=== PATIENT | female | born 1940 | race Caucasian/White ===

== ENCOUNTER 2018-07-17 18:09 | Emergency (ER) | payer MEDICARE, BC, SELFPAY ==
[2018-07-17 18:30] VITALS: BP 146/62; PULSE 58; RESP 16; TEMP 36.8; O2SAT 96
--- NOTE | 2018-07-17 19:31 | DI.RAD_ITS ---
SYMPTOM/DIAGNOSIS: FELL ON OUTSTRETCHED HAND, PAIN RIGHT WRIST: An impacted distal radial fracture is demonstrated with apex dorsal angulation. Intra-articular extension is not definitely seen but is likely present at the radial carpal joint. The possibility of a dislocation of the ulna at the distal radial ulnar joint with posterior medial protrusion of the ulna is raised. There is diffuse osteopenia and scattered degenerative changes involving the wrist and hand. SUMMARY: Distal radial fracture as described above. Probable dislocation of the distal radial ulnar joint.
--- NOTE | 2018-07-17 19:34 | ED.GENADUL_ITS ---
Discharge Plan Disposition Patient Disposition: HOME Condition: Fair Discharge Details Chief Complaint: Orthopedic Clinical Impression: Displaced fracture of distal end of radius Primary Care Provider: Emily Lucio ED Provider: Meena Adame Home Meds and New Rx's Prescriptions: Continue acetaminophen [Tylenol] 325 MG tablet 650 mg PO Q6H PRN RF: 0 methotrexate sodium 2.5 MG tablet 2.5 mg PO 8 tabs per week RF: 0 naproxen sodium [Aleve] 220 MG tablet 220 mg PO BID PRNRF: 0 aspirin [Aspirin Low-Strength] 81 MG tablet,chewable 81 mg PO DAILY RF: 0 folic acid 1 MG tablet 1 mg PO DAILY RF: 0 hydroxychloroquine 200 MG tablet 200 mg PO HS RF: 0 cholecalciferol (vitamin D3) 2,000 UNIT tablet 2,000 unit PO DAILY RF: 0 amoxicillin 500 MG capsule 500 mg PO #4 predental RF: 0 fluticasone [Flonase Allergy Relief] 9.9 ML spray,suspension 9.9 ml NS DAILY PRNRF: 0 calcium carbonate [Calcium 500] 500 MG tablet 2 tab PO DAILY RF: 0 losartan 25 MG tablet 25 mg PO DAILY RF: 0 metoprolol succinate 25 MG tablet extended release 24 hr 25 mg PO DAILY RF: 0 methimazole 5 MG tablet 5 mg PO DAILY RF: 0 zoledronic tkhl-kvvknziz-lxcmv [Reclast] 5 MG/100 ML piggyback 5 mg IV YEARLY RF: 0 diclofenac sodium 25 MG tablet,delayed release (DR/EC) 25 mg PO RF: 0 turmeric root extract 1 EACH capsule 1 ea PO DAILY RF: 0 PROVENTIL HFA 18 GM HFA.AER.AD 2 puff Inhalation Q4H PRN RF: 0 omeprazole magnesium [Prilosec OTC] 20 MG tablet,delayed release (DR/EC) 20 mg PO DIRECTED RF: 0 Discharge Instructions Instructions: Wrist Fracture in Adults (ED) Additional Instructions: Encourage rest, ice, elevation. Tylenol and/or ibuprofen as needed for discomfort. Please follow-up with orthopedics, please call office tomorrow to schedule appointment. Keep Splint on until evaluated by orthopedics. When you discuss your current symptoms with orthopedics to schedule appointment, please let them know that this fracture is 2 weeks old. Referrals: Jero Olsen MD [ [facility] STAFF PHYSICIAN] - ([phone]) Discharge Data Discharge Date/Time-TO BE ENTERED AT DEPARTURE: 07/17/18 21:50 Medical Decision Making MDM Narrative Medical decision making narrative: X-ray reviewed by radiologist. Advised that there is a distal radius fracture with displaced overriding apex dorsal angulation. The intra-articular extension is not definitive we identified but likely is present at the radiocarpal joint. Findings are suggestive of possible dislocation of the distal ulna at the distal radial ulnar joint with posterior and medial protrusion of the distal ulna. There is diffuse osteopenia scattered degenerative changes in the wrist and hand. Advised overall impression is overriding distal radius fracture with probable dislocation of the distal radial ulnar joint. Discussed findings with the patient. She was fitted with a plaster splint. She tolerated application of splint well. She continues to have good range of motion of the digits and brisk capillary refill, sensation intact after application of splint at this point, she is 2 weeks out, I did not feel comfortable trying to reduce her. Rather, I feel she should follow-up with orthopedics in the office. Encouraged rest, ice, elevation. Tylenol and/or ibuprofen as needed for discomfort. Advised that she seek care urgently if she develop new or worsening symptoms. Will give her contact information for orthopedics. To keep splint on until evaluated by orthopedics. All of her questions and concerns were addressed and she is in agreement with this plan. HPI - General Adult General Mode of arrival: ambulatory . Date/Time Provider Initiated Documentation: 07/17/18 19:21 . Limitations to Documentation: no limitations . Information obtained by: patient . HPI Narrative: Patient is a 77-year-old cibee-gyjv-dwwyzoew female presenting today with chief complaint of right wrist pain. She reports that she fell on her outstretched right hand 2 weeks ago after slipping in the grass. Denies other injury at the time of the incident. Did not strike her head, no loss of consciousness. Reports that she was seen by her stock sheets cleaner inspector today who advised that she have her right wrist evaluated. Presents to the emergency room for persistent pain. Has not been taking anything to help with her discomfort. She denies any numbness or tingling, no opening in the skin. Indicates the radial aspect of the wrist as point of maximal discomfort Related Data Home Medications Medication Instructions Recorded Confirmed acetaminophen [Tylenol] 650 mg PO Q6H PRN tab-cap 01/18/13 07/19/18 aspirin [Aspirin Low-Strength] 81 mg PO DAILY tab-cap 01/18/13 07/19/18 cholecalciferol (vitamin D3) 2,000 unit PO DAILY 01/18/13 07/19/18 folic acid 1 mg PO DAILY tab-cap 01/18/13 07/19/18 hydroxychloroquine 200 mg PO HS tab-cap 01/18/13 07/19/18 methotrexate sodium 2.5 mg PO 8 tabs per week 01/18/13 07/19/18 naproxen sodium [Aleve] 220 mg PO BID PRN 01/18/13 07/19/18 amoxicillin 500 mg PO #4 predental tab-cap 10/27/15 07/19/18 fluticasone [Flonase Allergy 9.9 ml NS DAILY PRN 10/27/15 07/19/18 Relief] calcium carbonate [Calcium 500] 2 tab PO DAILY tab-cap 03/18/16 07/19/18 losartan 25 mg PO DAILY tab-cap 03/18/16 07/19/18 methimazole 5 mg PO DAILY tab-cap 03/18/16 07/19/18 metoprolol succinate 25 mg PO DAILY tab-cap 03/18/16 07/19/18 zoledronic qtwm-wypkvkpw-ndteh 5 mg IV YEARLY infus.set 03/18/16 07/19/18 [Reclast] Proventil Hfa 2 puff INHALATION Q4H PRN inhaler 03/06/18 07/19/18 NS diclofenac sodium 25 mg PO NS 03/06/18 07/19/18 turmeric root extract 1 ea PO DAILY NS 03/06/18 07/19/18 omeprazole magnesium [Prilosec OTC] 20 mg PO DIRECTED 03/17/18 07/19/18 Allergies Allergy/AdvReac Type Severity Reaction Status Date / Time sulfasalazine AdvReac Intermediate Lupus Type Unverified 07/17/18 18:32 Symptoms General Stated Complaint: Orthopedic DEIRDRE: 4 Review of Systems Constitutional Reports as per HPI, Denies chills, Denies fever(s) and Denies weakness Cardiovascular Denies chest pain Respiratory Denies cough Musculoskeletal Reports as per HPI and Denies tingling Integumentary/Breasts Denies non-healing lesions, Denies erythema, Denies rash and Denies skin swelling Neurologic Denies tingling, Denies paresthesias and Denies weakness PFSH Family History Mother Asthma Father No problems noted. Sister No problems noted. Sister No problems noted. Brother No problems noted. Medical History Bigeminy Bilateral hearing loss CAD (coronary artery disease) COPD (chronic obstructive pulmonary disease) Chronic obstructive lung disease Colitis Hearing loss History of hypertension History of tobacco use Hyperthyroidism Mitral valve disease Osteopenia Osteoporosis Rheumatoid arthritis Rhinitis Ulcerative colitis Social History Smoking/Tobacco Use Status: Former Tobacco Use Surgical History Colonoscopy - IV Sedation (~2008) Colonoscopy - MAC (03/22/18) Exam Const General: cooperative, healthy appearing, comfortable, no acute distress and well developed Orientation: alert and awake Eyes General: appearance normal, both eyes and all related structures Resp Effort & Inspection: normal respiratory effort, able to speak in complete sentences and no respiratory distress Skin General skin exam: no rashes or lesions noted, no ecchymosis and no erythema Lesions: no lesions Rashes: no rashes Trauma: no lacerations or abrasions Wounds: no wounds Nails: normal Neuro General: alert, awake and oriented x3 Cognition: normal cognition Speech: speech normal Gait: normal gait Motor: muscle tone normal throughout Sensory Exam: no sensory deficits noted Extrem General: abnormal to inspection, normal capillary refill and no joint enlargement Psych Appearance: grossly normal and well kempt Mental Status: mental status grossly normal Speech and Movement: speech and movement normal Mood: congruent mood Affect: normal affect Course Vital Signs Temperature 36.8 C 07/17/18 18:30 Pulse 58 L 07/17/18 18:30 Respiratory Rate 16 07/17/18 18:30 Blood Pressure 146/62 H 07/17/18 18:30 Pulse Oximetry 96 07/17/18 18:30 Temperature 36.8 C 07/17/18 18:30 Pulse 58 L 07/17/18 18:30 Respiratory Rate 16 07/17/18 18:30 Blood Pressure 146/62 H 07/17/18 18:30 Pulse Oximetry 96 07/17/18 18:30
--- NOTE | 2018-07-17 21:16 | DI.VRAD_ITS ---
EXAM: XR Right Wrist Complete, 3 or more Views EXAM DATE/TIME: 07/17/2018 7:32 PM CLINICAL HISTORY: 77 years old, female; Pain; Wrist; Right; Patient HX: Per PT: Fell on wrist about 2 weeks ago, foosh TECHNIQUE: XR Right wrist 3 or more views. COMPARISON: No relevant prior studies available. FINDINGS: Bones/joints: There is a distal radius fracture which displays overriding and apex dorsal angulation. Intra-articular extension is not definitely identified, but likely is present at the radiocarpal joint. Findings are also suggestive of possible dislocation of the distal ulna at the distal radial ulnar joint with posterior and medial protrusion of the distal ulna. There is diffuse osteopenia and scattered degenerative changes of the wrist and hand. IMPRESSION: 1. Overriding distal radius fracture. 2. Probable dislocation of the distal radial ulnar joint. Dictated and Authenticated by: Christiano Franco MD. Ordering:NICOLE CARDOZO MD
== END 2018-07-17 21:50 | disposition home or self-care (01) ==
PROVIDERS: Emergency Provider Physician Assistant; PCP Family Medicine
DX: S52.501A Unspecified fracture of the lower end of right radius, initial encounter for closed fracture (principal); W01.0XXA Fall on same level from slipping, tripping and stumbling without subsequent striking against object, initial encounter; I10 Essential (primary) hypertension; J44.9 Chronic obstructive pulmonary disease, unspecified; Z87.891 Personal history of nicotine dependence
CPT/HCPCS: 29125; 99284; 73110

== ENCOUNTER 2018-07-18 13:15 | Outpatient (CLI) | payer MEDICARE, BC, SELFPAY ==
[2018-07-18 14:24] LABS: HGB 14.1 g/dL (12.0-15.5)
[2018-07-18 15:41] LABS: ALT 15 U/L (12-78); AST 25 U/L (15-37); Albumin 3.7 g/dL (3.4-5.0); Alkaline Phosphatase 107 U/L (46-116); Anion Gap 4.8 mmol/L (3-11); BUN 28 mg/dL (7-18); Bilirubin, Total 0.6 mg/dL (0.2-1.0); CO2 31.2 mmol/L (21.0-32.0); CREATININE 0.86 mg/dL (0.55-1.02); Calcium 8.7 mg/dL (8.5-10.1); Chloride 110 mmol/L (98-107); Glucose 126 mg/dL (70-100); Potassium 4.3 mmol/L (3.5-5.1); Sodium 146 mmol/L (136-145); Total Protein 6.6 g/dL (6.4-8.2)
== END 2018-07-18 13:35 ==
PROVIDERS: PCP Family Medicine; Visit Provider Nurse Practitioner Family
DX: M06.9 Rheumatoid arthritis, unspecified (principal); Z79.899 Other long term (current) drug therapy; Z51.81 Encounter for therapeutic drug level monitoring
CPT/HCPCS: 36415; 80053; 85014; 85018

== ENCOUNTER → 2018-07-19 10:33 | Outpatient (BNVA) | payer MEDICARE, BC, SELFPAY | PROVIDERS: PCP Family Medicine; Referring Provider Family Medicine; Visit Provider Orthopaedic Surgery | DX: S52.501A Unspecified fracture of the lower end of right radius, initial encounter for closed fracture (principal); W01.0XXA Fall on same level from slipping, tripping and stumbling without subsequent striking against object, initial encounter | CPT/HCPCS: 99202; 99214 ==

== ENCOUNTER 2018-07-19 11:10 | Day surgery (SDC) | payer MEDICARE, BC, SELFPAY ==
[2018-07-19 11:35] VITALS: BP 130/63; PULSE 50; RESP 16; TEMP 36.6; O2SAT 98
--- NOTE | 2018-07-19 12:24 | DI.RAD_ITS ---
SYMPTOMS/DIAGNOSIS: DISTAL RADIUS FRACTURE C-ARM FLUOROSCOPY, RIGHT WRIST: Fluoroscopy Time: 22.2 sec C-arm fluoroscopy was utilized by Dr. Olsen during apparent closed reduction of a fracture of the distal radius. Hard copies show improved alignment in comparison with films of 07/17/2018.
[2018-07-19] MEDS: Lactated Ringers 1,000 ML 30 ML IV (12:29)
[2018-07-19] MEDS: Bupivacaine 0.5% Pres-Free 30 ML VIAL (12:46)
--- NOTE | 2018-07-19 15:00 | W.PM.DSUDISC ---
Discharge Plan Disposition Patient Disposition: HOME Condition: Good Discharge Details Reason For Visit: FX DISTAL RADIUS (R) Attending Provider: Jero Olsen Primary Care Provider: Emily Lucio Home Meds and New Rx's Prescriptions: New hydrocodone-acetaminophen 5-325 mg tablet 1 tab PO Q6H PRN (Reason: pain) Qty: 10 RF: 0 Continue acetaminophen [Tylenol] 325 MG tablet 650 mg PO Q6H PRN RF: 0 methotrexate sodium 2.5 MG tablet 2.5 mg PO 8 tabs per week RF: 0 naproxen sodium [Aleve] 220 MG tablet 220 mg PO BID PRNRF: 0 aspirin [Aspirin Low-Strength] 81 MG tablet,chewable 81 mg PO DAILY RF: 0 folic acid 1 MG tablet 1 mg PO DAILY RF: 0 hydroxychloroquine 200 MG tablet 200 mg PO HS RF: 0 cholecalciferol (vitamin D3) 2,000 UNIT tablet 2,000 unit PO DAILY RF: 0 amoxicillin 500 MG capsule 500 mg PO #4 predental RF: 0 fluticasone [Flonase Allergy Relief] 9.9 ML spray,suspension 9.9 ml NS DAILY PRNRF: 0 calcium carbonate [Calcium 500] 500 MG tablet 2 tab PO DAILY RF: 0 losartan 25 MG tablet 25 mg PO DAILY RF: 0 metoprolol succinate 25 MG tablet extended release 24 hr 25 mg PO DAILY RF: 0 methimazole 5 MG tablet 5 mg PO DAILY RF: 0 zoledronic vjjq-xqsbzlbu-txsuv [Reclast] 5 MG/100 ML piggyback 5 mg IV YEARLY RF: 0 diclofenac sodium 25 MG tablet,delayed release (DR/EC) 25 mg PO RF: 0 turmeric root extract 1 EACH capsule 1 ea PO DAILY RF: 0 PROVENTIL HFA 18 GM HFA.AER.AD 2 puff Inhalation Q4H PRN RF: 0 omeprazole magnesium [Prilosec OTC] 20 MG tablet,delayed release (DR/EC) 20 mg PO DIRECTED RF: 0 Discharge Instructions Additional Instructions: Elevate R hand above heart level as much as possible for next 48 hours. Wiggle fingers R hand 10 times/hour when awake to prevent swelling. Keep dressings and splint dry and intact until return. Return to 's office next for follow up. Equipment/Supplies: Splint Activity:: Activity as Tolerated Remove Dressings/Wound Care:: Do Not Remove Shower/Bathe:: Cover Diet:: regular Discharge Orders Discharge Orders: Discharge Order (Routine); Ordered 07/19/18 Ordered By: Jero Olsen DS: Diagnosis Discharge Diagnosis (1) Fx lower radius/ulna-closed: Start date: 07/19/18 Start time: 15:02 Status: Acute
--- NOTE | 2018-07-19 15:19 | DI.RAD_ITS ---
SYMPTOMS/DIAGNOSIS: CHECK REDUCTION FOLLOWING OPEN REDUCTION AND INTERNAL FIXATION OF FRACTURED DISTAL RADIUS RIGHT WRIST: Fluoroscopy Time: 22.2 sec Three views were obtained and show plate and screw fixation of the distal radius with no gross interval change in alignment of the fracture fragments in comparison with intraoperative films of 07/19. The wrist is in a splint.
[2018-07-19 15:27] VITALS: BP 120/69; PULSE 61; RESP 16; TEMP 35.7; O2SAT 97
--- NOTE | 2018-07-19 18:40 | ROE_ITS ---
DATE OF PROCEDURE: July 19, 2018 PREOPERATIVE DIAGNOSIS: Comminuted displaced fracture distal radius on the right. POSTOPERATIVE DIAGNOSIS: Same. PROCEDURE: Open reduction and internal fixation of comminuted fracture distal radius on the right us ing volar plate fixation. SURGEON: Jero Olsen M.D. EMERGENCY DOCTOR: Lino Parkinson PA-C ANESTHESIA: Supraclavicular nerve block, Victor M Vee CRNA INDICATIONS: This is a 77-year-old white female, right dominant, who fell on her outstretched right wrist two weeks ago. She did not seek immediate medical attention. She went to the Emergency Room f or evaluation on 07/17/18 because of continued pain in her right hand and wrist. X-rays at that time showed a comminuted extraarticular fracture of the distal radius with marked shortening and radial de viation. The fracture was so shortened that her distal ulna was quite prominent and was a block to s upination. I did not feel that her alignment was consistent with good function of the wrist. Even t dewayne two weeks had elapsed since her fracture, I felt that there was a good chance that the fracture could be reduced. Because of the comminution however, I did not feel that the reduction could be he ld in a cast. I felt that she would need internal fixation. I recommended to the patient that I att empt a closed reduction. If I could get an adequate reduction closed, that would mean that the fract ure fragments are mobile enough to undergo open reduction and internal fixation using a volar plate. If the fracture fragments did not move with a closed reduction, then I would simply treat her with a cast and accept limitations. The patient agreed with my recommendations. The risks and complicatio ns of the procedure were explained to the patient in detail preoperatively. PROCEDURE: The patient was taken to the Operating Room on 07/19/18. She was placed supine on the ope rating table. A supraclavicular block was performed to the right upper extremity. The patient's rig ht hand was suspended from an IV pole with finger traps and countertraction of 12 pounds was applied. I performed a manipulated reduction and then I checked the reduction with mini C-arm image intensif ier. I was able to restore radial length and correct the volar displacement of the distal fracture f ragment with a closed reduction. I felt that there was enough motion of the fracture fragments that I could perform a good open reduction and internal fixation. Once good block was obtained, a proximal tourniquet was applied to the right upper arm and then the r ight hand, wrist, and forearm were prepped and draped free in the usual sterile fashion. The right u pper extremity was exsanguinated by elevation and then the tourniquet was inflated to 300 mmHg. A lo ngitudinal incision was made directly over the flexor carpi radialis tendon. It began about 4 inches proximal to the wrist and I carried it across the distal wrist crease in a zigzag fashion. An incis ion was then made on the ulnar side of the flexor carpi radialis tendon and the incision was carried down through the pronator muscle to bone. The fracture in the volar surface of the radius was subper iosteally exposed. Using a curette and a small rongeur, fibrous tissue was removed from the fracture site. I then used a freer elevator to reduce the fracture. Surprisingly, the volar cortex of the f racture was intact and I was able to restore length to the fracture easily. The reduction was checke d using the C-arm image intensifier. It was confirmed that radial length was restored and the radial inclination of the distal radius was restored. On the lateral view the excessive volar displacement was also corrected. I then applied a Synthes AO volar wrist plate with four distal holes. I temporarily fixed the plate to the radius with one 2.7 screw through a sliding hole in the plate to allow for further adjustment. Once good position of the plate was confirmed, I tightened the screw maximally, bringing the plate close to the surface of the bone. I then proceeded to fixate the distal fracture fragments with four locking 2.3 screws through the plate. These were inserted using C-arm image intensification. The l ocked screws were carefully measured so that the tip of the screws did not penetrate the dorsal ike x of the distal radius. C-arm image intensification was also used to confirm that the screws did not violate the radiocarpal joint. When the four distal screws had been inserted and were felt to be in good position, I then completed the fixation with two nonlocking 2.7 screws through the proximal hol es of the plate. The wound was irrigated with Betadine and saline solution. A median nerve block wa s performed and with 0.5% Marcaine with epinephrine solution. The wound margins were infiltrated wit h 0.5% Marcaine with epinephrine solution. The pronator fascia was approximated over the plate with interrupted nmexlf-xl-dtqan sutures of #3-0 Vicryl suture material. The skin edges were approximated with interrupted #4-0 nylon sutures. The w ound was dressed with Xeroform gauze, sterile gauze 4x4s, half an ABD pad, and wrapped with a Kerlix bandage. A fiberglass volar wrist splint was then fashioned and applied with a 3-inch Danilo bandage to the right forearm. The tourniquet was released. There was no breakthrough bleeding to the dressing s. The patient tolerated the procedure well. Her sedation was reversed without complications. She was discharged to Recovery in good condition. The patient was later discharged home from the Day Surgery Unit when fully recovered from her sedatio n. The block was still providing good anesthesia to her right upper extremity. The patient was give n instructions to elevate her right hand above heart level as much as possible for the next 48 hours. She is encouraged to wiggle her fingers 10 times an hour while awake to prevent swelling. She is t o keep the dressings and splint intact and dry until she follows up in my office next , . She can take Tylenol for pain and for breakthrough pain she can take hydrocodone with APAP 5 mg/ 325 mg, 1 tablet every 6 hours as needed.
== END 2018-07-19 17:00 | disposition home or self-care (01) ==
PROVIDERS: PCP Family Medicine; Visit Provider Orthopaedic Surgery
PROC: (CPT 25607; principal; 2018-07-19 13:00)
PROC: (CPT 25607; 2018-07-19 13:00)
DX: S52.551A Other extraarticular fracture of lower end of right radius, initial encounter for closed fracture (principal); W01.10XA Fall on same level from slipping, tripping and stumbling with subsequent striking against unspecified object, initial encounter; K21.9 Gastro-esophageal reflux disease without esophagitis; I10 Essential (primary) hypertension
CPT/HCPCS: 25607; 76942; 99202; 99214; 73100; 73110; J0690; J3010; L3650

== ENCOUNTER → 2018-07-27 09:53 | Outpatient (BNVA) | payer MEDICARE, BC, SELFPAY | PROVIDERS: PCP Family Medicine; Referring Provider Family Medicine; Visit Provider Orthopaedic Surgery | DX: S52.601D Unspecified fracture of lower end of right ulna, subsequent encounter for closed fracture with routine healing (principal); S52.501D Unspecified fracture of the lower end of right radius, subsequent encounter for closed fracture with routine healing; W01.0XXD Fall on same level from slipping, tripping and stumbling without subsequent striking against object, subsequent encounter; J44.9 Chronic obstructive pulmonary disease, unspecified; Z87.891 Personal history of nicotine dependence; I10 Essential (primary) hypertension ==

== ENCOUNTER 2018-07-27 11:46 | Outpatient (CLI) | payer MEDICARE, BC, SELFPAY ==
--- NOTE | 2018-07-27 10:18 | DI.RAD_ITS ---
SYMPTOM/DIAGNOSIS: ORIF RIGHT WRIST: Two images of the right wrist were obtained today, out of the cast. When compared with the prior study the distal radial fracture remains in excellent alignment. A fixation plate and screw device in place. No interval change when compared with the prior examination of 07/19/18.
== END 2018-07-27 12:06 ==
PROVIDERS: PCP Family Medicine; Referring Provider Family Medicine; Visit Provider Orthopaedic Surgery
DX: S52.501D Unspecified fracture of the lower end of right radius, subsequent encounter for closed fracture with routine healing (principal)
CPT/HCPCS: 73100

== ENCOUNTER 2018-08-03 11:38 | Outpatient (CLI) | payer MEDICARE, BC, SELFPAY ==
--- NOTE | 2018-08-03 10:10 | DI.RAD_ITS ---
SYMPTOMS/DIAGNOSIS: F/U VOLAR PLATING RIGHT WRIST: Two views. Comparison 07/19/18. The cast has been removed. There are again seen plate and screws transfixing the comminuted fracture of the distal right radius. No change in alignment of the orthopedic hardware or fracture components are noted. There is again a nondisplaced ulnar styloid process fracture. No new fractures or dislocations are seen. The bones appear osteopenic. The soft tissues are unremarkable.
== END 2018-08-03 11:58 ==
PROVIDERS: PCP Family Medicine; Referring Provider Family Medicine; Visit Provider Orthopaedic Surgery
DX: S52.501D Unspecified fracture of the lower end of right radius, subsequent encounter for closed fracture with routine healing (principal); S52.601D Unspecified fracture of lower end of right ulna, subsequent encounter for closed fracture with routine healing; W01.0XXD Fall on same level from slipping, tripping and stumbling without subsequent striking against object, subsequent encounter; I10 Essential (primary) hypertension; J44.9 Chronic obstructive pulmonary disease, unspecified; Z87.891 Personal history of nicotine dependence
CPT/HCPCS: 73100; L3908

== ENCOUNTER 2018-08-31 10:15 | Outpatient (CLI) | payer MEDICARE, BC, SELFPAY ==
--- NOTE | 2018-08-31 09:44 | DI.RAD_ITS ---
SYMPTOM/DIAGNOSIS: F/U ORIF RIGHT WRIST: Plate and screw fixation device is affixed to the distal radius. There has been no change in the alignment of the fracture components or orthopedic hardware. Note is again made of a nondisplaced fracture of the ulnar styloid. There has been no apparent interval change.
== END 2018-08-31 10:35 ==
PROVIDERS: PCP Family Medicine; Visit Provider Orthopaedic Surgery
DX: S52.501D Unspecified fracture of the lower end of right radius, subsequent encounter for closed fracture with routine healing (principal); S52.601D Unspecified fracture of lower end of right ulna, subsequent encounter for closed fracture with routine healing; J44.9 Chronic obstructive pulmonary disease, unspecified; I10 Essential (primary) hypertension; W01.0XXA Fall on same level from slipping, tripping and stumbling without subsequent striking against object, initial encounter
CPT/HCPCS: 73100

== ENCOUNTER 2018-10-06 10:11 | Inpatient (IN) | payer MEDICARE, BC, SELFPAY ==
[2018-10-06] VITALS (26 sets, daily range): BP systolic 109–163; BP diastolic 57–101; PULSE 54–78; RESP 14–27; TEMP 36.4–37.4; O2SAT 95–100
--- NOTE | 2018-10-06 10:24 | W.ED.GENAD ---
Discharge Plan Disposition Patient Disposition: [facility] INPATIENT Condition: Fair Discharge Details Chief Complaint: Orthopedic Clinical Impression: Closed hip fracture Reason For Visit: INTERTROCHANTERIC FX R FEMUR Admit Date/Time: 10/06/18 14:12 Admit Provider: Jero Olsen Attending Provider: Yanni Samuel Primary Care Provider: Emily Lucio ED Provider: Meena Adame Discharge Data Discharge Date/Time-TO BE ENTERED AT DEPARTURE: 10/06/18 12:25 Medical Decision Making <Mauricio Welch MD - Last Filed: 10/07/18 09:31> ECG Data Attestation: I personally reviewed and interpreted this ECG (s) as follows: Prior ECG tracings: available for review (10/27/2015 reviewed sinus bradycardia 49 bpm, T wave inversions are not noted in leads V2 or V3) <AMARA López - Last Filed: 10/06/18 12:38> Patient is an 82-year-old female presenting today, brought in via EMS, with chief complaint of right hip pain. Patient has history of rheumatoid arthritis, acidosis, [place], bigeminy, CAD, colitis, hypothyroidism, mitral valve disease, hypertension, COPD. Had orthopedic repair of the left wrist last year. She reports that this morning around 3 AM, she was getting out of bed to use the restroom when she lost her balance and fell striking the right hip. Was unable to ambulate secondary to her discomfort particular movement of the right lower extremity. He does not have a life alert, family called EMS later this morning when Patient was noted to not be around. Patient does live alone. She denies any altered sensation. Denies other injury extremity incident. Did not strike her head, no loss of consciousness. Has not had anything as of yet for her discomfort. Patient declining any analgesics at this time. She denies any chest pain or shortness of breath. Denies any syncope. 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 She is having pain over the lateral hip. I am concerned for possible hip fracture. No other evidence of trauma on exam. EKG was interpreted by by Dr. Welch, please see his note. However, this was significant for T wave inversions that appear compared to previous. Patient denies any chest pain or shortness of breath X-ray reviewed by myself significant for intratrochanteric fracture Laboratory evaluation significant for a white count of 17.2, I am concerned with his legs to her fall and fracture she does not have any infectious source at this time. Magnesium slightly low at 1.7, we will replenish this here. Troponin is normal at less than 0.02. Consult with Dr. Olsen who advised patient to go to the operating room today. Patient has been n.p.o. she was unable to get up and have any of her food this morning. Is not doing any of her medications as of yet. I relayed my concerns of the EKG changes to Dr. Olsen. Consulted with Dr. Samuel regarding admission. With the EKG changes, she is asked to the patient remain on monitor, nursing staff will apply a cardiac catheterization technician at this time. Reevaluated the patient after she returned from imaging and discussed findings. Advised on the plan set forth by Dr. Olsen. Patient is now reporting the pain is increasing, particular if movement of x-ray. I have consulted with anesthesia discussed block. Dr. Olsen evaluated patient, obtained consent. Block preformed by TETRYL WRINGER OPERATOR. OR ready for patient, as she is still receiving magnesium, antibiotics not yet given. OR team will give. I relayed this to TETRYL WRINGER OPERATOR as well as patients EKG changes. HPI <Mauricio Welch MD - Last Filed: 10/07/18 09:31> General Date/Time Provider Initiated Documentation: 10/06/18 10:16. Related Data Home Medications Medication Instructions Recorded Confirmed acetaminophen [Tylenol] 650 mg PO Q6H PRN tab-cap 01/18/13 10/06/18 aspirin [Aspirin Low-Strength] 81 mg PO DAILY tab-cap 01/18/13 10/06/18 cholecalciferol (vitamin D3) 2,000 unit PO DAILY 01/18/13 10/06/18 folic acid 2 mg PO DAILY tab-cap 01/18/13 10/06/18 hydroxychloroquine 200 mg PO HS tab-cap 01/18/13 10/06/18 methotrexate sodium 8 tab PO QWEEK 01/18/13 10/06/18 naproxen sodium [Aleve] 220 mg PO BID PRN 01/18/13 10/06/18 amoxicillin 500 mg PO #4 predental tab-cap 10/27/15 10/06/18 fluticasone [Flonase Allergy 9.9 ml NS DAILY PRN 10/27/15 10/06/18 Relief] calcium carbonate [Calcium 500] 2 tab PO DAILY tab-cap 03/18/16 10/06/18 losartan 25 mg PO DAILY tab-cap 03/18/16 10/06/18 methimazole 5 mg PO DAILY tab-cap 03/18/16 10/06/18 metoprolol succinate 25 mg PO DAILY tab-cap 03/18/16 10/06/18 zoledronic asxo-tugvyanr-zmglc 5 mg IV YEARLY infus.set 03/18/16 10/06/18 [Reclast] Proventil Hfa 2 puff INHALATION Q4H PRN inhaler 03/06/18 10/06/18 NS turmeric root extract 1 ea PO DAILY NS 03/06/18 10/06/18 hydrocodone-acetaminophen 1 tab PO Q6H PRN #10 tab 07/19/18 10/06/18 biotin 5 mg PO DAILY 10/06/18 10/06/18 budesonide-formoterol [Symbicort] 1 puff INHALATION BID 10/06/18 10/06/18 cheuugk-euciwbsty-wbtl 1 tab PO DAILY 10/06/18 10/06/18 Previous Rx's Medication Instructions Recorded hydrocodone-acetaminophen 1 tab PO Q6H PRN #10 tab 07/19/18 Allergies Allergy/AdvReac Type Severity Reaction Status Date / Time sulfasalazine AdvReac Intermediate Lupus Type Unverified 10/06/18 10:31 Symptoms <AMARA López - Last Filed: 10/06/18 12:38> General Mode of arrival: EMS. Limitations to Documentation: no limitations. Information obtained by: patient. History of Present Illness 78 year old F presents to the emergency department with the chief complaint of right hip pain, described as mild, with intensity rated at 2. Quality is described as aching, and is localized to the right and lower extremity. Patient reports no radiation. Patient started experiencing this hour(s) (0300 this AM) and it has been constant. Immobilization improves symptom(s), Movement worsens symptoms . Patient notes no other symptoms.; denies chest pain, cough, fever/chills, headaches, loss of appetite, nausea/vomiting, rash, shortness of breath, syncope and weakness. Patient did receive the following treatments prior to arrival, none General DEIRDRE: 4 <Meena Adame [place] - Last Filed: 10/06/18 12:38> Constitutional Reports as per HPI, Denies chills, Denies fever(s), Denies headache(s), Denies lethargy, Denies poor appetite and Denies weakness Eyes Denies change in vision ENT Denies dizziness and Denies headache(s) Cardiovascular Reports as per HPI, Denies chest pain, Denies chest pain with activity, Denies rapid heart rate, Denies pedal edema, Denies edema, Denies lightheadedness, Denies palpitations, Denies dyspnea and Denies dyspnea on exertion Respiratory Denies cough, Denies dyspnea, Denies dyspnea on exertion and Denies wheezing Gastrointestinal Reports as per HPI, Denies abdominal pain, Denies diarrhea, Denies nausea and Denies vomiting Musculoskeletal Reports as per HPI, Reports abnormal gait (patient has not been ambulatory since time of fall), Denies back pain (denies other injury at the time of the event), Denies numbness and Denies tingling Integumentary/Breasts Reports as per HPI and Denies rash Neurologic Reports abnormal gait (patient has not been ambulatory since time of fall), Denies dizziness, Denies headache(s), Denies numbness, Denies radicular pain, Denies tingling and Denies weakness Endocrine Denies palpitations Allergic/Immunologic Denies wheezing <Meena Adame [place] - Last Filed: 10/06/18 12:38> Const General: cooperative, healthy appearing, comfortable, no acute distress and well developed Nutritional Appearance: average body habitus and well nourished Orientation: alert, awake and oriented x3 HENMT Head: normal to inspection and normocephalic Ears: hearing grossly abnormal bilaterally (patient is [place], has hearing aid on right side, hears better on right) Face and sinus: normal facial exam and face symmetric Mouth: mucous membranes dry (patient appears dry on exam) Chest Chest: normal inspection of the chest, normal palpation of entire chest wall and no crepitus Resp Effort & Inspection: normal respiratory effort, able to speak in complete sentences and no respiratory distress Auscultation: clear to auscultation bilaterally, no rales, no rhonchi and no wheezes Cardio Rate: regular rate Rhythm: regular rhythm Heart Sounds: S1 normal and S2 normal GI Inspection: normal to inspection, no edema and non-distended Palpation: soft, no hepatosplenomegaly, not firm, no guarding, not rigid and nontender Auscultation: normal bowel sounds Back/Spine/Pelvis Back: no CVA tenderness Cervical Spine: normal cervical lordosis and cervical ROM normal Thoracic/Lumbar Spine: thoracic and lumbar spine normal to inspection, No paraspinal tenderness and No thoracic spinal tenderness Pelvis: no pain with anterior-posterior compression Skin General skin exam: no rashes or lesions noted Trauma: no lacerations or abrasions Neuro General: alert, awake and oriented x3 Cognition: normal cognition Speech: speech normal Gait: normal gait Extrem General: normal capillary refill, no pedal edema, no calf tenderness and normal gait Right lower extremity: normal capillary refill; abnormal to inspection (extremity is shortened and malrotated. 2+ distal pulses. No pain with palpation of knee, calf or foot. Sensation intact, no saddle paresthesias. Pain with palpation over the right lateral hip with swelling noted, no discoloration) Psych Appearance: grossly normal and well kempt Mental Status: mental status grossly normal Speech and Movement: speech and movement normal
[2018-10-06 10:43] LABS: Abs Immature Grans 0.03 k/cumm (0.0-0.09); Absolute Basophil Count 0.02 k/cumm (0.0-0.2); Absolute Monocyte Count 0.34 k/cumm (0.11-0.7); Absolute Neutrophil Count 16.41 k/cumm (1.2-6.7); Basophils % 0.1; HCT 38.5 % (36.0-46.0); HGB 12.5 g/dL (12.0-15.5); Immature Grans % 0.2; Lymphocytes % 2.3; Mean Corp. HGB Concentration 32.5 g/dL (32.0-36.0); Mean Corpuscular Hemoglobin 32.6 pg (27.0-33.0); Mean Corpuscular Volume 100.3 fL (80-95); Mean Platelet Volume 10.9 fL (8.0-11.0); Neutrophils % 95.4; Platelet Count 197 x1000/uL (130-400); RBC 3.84 m/cumm (4.00-5.20); RBC Distribution Width 16.1 % (11.7-14.6)
--- NOTE | 2018-10-06 10:50 | ED.GENADUL_ITS ---
Discharge Plan Disposition Patient Disposition: [facility] INPATIENT Condition: Fair Discharge Details Chief Complaint: Orthopedic Clinical Impression: Closed hip fracture Reason For Visit: INTERTROCHANTERIC FX R FEMUR Admit Date/Time: 10/06/18 14:12 Admit Provider: Jero Olsen Attending Provider: Yanni Samuel Primary Care Provider: Emily Lucio ED Provider: Meena Adame Discharge Data Discharge Date/Time-TO BE ENTERED AT DEPARTURE: 10/06/18 12:25 Medical Decision Making <Mauricio Welch MD - Last Filed: 10/07/18 09:31> ECG Data Attestation: I personally reviewed and interpreted this ECG (s) as follows: Prior ECG tracings: available for review (10/27/2015 reviewed sinus bradycardia 49 bpm, T wave inversions are not noted in leads V2 or V3) <AMARA López - Last Filed: 10/06/18 12:38> Patient is an 82-year-old female presenting today, brought in via EMS, with chief complaint of right hip pain. Patient has history of rheumatoid arthritis , acidosis, [place], bigeminy, CAD, colitis, hypothyroidism, mitral valve disease, hypertension, COPD. Had orthopedic repair of the left wrist last year. She reports that this morning around 3 AM, she was getting out of bed to use the restroom when she lost her balance and fell striking the right hip. Was unable to ambulate secondary to her discomfort particular movement of the right lower extremity. He does not have a life alert, family called EMS later this morning when Patient was noted to not be around. Patient does live alone. She denies any altered sensation. Denies other injury extremity incident. Did not strike her head, no loss of consciousness. Has not had anything as of yet for her discomfort. Patient declining any analgesics at this time. She denies any chest pain or shortness of breath. Denies any syncope. 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 She is having pain over the lateral hip. I am concerned for possible hip fracture. No other evidence of trauma on exam. EKG was interpreted by by Dr. Welch, please see his note. However, this was significant for T wave inversions that appear compared to previous. Patient denies any chest pain or shortness of breath X-ray reviewed by myself significant for intratrochanteric fracture Laboratory evaluation significant for a white count of 17.2, I am concerned with his legs to her fall and fracture she does not have any infectious source at this time. Magnesium slightly low at 1.7, we will replenish this here. Troponin is normal at less than 0.02. Consult with Dr. Olsen who advised patient to go to the operating room today. Patient has been n.p.o. she was unable to get up and have any of her food this morning. Is not doing any of her medications as of yet. I relayed my concerns of the EKG changes to Dr. Olsen. Consulted with Dr. Samuel regarding admission. With the EKG changes, she is asked to the patient remain on monitor, nursing staff will apply a bus driver/monitor at this time. Reevaluated the patient after she returned from imaging and discussed findings. Advised on the plan set forth by Dr. Olsen. Patient is now reporting the pain is increasing, particular if movement of x-ray. I have consulted with anesthesia discussed block. Dr. Olsen evaluated patient, obtained consent. Block preformed by CARROT GRADER INSPECTOR. OR ready for patient, as she is still receiving magnesium, antibiotics not yet given. OR team will give. I relayed this to CARROT GRADER INSPECTOR as well as patients EKG changes. HPI <Mauricio Welch MD - Last Filed: 10/07/18 09:31> General Date/Time Provider Initiated Documentation: 10/06/18 10:16 . Related Data Home Medications Medication Instructions Recorded Confirmed acetaminophen [Tylenol] 650 mg PO Q6H PRN tab-cap 01/18/13 10/06/18 aspirin [Aspirin Low-Strength] 81 mg PO DAILY tab-cap 01/18/13 10/06/18 cholecalciferol (vitamin D3) 2,000 unit PO DAILY 01/18/13 10/06/18 folic acid 2 mg PO DAILY tab-cap 01/18/13 10/06/18 hydroxychloroquine 200 mg PO HS tab-cap 01/18/13 10/06/18 methotrexate sodium 8 tab PO QWEEK 01/18/13 10/06/18 naproxen sodium [Aleve] 220 mg PO BID PRN 01/18/13 10/06/18 amoxicillin 500 mg PO #4 predental tab-cap 10/27/15 10/06/18 fluticasone [Flonase Allergy 9.9 ml NS DAILY PRN 10/27/15 10/06/18 Relief] calcium carbonate [Calcium 500] 2 tab PO DAILY tab-cap 03/18/16 10/06/18 losartan 25 mg PO DAILY tab-cap 03/18/16 10/06/18 methimazole 5 mg PO DAILY tab-cap 03/18/16 10/06/18 metoprolol succinate 25 mg PO DAILY tab-cap 03/18/16 10/06/18 zoledronic fznd-nibtrjxm-ctvnh 5 mg IV YEARLY infus.set 03/18/16 10/06/18 [Reclast] Proventil Hfa 2 puff INHALATION Q4H PRN inhaler 03/06/18 10/06/18 NS turmeric root extract 1 ea PO DAILY NS 03/06/18 10/06/18 hydrocodone-acetaminophen 1 tab PO Q6H PRN #10 tab 07/19/18 10/06/18 biotin 5 mg PO DAILY 10/06/18 10/06/18 budesonide-formoterol [Symbicort] 1 puff INHALATION BID 10/06/18 10/06/18 vpvubmz-nglslfbvo-amfw 1 tab PO DAILY 10/06/18 10/06/18 Previous Rx's Medication Instructions Recorded hydrocodone-acetaminophen 1 tab PO Q6H PRN #10 tab 07/19/18 Allergies Allergy/AdvReac Type Severity Reaction Status Date / Time sulfasalazine AdvReac Intermediate Lupus Type Unverified 10/06/18 10:31 Symptoms <AMARA López - Last Filed: 10/06/18 12:38> General Mode of arrival: EMS . Limitations to Documentation: no limitations . Information obtained by: patient . History of Present Illness 78 year old F presents to the emergency department with the chief complaint of right hip pain, described as mild, with intensity rated at 2. Quality is described as aching, and is localized to the right and lower extremity. Patient reports no radiation. Patient started experiencing this hour(s) (0300 this AM) and it has been constant. Immobilization improves symptom(s), Movement worsens symptoms . Patient notes no other symptoms.; denies chest pain, cough, fever/chills, headaches, loss of appetite, nausea/vomiting, rash, shortness of breath, syncope and weakness. Patient did receive the following treatments prior to arrival, none General DEIRDRE: 4 <Meena Adame [place] - Last Filed: 10/06/18 12:38> Constitutional Reports as per HPI, Denies chills, Denies fever(s), Denies headache(s), Denies lethargy, Denies poor appetite and Denies weakness Eyes Denies change in vision ENT Denies dizziness and Denies headache(s) Cardiovascular Reports as per HPI, Denies chest pain, Denies chest pain with activity, Denies rapid heart rate, Denies pedal edema, Denies edema, Denies lightheadedness, Denies palpitations, Denies dyspnea and Denies dyspnea on exertion Respiratory Denies cough, Denies dyspnea, Denies dyspnea on exertion and Denies wheezing Gastrointestinal Reports as per HPI, Denies abdominal pain, Denies diarrhea, Denies nausea and Denies vomiting Musculoskeletal Reports as per HPI, Reports abnormal gait (patient has not been ambulatory since time of fall), Denies back pain (denies other injury at the time of the event), Denies numbness and Denies tingling Integumentary/Breasts Reports as per HPI and Denies rash Neurologic Reports abnormal gait (patient has not been ambulatory since time of fall), Denies dizziness, Denies headache(s), Denies numbness, Denies radicular pain, Denies tingling and Denies weakness Endocrine Denies palpitations Allergic/Immunologic Denies wheezing <Meena Adame [place] - Last Filed: 10/06/18 12:38> Const General: cooperative, healthy appearing, comfortable, no acute distress and well developed Nutritional Appearance: average body habitus and well nourished Orientation: alert, awake and oriented x3 HENMT Head: normal to inspection and normocephalic Ears: hearing grossly abnormal bilaterally (patient is [place], has hearing aid on right side, hears better on right) Face and sinus: normal facial exam and face symmetric Mouth: mucous membranes dry (patient appears dry on exam) Chest Chest: normal inspection of the chest, normal palpation of entire chest wall and no crepitus Resp Effort & Inspection: normal respiratory effort, able to speak in complete sentences and no respiratory distress Auscultation: clear to auscultation bilaterally, no rales, no rhonchi and no wheezes Cardio Rate: regular rate Rhythm: regular rhythm Heart Sounds: S1 normal and S2 normal GI Inspection: normal to inspection, no edema and non-distended Palpation: soft, no hepatosplenomegaly, not firm, no guarding, not rigid and nontender Auscultation: normal bowel sounds Back/Spine/Pelvis Back: no CVA tenderness Cervical Spine: normal cervical lordosis and cervical ROM normal Thoracic/Lumbar Spine: thoracic and lumbar spine normal to inspection, No paraspinal tenderness and No thoracic spinal tenderness Pelvis: no pain with anterior-posterior compression Skin General skin exam: no rashes or lesions noted Trauma: no lacerations or abrasions Neuro General: alert, awake and oriented x3 Cognition: normal cognition Speech: speech normal Gait: normal gait Extrem General: normal capillary refill, no pedal edema, no calf tenderness and normal gait Right lower extremity: normal capillary refill; abnormal to inspection ( extremity is shortened and malrotated. 2+ distal pulses. No pain with palpation of knee, calf or foot. Sensation intact, no saddle paresthesias. Pain with palpation over the right lateral hip with swelling noted, no discoloration) Psych Appearance: grossly normal and well kempt Mental Status: mental status grossly normal Speech and Movement: speech and movement normal
[2018-10-06 11:04] LABS: ALT 19 U/L (12-78); AST 26 U/L (15-37); Albumin 3.2 g/dL (3.4-5.0); Alkaline Phosphatase 99 U/L (46-116); BUN 20 mg/dL (7-18); Bilirubin, Total 0.8 mg/dL (0.2-1.0); CREATININE 0.73 mg/dL (0.55-1.02); Calcium 8.7 mg/dL (8.5-10.1); Chloride 105 mmol/L (98-107); Glucose 120 mg/dL (70-100); Magnesium 1.7 mg/dL (1.8-2.4); Potassium 4.5 mmol/L (3.5-5.1); Sodium 142 mmol/L (136-145); TSH (W/Ref FT4) 2.47 uIU/mL (0.358-3.74); Total Protein 6.6 g/dL (6.4-8.2)
[2018-10-06 11:05] LABS: Troponin I < 0.02 ng/mL (0.00-0.06)
--- NOTE | 2018-10-06 11:12 | DI.RAD_ITS ---
SYMPTOM/DIAGNOSIS: HIP FX, FELL, SHORTENING, ROTATION PELVIS AND RIGHT HIP: There is a comminuted, intra-articular fracture of the right femur. There is overriding and displacement of the fracture noted. The right femoral head is seated within the acetabulum. There is a lucency seen at the posterior aspect of the right acetabulum and a nondisplaced fracture cannot be excluded. No other fracture or dislocation is seen. The sacroiliac joints and symphysis pubis appear intact. Degenerative changes are seen in the lower lumbar spine. IMPRESSION: Comminuted, displaced intertrochanteric fracture of the right femur. AP CHEST: Comparison is made with 02/08/18. Heart size and pulmonary vasculature is within normal limits. There is again seen a mitral valve replacement. The lungs are clear. No effusions or pneumothoraces are identified. The bones are intact. IMPRESSION: No acute pulmonary process.
[2018-10-06] MEDS: Normal Saline 1,000 ML 150 ML IV (11:25)
[2018-10-06] MEDS: MAGNESIUM SULFATE 1 GM/100 ML BAG IVPB (11:30)
[2018-10-06 12:06] LABS: Creatine Kinase 86 U/L (26-192)
[2018-10-06] MEDS: Lactated Ringers 1,000 ML 30 ML IV (12:34)
[2018-10-06] MEDS: Normal Saline 100 ML (13:29)
[2018-10-06] MEDS: Bupivacaine 0.25% Pres-Free 30 ML VIAL (13:51)
[2018-10-06] MEDS: Bupivacaine LIPOSOME/PF 133 MG/10 ML VIAL IJ (13:51)
[2018-10-06] MEDS: Tranexamic Acid 1,000 MG/10 ML VIAL 1000 MG (14:05)
--- NOTE | 2018-10-06 14:19 | PT.INNT ---
Date of service: 10/06/18 Time of Service: 14:20 PT Notes PHYSICAL THERAPY NOTE 10/06/18 P.T consult received, chart reviewed. Pt presented to ED with hip fracture, going to OR today. Will need new P.T consult order post operatively to begin therapy services. Nancy aPtel PT
--- NOTE | 2018-10-06 14:20 | DI.RAD_ITS ---
SYMPTOM/DIAGNOSIS: RT HIP FX RIGHT HIP IN THE OR: Fluoroscopy Time: 118.9 sec 9.63mGy Fluoroscopy was utilized by Dr. Olsen during the reduction and internal fixation of the comminuted intertrochanteric fracture of the right femur. Alignment appears anatomic. The orthopedic hardware appears in good position. Please refer to the procedure report for complete details.
--- NOTE | 2018-10-06 15:17 | DI.RAD_ITS ---
SYMPTOMS/DIAGNOSIS: CHECK REDUCTION POST ORIF IT FX RT FEMUR RIGHT HIP: Fluoroscopy Time: 118.9 sec 9.63mGy Multiple views were obtained. There has been interval placement of an intramedullary lucía and screw transfixing the intertrochanteric fracture of the right femur. The orthopedic hardware appears in good position. Alignment of the fracture fragments is near anatomic. Skin radha are present. IMPRESSION: Status post reduction and internal fixation of the intertrochanteric fracture of the right femur.
--- NOTE | 2018-10-06 15:53 | W.PM.HP.N ---
Date of service: 10/06/18 Time of Service: 15:53 Assessment and Plan (1) Intertrochanteric fracture of right femur: Current visit: Yes Status: Acute S/p fall at home. Her fracture was repaired by Dr. Olsen, Orthopedics, today. She received Ancef preoperatively. She denies pain at the present time. She has PRN morphine ordered for pain. She will have scheduled toradol scheduled for pain. Zofran for nausea. PT has been consulted. Continue maintenance IV fluids overnight. (2) CAD (coronary artery disease): Current visit: Yes Status: Chronic She had inverted T-waves noted on EKG in ED, which appeared to be new. Review of the record indicates that there was evidence of previous GA on pre-procedure cardiac cath as noted on Cardiology consult note from October of 2014. She has had several echocardiograms as she has history of mitral valve repair. Most recent echo on file here was in 2015, LVEF was 65-70%. Hold aspirin until orthopedics recommends restarting. Hold Cozaar for now, BMP in the morning. Continue home dose of Metoprolol CR in the morning provided that she does not have hypotension or bradycardia. Continue to trend troponins. (3) COPD (chronic obstructive pulmonary disease): Current visit: Yes Status: Chronic Continue home inhaler. (4) Rheumatoid arthritis: Current visit: Yes Status: Chronic Hold plaquenil and methotrexate for now. (5) Leukocytosis: Current visit: Yes Status: Acute She is afebrile. Chest X-ray negative for acute process. UA not obtained in ED. UA currently pending. Reassess CBC in the morning. (6) Falls: Current visit: Yes Status: Acute A fall at home led to her right hip fracture. She also had a fall in July of this year, 3 months ago, with a right wrist fracture resulting (also requiring surgical repair). This raises concern for her safety living with her elderly sister. Will have care management work on a safe discharge plan. She may benefit from short-term rehab. (7) DVT prophylaxis: Current visit: Yes Status: Acute Subcutaneous lovenox ordered by Orthopedics. (8) Discharge planning issues: Current visit: Yes Status: Acute She is listed as a FULL code. She was quite sleepy after the surgery and was not able to engage in a meaningful conversation about code status. This will need to be revisited when she is more awake and alert. She does not have advanced directives on file here at [facility]. She will likely require rehab when she is ready for discharge from the hospital. This case was discussed with Dr. Samuel who is in agreement. History of Present Illness Chief Complaint: Right hip fracture Narrative: Carmella Stephenson is a very pleasant 78 year old female who lives with her elderly sister, with past medical history significant for coronary artery disease, hx of mitral valve replacement, COPD, RA, hearing loss and recent history or right wrist fracture s/p fall (in 07/2018) who is admitted to the med/surg floor s/p right hip fracture repair. She presented to the ED today, via EMS, after falling at home around 3 am while getting out of bed to use the bathroom. She noted immediate right hip pain and was unable to ambulate. Her family called EMS when they noticed that she was not present. In the emergency department, she had a hip x-ray that was notable for a right intratrochanteric fracture. She was seen by Dr. Olsen, Orthopedics, who took her directly to the OR for repair of the fracture. In the ED, she had labs drawn which were notable for an elevated white blood cell count of 17.2. Her magnesium was low at 1.7, she received supplementation in the ED. She had an EKG which was notable for for T wave inversions that appeared new as compared to previous EKG. Her troponin was negative, she denies chest pain or shortness of breath in the ED. She is now seen post-operatively. She reports back discomfort. She denies any pain in the left hip. She feels tired, she is falling asleep and has to be awakened to answer questions. She denies any other injury occurring at the time of her fall. She denies shortness of breath, cough, wheezing, no chest pain/pressure, palpitations, no nausea, she is hungry, she has a cowart catheter in place. She denies any other concerns. Review of Systems Review of Systems All systems reviewed & are unremarkable except as noted in HPI and below PFSH Fx lower radius/ulna-closed (Acute) Bigeminy Bilateral hearing loss CAD (coronary artery disease) COPD (chronic obstructive pulmonary disease) Chronic obstructive lung disease Colitis Hearing loss History of hypertension History of tobacco use Hyperthyroidism Mitral valve disease Osteopenia Osteoporosis Rheumatoid arthritis Rhinitis Ulcerative colitis Family History Mother Asthma Father No problems noted. Sister No problems noted. Sister No problems noted. Brother No problems noted. Colonoscopy - IV Sedation (~2008) Colonoscopy - MAC (03/22/18) Family History Mother Asthma Father No problems noted. Sister No problems noted. Sister No problems noted. Brother No problems noted. Medical History Fx lower radius/ulna-closed (Acute) Bigeminy Bilateral hearing loss CAD (coronary artery disease) COPD (chronic obstructive pulmonary disease) Chronic obstructive lung disease Colitis Hearing loss History of hypertension History of tobacco use Hyperthyroidism Mitral valve disease Osteopenia Osteoporosis Rheumatoid arthritis Rhinitis Ulcerative colitis Social History Smoking/Tobacco Use Status: Former Tobacco Use Surgical History Colonoscopy - IV Sedation (~2008) Colonoscopy - MAC (03/22/18) Social History Smoking/Tobacco Use Status: Former Tobacco Use Meds Home Medications Medication Instructions Recorded Confirmed Type acetaminophen [Tylenol] 650 mg PO Q6H PRN tab-cap 01/18/13 10/06/18 History aspirin [Aspirin Low-Strength] 81 mg PO DAILY tab-cap 01/18/13 10/06/18 History cholecalciferol (vitamin D3) 2,000 unit PO DAILY 01/18/13 10/06/18 History folic acid 2 mg PO DAILY tab-cap 01/18/13 10/06/18 History hydroxychloroquine 200 mg PO HS tab-cap 01/18/13 10/06/18 History methotrexate sodium 8 tab PO QWEEK 01/18/13 10/06/18 History naproxen sodium [Aleve] 220 mg PO BID PRN 01/18/13 10/06/18 History amoxicillin 500 mg PO #4 predental tab-cap 10/27/15 10/06/18 History fluticasone [Flonase Allergy 9.9 ml NS DAILY PRN 10/27/15 10/06/18 History Relief] calcium carbonate [Calcium 500] 2 tab PO DAILY tab-cap 03/18/16 10/06/18 History losartan 25 mg PO DAILY tab-cap 03/18/16 10/06/18 History methimazole 5 mg PO DAILY tab-cap 03/18/16 10/06/18 History metoprolol succinate 25 mg PO DAILY tab-cap 03/18/16 10/06/18 History zoledronic lmif-kqtfmoei-uczqp 5 mg IV YEARLY infus.set 03/18/16 10/06/18 History [Reclast] Proventil Hfa 2 puff INHALATION Q4H PRN inhaler 03/06/18 10/06/18 History NS turmeric root extract 1 ea PO DAILY NS 03/06/18 10/06/18 History hydrocodone-acetaminophen 1 tab PO Q6H PRN #10 tab 07/19/18 10/06/18 Rx biotin 5 mg PO DAILY 10/06/18 10/06/18 History budesonide-formoterol [Symbicort] 1 puff INHALATION BID 10/06/18 10/06/18 History dekduxz-uqdvziuhd-aeuu 1 tab PO DAILY 10/06/18 10/06/18 History Allergies Allergy/AdvReac Type Severity Reaction Status Date / Time sulfasalazine AdvReac Intermediate Lupus Type Unverified 10/06/18 10:31 Symptoms Exam Narrative Exam Narrative: General: very pleasant 78 year old female, resting in bed with eyes closed, awakened frequently to answer questions. Answers questions appropriately, speech clear. Appears comfortable, in NAD. HEENT: normocephalic, atraumatic, mucous membranes moist, tongue protrudes midline, palate rises symmetrically. Neck: supple, no lymphadenopathy, no JVD. Respiratory: respirations even and unlabored. Lung sounds clear to auscultation throughout. Cardiac: Heart has regular rate and rhythm, no murmur appreciated. 1-2/6 systolic murmur noted at apex. Abdomen: Flat, soft, nondistended, nontender on palpation, no masses appreciated, normoactive bowel sounds. : cowart draining yellow urine. Extremities: Right hip with surgical dressing intact, no active bleeding or drainage. No significant edema to thigh. Pedal pulses palpable bilaterally. No edema. Results Labs : 10/10/18 06:43 10/10/18 06:43 Laboratory Results - last 24 hr 10/06/18 10/06/18 10:37 10:37 WBC 17.20 H RBC 3.84 L Hgb 12.5 Hct 38.5 MCV 100.3 H MCH 32.6 MCHC 32.5 RDW 16.1 H Plt Count 197 MPV 10.9 Immature Gran % 0.2 Neutrophils % 95.4 Lymphocytes % 2.3 Monocytes % 2.0 Eosinophils % 0.0 Basophils % 0.1 Absolute Neutrophils 16.41 H Absolute Lymphocytes 0.40 L Absolute Monocytes 0.34 Absolute Eosinophils 0.00 Absolute Basophils 0.02 Sodium 142 Potassium 4.5 Chloride 105 Carbon Dioxide 29.0 Anion Gap 8.0 BUN 20 H Creatinine 0.73 Estimated GFR/1.73 m2 >= 60.00 Glucose 120 H Calcium 8.7 Magnesium 1.7 L Total Bilirubin 0.8 AST 26 ALT 19 Alkaline Phosphatase 99 Creatine Kinase 86 Troponin I < 0.02 Total Protein 6.6 Albumin 3.2 L TSH 2.47 Last Vital Signs Temp 36.7 C 10/06/18 15:42 Pulse 56 L 10/06/18 15:42 Resp 20 10/06/18 15:42 BP 122/64 10/06/18 15:42 Pulse Ox 95 10/06/18 15:42
[2018-10-06] MEDS: POTASSIUM CHLORIDE/0.9% NACL 1,000 ML 100 MEQ IV (16:14)
--- NOTE | 2018-10-06 16:39 | ROE_ITS ---
DATE OF PROCEDURE: October 06, 2018 PREOPERATIVE DIAGNOSIS: Intertrochanteric fracture right femur. POSTOPERATIVE DIAGNOSIS: Same. PROCEDURE: Open reduction internal fixation of intertrochanteric fracture of the right femur using a trochanteric femoral nail device, distally locked. ANESTHESIA: General, Trace Rebollar CRNA SURGEON: Jero Olsen M.D. DIAMOND GRINDER: Fatmata Sargent INDICATIONS: This is an 78-year-old white female who tripped and fell in her home while going to the bathroom at approximately 3 a.m. this morning. She laid on the floor until 9 a.m. when she called h er family and she was transported to the Emergency Room. X-rays revealed an intertrochanteric fractu re of the right femur with the lesser trochanter off, rendering it an unstable fracture type. Open r eduction internal fixation with a long trochanteric femoral nail, locked distally, was recommended as optimum treatment. Since she had been NPO since 3 a.m. it was recommended that she be taken to the operating room as soon as possible to have her fracture fixed so that she can be mobilized immediatel y. The risks and complications of the procedure were explained to the patient in detail preoperative ly. PROCEDURE: The patient was taken to the operating room on 10/06/18. First a fascia iliaca block was administered and then she was placed supine on the fracture table. A general anesthetic was administ ered. She was placed in single-leg traction on the right and the entire right lower extremity from t he iliac crest to the knee were prepped and draped free in the usual sterile fashion. An incision was made beginning at the tip of the greater trochanter, extending proximally in line wit h the femur about four inches. The incision was carried down to the iliotibial band, which was longi tudinally incised. The tip of the trochanter was palpated and with the help of C-arm image intensifi cation a guide pin was placed just medial to the tip of the trochanter and down the shaft of the femu r distal to the level of the lesser trochanter. A one-step cannulated reamer was then placed over th e guide pin to ream for the proximal portion of the nail. Next a bulb-tipped, long guidewire was then passed down the femur to the supracondylar region of the femur. Flexible intramedullary reaming was then performed up to a diameter of 12.5 mm. Nail length was measured and a 320 mm long 11 mm diameter trochanteric femoral nail was selected. The aiming gan dle was applied and then the nail was then manually inserted into the femur over the guide pin and ad vanced until fully seated. This was confirmed with the C-arm. The guide pin was removed. Using the outrigger guide attached to the nail, I placed the drill sleeve for the spiral blade agains t the skin and made an incision through the skin and subcu and IT band so I could advance the sleeve until it contacted the lateral cortex of the femur. A guide pin was then placed through the nail and into the center of the femoral head in AP and lateral views. The pin size was measured. It measure d 90 mm in length; however there was not a 90 mm long spiral blade available. There was only an 85 a nd a 95. I decided on the 95, feeling that if it was a little proud, it wouldn't make a difference. The spiral blade was then placed over the guide pin and hammered in with a mallet until fully seated . The spiral blade had an excellent position on the femoral head; it was within 10 mm of the subchon dral bone of the femoral head and it was in the center of the head on AP and lateral views. The guid e pin was removed. The insertion handle was removed. The locking screw proximally was then tightened maximally and then backed off a half of a turn to all ow the nail to slide. The outrigger guide was removed. I then proceeded to make a small incision la terally on the femur and the nail was locked distally with a 5 mm locking screw, inserted using the f reehand technique. The wounds were all irrigated with Betadine and saline solution. The wound margins were infiltrated with 0.5% Marcaine with an epinephrine solution. I placed tranexamic acid, 1 gram, in 100 cc's of sa line in the proximal wound and allowed the tranexamic acid to sit for a minute and a half before suct ioning. The proximal incision was closed by approximating the iliotibial band with a running, interl ocked #1 Vicryl suture. The subcu was approximated with interrupted #2-0 Vicryl sutures and the skin edges were approximated with skin radha. The middle wound for insertion of the spiral blade was c losed with skin radha and the distal stab wound for the locking screw was closed with radha. The wounds were dressed with Xeroform gauze, sterile gauze 4x4's, ABD pad and taped with foam elastic ta pe. The patient was taken out of traction. A Waters catheter was inserted. The patient's anesthesia was reversed without complications and she was discharged to the recovery room in good condition. E stimated blood loss 100-150 cc's. The patient tolerated the procedure well with no complications.
[2018-10-06] MEDS: Ketorolac 15 MG/ML VIAL IVP ×2 (16:57→21:38)
[2018-10-06 19:18] LABS: Troponin I 0.02 ng/mL (0.00-0.06)
[2018-10-06] MEDS: Normal Saline 1,000 ML 50 ML IV (19:21)
[2018-10-06] MEDS: Docusate Sodium 100 MG CAP PO (19:23)
[2018-10-06] MEDS: Budesonide/Formoterol 160/4.5 6 GM 60 PUFF INH IH (19:23)
[2018-10-06 19:51] LABS: Bilirubin Negative (Negative); Blood Negative (Negative); Clarity Clear; Glucose Negative (Negative); Ketones Negative (Negative); Leukocyte Esterase Negative (Negative); Nitrite Negative (Negative); Specific Gravity 1.025 (1.005-1.025); Urobilinogen 0.2 EU/dL (Up TO 0.2)
[2018-10-07] VITALS (11 sets, daily range): BP systolic 97–126; BP diastolic 53–91; PULSE 77–88; RESP 16–18; TEMP 36.5–37.3; O2SAT 94–97
[2018-10-07 02:40] LABS: Troponin I 0.02 ng/mL (0.00-0.06)
[2018-10-07] MEDS: Ketorolac 15 MG/ML VIAL IVP ×4 (03:30→21:28)
[2018-10-07 07:17] LABS: Abs Immature Grans 0.06 k/cumm (0.0-0.09); Absolute Basophil Count 0.01 k/cumm (0.0-0.2); Absolute Eosinophil Count 0.04 k/cumm (0.0-0.7); Absolute Lymphocyte Count 1.14 k/cumm (1.2-3.4); Absolute Monocyte Count 0.75 k/cumm (0.11-0.7); Absolute Neutrophil Count 10.92 k/cumm (1.2-6.7); Basophils % 0.1; Eosinophils % 0.3; HCT 30.1 % (36.0-46.0); HGB 9.4 g/dL (12.0-15.5); Immature Grans % 0.5; Lymphocytes % 8.8; Mean Corp. HGB Concentration 31.2 g/dL (32.0-36.0); Mean Corpuscular Hemoglobin 31.5 pg (27.0-33.0); Monocytes % 5.8; Neutrophils % 84.5; Platelet Count 165 x1000/uL (130-400); RBC 2.98 m/cumm (4.00-5.20); RBC Distribution Width 15.8 % (11.7-14.6); White Blood Cell Count 12.92 k/cumm (4.4-10.8)
[2018-10-07 07:37] LABS: Anion Gap 9.2 mmol/L (3-11); BUN 27 mg/dL (7-18); CO2 24.8 mmol/L (21.0-32.0); CREATININE 0.88 mg/dL (0.55-1.02); Calcium 7.8 mg/dL (8.5-10.1); Chloride 108 mmol/L (98-107); Creatine Kinase 246 U/L (26-192); Glucose 90 mg/dL (70-100); Magnesium 1.8 mg/dL (1.8-2.4); Potassium 4.6 mmol/L (3.5-5.1); Sodium 142 mmol/L (136-145)
[2018-10-07 07:51] LABS: Cholesterol 143 mg/dL (50-200); HDL Cholesterol 64 mg/dL (40-60); LDL CHOLESTEROL 70 mg/dL (<100); Triglyceride 61 mg/dL (30-150)
[2018-10-07 08:14] LABS: Anisocytosis 1+; Diff Comment RBC Morph Reviewed
[2018-10-07 08:15] LABS: Macrocytosis 1+
--- NOTE | 2018-10-07 08:25 | PDOC.CMIN ---
Care Management Initial Assess REASON FOR HOSPITALIZATION:: Intertrochanteric FX R Femur PAST MEDICAL HISTORY/PAST SURGICAL HISTORY:: Bigeminiy, bilat hearing loss, CAD, COPD, Colitis, chronic obstructive lung disease, hypertension, hyperthyroidism, fx lower radius/ulna-closed, hx of tobacco use, mitral valve disease and replacement, osteopenia, osteoporosis, RA, rhinitis, ulcerative colitis, colonoscopy PREVIOUS FUNCTIONAL STATUS/SOCIAL/FAMILY SUPPORTS:: Carmella resides in [facility] with her sister, Margareth. She is usually independent with ADLs and reports a good support network of family and friends. She reports having another sister in [place] as well as cousins and extended family. CURRENT FUNCTIONAL STATUS:: Carmella is sitting up in her recliner; legs elevated when CM meets with her. She is pleasant in interaction and reports being hopeful she can return home. ADVANCE DIRECTIVES:: To be completed with Carmella this admission. Has patient been provided with information about the portal?: Yes Did the patient sign up for the portal?: No CODE STATUS:: Full Code INSURANCE COVERAGE / FINANCIAL ISSUES:: Medicare. /BS PRIMARY CARE PHYSICIAN:: Emily Lucio POTENTIAL DISCHARGE NEEDS:: SNF coordination, patient education. PATIENT/FAMILY EDUCATION NEEDS:: Review of community based supports, inpatient SNF for rehabiliation, insurance limitations. ANTICIPATED BARRIERS TO DISCHARGE:: Per Provider: A fall at home led to her right hip fracture. She also had a fall in July of this year, 3 months ago, with a right wrist fracture resulting (also requiring surgical repair). This raises concern for her safety living with her elderly sister. Per RN: Romel Olsen reports Carmella may be able to return home which could better increase her likelihood of a timely recovery. Carmella will likely require SNF placement when medically ready; discharge coordination will be central to bed availability at identified SNF when Carmella is ready medically per MD. TRANSPORTATION:: TBD by disposition and level of functioning. PLAN:: Carmella will continue to recover post surgically and work with PT/OT on strenghtening and stability. CM will discuss SNF placement-provide patient education and fax referrals for review. Local SNFs do not have admissions staff available over the weekend. CM will continue to support Carmella and her family with discharge considerations. SNF-vs-Home with [facility] PT/OT anticipated.
--- NOTE | 2018-10-07 08:40 | INITIAL_ITS ---
Care Management Initial Assess REASON FOR HOSPITALIZATION:: Intertrochanteric FX R Femur PAST MEDICAL HISTORY/PAST SURGICAL HISTORY:: Bigeminiy, bilat hearing loss, CAD , COPD, Colitis, chronic obstructive lung disease, hypertension, hyperthyroidism , fx lower radius/ulna-closed, hx of tobacco use, mitral valve disease and replacement, osteopenia, osteoporosis, RA, rhinitis, ulcerative colitis, colonoscopy PREVIOUS FUNCTIONAL STATUS/SOCIAL/FAMILY SUPPORTS:: Carmella resides in [facility] with her sister, Margareth. She is usually independent with ADLs and reports a good support network of family and friends. She reports having another sister in [place] as well as cousins and extended family. CURRENT FUNCTIONAL STATUS:: Carmella is sitting up in her recliner; legs elevated when CM meets with her. She is pleasant in interaction and reports being hopeful she can return home. ADVANCE DIRECTIVES:: To be completed with Carmella this admission. Has patient been provided with information about the portal?: Yes Did the patient sign up for the portal?: No CODE STATUS:: Full Code INSURANCE COVERAGE / FINANCIAL ISSUES:: Medicare. /BS PRIMARY CARE PHYSICIAN:: Emily Lucio POTENTIAL DISCHARGE NEEDS:: SNF coordination, patient education. PATIENT/FAMILY EDUCATION NEEDS:: Review of community based supports, inpatient SNF for rehabiliation, insurance limitations. ANTICIPATED BARRIERS TO DISCHARGE:: Per Provider: A fall at home led to her right hip fracture. She also had a fall in July of this year, 3 months ago , with a right wrist fracture resulting (also requiring surgical repair). This raises concern for her safety living with her elderly sister. Per RN: April Olsen reports Carmella may be able to return home which could better increase her likelihood of a timely recovery. Carmella will likely require SNF placement when medically ready; discharge coordination will be central to bed availability at identified SNF when Carmella is ready medically per MD. TRANSPORTATION:: TBD by disposition and level of functioning. PLAN:: Carmella will continue to recover post surgically and work with PT/OT on strenghtening and stability. CM will discuss SNF placement-provide patient education and fax referrals for review. Local SNFs do not have admissions staff available over the weekend. CM will continue to support Carmella and her family with discharge considerations. SNF-vs-Home with [facility] PT/OT anticipated.
[2018-10-07] MEDS: Budesonide/Formoterol 160/4.5 6 GM 60 PUFF INH IH ×2 (08:55→21:28)
[2018-10-07] MEDS: Acetaminophen 325 MG TAB PO ×2 (09:06→17:07)
[2018-10-07] MEDS: Docusate Sodium 100 MG CAP PO ×2 (09:06→21:29)
[2018-10-07] MEDS: Metoprolol CR 25 MG TABCR PO (09:06)
[2018-10-07] MEDS: Methimazole 5 MG TAB PO (09:06)
[2018-10-07] MEDS: Pantoprazole 40 MG TABCR PO (09:07)
[2018-10-07] MEDS: Multivitamin w/Minerals TAB 1 TAB PO (09:07)
[2018-10-07] MEDS: Normal Saline Flush 10 ML SYR IVP ×3 (09:08→21:29)
--- NOTE | 2018-10-07 10:02 | IN_ITS ---
Date of service: 10/07/18 Time of Service: 08:45 PT Notes Inpatient Physical Therapy Evaluation Date: 10/07/18 Referring Doctor: Jero Olsen MD PT Orders: PT CONSULT: Mobilize postop TFN right for intertrochanteric femur fracture, weightbearing as tolerated to right leg. Precautions: Patient Profile/Admitting Diagnosis: 78-year-old female, status post fall on 10/06/2018, resulting in right intertrochanteric fracture. Status post TFN 2017. PMHX: HISTORY & PHYSICAL EXAMINATION PATIENT NAME: CARMELLA MARTINEZ RUNIT #: [id number] ADMITTING PROVIDER: Taylor Hudson NPACCOUNT #: [id number] PRIMARY CARE PROVIDER: CLAUDETTE MARTINEZ MD DATE OF ADMIT: 10/06/18 : 1940 Date of service: 10/06/18 Time of Service: 15:53 Assessment and Plan (1) Intertrochanteric fracture of right femur: Current visit: Yes Status: Acute S/p fall at home. Her fracture was repaired by Dr. Olsen, Orthopedics, today. She received Ancef preoperatively. She denies pain at the present time. She has PRN morphine ordered for pain. She will have scheduled toradol scheduled for pain. Zofran for nausea. PT has been consulted. Continue maintenance IV fluids overnight. (2) CAD (coronary artery disease): Current visit: Yes Status: Chronic She had inverted T-waves noted on EKG in ED, which appeared to be new. Review of the record indicates that there was evidence of previous CT on pre- procedure cardiac cath as noted on Cardiology consult note from October of 2014. She has had several echocardiograms as she has history of mitral valve repair. Most recent echo on file here was in 2016, LVEF was 65-70%. Hold aspirin until orthopedics recommends restarting. Hold Cozaar for now, BMP in the morning. Continue home dose of Metoprolol CR in the morning provided that she does not have hypotension or bradycardia. Continue to trend troponins. (3) COPD (chronic obstructive pulmonary disease): Current visit: Yes Status: Chronic Continue home inhaler. (4) Rheumatoid arthritis: Current visit: Yes Status: Chronic Hold plaquenil and methotrexate for now. (5) Leukocytosis: Current visit: Yes Status: Acute She is afebrile. Chest X-ray negative for acute process. UA not obtained in ED. UA currently pending. Reassess CBC in the morning. (6) Falls: Current visit: Yes Status: Acute A fall at home led to her right hip fracture. She also had a fall in July of this year, 3 months ago, with a right wrist fracture resulting ( also requiring surgical repair). This raises concern for her safety living with her elderly sister. Will have care management work on a safe discharge plan. She may benefit from short-term rehab. (7) DVT prophylaxis: Current visit: Yes Status: Acute Subcutaneous lovenox ordered by Orthopedics. (8) Discharge planning issues: Current visit: Yes Status: Acute She is listed as a FULL code. She was quite sleepy after the surgery and was not able to engage in a meaningful conversation about code status. This will need to be revisited when she is more awake and alert. She does not have advanced directives on file here at [facility]. She will likely require rehab when she is ready for discharge from the hospital. This case was discussed with Dr. Samuel who is in agreement. History of Present Illness Chief Complaint: Right hip fracture Narrative: Carmella Martinez is a very pleasant 78 year old female who lives with her elderly sister, with past medical history significant for coronary artery disease, hx of mitral valve replacement, COPD, RA, hearing loss and recent history or right wrist fracture s/p fall (in 07/2018) who is admitted to the med/ surg floor s/p right hip fracture repair. She presented to the ED today, via EMS , after falling at home around 3 am while getting out of bed to use the bathroom. She noted immediate right hip pain and was unable to ambulate. Her family called EMS when they noticed that she was not present. In the emergency department, she had a hip x-ray that was notable for a right intratrochanteric fracture. She was seen by Dr. Olsen, Orthopedics, who took her directly to the OR for repair of the fracture. In the ED, she had labs drawn which were notable for an elevated white blood cell count of 17.2. Her magnesium was low at 1.7, she received supplementation in the ED. She had an EKG which was notable for for T wave inversions that appeared new as compared to previous EKG. Her troponin was negative, she denies chest pain or shortness of breath in the ED. She is now seen post-operatively. She reports back discomfort. She denies any pain in the left hip. She feels tired, she is falling asleep and has to be awakened to answer questions. She denies any other injury occurring at the time of her fall. She denies shortness of breath, cough, wheezing, no chest pain/ pressure, palpitations, no nausea, she is hungry, she has a cowart catheter in place. She denies any other concerns. Review of Systems Review of Systems All systems reviewed & are unremarkable except as noted in HPI and below PFSH Fx lower radius/ulna-closed (Acute) Bigeminy Bilateral hearing loss CAD (coronary artery disease) COPD (chronic obstructive pulmonary disease) Chronic obstructive lung disease Colitis Hearing loss History of hypertension History of tobacco use Hyperthyroidism Mitral valve disease Osteopenia Osteoporosis Rheumatoid arthritis Rhinitis Ulcerative colitis Social History/Home Situation: She lives in a private, 1 story home. She lives with her elderly sister. She is independent, doing all of her cooking, and she still drives. She is also responsible for getting her elderly sister to her appointments, as her sister does not drive. She has 2 steps to enter the home, she can enter from the garage or outside. She reports to have a rail, but cannot recall if she has 1 or 2. She reports that she has a lot of family support in the area. She reports that she has a walk-in shower stall, with a built in seat. There is a handrail in her shower. She has a moderate height toilet. Current Functional Limitations: Requires contact-guard for all sit to stand, and stand to sit transfers, requires rolling walker and contact guard with functional ambulation. Minimal assist to get out of bed. Premorbid level of function: Independent, did not utilize an assistive device. Equipment Owned/DME: Walker Subjective: Complains of some mild left shoulder pain, which she reports is been present for a few months prior to her fall. No change in intensity of pain since the fall. Pain is localized along the superior posterior left shoulder. In regards to the right lower extremity, she does not appreciate any discomfort. Pain number: 4-5/10 left shoulder. Pretreatment reports 0/10 right hip. Posttreatment complains of 1/10 pain in the right hip. Objective: [] General Observation: Reclined in hospital bed, out of 45 degree angle. IV left elbow, Cowart. She has good color, appears healthy for her stated age. She is very sharp, good communicator. Mental Status: A and O x3 Vital Signs: Pretreatment BP 98/54, HR 106. Posttreatment BP 124/66, HR 83. ROM: Right Upper Extremity: WNL Left Upper Extremity: Left shoulder active mobility: Flexion 150 degrees, abduction/scapular movement 130 degrees. Passive shoulder mobility: Flexion 160 degrees, abduction 160 degrees, ER 20 degrees, IR 60 degrees. Otherwise, left upper extremity WNL. She does have pain at end range left shoulder mobility. Right Lower Extremity: Hip flexion 90 degrees, abduction 20 degrees, hip extension 0 degrees. Knee extension 0 degrees, knee flexion 130 degrees. Left Lower Extremity: Grossly WNL Strength: Right Upper Extremity: Grossly 4+/5 Left Upper Extremity: Grossly 4+/5, including left shoulder without pain increase. Right Lower Extremity: Right knee flexion and extension 3/5, with pain increased with attempted resistance. 2/5 right hip abduction to 20 degrees of abduction. 3/5 with hip flexion, observed with heel slide. Dorsiflexion 4/5, limited by pain in the right hip. Bilateral EHL 5/5. Otherwise, no other formal testing completed due to acute status post condition. Left Lower Extremity: Grossly 5/5 Sensation: Intact bilateral lower extremities Bed Mobility/Transfers: Minimal assist from supine to sit at edge of bed. Contact-guard sit to stand, and stand to sit. Contact guard with rolling walker for transfers. Gait: RW, contact-guard, 10 feet. Balance: [] Static Sitting: Good Dynamic Sitting: Fair Static Standing: Fair Dynamic Standing: Fair, with use of RW. Treatment: Sit to stand x 2, see flow sheet. Special Tests: Mobility Limitations Standardized Measure [facility]-PAC 6 clicks Basic Mobility Inpatient Short Form: Raw Score: 17 standardized Score: [] CMS Score: 50% disability CMS Modifier: CK Informed Consent/Education: Patient instructed in purpose of PT consult and plan of care. Assessment: Patient is a 78 year old female referred to physical therapy services with the diagnosis of status post right TFN intertrochanteric femur, . Patient presents with clinical signs and symptoms consistent with postop diagnosis, as demonstrated by the following impairment level findings: Limited right hip range of motion, impaired right lower extremity strength, balance deficits, pain with movement. Impairments are contributing to the following functional limitations: Requires minimal assist for bed mobility activities, and contact-guard for functional transfers. Now requires use of rolling walker, compared to independent premorbid level of function. Despite her impairments, and postop condition, patient is doing excellent, when considering her age. She comes from an independent living situation, and considering her intact mental state, her health, and her quality of life, I do not see it unrealistic that she should be able to return to this situation, especially considering her family support. Patient has history of falls, but over a year apart from each other, with no other fall events in between. She does not have history that would indicate a high fall risk, due to her low frequency, lack of need for assistive device, and independent life style. Based on her pain control, mental state, and physical tolerance and level of assist needed, assuming patient will need a SNF placement at discharge is no appropriate at this time. With good family support and outpatient therapy, discharge home will be better for her, to encourage return to her lifestyle and maintain quality of life. Patient is assessed as a x Low 55127 [] Moderate 96342 [] High 40336 complexity based on the following: History: See comorbidities Examination: See above impairments and functional limitations Presentation: Stable and predictable Decision Making: Easy, [facility] 50% disability. Goals: Goals X1 week 1. Supine-Sit supervison 2. Sit-Supine supervision 3. Sit-Stand supervision, with RW 4. Stand-Sit supervision, with RW 5. Bed-Chair supervision, with RW 6. Chair-Bed supervision, with RW 7. Gait 50 ft with RW, supervision 8. Stairs 2, with rail, CG 9. Independent with home exercise program 10. Balance good with sitting activities, fair with standing activities Plan of Care/Treatment Plan: 1-2x/day, 7 days/week x 1 week. Plan of care has been reviewed with the ASSISTANT TO THE DIRECTOR providing the service under Physical Therapy direction. Initiate Physical Therapy intervention for strengthening, bed mobility, transfers, gait, stairs, balance training, use of assistive device. DISCHARGE RECOMMENDATIONS: Discharge home with family support and outpatient therapy if transportation is available, when she has met above goals and orthopaedic clearance. SEE ASSESSMENT. TREATMENT CODE/TIME: 60 minutes G Codes in the area mobility of walking and moving around: current status [id number] CK; projected status GP [id number], based on [facility]. Thank you for this referral.
--- NOTE | 2018-10-07 11:06 | PGE_ITS ---
Date of Service Date of service: 10/07/18 Time of Service: 10:03 Assessment and Plan (1) Intertrochanteric fracture of right femur: Start date: 10/06/18 Start time: 09:12 Current visit: Yes Status: Acute Assessment: Stable postop day #1 ORIF of intertrochanteric fracture of the right femur with a trochanteric femoral nail. She is eating and drinking well and I do not think that she needs IV fluids at this time. She is moving well and I do not think she needs a Waters catheter either. Plan: DC Waters. Have her take 8 ounces of water to 1 hours until void after Waters DC'd. Will DC regular IV fluids but leave IV in for access at this point. Continue to mobilize with physical therapy. Check hemoglobin tomorrow Subjective Interval history since last seen: Yumi is feeling fine today. She had minimal pain overnight. The only momentary pain she has experienced is when she took some steps today with PT. Exam Narrative Exam Narrative: She is afebrile her vital signs are stable. I witnessed her transferring from bed to chair today and taking a few steps in the room. She was able to do so with minimal assist. She has no swelling in her right lower leg. She has normal sensation and circulation to her right foot. Her right hip is really minimally painful with gentle passive motion of the hip. I and O's are good. Hemoglobin 9.4 g today. Creatinine is 0.8 BUN 27. Sodium 142, potassium 4.6. Objective Objective Clinical Data: Abnormal lab results 10/06/18 10/07/18 10/07/18 Range/Units 10:37 06:25 06:25 WBC 12.92 H (4.4-10.8) k/cumm RBC 2.98 L (4.00-5.20) m/cumm Hgb 9.4 L D (12.0-15.5) g/dL Hct 30.1 L D (36.0-46.0) % MCV 101.0 H (80-95) fL MCHC 31.2 L (32.0-36.0) g/dL RDW 15.8 H (11.7-14.6) % Absolute Neutrophils 10.92 H (1.2-6.7) k/cumm Absolute Lymphocytes 1.14 L (1.2-3.4) k/cumm Absolute Monocytes 0.75 H (0.11-0.7) k/cumm Chloride 108 H (98-107) mmol/L BUN 20 H 27 H (7-18) mg/dL Glucose 120 H (70-100) mg/dL Calcium 7.8 L (8.5-10.1) mg/dL Magnesium 1.7 L (1.8-2.4) mg/dL Creatine Kinase 246 H (26-192) U/L Albumin 3.2 L (3.4-5.0) g/dL HDL Cholesterol 64 H (40-60) mg/dL Vital Signs Temperature 37.2 C 10/07/18 07:39 Temperature Source Tympanic 10/07/18 07:39 Pulse 88 10/07/18 07:39 Pulse Rhythm Regular 10/06/18 22:07 Pulse 64 10/06/18 12:10 Respiratory Rate 18 10/07/18 07:39 Respiratory Effort Non-Labored 10/06/18 22:07 Respiratory Depth Normal 10/06/18 22:07 Respiratory Pattern Normal 10/06/18 22:07 Blood Pressure 126/91 H 10/07/18 07:39 Blood Pressure Mean 89 10/06/18 12:01 Blood Pressure Position Supine 10/06/18 10:11 Pulse Oximetry 95 10/07/18 07:39 Respiratory End-tidal CO2 26 10/06/18 15:15 Oxygen Delivery Method Room Air 10/07/18 07:39 Oxygen Flow Rate 0 10/07/18 07:39 Pain Level 5 10/07/18 09:06 Comment 10/06/18 16:20 Intake & Output 10/06/18 10/06/18 10/07/18 11:59 23:59 11:59 Intake Total 1756.667 / 1756.667 350 / 350 Output Total 475 / 475 300 / 300 Balance 1281.667 / 1281.667 50 / 50 Weight 48.4 kg Intake: IV 1756.667 / 1756.667 100 / 100 Oral 250 / 250 Output: Urine 400 / 400 300 / 300 Estimated Blood Loss 75 / 75 Other: Urine Color Dark Portia Light Portia Urine Appearance Clear Clear Comment PACU. Emesis Description None Laboratory Results WBC 12.92 k/cumm (4.4-10.8) H 10/07/18 06:25 RBC 2.98 m/cumm (4.00-5.20) L 10/07/18 06:25 Hgb 9.4 g/dL (12.0-15.5) L D 10/07/18 06:25 Hct 30.1 % (36.0-46.0) L D 10/07/18 06:25 MCV 101.0 fL (80-95) H 10/07/18 06:25 MCH 31.5 pg (27.0-33.0) 10/07/18 06:25 MCHC 31.2 g/dL (32.0-36.0) L 10/07/18 06:25 RDW 15.8 % (11.7-14.6) H 10/07/18 06:25 Plt Count 165 x1000/uL (130-400) 10/07/18 06:25 MPV 11.0 fL (8.0-11.0) 10/07/18 06:25 Immature Gran % 0.5 10/07/18 06:25 Neutrophils % 84.5 10/07/18 06:25 Lymphocytes % 8.8 10/07/18 06:25 Monocytes % 5.8 10/07/18 06:25 Eosinophils % 0.3 10/07/18 06:25 Basophils % 0.1 10/07/18 06:25 Absolute Neutrophils 10.92 k/cumm (1.2-6.7) H 10/07/18 06:25 Absolute Lymphocytes 1.14 k/cumm (1.2-3.4) L 10/07/18 06:25 Absolute Monocytes 0.75 k/cumm (0.11-0.7) H 10/07/18 06:25 Absolute Eosinophils 0.04 k/cumm (0.0-0.7) 10/07/18 06:25 Absolute Basophils 0.01 k/cumm (0.0-0.2) 10/07/18 06:25 Differential Comment Rbc morph reviewed 10/07/18 06:25 RBC Morphology See below 10/07/18 06:25 Anisocytosis 1+ 10/07/18 06:25 Macrocytosis 1+ 10/07/18 06:25 Sodium 142 mmol/L (136-145) 12/08/18 06:25 Potassium 4.6 mmol/L (3.5-5.1) 10/07/18 06:25 Chloride 108 mmol/L (98-107) H 10/07/18 06:25 Carbon Dioxide 24.8 mmol/L (21.0-32.0) 10/07/18 06:25 Anion Gap 9.2 mmol/L (3-11) 10/07/18 06:25 BUN 27 mg/dL (7-18) H 10/07/18 06:25 Creatinine 0.88 mg/dL (0.55-1.02) 10/07/18 06:25 Estimated GFR/1.73 m2 >= 60.00 (mL/min/1.73m2) 10/07/18 06:25 Glucose 90 mg/dL (70-100) 10/07/18 06:25 Calcium 7.8 mg/dL (8.5-10.1) L 10/07/18 06:25 Magnesium 1.8 mg/dL (1.8-2.4) 10/07/18 06:25 Total Bilirubin 0.8 mg/dL (0.2-1.0) 10/06/18 10:37 AST 26 U/L (15-37) 10/06/18 10:37 ALT 19 U/L (12-78) 10/06/18 10:37 Alkaline Phosphatase 99 U/L (46-116) 10/06/18 10:37 Creatine Kinase 246 U/L (26-192) H 10/07/18 06:25 Troponin I 0.02 ng/mL (0.00-0.06) 10/07/18 02:14 Total Protein 6.6 g/dL (6.4-8.2) 10/06/18 10:37 Albumin 3.2 g/dL (3.4-5.0) L 10/06/18 10:37 Triglycerides 61 mg/dL (30-150) 10/07/18 06:25 Total Cholesterol 143 mg/dL (50-200) 10/07/18 06:25 LDL Cholesterol Direct 70 mg/dL (<100) 10/07/18 06:25 HDL Cholesterol 64 mg/dL (40-60) H 10/07/18 06:25 TSH 2.47 uIU/mL (0.358-3.74) 10/06/18 10:37 Urine Color Yellow (Yellow) 10/06/18 19:40 Urine Clarity Clear 10/06/18 19:40 Urine pH 6.0 (5-8) 10/06/18 19:40 Ur Specific [place] 1.025 (1.005-1.025) 10/06/18 19:40 Urine Protein Negative mg/dL (Negative) 10/06/18 19:40 Urine Ketones Negative mg/dL (Negative) 10/06/18 19:40 Urine Blood Negative (Negative) 10/06/18 19:40 Urine Nitrite Negative (Negative) 10/06/18 19:40 Urine Bilirubin Negative (Negative) 10/06/18 19:40 Urine Urobilinogen 0.2 EU/dL (Up TO 0.2) 10/06/18 19:40 Ur Leukocyte Esterase Negative (Negative) 10/06/18 19:40 Urine Glucose Negative mg/dL (Negative) 10/06/18 19:40
--- NOTE | 2018-10-07 11:33 | W.PM.PROGNOT ---
Date of Service Date of service: 10/07/18 Time of Service: 11:00 Assessment and Plan (1) Leukocytosis: Current visit: Yes Status: Acute white count normalizing. no evidence of infection. likely elevated on admission secondary to trauma. will continue to monitor (2) DVT prophylaxis: Current visit: Yes Status: Acute continue enoxaparin daily. (3) Discharge planning issues: Current visit: Yes Status: Acute case management following. will discharge to home with services versus [facility] rehabilitation. PT consult (4) Intertrochanteric fracture of right femur: Current visit: Yes Status: Acute POD #1. continue routine post operative care per orthopedics. pain is managed. bowel management. IV fluids, cowart catheter and telemetry monitoring discontinued. (5) Falls: Current visit: Yes Status: Acute continue fall precautions. physical therapy consult (6) CAD (coronary artery disease): Current visit: Yes Status: Chronic stable, will re-start aspirin. continue beta maureen (7) HTN (hypertension): Current visit: Yes Status: Chronic blood pressures stable, will continue to monitor (8) COPD (chronic obstructive pulmonary disease): Current visit: Yes Status: Chronic stable, add incentive spirometry. (9) Full code status: Current visit: Yes Status: Acute limits of care discussed with patient. patient wishes to be a full code Subjective Patient reports: no new complaints, tolerating liquids well, tolerating a regular diet, flatus, no bowel movement and afebrile; denies nausea, vomiting and shortness of breath Interval history since last seen: This is a 78 year old female who sustained a mechanical fall at home with fracture of the right hip, underwent surgical repair yesterday. post operative pain controlled. she was afebrile last night, hemodynamically stable. She was able to eat breakfast with no diffiiculty. She states she is passing flatus but has not had a BM since prior to admission. She denies nausea or abdominal pain. Exam Const General: cooperative, healthy appearing and no acute distress Nutritional Appearance: average body habitus Orientation: alert, awake and oriented x3 HENMT Head: normal to inspection, normocephalic and atraumatic General nose exam: other (hearing aid intact on right) Mouth: oral mucosae normal Resp Effort & Inspection: normal respiratory effort Auscultation: clear to auscultation bilaterally Cardio Jugular venous pressure: no JVD Rate: regular rate Rhythm: regular rhythm Heart Sounds: no murmurs GI Inspection: normal to inspection Palpation: soft Auscultation: normal bowel sounds Skin General skin exam: no rashes or lesions noted (large bulky dressing intact to right hip, small dressing to lateral distal femur) Neuro General: alert, awake and oriented x3 Cognition: normal cognition Speech: speech normal Extrem General: normal to inspection Right lower extremity: normal to inspection; no edema Psych Appearance: grossly normal Speech and Movement: speech and movement normal Mood: congruent mood Affect: normal affect Attitude: cooperative Thought Process: normal Thought Content: normal Objective Objective Clinical Data: Abnormal lab results 10/06/18 10/07/18 10/07/18 Range/Units 10:37 06:25 06:25 WBC 12.92 H (4.4-10.8) k/cumm RBC 2.98 L (4.00-5.20) m/cumm Hgb 9.4 L D (12.0-15.5) g/dL Hct 30.1 L D (36.0-46.0) % MCV 101.0 H (80-95) fL MCHC 31.2 L (32.0-36.0) g/dL RDW 15.8 H (11.7-14.6) % Absolute Neutrophils 10.92 H (1.2-6.7) k/cumm Absolute Lymphocytes 1.14 L (1.2-3.4) k/cumm Absolute Monocytes 0.75 H (0.11-0.7) k/cumm Chloride 108 H (98-107) mmol/L BUN 20 H 27 H (7-18) mg/dL Glucose 120 H (70-100) mg/dL Calcium 7.8 L (8.5-10.1) mg/dL Magnesium 1.7 L (1.8-2.4) mg/dL Creatine Kinase 246 H (26-192) U/L Albumin 3.2 L (3.4-5.0) g/dL HDL Cholesterol 64 H (40-60) mg/dL Vital Signs Temperature 37.2 C 10/07/18 07:39 Temperature Source Tympanic 10/07/18 07:39 Pulse 77 10/07/18 10:27 Pulse Rhythm Regular 10/06/18 22:07 Pulse 64 10/06/18 12:10 Respiratory Rate 18 12/08/18 07:39 Respiratory Effort Non-Labored 10/06/18 22:07 Respiratory Depth Normal 10/06/18 22:07 Respiratory Pattern Normal 10/06/18 22:07 Blood Pressure 126/91 H 10/07/18 07:39 Blood Pressure Mean 89 10/06/18 12:01 Blood Pressure Position Supine 10/06/18 10:11 Pulse Oximetry 95 10/07/18 07:39 Respiratory End-tidal CO2 26 10/06/18 15:15 Oxygen Delivery Method Room Air 10/07/18 07:39 Oxygen Flow Rate 0 10/07/18 07:39 Pain Level 5 10/07/18 09:06 Comment 10/06/18 16:20 Intake & Output 10/06/18 10/06/18 10/07/18 11:59 23:59 11:59 Intake Total 1756.667 / 1756.667 350 / 350 Output Total 475 / 475 300 / 300 Balance 1281.667 / 1281.667 50 / 50 Weight 48.4 kg Intake: IV 1756.667 / 1756.667 100 / 100 Oral 250 / 250 Output: Urine 400 / 400 300 / 300 Estimated Blood Loss 75 / 75 Other: Urine Color Dark Portia Light Portia Urine Appearance Clear Clear Comment PACU. Emesis Description None Laboratory Results WBC 12.92 k/cumm (4.4-10.8) H 10/07/18 06:25 RBC 2.98 m/cumm (4.00-5.20) L 10/07/18 06:25 Hgb 9.4 g/dL (12.0-15.5) L D 10/07/18 06:25 Hct 30.1 % (36.0-46.0) L D 10/07/18 06:25 MCV 101.0 fL (80-95) H 10/07/18 06:25 MCH 31.5 pg (27.0-33.0) 10/07/18 06:25 MCHC 31.2 g/dL (32.0-36.0) L 10/07/18 06:25 RDW 15.8 % (11.7-14.6) H 10/07/18 06:25 Plt Count 165 x1000/uL (130-400) 10/07/18 06:25 MPV 11.0 fL (8.0-11.0) 10/07/18 06:25 Immature Gran % 0.5 10/07/18 06:25 Neutrophils % 84.5 10/07/18 06:25 Lymphocytes % 8.8 12 06:25 Monocytes % 5.8 10/07/18 06:25 Eosinophils % 0.3 10/07/18 06:25 Basophils % 0.1 10/07/18 06:25 Absolute Neutrophils 10.92 k/cumm (1.2-6.7) H 10/07/18 06:25 Absolute Lymphocytes 1.14 k/cumm (1.2-3.4) L 10/07/18 06:25 Absolute Monocytes 0.75 k/cumm (0.11-0.7) H 10/07/18 06:25 Absolute Eosinophils 0.04 k/cumm (0.0-0.7) 10/07/18 06:25 Absolute Basophils 0.01 k/cumm (0.0-0.2) 10/07/18 06:25 Differential Comment Rbc morph reviewed 10/07/18 06:25 RBC Morphology See below 10/07/18 06:25 Anisocytosis 1+ 10/07/18 06:25 Macrocytosis 1+ 10/07/18 06:25 Sodium 142 mmol/L (136-145) 10/07/18 06:25 Potassium 4.6 mmol/L (3.5-5.1) 10/07/18 06:25 Chloride 108 mmol/L (98-107) H 10/07/18 06:25 Carbon Dioxide 24.8 mmol/L (21.0-32.0) 10/07/18 06:25 Anion Gap 9.2 mmol/L (3-11) 10/07/18 06:25 BUN 27 mg/dL (7-18) H 10/07/18 06:25 Creatinine 0.88 mg/dL (0.55-1.02) 10/07/18 06:25 Estimated GFR/1.73 m2 >= 60.00 (mL/min/1.73m2) 10/07/18 06:25 Glucose 90 mg/dL (70-100) 10/07/18 06:25 Calcium 7.8 mg/dL (8.5-10.1) L 10/07/18 06:25 Magnesium 1.8 mg/dL (1.8-2.4) 10/07/18 06:25 Total Bilirubin 0.8 mg/dL (0.2-1.0) 10/06/18 10:37 AST 26 U/L (15-37) 10/06/18 10:37 ALT 19 U/L (12-78) 10/06/18 10:37 Alkaline Phosphatase 99 U/L (46-116) 10/06/18 10:37 Creatine Kinase 246 U/L (26-192) H 10/07/18 06:25 Troponin I 0.02 ng/mL (0.00-0.06) 10/07/18 02:14 Total Protein 6.6 g/dL (6.4-8.2) 10/06/18 10:37 Albumin 3.2 g/dL (3.4-5.0) L 10/06/18 10:37 Triglycerides 61 mg/dL (30-150) 10/07/18 06:25 Total Cholesterol 143 mg/dL (50-200) 10/07/18 06:25 LDL Cholesterol Direct 70 mg/dL (<100) 10/07/18 06:25 HDL Cholesterol 64 mg/dL (40-60) H 10/07/18 06:25 TSH 2.47 uIU/mL (0.358-3.74) 10/06/18 10:37 Urine Color Yellow (Yellow) 10/06/18 19:40 Urine Clarity Clear 10/06/18 19:40 Urine pH 6.0 (5-8) 10/06/18 19:40 Ur Specific [place] 1.025 (1.005-1.025) 10/06/18 19:40 Urine Protein Negative mg/dL (Negative) 10/06/18 19:40 Urine Ketones Negative mg/dL (Negative) 10/06/18 19:40 Urine Blood Negative (Negative) 10/06/18 19:40 Urine Nitrite Negative (Negative) 10/06/18 19:40 Urine Bilirubin Negative (Negative) 10/06/18 19:40 Urine Urobilinogen 0.2 EU/dL (Up TO 0.2) 10/06/18 19:40 Ur Leukocyte Esterase Negative (Negative) 10/06/18 19:40 Urine Glucose Negative mg/dL (Negative) 10/06/18 19:40
--- NOTE | 2018-10-07 11:33 | PHARADMIT ---
Addendum entered by Shaheed Klein III 10/08/18 11:28: Pharmacy Note Subjective Patient working toward goal with PT. Objective VS-OK WBC-7.31 H&H-8.5/26.4 Plts-121 SCr,Lytes-OK No BM yet Assessment Toradol & Lovenox DC'd, No other Med changes Plan notes patient will be ready for discharge home tomorrow. Watch H&H, Plts if she stays...dropping. Original Note: Admission Pharmacy Clinical Review INTERTROCHANTER FX Right FEMUR Code Status Full Code Current Weight Wgt-48.4 kg Renally Cleared and Narrow Therapeutic Index Meds CrCl~ 36.6 mL/min Meds-OK QTc Value / Action Taken QTc-451 BP Control, Fever BP- 126/91 Tmax-37.2C Electrolytes reviewed Na- 142 K+4.6 Mag-1.8 DVT Prophylaxis Lovenox Opiate Usage / Scheduled Bowel Regimen Ordered Yes Yes Plt/SCr for Heparin / Enoxaparin Plts- 165 SCr-88 INR for Warfarin NA H/H stable, WBC/Bands H&H- 9.4/30.1 WBC- 12.92 Antibiotic appropriateness Ancef Cultures and Sensitivities Urine-pending Surgical ABX d/c within 24 hr Yes DM control / Insulin Dosing BG-90 Heart Failure (Check EF%) (JOHAN's, B-Block, Diuretics) Toprol-XL, IV to PO Switch No Home Meds Reviewed Yes Home Meds Not Ordered Amoxil, Bioten, Calcium, Vit-D, FolicAcid, MTX, Aleve, Tumeric, Zometa Comments Troponin: 0.02 ^ 0.02 ^ 0.02
[2018-10-07] MEDS: Enoxaparin 30 MG/0.3 ML SYR SC (17:07)
[2018-10-08] VITALS (7 sets, daily range): BP systolic 103–131; BP diastolic 58–72; PULSE 61–70; RESP 18; TEMP 36.6–37.4; O2SAT 95–96
[2018-10-08 05:54] LABS: Abs Immature Grans 0.07 k/cumm (0.0-0.09); Absolute Basophil Count 0.02 k/cumm (0.0-0.2); Absolute Eosinophil Count 0.16 k/cumm (0.0-0.7); Absolute Lymphocyte Count 0.87 k/cumm (1.2-3.4); Absolute Monocyte Count 0.88 k/cumm (0.11-0.7); Absolute Neutrophil Count 5.31 k/cumm (1.2-6.7); Basophils % 0.3; Eosinophils % 2.2; HCT 26.4 % (36.0-46.0); HGB 8.5 g/dL (12.0-15.5); Lymphocytes % 11.9; Mean Corp. HGB Concentration 32.2 g/dL (32.0-36.0); Mean Corpuscular Hemoglobin 32.6 pg (27.0-33.0); Mean Corpuscular Volume 101.1 fL (80-95); Mean Platelet Volume 10.7 fL (8.0-11.0); Neutrophils % 72.6; Platelet Count 121 x1000/uL (130-400); RBC 2.61 m/cumm (4.00-5.20); RBC Distribution Width 16.1 % (11.7-14.6); White Blood Cell Count 7.31 k/cumm (4.4-10.8)
[2018-10-08 06:14] LABS: Anion Gap 8.5 mmol/L (3-11); BUN 26 mg/dL (7-18); CO2 25.5 mmol/L (21.0-32.0); CREATININE 0.83 mg/dL (0.55-1.02); Calcium 7.9 mg/dL (8.5-10.1); Chloride 108 mmol/L (98-107); Glucose 100 mg/dL (70-100); Potassium 4.4 mmol/L (3.5-5.1); Sodium 142 mmol/L (136-145)
[2018-10-08] MEDS: Pantoprazole 40 MG TABCR PO (07:47)
[2018-10-08] MEDS: Methimazole 5 MG TAB PO (07:47)
[2018-10-08] MEDS: Docusate Sodium 100 MG CAP PO ×2 (07:47→19:51)
[2018-10-08] MEDS: Aspirin E.C. 81 MG TABEC PO ×2 (07:47→19:51)
[2018-10-08] MEDS: Metoprolol CR 25 MG TABCR PO (07:47)
[2018-10-08] MEDS: Acetaminophen 325 MG TAB PO ×2 (07:47→13:05)
[2018-10-08] MEDS: Multivitamin w/Minerals TAB 1 TAB PO (07:47)
[2018-10-08] MEDS: Budesonide/Formoterol 160/4.5 6 GM 60 PUFF INH IH ×2 (07:51→19:51)
--- NOTE | 2018-10-08 08:23 | PDOC.CMPRO ---
Care Management Progress Note S/O: Carmella continues to recover post operatively and work with PT at this time. Per MD; she is moving well and will likely be able to return home when ready. Carmella remains pleasant in interaction and shares no concerns around discharge plan. She reports she will be able to coordinate a ride home for tomorrow and is agreeable to [facility]/PT/OT supports and requests FWW prescription coordination through [facility]. CM reviewed with PT who reported Carmella would require the equipment for discharge. A: 78 year old female admitted to [facility] 10/06/18 for Intertrochanteric FX R Femur with Dr. Olsen P: Carmella will return home when ready per MD; anticipate [facility] orders for PT/OT and new FWW for discharge. Carmella reports a family member will bring her some clothes and transport her home after lunch tomorrow if ready per MD.
--- NOTE | 2018-10-08 08:26 | CMPROGNOTE_ITS ---
Care Management Progress Note S/O: Carmella continues to recover post operatively and work with PT at this time. Per MD; she is moving well and will likely be able to return home when ready. Carmella remains pleasant in interaction and shares no concerns around discharge plan. She reports she will be able to coordinate a ride home for tomorrow and is agreeable to [facility]/PT/OT supports and requests FWW prescription coordination through [facility]. CM reviewed with PT who reported Carmella would require the equipment for discharge. A: 78 year old female admitted to [facility] 10/06/18 for Intertrochanteric FX R Femur with Dr. Olsen P: Carmella will return home when ready per MD; anticipate [facility] orders for PT/OT and new FWW for discharge. Carmella reports a family member will bring her some clothes and transport her home after lunch tomorrow if ready per MD.
--- NOTE | 2018-10-08 10:33 | PGE_ITS ---
Date of Service Date of service: 10/08/18 Time of Service: 10:26 Assessment and Plan (1) Intertrochanteric fracture of right femur: Start date: 10/08/18 Start time: 10:31 Current visit: Yes Status: Acute Assessment: Progressing well following ORIF of an intertrochanteric fracture of the right femur with TFN. I agree with Yumi that she should be able to function well at home. She does not need jail facility placement. I think she should probably be able to go tomorrow. I am concerned that she may have had a drop in her hemoglobin due to Lovenox. Since she is already moving well and is a low risk for DVT, she should have adequate prophylaxis with 81 mg of aspirin twice daily. Plan: DC the Lovenox and increase the aspirin dosage to 81 mg twice daily for DVT prophylaxis. Will DC her IV and IV morphine. Continue mobilize with PT. plan dressing change tomorrow. Barring any new problems she should be able to be discharged home tomorrow. Should follow-up with me in 2 weeks. Subjective Patient reports: no new complaints, feels better and voiding w/o difficulty Interval history since last seen: Yumi is not have any significant discomfort. She feels like she could go home without difficulties. She says she lives on one level and has plenty of family and friends nearby to help. Exam Narrative Exam Narrative: When I see her she is sitting comfortably in the chair. PT says she is moving very well and is basically independent with transfers now. She is voiding well since her Waters was removed. Her hemoglobin dropped from 9.4-8.5 today. Electrolytes BUN and creatinine are normal. Right hip is not irritable to gentle passive range of motion. She moves her right ankle and toes actively on command she has good sensation and circulation to her right foot. Objective Objective Clinical Data: Abnormal lab results 10/08/18 10/08/18 Range/Units 05:45 05:45 RBC 2.61 L (4.00-5.20) m/cumm Hgb 8.5 L (12.0-15.5) g/dL Hct 26.4 L (36.0-46.0) % MCV 101.1 H (80-95) fL RDW 16.1 H (11.7-14.6) % Plt Count 121 L (130-400) x1000/uL Absolute Lymphocytes 0.87 L (1.2-3.4) k/cumm Absolute Monocytes 0.88 H (0.11-0.7) k/cumm Chloride 108 H (98-107) mmol/L BUN 26 H (7-18) mg/dL Calcium 7.9 L (8.5-10.1) mg/dL Vital Signs Temperature 36.8 C 10/08/18 07:20 Temperature Source Tympanic 10/08/18 07:20 Pulse 61 10/08/18 07:20 Pulse Rhythm Regular 10/07/18 23:50 Pulse 64 10/06/18 12:10 Respiratory Rate 18 10/08/18 07:20 Respiratory Effort Non-Labored 10/07/18 23:50 Respiratory Depth Normal 10/07/18 23:50 Respiratory Pattern Normal 10/07/18 23:50 Blood Pressure 115/67 10/08/18 07:20 Blood Pressure Mean 89 10/06/18 12:01 Blood Pressure Position Supine 10/06/18 10:11 Pulse Oximetry 96 10/08/18 07:20 Respiratory End-tidal CO2 26 10/06/18 15:15 Oxygen Delivery Method Room Air 10/08/18 07:20 Oxygen Flow Rate 0 10/08/18 07:20 Pain Level 2 10/08/18 07:47 Comment 10/06/18 16:20 Intake & Output 10/07/18 10/07/18 10/08/18 11:59 23:59 11:59 Intake Total 350 / 350 1587.5 / 1587.5 350 / 350 Output Total 300 / 300 700 / 700 1375 / 1375 Balance 50 / 50 887.5 / 887.5 -1025 / -1025 Intake: IV 100 / 100 857.5 / 857.5 100 / 100 Oral 250 / 250 730 / 730 250 / 250 Output: Urine 300 / 300 700 / 700 1375 / 1375 Other: Urine Color Light Portia Yellow Yellow Urine Appearance Clear Clear Clear Urine Odor Normal Normal Comment tried to void Voiding Methods Toilet Toilet Laboratory Results WBC 7.31 k/cumm (4.4-10.8) D 10/08/18 05:45 RBC 2.61 m/cumm (4.00-5.20) L 10/08/18 05:45 Hgb 8.5 g/dL (12.0-15.5) L 10/08/18 05:45 Hct 26.4 % (36.0-46.0) L 10/08/18 05:45 MCV 101.1 fL (80-95) H 10/08/18 05:45 MCH 32.6 pg (27.0-33.0) 10/08/18 05:45 MCHC 32.2 g/dL (32.0-36.0) 10/08/18 05:45 RDW 16.1 % (11.7-14.6) H 10/08/18 05:45 Plt Count 121 x1000/uL (130-400) L 10/08/18 05:45 MPV 10.7 fL (8.0-11.0) 10/08/18 05:45 Immature Gran % 1.0 10/08/18 05:45 Neutrophils % 72.6 10/08/18 05:45 Lymphocytes % 11.9 10/08/18 05:45 Monocytes % 12.0 10/08/18 05:45 Eosinophils % 2.2 10/08/18 05:45 Basophils % 0.3 10/08/18 05:45 Absolute Neutrophils 5.31 k/cumm (1.2-6.7) 10/08/18 05:45 Absolute Lymphocytes 0.87 k/cumm (1.2-3.4) L 10/08/18 05:45 Absolute Monocytes 0.88 k/cumm (0.11-0.7) H 10/08/18 05:45 Absolute Eosinophils 0.16 k/cumm (0.0-0.7) 10/08/18 05:45 Absolute Basophils 0.02 k/cumm (0.0-0.2) 10/08/18 05:45 Differential Comment Rbc morph reviewed 10/07/18 06:25 RBC Morphology See below 10/07/18 06:25 Anisocytosis 1+ 10/07/18 06:25 Macrocytosis 1+ 10/07/18 06:25 Sodium 142 mmol/L (136-145) 10/08/18 05:45 Potassium 4.4 mmol/L (3.5-5.1) 10/08/18 05:45 Chloride 108 mmol/L (98-107) H 10/08/18 05:45 Carbon Dioxide 25.5 mmol/L (21.0-32.0) 10/08/18 05:45 Anion Gap 8.5 mmol/L (3-11) 10/08/18 05:45 BUN 26 mg/dL (7-18) H 10/08/18 05:45 Creatinine 0.83 mg/dL (0.55-1.02) 10/08/18 05:45 Estimated GFR/1.73 m2 >= 60.00 (mL/min/1.73m2) 10/08/18 05:45 Glucose 100 mg/dL (70-100) 10/08/18 05:45 Calcium 7.9 mg/dL (8.5-10.1) L 10/08/18 05:45 Magnesium 1.8 mg/dL (1.8-2.4) 10/07/18 06:25 Total Bilirubin 0.8 mg/dL (0.2-1.0) 10/06/18 10:37 AST 26 U/L (15-37) 10/06/18 10:37 ALT 19 U/L (12-78) 10/06/18 10:37 Alkaline Phosphatase 99 U/L (46-116) 10/06/18 10:37 Creatine Kinase 246 U/L (26-192) H 10/07/18 06:25 Troponin I 0.02 ng/mL (0.00-0.06) 10/07/18 02:14 Total Protein 6.6 g/dL (6.4-8.2) 10/06/18 10:37 Albumin 3.2 g/dL (3.4-5.0) L 10/06/18 10:37 Triglycerides 61 mg/dL (30-150) 10/07/18 06:25 Total Cholesterol 143 mg/dL (50-200) 10/07/18 06:25 LDL Cholesterol Direct 70 mg/dL (<100) 10/07/18 06:25 HDL Cholesterol 64 mg/dL (40-60) H 10/07/18 06:25 TSH 2.47 uIU/mL (0.358-3.74) 10/06/18 10:37 Urine Color Yellow (Yellow) 10/06/18 19:40 Urine Clarity Clear 10/06/18 19:40 Urine pH 6.0 (5-8) 10/06/18 19:40 Ur Specific [place] 1.025 (1.005-1.025) 10/06/18 19:40 Urine Protein Negative mg/dL (Negative) 10/06/18 19:40 Urine Ketones Negative mg/dL (Negative) 10/06/18 19:40 Urine Blood Negative (Negative) 10/06/18 19:40 Urine Nitrite Negative (Negative) 10/06/18 19:40 Urine Bilirubin Negative (Negative) 10/06/18 19:40 Urine Urobilinogen 0.2 EU/dL (Up TO 0.2) 10/06/18 19:40 Ur Leukocyte Esterase Negative (Negative) 10/06/18 19:40 Urine Glucose Negative mg/dL (Negative) 10/06/18 19:40
--- NOTE | 2018-10-08 11:24 | PTTR_ITS ---
Date of service: 10/08/18 Time of Service: 10:00 PT Notes 10/08/18 S: Stated she is eager to go home. Knows she needs to work on independence with getting in and out of bed so she can do this when DC'ed. Reports pain at 2 out of 10 on 0-10 pain scale. O: Seen in room for ambulation 80ft with FWW with CGA on one. Independent with sit to stand and stand to sit, but does need verbal cueing to slide right foot forward to avoid jarring hip with this. Required slight assist with bring right leg for supine to sit and mod assist with sit to supine. Had patient try use of a cane hook with assisting right LE on and off bed with these transfers and this seemed to work well. Stated she has 3 canes at home she can use for this if needed. Performed ankle pumps, quad / glut sets, supine hip abd/ adduction, heel slides and LAQs while in seated position for 10 reps each. A: Tolerated today's session very well with good effort given. Still having a little trouble with getting right leg on / off bed with supine to sit / sit to supine transfers. Needs to be able to get up / down 2 steps with hand rail to get in / out of house. P: Continue to work on bed mobility with nursing staff and try a couple steps tomorrow with supervising PT. Possibly being DC'ed if independent. TPx1, TA x 1, 9:25 to 9:55 (30 minutes) Savanna Portillo, [employer]
--- NOTE | 2018-10-08 12:17 | PGE_ITS ---
Date of Service Date of service: 10/08/18 Time of Service: 11:00 Assessment and Plan (1) Intertrochanteric fracture of right femur: Current visit: Yes Status: Acute pod #2. continue routine post operative care. dressing to be changed by surgery tomorrow. continue PT. pain has been well managed, not requiring any narcotic medications. (2) Leukocytosis: Current visit: Yes Status: Acute normalized, no evidence of infection (3) DVT prophylaxis: Current visit: Yes Status: Acute lovenox stopped d/t drop in hemoglobin overnight. no overt bleeding noted. will continue asa 81 mg twice daily, she is now mobile and no longer bedrest. (4) Full code status: Current visit: Yes Status: Acute (5) CAD (coronary artery disease): Current visit: Yes Status: Chronic stable, continue beta maureen and asa (6) HTN (hypertension): Current visit: Yes Status: Chronic blood pressures have been stable, will continue home medications and monitor (7) Rheumatoid arthritis: Current visit: Yes Status: Chronic will restart home medications at discharge (8) Discharge planning issues: Current visit: Yes Status: Acute plan is to discharge home with prescription for walker and PT/OT as outpatient vs home visit tomorrow if she remains clinically stable. (9) Acute blood loss anemia: Current visit: Yes Status: Acute no evidence of overt bleeding noted. Has been hemodynamically stable. lovenox discontinued. will follow H&H. consider adding supplemental oral iron. Subjective Patient reports: no new complaints Exam Const General: cooperative, healthy appearing and no acute distress Nutritional Appearance: average body habitus Orientation: alert, awake and oriented x3 [facility] Head: normal to inspection, normocephalic and atraumatic Mouth: oral mucosae normal Resp Effort & Inspection: normal respiratory effort Auscultation: clear to auscultation bilaterally Cardio Rate: regular rate Rhythm: regular rhythm GI Inspection: normal to inspection Palpation: soft Auscultation: normal bowel sounds Skin Lesions: other (bulky dressing to left hip intact, no drainage noted, no surrounding erythema) Rashes: no rashes Neuro General: alert and oriented x3 Speech: speech normal Extrem General: normal to inspection and no edema Objective Objective Clinical Data: Abnormal lab results 10/08/18 10/08/18 Range/Units 05:45 05:45 RBC 2.61 L (4.00-5.20) m/cumm Hgb 8.5 L (12.0-15.5) g/dL Hct 26.4 L (36.0-46.0) % MCV 101.1 H (80-95) fL RDW 16.1 H (11.7-14.6) % Plt Count 121 L (130-400) x1000/uL Absolute Lymphocytes 0.87 L (1.2-3.4) k/cumm Absolute Monocytes 0.88 H (0.11-0.7) k/cumm Chloride 108 H (98-107) mmol/L BUN 26 H (7-18) mg/dL Calcium 7.9 L (8.5-10.1) mg/dL Vital Signs Temperature 36.8 C 10/08/18 07:20 Temperature Source Tympanic 10/08/18 07:20 Pulse 61 10/08/18 07:20 Pulse Rhythm Regular 10/07/18 23:50 Pulse 64 10/06/18 12:10 Respiratory Rate 18 10/08/18 07:20 Respiratory Effort Non-Labored 10/07/18 23:50 Respiratory Depth Normal 10/07/18 23:50 Respiratory Pattern Normal 10/07/18 23:50 Blood Pressure 115/67 10/08/18 07:20 Blood Pressure Mean 89 10/06/18 12:01 Blood Pressure Position Supine 10/06/18 10:11 Pulse Oximetry 96 10/08/18 07:20 Respiratory End-tidal CO2 26 10/06/18 15:15 Oxygen Delivery Method Room Air 10/08/18 07:20 Oxygen Flow Rate 0 10/08/18 07:20 Pain Level 2 10/08/18 07:47 Comment 10/06/18 16:20 Intake & Output 10/07/18 10/08/18 10/08/18 23:59 11:59 23:59 Intake Total 1587.5 / 1587.5 350 / 350 Output Total 700 / 700 1375 / 1375 Balance 887.5 / 887.5 -1025 / -1025 Intake: IV 857.5 / 857.5 100 / 100 Oral 730 / 730 250 / 250 Output: Urine 700 / 700 1375 / 1375 Other: Urine Color Yellow Yellow Urine Appearance Clear Clear Urine Odor Normal Normal Comment tried to void Voiding Methods Toilet Toilet Laboratory Results WBC 7.31 k/cumm (4.4-10.8) D 10/08/18 05:45 RBC 2.61 m/cumm (4.00-5.20) L 10/08/18 05:45 Hgb 8.5 g/dL (12.0-15.5) L 10/08/18 05:45 Hct 26.4 % (36.0-46.0) L 10/08/18 05:45 MCV 101.1 fL (80-95) H 10/08/18 05:45 MCH 32.6 pg (27.0-33.0) 10/08/18 05:45 MCHC 32.2 g/dL (32.0-36.0) 10/08/18 05:45 RDW 16.1 % (11.7-14.6) H 10/08/18 05:45 Plt Count 121 x1000/uL (130-400) L 10/08/18 05:45 MPV 10.7 fL (8.0-11.0) 10/08/18 05:45 Immature Gran % 1.0 10/08/18 05:45 Neutrophils % 72.6 10/08/18 05:45 Lymphocytes % 11.9 10/08/18 05:45 Monocytes % 12.0 10/08/18 05:45 Eosinophils % 2.2 10/08/18 05:45 Basophils % 0.3 10/08/18 05:45 Absolute Neutrophils 5.31 k/cumm (1.2-6.7) 10/08/18 05:45 Absolute Lymphocytes 0.87 k/cumm (1.2-3.4) L 10/08/18 05:45 Absolute Monocytes 0.88 k/cumm (0.11-0.7) H 10/08/18 05:45 Absolute Eosinophils 0.16 k/cumm (0.0-0.7) 10/08/18 05:45 Absolute Basophils 0.02 k/cumm (0.0-0.2) 10/08/18 05:45 Differential Comment Rbc morph reviewed 10/07/18 06:25 RBC Morphology See below 10/07/18 06:25 Anisocytosis 1+ 10/07/18 06:25 Macrocytosis 1+ 10/07/18 06:25 Sodium 142 mmol/L (136-145) 10/08/18 05:45 Potassium 4.4 mmol/L (3.5-5.1) 10/08/18 05:45 Chloride 108 mmol/L (98-107) H 10/08/18 05:45 Carbon Dioxide 25.5 mmol/L (21.0-32.0) 10/08/18 05:45 Anion Gap 8.5 mmol/L (3-11) 10/08/18 05:45 BUN 26 mg/dL (7-18) H 10/08/18 05:45 Creatinine 0.83 mg/dL (0.55-1.02) 10/08/18 05:45 Estimated GFR/1.73 m2 >= 60.00 (mL/min/1.73m2) 10/08/18 05:45 Glucose 100 mg/dL (70-100) 10/08/18 05:45 Calcium 7.9 mg/dL (8.5-10.1) L 10/08/18 05:45 Magnesium 1.8 mg/dL (1.8-2.4) 10/07/18 06:25 Total Bilirubin 0.8 mg/dL (0.2-1.0) 10/06/18 10:37 AST 26 U/L (15-37) 10/06/18 10:37 ALT 19 U/L (12-78) 10/06/18 10:37 Alkaline Phosphatase 99 U/L (46-116) 10/06/18 10:37 Creatine Kinase 246 U/L (26-192) H 10/07/18 06:25 Troponin I 0.02 ng/mL (0.00-0.06) 10/07/18 02:14 Total Protein 6.6 g/dL (6.4-8.2) 10/06/18 10:37 Albumin 3.2 g/dL (3.4-5.0) L 10/06/18 10:37 Triglycerides 61 mg/dL (30-150) 10/07/18 06:25 Total Cholesterol 143 mg/dL (50-200) 10/07/18 06:25 LDL Cholesterol Direct 70 mg/dL (<100) 10/07/18 06:25 HDL Cholesterol 64 mg/dL (40-60) H 10/07/18 06:25 TSH 2.47 uIU/mL (0.358-3.74) 10/06/18 10:37 Urine Color Yellow (Yellow) 10/06/18 19:40 Urine Clarity Clear 10/06/18 19:40 Urine pH 6.0 (5-8) 10/06/18 19:40 Ur Specific [place] 1.025 (1.005-1.025) 10/06/18 19:40 Urine Protein Negative mg/dL (Negative) 10/06/18 19:40 Urine Ketones Negative mg/dL (Negative) 10/06/18 19:40 Urine Blood Negative (Negative) 10/06/18 19:40 Urine Nitrite Negative (Negative) 10/06/18 19:40 Urine Bilirubin Negative (Negative) 10/06/18 19:40 Urine Urobilinogen 0.2 EU/dL (Up TO 0.2) 10/06/18 19:40 Ur Leukocyte Esterase Negative (Negative) 10/06/18 19:40 Urine Glucose Negative mg/dL (Negative) 10/06/18 19:40
[2018-10-09] MEDS: Acetaminophen 325 MG TAB PO ×3 (02:42→12:07)
[2018-10-09 03:08] VITALS: BP 156/73; PULSE 65; RESP 20; TEMP 36.5; O2SAT 98
[2018-10-09 07:02] LABS: Abs Immature Grans 0.17 k/cumm (0.0-0.09); Absolute Basophil Count 0.04 k/cumm (0.0-0.2); Absolute Eosinophil Count 0.21 k/cumm (0.0-0.7); Absolute Lymphocyte Count 1.13 k/cumm (1.2-3.4); Basophils % 0.4; Eosinophils % 2.2; HCT 28.2 % (36.0-46.0); Immature Grans % 1.8; Lymphocytes % 11.8; Mean Corp. HGB Concentration 31.9 g/dL (32.0-36.0); Mean Corpuscular Hemoglobin 32.3 pg (27.0-33.0); Mean Corpuscular Volume 101.1 fL (80-95); Mean Platelet Volume 11.3 fL (8.0-11.0); Monocytes % 15.7; Neutrophils % 68.1; Platelet Count 133 x1000/uL (130-400); RBC 2.79 m/cumm (4.00-5.20); RBC Distribution Width 16.7 % (11.7-14.6); White Blood Cell Count 9.55 k/cumm (4.4-10.8)
[2018-10-09 07:10] VITALS: BP 143/62; PULSE 64; RESP 15; TEMP 37.3; O2SAT 97
[2018-10-09 07:20] LABS: Anion Gap 6.1 mmol/L (3-11); BUN 20 mg/dL (7-18); CO2 27.9 mmol/L (21.0-32.0); CREATININE 0.77 mg/dL (0.55-1.02); Calcium 8.3 mg/dL (8.5-10.1); Chloride 105 mmol/L (98-107); Glucose 99 mg/dL (70-100); Sodium 139 mmol/L (136-145)
[2018-10-09] MEDS: Pantoprazole 40 MG TABCR PO (07:32)
[2018-10-09 08:28] LABS: Vitamin D 25 Total 76.9 ng/ml (30-100)
[2018-10-09] MEDS: Methimazole 5 MG TAB PO (09:17)
[2018-10-09] MEDS: Metoprolol CR 25 MG TABCR PO (09:17)
[2018-10-09] MEDS: Aspirin E.C. 81 MG TABEC PO ×2 (09:17→20:54)
[2018-10-09] MEDS: Docusate Sodium 100 MG CAP PO ×3 (09:17→20:54)
[2018-10-09] MEDS: Budesonide/Formoterol 160/4.5 6 GM 60 PUFF INH IH ×2 (09:17→20:54)
[2018-10-09] MEDS: Multivitamin w/Minerals TAB 1 TAB PO (09:17)
--- NOTE | 2018-10-09 11:02 | NT_ITS ---
Date of service: 10/09/18 Time of Service: 11:00 Occupational Therapy Notes 10/09/18 OT consult received and pts chart was reviewed. OT was waiting on new orders s/ p surgery. At this time OT will D/C pt from skilled OT services. Plan for pt is return home today. Alba Antoine, OTR/L
[2018-10-09 11:05] VITALS: BP 145/76; PULSE 61; RESP 18; TEMP 36.4; O2SAT 98
--- NOTE | 2018-10-09 11:13 | PT.INTREAT ---
Date of service: 10/09/18 Time of Service: 11:13 PT Notes Inpatient Physical Therapy Treatment Note Date: 10/09/18 PRECAUTIONS: WBAT on R SUBJECTIVE: Carmella states that she feels that she is ready to return to home, her sister will be staying with her. OBJECTIVE: PAIN: Patient c/o R hip pain with transfers BED MOBILITY/TRANSFERS Supine-sit: Min A with leg arson and bomb investigator with HOB flat Sit-supine: Min A with leg arson and bomb investigator; SBA with leg arson and bomb investigator with HOB flat Sit-stand: CGA Stand-sit: CGA Chair-bed: CGA GAIT Assistive Device: FWW Weight bearing: WBAT on R Assist: CGA Distance: 100' Deviation: Standing rest x3 THEREX: Patient completed a LE strengthening and stabilization program, as per flow sheet. Patient was able to tolerate the addition of bridging exercise to her program today, without complaint. STAIRS: Up/down 3x4 using B rails and a step-to pattern with CGA TOILETING: Patient toileted with assist ASSESSMENT: Patient tolerated session well with complaints of R hip pain with transfers. She was able to tolerate a progression in gait distance with FWW support and CGA, requiring several standing rests. She was able to demonstrate understanding following leg arson and bomb investigator training. PLAN: As per primary PT TREATMENT CODE/TIME: 55 minutes; TAx3/TP
--- NOTE | 2018-10-09 11:24 | PTTR_ITS ---
Date of service: 10/09/18 Time of Service: 11:13 PT Notes Inpatient Physical Therapy Treatment Note Date: 10/09/18 PRECAUTIONS: WBAT on R SUBJECTIVE: Carmella states that she feels that she is ready to return to home, her sister will be staying with her. OBJECTIVE: PAIN: Patient c/o R hip pain with transfers BED MOBILITY/TRANSFERS Supine-sit: Min A with leg zinc skimmer with HOB flat Sit-supine: Min A with leg zinc skimmer; SBA with leg zinc skimmer with HOB flat Sit-stand: CGA Stand-sit: CGA Chair-bed: CGA GAIT Assistive Device: FWW Weight bearing: WBAT on R Assist: CGA Distance: 100' Deviation: Standing rest x3 THEREX: Patient completed a LE strengthening and stabilization program, as per flow sheet. Patient was able to tolerate the addition of bridging exercise to her program today, without complaint. STAIRS: Up/down 3x4 using B rails and a step-to pattern with CGA TOILETING: Patient toileted with assist ASSESSMENT: Patient tolerated session well with complaints of R hip pain with transfers. She was able to tolerate a progression in gait distance with FWW support and CGA, requiring several standing rests. She was able to demonstrate understanding following leg zinc skimmer training. PLAN: As per primary PT TREATMENT CODE/TIME: 55 minutes; TAx3/TP
--- NOTE | 2018-10-09 14:49 | PDOC.CMPRO ---
- If Service Date Differs Date of service: 10/09/18 Time of Service: 14:49 Care Management Progress Note S/O: Carmella is sitting in her bed when CM visits this morning. She is engaged in conversation, is talkative, and makes good eye contact. Carmella relays that she is hesitant to return home today (when speaking with MEN'S LEATHER DRESS BELT MAKER Justyna and EDU). Original plan had been to return home with PT/OT, however following further discussion and evaluation, determination made by Justyna to have Carmella remain at [facility] for an additional night, re-visit the discussion about possible SNF s/t placement, and continue working with PT. Carmella is in agreement with this plan. CM met with patient and her cousin, Rowan, later in the morning. Carmella has requested referrals be sent to [facility], [place], and [facility] for consideration. CM completed advanced directives and HIPAA with Carmella. AD and HIPAA faxed to [facility] and Carmella's PCP. Carmella opted for a FWW through [employer]; [facility] provided walker. IMM completed in anticipation of Carmella's discharge. A: 78 year old female admitted to [facility] 10/06/18 for Intertrochanteric FX R Femur with Dr. Olsen P: Carmella will discharge when medically ready per MD. Anticipate patient will discharge to a SNF for s/t rehab. Carmella will transport via private vehicle with her cousin, Rowan. EDU will continue to offer support to patient, family, and care team regarding discharge planning and disposition.
--- NOTE | 2018-10-09 15:15 | W.PM.PROGNOT ---
Date of Service Date of service: 10/09/18 Time of Service: 15:15 Assessment and Plan (1) Intertrochanteric fracture of right femur: Current visit: Yes Status: Acute pod #3. continue routine post operative care. continue PT. pain has been well managed, not requiring any narcotic medications. Will likely be ready for discharge tomorrow. CM involved, pt unsure if she wants to go home versus rehab (2) Leukocytosis: Current visit: Yes Status: Acute normalized, no evidence of infection (3) DVT prophylaxis: Current visit: Yes Status: Acute continue asa 81 mg twice daily (4) Full code status: Current visit: Yes Status: Acute (5) CAD (coronary artery disease): Current visit: Yes Status: Chronic stable, continue beta maureen and asa (6) HTN (hypertension): Current visit: Yes Status: Chronic blood pressures have been stable, will continue home medications and monitor (7) Rheumatoid arthritis: Current visit: Yes Status: Chronic will restart home medications at discharge (8) Discharge planning issues: Current visit: Yes Status: Acute CM following ? home w/ home health services including PT/OT versus rehab (9) Acute blood loss anemia: Current visit: Yes Status: Acute no evidence of overt bleeding noted. Has been hemodynamically stable. lovenox discontinued. will follow H&H. consider adding supplemental oral iron. Subjective Patient reports: no new complaints Interval history since last seen: POD 3 s/p ORIF of intertrochanteric fx of R femur with a trochanteric femoral nail. Continues to work with PT, however admits to ongoing pain and feelings of being unable to properly care for herself at home. Has not been up ambulating without PT at all. Is unsure if she can ambulate across the room to the bathroom without assistance. Lives by herself and is not feeling very confident that she can care for herself and perform ADLs Exam Const General: cooperative, healthy appearing, comfortable, no acute distress and well developed Nutritional Appearance: average body habitus and well nourished Orientation: alert, awake and oriented x3 [facility] Head: normal to inspection, normocephalic and atraumatic Ears: hearing grossly abnormal bilaterally General nose exam: other (hearing aid intact on right) Face and sinus: normal facial exam and face symmetric Mouth: oral mucosae normal and mucous membranes dry Chest Chest: normal inspection of the chest, normal palpation of entire chest wall and no crepitus Resp Effort & Inspection: normal respiratory effort, able to speak in complete sentences and no respiratory distress Auscultation: clear to auscultation bilaterally, no rales, no rhonchi and no wheezes Cardio Jugular venous pressure: no JVD Rate: regular rate Rhythm: regular rhythm Heart Sounds: S1 normal, S2 normal and no murmurs GI Inspection: normal to inspection, no edema and non-distended Palpation: soft, no hepatosplenomegaly, not firm, no guarding, not rigid and nontender Auscultation: normal bowel sounds Back/Spine/Pelvis Back: no CVA tenderness Cervical Spine: normal cervical lordosis and cervical ROM normal Thoracic/Lumbar Spine: thoracic and lumbar spine normal to inspection, No paraspinal tenderness and No thoracic spinal tenderness Pelvis: no pain with anterior-posterior compression Skin General skin exam: no rashes or lesions noted (R hip and lap sites well approximated, no drainage, warmth, swelling, redness) Lesions: other Rashes: no rashes Trauma: no lacerations or abrasions Neuro General: alert, awake and oriented x3 Cognition: normal cognition Speech: speech normal Gait: normal gait Extrem General: normal to inspection, normal capillary refill, no pedal edema, no calf tenderness, normal gait and no edema Right lower extremity: normal to inspection and normal capillary refill; no edema Psych Appearance: grossly normal and well kempt Mental Status: mental status grossly normal Speech and Movement: speech and movement normal Mood: congruent mood Affect: normal affect Attitude: cooperative Thought Process: normal Thought Content: normal Objective Objective Clinical Data: Abnormal lab results 10/09/18 10/09/18 Range/Units 06:10 06:10 RBC 2.79 L (4.00-5.20) m/cumm Hgb 9.0 L (12.0-15.5) g/dL Hct 28.2 L (36.0-46.0) % MCV 101.1 H (80-95) fL MCHC 31.9 L (32.0-36.0) g/dL RDW 16.7 H (11.7-14.6) % MPV 11.3 H (8.0-11.0) fL Absolute Lymphocytes 1.13 L (1.2-3.4) k/cumm Absolute Monocytes 1.50 H (0.11-0.7) k/cumm BUN 20 H D (7-18) mg/dL Calcium 8.3 L (8.5-10.1) mg/dL Vital Signs Temperature 36.4 C L 10/09/18 11:05 Temperature Source Tympanic 10/09/18 11:05 Pulse 61 10/09/18 11:05 Pulse Rhythm Regular 10/09/18 11:12 Pulse 64 10/06/18 12:10 Respiratory Rate 18 10/09/18 11:05 Respiratory Effort 10/09/18 11:12 Respiratory Depth Normal 10/09/18 11:12 Respiratory Pattern Normal 10/09/18 11:12 Blood Pressure 145/76 H 10/09/18 11:05 Blood Pressure Mean 89 10/06/18 12:01 Blood Pressure Position Supine 10/06/18 10:11 Pulse Oximetry 98 10/09/18 11:05 Respiratory End-tidal CO2 26 10/06/18 15:15 Oxygen Delivery Method Room Air 10/09/18 11:05 Oxygen Flow Rate 0 10/09/18 11:05 Pain Level 3 10/09/18 07:33 Comment 10/06/18 16:20 Intake & Output 10/08/18 10/09/18 10/09/18 23:59 11:59 23:59 Intake Total 360 / 360 340 / 340 500 / 500 Output Total 700 / 700 600 / 600 Balance -340 / -340 -260 / -260 500 / 500 Weight 45.9 kg Intake: Oral 360 / 360 340 / 340 500 / 500 Output: Urine 700 / 700 600 / 600 Other: Urine Color Yellow Yellow Urine Appearance Clear Clear Urine Odor Normal Voiding Methods Toilet Toilet Laboratory Results WBC 9.55 k/cumm (4.4-10.8) D 10/09/18 06:10 RBC 2.79 m/cumm (4.00-5.20) L 10/09/18 06:10 Hgb 9.0 g/dL (12.0-15.5) L 10/09/18 06:10 Hct 28.2 % (36.0-46.0) L 10/09/18 06:10 MCV 101.1 fL (80-95) H 10/09/18 06:10 MCH 32.3 pg (27.0-33.0) 10/09/18 06:10 MCHC 31.9 g/dL (32.0-36.0) L 10/09/18 06:10 RDW 16.7 % (11.7-14.6) H 10/09/18 06:10 Plt Count 133 x1000/uL (130-400) 10/09/18 06:10 MPV 11.3 fL (8.0-11.0) H 10/09/18 06:10 Immature Gran % 1.8 10/09/18 06:10 Neutrophils % 68.1 10/09/18 06:10 Lymphocytes % 11.8 10/09/18 06:10 Monocytes % 15.7 10/09/18 06:10 Eosinophils % 2.2 10/09/18 06:10 Basophils % 0.4 10/09/18 06:10 Absolute Neutrophils 6.50 k/cumm (1.2-6.7) 10/09/18 06:10 Absolute Lymphocytes 1.13 k/cumm (1.2-3.4) L 10/09/18 06:10 Absolute Monocytes 1.50 k/cumm (0.11-0.7) H 10/09/18 06:10 Absolute Eosinophils 0.21 k/cumm (0.0-0.7) 10/09/18 06:10 Absolute Basophils 0.04 k/cumm (0.0-0.2) 10/09/18 06:10 Differential Comment Rbc morph reviewed 10/07/18 06:25 RBC Morphology See below 10/07/18 06:25 Anisocytosis 1+ 10/07/18 06:25 Macrocytosis 1+ 10/07/18 06:25 Sodium 139 mmol/L (136-145) 10/09/18 06:10 Potassium 4.0 mmol/L (3.5-5.1) 10/09/18 06:10 Chloride 105 mmol/L (98-107) 10/09/18 06:10 Carbon Dioxide 27.9 mmol/L (21.0-32.0) 10/09/18 06:10 Anion Gap 6.1 mmol/L (3-11) 10/09/18 06:10 BUN 20 mg/dL (7-18) H D 10/09/18 06:10 Creatinine 0.77 mg/dL (0.55-1.02) 10/09/18 06:10 Estimated GFR/1.73 m2 >= 60.00 (mL/min/1.73m2) 10/09/18 06:10 Glucose 99 mg/dL (70-100) 10/09/18 06:10 Calcium 8.3 mg/dL (8.5-10.1) L 10/09/18 06:10 Magnesium 1.8 mg/dL (1.8-2.4) 10/07/18 06:25 Total Bilirubin 0.8 mg/dL (0.2-1.0) 10/06/18 10:37 AST 26 U/L (15-37) 10/06/18 10:37 ALT 19 U/L (12-78) 10/06/18 10:37 Alkaline Phosphatase 99 U/L (46-116) 10/06/18 10:37 Creatine Kinase 246 U/L (26-192) H 10/07/18 06:25 Troponin I 0.02 ng/mL (0.00-0.06) 10/07/18 02:14 Total Protein 6.6 g/dL (6.4-8.2) 10/06/18 10:37 Albumin 3.2 g/dL (3.4-5.0) L 10/06/18 10:37 Triglycerides 61 mg/dL (30-150) 10/07/18 06:25 Total Cholesterol 143 mg/dL (50-200) 10/07/18 06:25 LDL Cholesterol Direct 70 mg/dL (<100) 10/07/18 06:25 HDL Cholesterol 64 mg/dL (40-60) H 10/07/18 06:25 25-OH Vitamin D Total 76.9 ng/ml (30-100) 10/08/18 05:45 TSH 2.47 uIU/mL (0.358-3.74) 10/06/18 10:37 Urine Color Yellow (Yellow) 10/06/18 19:40 Urine Clarity Clear 10/06/18 19:40 Urine pH 6.0 (5-8) 10/06/18 19:40 Ur Specific [place] 1.025 (1.005-1.025) 10/06/18 19:40 Urine Protein Negative mg/dL (Negative) 10/06/18 19:40 Urine Ketones Negative mg/dL (Negative) 10/06/18 19:40 Urine Blood Negative (Negative) 10/06/18 19:40 Urine Nitrite Negative (Negative) 10/06/18 19:40 Urine Bilirubin Negative (Negative) 10/06/18 19:40 Urine Urobilinogen 0.2 EU/dL (Up TO 0.2) 10/06/18 19:40 Ur Leukocyte Esterase Negative (Negative) 10/06/18 19:40 Urine Glucose Negative mg/dL (Negative) 10/06/18 19:40
--- NOTE | 2018-10-09 15:22 | CMPROGNOTE_ITS ---
- If Service Date Differs Date of service: 10/09/18 Time of Service: 14:49 Care Management Progress Note S/O: Carmella is sitting in her bed when CM visits this morning. She is engaged in conversation, is talkative, and makes good eye contact. Carmella relays that she is hesitant to return home today (when speaking with INTERNET AND E BUSINESS PROJECT MANAGER Justyna and EDU). Original plan had been to return home with PT/OT, however following further discussion and evaluation, determination made by Justyna to have Carmella remain at [facility] for an additional night, re-visit the discussion about possible SNF s/t placement, and continue working with PT. Carmella is in agreement with this plan. CM met with patient and her cousin, Rowan, later in the morning. Carmella has requested referrals be sent to [facility], [place], and [facility] for consideration. CM completed advanced directives and HIPAA with Carmella. AD and HIPAA faxed to [facility] and Carmella's PCP. Carmella opted for a FWW through [employer]; [facility] provided walker. IMM completed in anticipation of Carmella's discharge. A: 78 year old female admitted to [facility] 10/06/18 for Intertrochanteric FX R Femur with Dr. Olsen P: Carmella will discharge when medically ready per MD. Anticipate patient will discharge to a SNF for s/t rehab. Carmella will transport via private vehicle with her cousin, Rowan. EDU will continue to offer support to patient, family, and care team regarding discharge planning and disposition.
[2018-10-09 15:59] VITALS: BP 117/61; PULSE 68; RESP 17; TEMP 36.6; O2SAT 96
[2018-10-09 20:35] VITALS: BP 129/58; PULSE 68; RESP 17; TEMP 37.1; O2SAT 97
[2018-10-10 00:18] VITALS: BP 132/62; PULSE 79; RESP 17; TEMP 37; O2SAT 95
[2018-10-10] MEDS: Acetaminophen 325 MG TAB PO (00:31)
[2018-10-10 03:53] VITALS: BP 133/70; PULSE 71; RESP 17; TEMP 36.8; O2SAT 99
[2018-10-10 07:44] LABS: Absolute Basophil Count 0.03 k/cumm (0.0-0.2); Absolute Eosinophil Count 0.34 k/cumm (0.0-0.7); Absolute Lymphocyte Count 1.19 k/cumm (1.2-3.4); Absolute Neutrophil Count 11.62 k/cumm (1.2-6.7); Basophils % 0.2; Eosinophils % 2.2; HCT 31.7 % (36.0-46.0); HGB 10.1 g/dL (12.0-15.5); Immature Grans % 1.3; Lymphocytes % 7.7; Mean Corp. HGB Concentration 31.9 g/dL (32.0-36.0); Mean Corpuscular Hemoglobin 32.2 pg (27.0-33.0); Mean Platelet Volume 11.4 fL (8.0-11.0); Monocytes % 13.1; Platelet Count 212 x1000/uL (130-400); RBC 3.14 m/cumm (4.00-5.20); RBC Distribution Width 17.5 % (11.7-14.6); White Blood Cell Count 15.39 k/cumm (4.4-10.8)
[2018-10-10 07:50] VITALS: BP 129/72; PULSE 79; RESP 18; TEMP 36.4; O2SAT 96
[2018-10-10 07:50] LABS: Anion Gap 7.1 mmol/L (3-11); BUN 16 mg/dL (7-18); CO2 27.9 mmol/L (21.0-32.0); CREATININE 0.79 mg/dL (0.55-1.02); Calcium 8.5 mg/dL (8.5-10.1); Chloride 106 mmol/L (98-107); Glucose 98 mg/dL (70-100); Potassium 4.1 mmol/L (3.5-5.1); Sodium 141 mmol/L (136-145)
[2018-10-10] MEDS: Methimazole 5 MG TAB PO (07:54)
[2018-10-10] MEDS: Multivitamin w/Minerals TAB 1 TAB PO (07:54)
[2018-10-10 07:55] LABS: Absolute Monocyte Count 2.02 k/cumm (0.11-0.7)
[2018-10-10] MEDS: Metoprolol CR 25 MG TABCR PO (07:55)
[2018-10-10] MEDS: Docusate Sodium 100 MG CAP PO ×2 (07:55→14:45)
[2018-10-10] MEDS: Aspirin E.C. 81 MG TABEC PO (07:55)
[2018-10-10] MEDS: Pantoprazole 40 MG TABCR PO (07:55)
[2018-10-10 08:00] VITALS: O2SAT 96
[2018-10-10] MEDS: Budesonide/Formoterol 160/4.5 6 GM 60 PUFF INH IH (08:01)
[2018-10-10 08:14] LABS: Anisocytosis 1+; Diff Comment Diff Reviewed; Neutrophils % 75.5; Polychromasia Present
--- NOTE | 2018-10-10 10:51 | PT.INTREAT ---
Date of service: 10/10/18 Time of Service: 10:43 PT Notes Inpatient Physical Therapy Treatment Note Date:10/10/18 PRECAUTIONS: WBAT R LE SUBJECTIVE: Pt sitting in chair, states she is feeling good, no complaints. Agreeable to PT session. OBJECTIVE: PAIN: no c/o pain BED MOBILITY/TRANSFERS Sit-stand: SBA with FWW Chair-toilet: SBA with FWW Stand-sit: SBA GAIT Assistive Device: FWW Weight bearing: WBAT R LE Assist: SBA Distance: [id number] Deviation: slow step through gait pattern with decreased stride, decreased chico. Pt up on toilet after session completed with CARGO AND RAMP SERVICES MANAGER in room to assist back to chair. ASSESSMENT: Pt was able to progress to SBA with mobility today from CGA with use of FWW, decreased pain, decreased weakness. Progressing well with therapy program. Pt has been accepted at [facility] and will be discharged to SNF when medically cleared. PLAN: Progress strengthening Progress gait TREATMENT CODE/TIME: 24min TAx2 10:43 Nancy Patel PT
--- NOTE | 2018-10-10 10:56 | PTTR_ITS ---
Date of service: 10/10/18 Time of Service: 10:43 PT Notes Inpatient Physical Therapy Treatment Note Date:10/10/18 PRECAUTIONS: WBAT R LE SUBJECTIVE: Pt sitting in chair, states she is feeling good, no complaints. Agreeable to PT session. OBJECTIVE: PAIN: no c/o pain BED MOBILITY/TRANSFERS Sit-stand: SBA with FWW Chair-toilet: SBA with FWW Stand-sit: SBA GAIT Assistive Device: FWW Weight bearing: WBAT R LE Assist: SBA Distance: [id number] Deviation: slow step through gait pattern with decreased stride, decreased chico. Pt up on toilet after session completed with SECONDARY EDUCATION PROFESSOR in room to assist back to chair. ASSESSMENT: Pt was able to progress to SBA with mobility today from CGA with use of FWW, decreased pain, decreased weakness. Progressing well with therapy program. Pt has been accepted at [facility] and will be discharged to SNF when medically cleared. PLAN: Progress strengthening Progress gait TREATMENT CODE/TIME: 24min TAx2 10:43 Nancy Patel PT
[2018-10-10 11:30] VITALS: BP 110/63; PULSE 77; RESP 18; TEMP 36.7; O2SAT 96
[2018-10-10 12:04] LABS: Bilirubin Negative (Negative); Blood Negative (Negative); Clarity Clear; Glucose Negative (Negative); Ketones Negative (Negative); Leukocyte Esterase Negative (Negative); Nitrite Negative (Negative); Specific Gravity 1.015 (1.005-1.025); Urobilinogen 0.2 EU/dL (Up TO 0.2); pH 5.5 (5-8)
--- NOTE | 2018-10-10 13:00 | DI.RAD_ITS ---
SYMPTOM/DIAGNOSIS: COUGH, LEUKOCYTOSIS AP AND LATERAL CHEST: Comparison is made with 10/06/18. The lungs are suboptimally inflated on either view. There are mildly increased densities at the lung bases which could represent atelectasis. Pneumonia cannot be entirely excluded. A valve prosthesis is again noted. There are underlying chronic interstitial changes. IMPRESSION: Poor pulmonary infiltration, bibasilar atelectasis versus pneumonia.
[2018-10-10] MEDS: Polyethylene Glycol 3350 17 GM PACKET PO (14:45)
--- NOTE | 2018-10-10 14:50 | DSE_ITS ---
Date of service: 10/10/18 Time of Service: 14:46 DS: Diagnosis Discharge Diagnosis (1) Intertrochanteric fracture of right femur: Status: Acute (2) CAD (coronary artery disease): Status: Chronic (3) COPD (chronic obstructive pulmonary disease): Status: Chronic (4) Rheumatoid arthritis: Status: Chronic (5) Leukocytosis: Status: Acute (6) Falls: Status: Acute (7) Pneumonia: Status: Acute Discharge Plan Disposition Patient Disposition: SNF (LEVEL 1) [facility] Condition: Improving Discharge Details Reason For Visit: INTERTROCHANTERIC FX R FEMUR Admit Date/Time: 10/06/18 14:12 Admit Provider: Jero Olsen Attending Provider: Yanni Samuel Primary Care Provider: Emily [facility] Course Hospital Course: Carmella Stephenson is a very pleasant 78 year old female who previously lived with her elderly sister, with past medical history significant for coronary artery di sease, hx of mitral valve repair, COPD, RA, congenital hearing loss and recent history or right wrist fracture s/p fall (in 07/2018) who was admitted to the med/surg floor s/p right hip fracture repair on 10/06/18. She presented to the ED on 10/06/18, via EMS, after falling at home around 3 am while getting out of bed to use the bathroom. She noted immediate right hip pain and was unable to ambulate. Her family called EMS when they noticed that she was not present. In the emergency department, she had a hip x-ray that was notable for a right intratrochanteric fracture. She was seen by Dr. Olsen, Orthopedics, who took her directly to the OR for repair of the fracture. In the ED, she had labs drawn which were notable for an elevated white blood cell count of 17.2 (with negative UA and chest X-ray). Her magnesium was low at 1.7, she received supplementation in the ED. She had an EKG which was notable for for T wave inversions that appeared new as compared to previous EKG. Her troponin was negative, she denied chest pain or shortness of breath in the ED. She worked with PT and progressed well. There was a plan in place for her to discharge to [facility] for further Physical therapy. On the morning of discharge, she was noted to have leukocytosis. She was afebrile. A UA was obtained and not suspicious for infection. She had a chest x-ray that was notable for mildly increased densities at the lung bases which could represent atelectasis. Pneumonia could not be entirely excluded. She was started on oral Levaquin 750mg [id number] per uptodate recommendations, this will need to be continued for 7 days. She will need a repeat CBC in 2 days time. Home Meds and New Rx's Prescriptions: New hydrocodone-acetaminophen 5-325 mg Tablet 1 tab PO Q6H PRN PRN (Reason: Pain) Qty: 5 RF: 0 aspirin 81 mg Tablet,Delayed Release (Dr/Ec) 81 mg PO BID Qty: 0 RF: 0 polyethylene glycol 3350 17 gram Powder In Packet 17 g PO DAILY Qty: 0 RF: 0 pantoprazole 40 mg Tablet,Delayed Release (Dr/Ec) 40 mg PO DAILY@0730 Qty: 0 RF: 0 levofloxacin 750 mg tablet 750 mg PO Q24H Qty: 0 RF: 0 multivitamin,ew-juve-kjikhgox [Therems-M] 27-0.4 mg Tablet 1 tab PO DAILY Qty: 0 RF: 0 Continue acetaminophen [Tylenol] 325 MG tablet 650 mg PO Q6H PRN RF: 0 methotrexate sodium 2.5 MG tablet 8 tab PO QWEEK RF: 0 folic acid 1 MG tablet 2 mg PO DAILY RF: 0 hydroxychloroquine 200 MG tablet 200 mg PO HS RF: 0 cholecalciferol (vitamin D3) 2,000 UNIT tablet 2,000 unit PO DAILY RF: 0 fluticasone [Flonase Allergy Relief] 9.9 ML spray,suspension 9.9 ml NS DAILY PRNRF: 0 calcium carbonate [Calcium 500] 500 MG tablet 2 tab PO DAILY RF: 0 losartan 25 MG tablet 25 mg PO DAILY RF: 0 metoprolol succinate 25 MG tablet extended release 24 hr 25 mg PO DAILY RF: 0 methimazole 5 MG tablet 5 mg PO DAILY RF: 0 zoledronic yixs-pvfxjltc-swyjf [Reclast] 5 MG/100 ML piggyback 5 mg IV YEARLY RF: 0 PROVENTIL HFA 18 GM HFA.AER.AD 2 puff Inhalation Q4H PRN RF: 0 cmhhcsz-podmtxdhi-zpjl Tablet 1 tab PO DAILY RF: 0 budesonide-formoterol [Symbicort] 160-4.5 mcg/actuation Hfa Aerosol Inhaler 1 puff Inhalation BID RF: 0 Discontinued naproxen sodium [Aleve] 220 MG tablet 220 mg PO BID PRNRF: 0 aspirin [Aspirin Low-Strength] 81 MG tablet,chewable 81 mg PO DAILY RF: 0 amoxicillin 500 MG capsule 500 mg PO #4 predental RF: 0 turmeric root extract 1 EACH capsule 1 ea PO DAILY RF: 0 hydrocodone-acetaminophen 5-325 mg tablet 1 tab PO Q6H PRN (Reason: pain) Qty: 10 RF: 0 biotin 5 mg Capsule 5 mg PO DAILY RF: 0 Discharge Instructions Instructions: Hip Fracture (GEN), ORIF of Hip Fracture (DC), Hospital Acquired Pneumonia (DC) Activity:: Activity as Tolerated Equipment/Supplies:: No Equipment Needed Diet:: As Tolerated Discharge Orders Discharge Orders: Discharge Order (Routine); Ordered 10/10/18 Ordered By: Taylor Hudson Other Ambulatory Orders: Complete Blood Count w/Diff (Routine) Timeframe: 2 Days Location: Determined by Patient Ordered By: Taylor Hudson Exam Narrative Exam Narrative: General: very pleasant 78 year old female, sitting up in bed, awake and alert. Appears comfortable, in NAD. HEENT: normocephalic, atraumatic, mucous membranes moist. Neck: supple, no lymphadenopathy, no JVD. Respiratory: respirations even and unlabored. Lung sounds with fine rales to right base. Cardiac: Heart has regular rate and rhythm, 1-2/6 systolic murmur noted at apex. Abdomen: Flat, soft, nondistended, nontender on palpation, no masses appreciat ed, normoactive bowel sounds. Extremities: Right hip with surgical incisions well approximated, no erythema, edema. Small amount of bloody drainage on gauze dressing. No thick or purulent drainage, no odor. Ecchymosis noted to posterior aspect of thigh. No significant edema to thigh. Pedal pulses palpable bilaterally. No edema. DS: Data Vitals/I&O Vitals and I&O: Vital Signs Temperature 36.7 C 10/10/18 11:30 Temperature Source Tympanic 10/10/18 11:30 Pulse 77 10/10/18 11:30 Pulse Rhythm Regular 10/10/18 10:35 Pulse 64 10/06/18 12:10 Respiratory Rate 18 10/10/18 11:30 Respiratory Effort 10/10/18 10:35 Respiratory Depth Normal 10/10/18 10:35 Respiratory Pattern Normal 10/10/18 10:35 Blood Pressure 110/63 10/10/18 11:30 Blood Pressure Mean 89 10/06/18 12:01 Blood Pressure Position Supine 10/06/18 10:11 Pulse Oximetry 96 10/10/18 11:30 Respiratory End-tidal CO2 26 10/06/18 15:15 Oxygen Delivery Method Room Air 10/10/18 11:30 Oxygen Flow Rate 0 10/10/18 11:30 Pain Level 0 10/10/18 01:31 Comment 10/06/18 16:20 Intake & Output 10/09/18 10/10/18 10/10/18 23:59 11:59 23:59 Intake Total 980 / 980 990 / 990 240 / 240 Output Total 1100 / 1100 1100 / 1100 Balance -120 / -120 -110 / -110 240 / 240 Weight 47.7 kg Intake: Oral 980 / 980 990 / 990 240 / 240 Output: Urine 1100 / 1100 1100 / 1100 Other: Urine Color Yellow Yellow Urine Appearance Clear Clear Urine Odor Normal Voiding Methods Toilet Toilet Completed studies during hospitalization [Text1]: 10/06/18: PELVIS AND RIGHT HIP: There is a comminuted, intra-articular fracture of the right femur. There is overriding and displacement of the fracture noted. The right femoral head is seated within the acetabulum. There is a lucency seen at the posterior aspect of the right acetabulum and a nondisplaced fracture cannot be excluded. No other fracture or dislocation is seen. The sacroiliac joints and symphysis pubis appear intact. Degenerative changes are seen in the lower lumbar spine. IMPRESSION: Comminuted, displaced intertrochanteric fracture of the right femur. AP CHEST: Comparison is made with 02/08/18. Heart size and pulmonary vasculature is within normal limits. There is again seen a mitral valve replacement. The lungs are clear. No effusions or pneumothoraces are identified. The bones are intact. IMPRESSION: No acute pulmonary process. RIGHT HIP: Fluoroscopy Time: 118.9 sec 9.63mGy Multiple views were obtained. There has been interval placement of an intramedullary lucía and screw transfixing the intertrochanteric fracture of the right femur. The orthopedic hardware appears in good position. Alignment of the fracture fragments is near anatomic. Skin radha are present. IMPRESSION: Status post reduction and internal fixation of the intertrochanteric fracture of the right femur. 10/10/18: AP AND LATERAL CHEST: Comparison is made with 10/06/18. The lungs are suboptimally inflated on either view. There are mildly increased densities at the lung bases which could represent atelectasis. Pneumonia cannot be entirely excluded. A valve pro sthesis is again noted. There are underlying chronic interstitial changes. IMPRESSION: Poor pulmonary infiltration, bibasilar atelectasis versus pneumonia. Labs on day of discharge: Labs from last 24 hours 10/10/18 10/10/18 10/10/18 10:44 06:43 06:43 WBC 15.39 H D RBC 3.14 L Hgb 10.1 L Hct 31.7 L MCV 101.0 H MCH 32.2 MCHC 31.9 L RDW 17.5 H Plt Count 212 MPV 11.4 H Immature Gran % 1.3 Neutrophils % 75.5 Lymphocytes % 7.7 Monocytes % 13.1 Eosinophils % 2.2 Basophils % 0.2 Absolute Neutrophils 11.62 H Absolute Lymphocytes 1.19 L Absolute Monocytes 2.02 H Absolute Eosinophils 0.34 Absolute Basophils 0.03 Differential Comment Diff reviewed RBC Morphology See below Polychromasia Present Anisocytosis 1+ Sodium 141 Potassium 4.1 Chloride 106 Carbon Dioxide 27.9 Anion Gap 7.1 BUN 16 Creatinine 0.79 Estimated GFR/1.73 m2 >= 60.00 Glucose 98 Calcium 8.5 Urine Color Yellow Urine Clarity Clear Urine pH 5.5 Ur Specific [place] 1.015 Urine Protein Negative Urine Ketones Negative Urine Blood Negative Urine Nitrite Negative Urine Bilirubin Negative Urine Urobilinogen 0.2 Ur Leukocyte Esterase Negative Urine Glucose Negative PFSH Fx lower radius/ulna-closed (Acute) Bigeminy Bilateral hearing loss CAD (coronary artery disease) COPD (chronic obstructive pulmonary disease) Chronic obstructive lung disease Colitis Hearing loss History of hypertension History of tobacco use Hyperthyroidism Mitral valve disease Osteopenia Osteoporosis Rheumatoid arthritis Rhinitis Ulcerative colitis Family History Mother Asthma Father No problems noted. Sister No problems noted. Sister No problems noted. Brother No problems noted. Colonoscopy - IV Sedation (~2008) Colonoscopy - MAC (03/22/18) Family History Mother Asthma Father No problems noted. Sister No problems noted. Sister No problems noted. Brother No problems noted. Medical History Fx lower radius/ulna-closed (Acute) Bigeminy Bilateral hearing loss CAD (coronary artery disease) COPD (chronic obstructive pulmonary disease) Chronic obstructive lung disease Colitis Hearing loss History of hypertension History of tobacco use Hyperthyroidism Mitral valve disease Osteopenia Osteoporosis Rheumatoid arthritis Rhinitis Ulcerative colitis Social History Smoking/Tobacco Use Status: Former Tobacco Use Surgical History Colonoscopy - IV Sedation (~2008) Colonoscopy - MAC (03/22/18) Social History Smoking/Tobacco Use Status: Former Tobacco Use
--- NOTE | 2018-10-10 15:03 | PTTR_ITS ---
Date of service: 10/10/18 Time of Service: 14:59 PT Notes 10/10/18 SUBJECTIVE: Pt stating she has minimal discomfort while in bed. Upon movement she has some achiness through the lateral aspect of her hip down to her right knee. OBJECTIVE: Supine in bed. Agreeable to PT treatment. BED MOBILITY/TRANSFERS: Supine to sit: SBA Sit to supine: Min A for LE's Sit to stand: SBA Stand to sit: SBA GAIT: Device: FWW Weight bearing: WBAT R Assist: SBA Distance: 75' Deviation: 2 stand rest breaks due to fatigue. Therex: Supine LE strengthening and AROM to the right hip and knee. See flow sheet. ASSESSMENT: Progressing well with her mobility and overall strength. She is fatigued this afternoon and we decrease her gait distance because of this. Seems to have her pain under control. PLAN: Continue current POC. Direct time: 23 minutes TA/VETO Lemons, [employer]
--- NOTE | 2018-10-10 15:21 | PDOC.CMDIS ---
- If Service Date Differs Date of service: 10/10/18 Time of Service: 15:21 LACE Index Scoring Tool - Questions: Length of Stay (in days): 4 - 6 Acuity (Admit via E.D.?): Yes Comorbidities: Chronic Pulmonary Disease Care Management Discharge Reason for Hospitalization: Intertrochanteric FX R Femur Discharge Plan: Carmella will discharge when medically ready per MD. Anticipate patient will discharge to [facility] for short term rehab and follow up with her PCP. Carmella will transport with her cousin, Rowan, via private vehicle. Patient/Family Education Needs: Discharge education, any limitations, and follow up plan of care. Ask Me Three discussion. Services Needed at Discharge: Assisted Facility ([facility]. )
--- NOTE | 2018-10-10 15:31 | CHAPLAIN ---
Carmella was in bed when I visited. She said family members will be up to visit later today. She is a member of [employer] and was visited by one of the priests on Tuesday. She is hoping her sister may visit today.
--- NOTE | 2018-10-10 15:32 | CMDISCH_ITS ---
- If Service Date Differs Date of service: 10/10/18 Time of Service: 15:21 LACE Index Scoring Tool - Questions: Length of Stay (in days): 4 - 6 Acuity (Admit via E.D.?): Yes Comorbidities: Chronic Pulmonary Disease Care Management Discharge Reason for Hospitalization: Intertrochanteric FX R Femur Discharge Plan: Carmella will discharge when medically ready per MD. Anticipate patient will discharge to [facility] for short term rehab and follow up with her PCP. Carmella will transport with her cousin, Rowan, via private vehicle. Patient/Family Education Needs: Discharge education, any limitations, and follow up plan of care. Ask Me Three discussion. Services Needed at Discharge: Group Home Facility ([facility]. )
[2018-10-10] MEDS: LEVOFLOXACIN 500 MG, LEVOFLOXACIN 250 MG 750 MG PO (15:35)
--- NOTE | 2018-10-10 16:02 | NUR.NOTE ---
Nursing Note: Report phoned to [facility] nurse. All questions answered.
--- NOTE | 2018-10-11 07:39 | PT.INDS ---
Date of service: 10/11/18 Time of Service: 07:40 PT Notes Inpatient Physical Therapy Discharge Summary Date: 10/11/18 Dates of Service: 10/07/18-10/10/18 SUBJECTIVE: NT OBJECTIVE: 10/07/18-10/10/18 BED MOBILITY/TRANSFERS: Supine-sit: minAx1 Sit-supine : minAx1 Sit-stand : SBA Stand-sit : SBA Bed-Chair : SBA with FWW GAIT: SBA with FWW [id number] STAIRS up/down 3 steps with railings CGA BALANCE: Static sitting: normal Dynamic sitting: normal Static standing: fair Dynamic standing: fair ASSESSMENT: Pt was seen for 5 PT visits. Progressed from CGA standing transfers to SBA, from CGA gait 80ft to SBA gait 100ft x2 with FWW, able to perform 3 steps with railings CGA. Pt is transferred to [facility] for continued therapy. GOALS Goals X1 week 1. Supine-Sit supervison 2. Sit-Supine supervision 3. Sit-Stand supervision, with RW 4. Stand-Sit supervision, with RW 5. Bed-Chair supervision, with RW 6. Chair-Bed supervision, with RW 7. Gait 50 ft with RW, supervision 8. Stairs 2, with rail, CG 9. Independent with home exercise program 10. Balance good with sitting activities, fair with standing activities Pt did not meet goals due to weakness, continue PT at rehab. DISCHARGE RECOMMENDATIONS: [facility] G Codes in the area mobility of walking and moving around: projected status GP [id number], discharge GP [id number] Nancy Patel PT
--- NOTE | 2018-10-11 07:46 | INDS_ITS ---
Date of service: 10/11/18 Time of Service: 07:40 PT Notes Inpatient Physical Therapy Discharge Summary Date: 10/11/18 Dates of Service: 10/07/18-10/10/18 SUBJECTIVE: NT OBJECTIVE: 10/07/18-10/10/18 BED MOBILITY/TRANSFERS: Supine-sit: minAx1 Sit-supine : minAx1 Sit-stand : SBA Stand-sit : SBA Bed-Chair : SBA with FWW GAIT: SBA with FWW [id number] STAIRS up/down 3 steps with railings CGA BALANCE: Static sitting: normal Dynamic sitting: normal Static standing: fair Dynamic standing: fair ASSESSMENT: Pt was seen for 5 PT visits. Progressed from CGA standing transfers to SBA, from CGA gait 80ft to SBA gait 100ft x2 with FWW, able to perform 3 steps with railings CGA. Pt is transferred to [facility] for continued therapy. GOALS Goals X1 week 1. Supine-Sit supervison 2. Sit-Supine supervision 3. Sit-Stand supervision, with RW 4. Stand-Sit supervision, with RW 5. Bed-Chair supervision, with RW 6. Chair-Bed supervision, with RW 7. Gait 50 ft with RW, supervision 8. Stairs 2, with rail, CG 9. Independent with home exercise program 10. Balance good with sitting activities, fair with standing activities Pt did not meet goals due to weakness, continue PT at rehab. DISCHARGE RECOMMENDATIONS: [facility] G Codes in the area mobility of walking and moving around: projected status GP [id number], discharge GP [id number] Nancy Patel PT
== END 2018-10-10 15:45 | disposition skilled nursing facility (03) | DRG 480 ==
LOC: ER 12:22 → DSU 12:31 → MS 15:38
PROVIDERS: Internal Medicine; Admitting Provider Orthopaedic Surgery; Emergency Provider Physician Assistant; PCP Family Medicine; Visit Provider Internal Medicine
PROC: 0QS606Z Reposition Right Upper Femur with Intramedullary Internal Fixation Device, Open Approach (ICD-10-PCS; principal; 2018-10-06 12:15)
DX: S72.141A Displaced intertrochanteric fracture of right femur, initial encounter for closed fracture (principal); J18.9 Pneumonia, unspecified organism; W19.XXXA Unspecified fall, initial encounter; R94.31 Abnormal electrocardiogram [ECG] [EKG]; I25.10 Atherosclerotic heart disease of native coronary artery without angina pectoris; J44.9 Chronic obstructive pulmonary disease, unspecified; M06.9 Rheumatoid arthritis, unspecified; D72.829 Elevated white blood cell count, unspecified; Z91.81 History of falling; E83.42 Hypomagnesemia; E05.90 Thyrotoxicosis, unspecified without thyrotoxic crisis or storm
CPT/HCPCS: 27245; 36415; 76942; 80048; 80053; 80061; 82306; 82550; 83721; 93005; 94640; 96361; 96365; 97110; 97161; 97530; 99221; 99222; 99233; 99239; 99285; NC; 71045; 71046; 73501; 73502; 81003; 83735; 84443; 84484; 85025; 87086; 93010; J1100; J1650; J1885; J2405; J3475

== ENCOUNTER 2018-10-14 18:04 | Outpatient (CLI) | payer MEDICARE, BC, SELFPAY ==
[2018-10-14 19:11] LABS: Abs Immature Grans 0.04 k/cumm (0.0-0.09); Absolute Basophil Count 0.02 k/cumm (0.0-0.2); Absolute Eosinophil Count 0.13 k/cumm (0.0-0.7); Absolute Lymphocyte Count 1.01 k/cumm (1.2-3.4); Absolute Monocyte Count 0.16 k/cumm (0.11-0.7); Absolute Neutrophil Count 9.06 k/cumm (1.2-6.7); Basophils % 0.2; Eosinophils % 1.2; HCT 26.8 % (36.0-46.0); HGB 8.8 g/dL (12.0-15.5); Immature Grans % 0.4; Lymphocytes % 9.7; Mean Corp. HGB Concentration 32.8 g/dL (32.0-36.0); Mean Corpuscular Hemoglobin 32.7 pg (27.0-33.0); Mean Corpuscular Volume 99.6 fL (80-95); Mean Platelet Volume 10.4 fL (8.0-11.0); Monocytes % 1.5; Platelet Count 368 x1000/uL (130-400); RBC 2.69 m/cumm (4.00-5.20); RBC Distribution Width 17.5 % (11.7-14.6); White Blood Cell Count 10.42 k/cumm (4.4-10.8)
== END 2018-10-14 18:24 ==
PROVIDERS: PCP Family Medicine; Visit Provider Family Medicine
DX: J18.9 Pneumonia, unspecified organism (principal)
CPT/HCPCS: 85025

== ENCOUNTER 2018-10-17 17:12 | Outpatient (REF) | payer MEDICARE, BC, SELFPAY ==
[2018-10-17 19:31] LABS: Abs Immature Grans 0.02 k/cumm (0.0-0.09); Absolute Basophil Count 0.01 k/cumm (0.0-0.2); Absolute Eosinophil Count 0.06 k/cumm (0.0-0.7); Absolute Lymphocyte Count 0.39 k/cumm (1.2-3.4); Absolute Monocyte Count 0.02 k/cumm (0.11-0.7); Absolute Neutrophil Count 6.71 k/cumm (1.2-6.7); Basophils % 0.1; Eosinophils % 0.8; HCT 26.5 % (36.0-46.0); HGB 8.5 g/dL (12.0-15.5); Immature Grans % 0.3; Lymphocytes % 5.4; Mean Corp. HGB Concentration 32.1 g/dL (32.0-36.0); Mean Corpuscular Hemoglobin 32.7 pg (27.0-33.0); Mean Corpuscular Volume 101.9 fL (80-95); Monocytes % 0.3; Neutrophils % 93.1; Platelet Count 296 x1000/uL (130-400); RBC Distribution Width 17.5 % (11.7-14.6); Reticulocyte 0.4 % (0.5-2.4); White Blood Cell Count 7.21 k/cumm (4.4-10.8)
[2018-10-17 19:39] LABS: Iron 176 ug/dL (50-175); Total Iron Binding Capacity 216 ug/dL (250-450); Transferrin Sat 81 % (15-50)
[2018-10-17 19:53] LABS: Ferritin 451 ng/mL (8-388)
[2018-10-20 09:53] LABS: Transferrin 163 mg/dL (201-352)
== END 2018-10-17 17:32 ==
LOC: LBN 17:12
PROVIDERS: PCP Family Medicine; Visit Provider Family Medicine
DX: D72.829 Elevated white blood cell count, unspecified (principal); D62 Acute posthemorrhagic anemia; I25.10 Atherosclerotic heart disease of native coronary artery without angina pectoris
CPT/HCPCS: 82728; 83540; 83550; 84466; 85025; 85045

== ENCOUNTER 2018-10-22 17:19 | Outpatient (REF) | payer MEDICARE, BC, SELFPAY ==
[2018-10-22 17:48] LABS: Abs Immature Grans 0.04 k/cumm (0.0-0.09); Absolute Eosinophil Count 0.07 k/cumm (0.0-0.7); Absolute Monocyte Count 0.02 k/cumm (0.11-0.7); Absolute Neutrophil Count 1.49 k/cumm (1.2-6.7); Eosinophils % 3.6; Immature Grans % 2.1; Lymphocytes % 15.6; Mean Corpuscular Hemoglobin 32.5 pg (27.0-33.0); Mean Corpuscular Volume 98.6 fL (80-95); Mean Platelet Volume 10.7 fL (8.0-11.0); Neutrophils % 77.7; RBC 2.09 m/cumm (4.00-5.20); RBC Distribution Width 16.4 % (11.7-14.6)
[2018-10-22 17:58] LABS: ALT 14 U/L (12-78); AST 17 U/L (15-37); Albumin 1.9 g/dL (3.4-5.0); Alkaline Phosphatase 69 U/L (46-116); Anion Gap 7.7 mmol/L (3-11); BUN 31 mg/dL (7-18); Bilirubin, Total 0.7 mg/dL (0.2-1.0); CO2 24.3 mmol/L (21.0-32.0); CREATININE 0.62 mg/dL (0.55-1.02); Calcium 7.6 mg/dL (8.5-10.1); Chloride 108 mmol/L (98-107); Glucose 87 mg/dL (70-100); Potassium 4.1 mmol/L (3.5-5.1); Sodium 140 mmol/L (136-145); Total Protein 4.7 g/dL (6.4-8.2)
[2018-10-22 18:14] LABS: HCT 20.6 % (36.0-46.0); HGB 6.8 g/dL (12.0-15.5); White Blood Cell Count 1.92 k/cumm (4.4-10.8)
[2018-10-22 20:40] LABS: Platelet Count 62 x1000/uL (130-400)
== END 2018-10-22 17:39 ==
LOC: LBN 17:19
PROVIDERS: PCP Family Medicine; Visit Provider Family Medicine
DX: D62 Acute posthemorrhagic anemia (principal); I25.10 Atherosclerotic heart disease of native coronary artery without angina pectoris; S72.141D Displaced intertrochanteric fracture of right femur, subsequent encounter for closed fracture with routine healing; Z47.89 Encounter for other orthopedic aftercare
CPT/HCPCS: 80048; 80076; 85025

== ENCOUNTER 2018-10-22 19:13 | Emergency (ER) | payer MEDICARE, BC, SELFPAY ==
[2018-10-22] VITALS (16 sets, daily range): BP systolic 92–113; BP diastolic 39–55; PULSE 77–93; RESP 16–30; TEMP 37.1; O2SAT 92–95
--- NOTE | 2018-10-22 19:47 | W.ED.GENAD ---
Discharge Plan Disposition Patient Disposition: [facility] Condition: Stable Discharge Details Chief Complaint: GenMedical Clinical Impression: Methotrexate toxicity Reason For Visit: ERICK Primary Care Provider: Emily Lucio ED Provider: Jero Jiménez Home Meds and New Rx's Prescriptions: No Action acetaminophen [Tylenol] 325 MG tablet 650 mg PO Q6H PRN RF: 0 methotrexate sodium 2.5 MG tablet 8 tab PO QWEEK RF: 0 folic acid 1 MG tablet 2 mg PO DAILY RF: 0 hydroxychloroquine 200 MG tablet 200 mg PO HS RF: 0 cholecalciferol (vitamin D3) 2,000 UNIT tablet 2,000 unit PO DAILY RF: 0 fluticasone [Flonase Allergy Relief] 9.9 ML spray,suspension 9.9 ml NS DAILY PRNRF: 0 calcium carbonate [Calcium 500] 500 MG tablet 2 tab PO DAILY RF: 0 losartan 25 MG tablet 25 mg PO DAILY RF: 0 metoprolol succinate 25 MG tablet extended release 24 hr 25 mg PO DAILY RF: 0 methimazole 5 MG tablet 5 mg PO DAILY RF: 0 PROVENTIL HFA 18 GM HFA.AER.AD 2 puff Inhalation Q4H PRN RF: 0 leucovorin calcium 10 mg Tablet 10 mg PO DAILY RF: 0 bisacodyl 10 mg Suppository 10 mg MD DAILY PRNRF: 0 ferrous sulfate 325 mg (65 mg iron) Tablet 325 mg PO BID RF: 0 naproxen sodium 220 mg Tablet 220 mg PO BID PRNRF: 0 biotin 5 mg Tablet 1 tab PO DAILY RF: 0 [id number]-[id number] Tablet 1 tab PO DAILY RF: 0 Symbicort 160-4.5 mcg/actuation Hfa Aerosol Inhaler 1 puff Inhalation BID RF: 0 hydrocodone-acetaminophen 5-325 mg Tablet 1 tab PO Q6H PRN PRN (Reason: Pain) Qty: 5 RF: 0 aspirin 81 mg Tablet,Delayed Release (Dr/Ec) 81 mg PO BID Qty: 0 RF: 0 Medical Decision Making 78-year-old female referred from [facility] and rehab after stat laboratories today revealed a new pancytopenia. Patient subsequently discovered to have been inadvertently administered daily doses of methotrexate. She arrives afebrile, interactive and without significant complaint other than generalized malaise, some nausea, and notes that earlier in the week she had increased bruising at her elbows and right hip. IV placed, repeat labs obtained including methotrexate level which will be a send out. Patient initiated on D5W with an amp of bicarbonate for hydration and to promote urinary alkalinization. Please note, leucovorin is not available @ [facility]. Case discussed with on-call rheumatology as well as hematology/oncology at [facility]. Case accepted in transfer by Dr. Martel I reviewed labs from earlier today which show white blood cell count of 1.9 decreased from 7.2, hemoglobin of 6.8 decreased from 8.5, platelets of 62 decreased from 296. The comparison labs were drawn on October 17. Repeat labs pending. Lab Data Lab results reviewed: Yes I reviewed the patient's lab results. Laboratory Tests Range/Units 10/22/18 10/22/18 19:55 19:55 WBC (4.4-10.8) k/cumm 2.21 L RBC (4.00-5.20) m/cumm 2.42 L Hgb (12.0-15.5) g/dL 7.8 L Hct (36.0-46.0) % 24.0 L MCV (80-95) fL 99.2 H MCH (27.0-33.0) pg 32.2 MCHC (32.0-36.0) g/dL 32.5 RDW (11.7-14.6) % 16.3 H Plt Count (130-400) x1000/uL 57 L MPV (8.0-11.0) fL 9.8 Immature Gran % 0.0 Neutrophils % 80.0 Lymphocytes % 11.0 Monocytes % 4.0 Eosinophils % 2.0 Basophils % 1.0 Absolute Neutrophils (1.2-6.7) k/cumm 1.81 Band Neutrophils % 2.0 Absolute Lymphocytes (1.2-3.4) k/cumm 0.24 L Absolute Monocytes (0.11-0.7) k/cumm 0.09 L Absolute Eosinophils (0.0-0.7) k/cumm 0.04 Absolute Basophils (0.0-0.2) k/cumm 0.02 Differential Comment Manual differential RBC Morphology See below Anisocytosis 1+ Microcytosis 1+ Sodium (136-145) mmol/L 141 Potassium (3.5-5.1) mmol/L 4.1 Chloride (98-107) mmol/L 108 H Carbon Dioxide (21.0-32.0) mmol/L 25.4 Anion Gap (3-11) mmol/L 7.6 BUN (7-18) mg/dL 33 H Creatinine (0.55-1.02) mg/dL 0.70 Estimated GFR/1.73 m2 (mL/min/1.73m2) >= 60.00 Glucose (70-100) mg/dL 89 Calcium (8.5-10.1) mg/dL 7.9 L Total Bilirubin (0.2-1.0) mg/dL 0.8 AST (15-37) U/L 18 ALT (12-78) U/L 15 Alkaline Phosphatase (46-116) U/L 73 Total Protein (6.4-8.2) g/dL 5.1 L Albumin (3.4-5.0) g/dL 2.1 L HPI General Mode of arrival: EMS. Date/Time Provider Initiated Documentation: 10/22/18 19:15. Limitations to Documentation: no limitations. Information obtained by: patient, family and EMS. History of Present Illness 78 year old F presents to the emergency department with the chief complaint of Malaise and weakness for 3 days, freq bruising, question MTX toxicity, described as mild, Quality is described as constant, No relieving factors improve symptom(s), No exacerbating factors reported . Patient notes loss of appetite and weakness. Patient did receive the following treatments prior to arrival, none HPI Narrative: Referred from [facility] after note of generalized wqeakness, frequent bruising and nausea over 3 days time. Found to have received daily dose of Methotrexaate (by report) over 6 days consecutively, rather than q week. Patient was referred after consultation with rheumatology resulted in stat laboratories which revealed a pancytopenia. Related Data Home Medications Medication Instructions Recorded Confirmed acetaminophen [Tylenol] 650 mg PO Q6H PRN tab-cap 01/18/13 10/22/18 cholecalciferol (vitamin D3) 2,000 unit PO DAILY 01/18/13 10/22/18 folic acid 2 mg PO DAILY tab-cap 01/18/13 10/22/18 hydroxychloroquine 200 mg PO HS tab-cap 01/18/13 10/22/18 methotrexate sodium 8 tab PO QWEEK 01/18/13 10/22/18 fluticasone [Flonase Allergy 9.9 ml NS DAILY PRN 10/27/15 10/06/18 Relief] calcium carbonate [Calcium 500] 2 tab PO DAILY tab-cap 03/18/16 10/22/18 losartan 25 mg PO DAILY tab-cap 03/18/16 10/22/18 methimazole 5 mg PO DAILY tab-cap 03/18/16 10/22/18 metoprolol succinate 25 mg PO DAILY tab-cap 03/18/16 10/22/18 Proventil Hfa 2 puff INHALATION Q4H PRN inhaler 03/06/18 10/22/18 NS Symbicort 1 puff INHALATION BID 10/06/18 10/06/18 [id number]-tqyrvyngz-sjvg 1 tab PO DAILY 10/06/18 10/22/18 aspirin 81 mg PO BID #0 tab 10/10/18 10/22/18 hydrocodone-acetaminophen 1 tab PO Q6H PRN PRN #5 tab 10/10/18 10/22/18 biotin 1 tab PO DAILY 10/22/18 10/22/18 bisacodyl 10 mg MD DAILY PRN 10/22/18 10/22/18 ferrous sulfate 325 mg PO BID 10/22/18 10/22/18 leucovorin calcium 10 mg PO DAILY 10/22/18 10/22/18 naproxen sodium 220 mg PO BID PRN 10/22/18 10/22/18 Previous Rx's Medication Instructions Recorded aspirin 81 mg PO BID #0 tab 10/10/18 hydrocodone-acetaminophen 1 tab PO Q6H PRN PRN #5 tab 10/10/18 Allergies Allergy/AdvReac Type Severity Reaction Status Date / Time sulfasalazine AdvReac Intermediate Lupus Type Unverified 10/22/18 19:21 Symptoms General Stated Complaint: GenMedical DEIRDRE: 3 Review of Systems Review of Systems 8 systems reviewed and otherwise neg PFSH Medical History Fx lower radius/ulna-closed (Acute) Bigeminy Bilateral hearing loss CAD (coronary artery disease) COPD (chronic obstructive pulmonary disease) Chronic obstructive lung disease Colitis Hearing loss History of hypertension History of tobacco use Hyperthyroidism Mitral valve disease Osteopenia Osteoporosis Rheumatoid arthritis Rhinitis Ulcerative colitis Surgical History Colonoscopy - IV Sedation (~2008) Colonoscopy - MAC (03/22/18) Family History Mother Asthma Father No problems noted. Sister No problems noted. Sister No problems noted. Brother No problems noted. Social History Smoking/Tobacco Use Status: Former Tobacco Use Exam Narrative Exam Narrative: GEN: awake, alert, oriented 3. Pleasant, well groomed, interactive. HEAD: Normocephalic, atraumatic ENT: Mucous membranes moist, oropharynx unremarkable, External ear exam unremarkable EYES: PERRL, EOMI NECK: Full ROM, no KAY, no menigismus CHEST/RESP: Nontender, clear to auscultation bilateral, no wheeze/rhonchi/rales CARDIOVASCULAR: RRR, no murmur, rub demarcus. 2+ Rad pulse bilateral ABDOMEN: Soft, nontender, no mass. +Bowel sounds EXT: Full ROM, no edema, no rash. The right thigh has lateral surgical incisions that are well-healed. No ecchymosis appreciated Neuro: Grossly normal neurologic exam, conversant, interactive. Psych: Speech fluent, thoughts congruent, affect normal Course Vital Signs Temperature 37.1 C 10/22/18 19:14 Pulse 77 10/22/18 19:14 Respiratory Rate 16 10/22/18 19:14 Blood Pressure 92/48 L 10/22/18 19:14 Pulse Oximetry 95 10/22/18 19:14 Temperature 37.1 C 10/22/18 19:14 Temperature Source Skin 10/22/18 19:14 Pulse 77 10/22/18 19:14 Respiratory Rate 24 10/22/18 19:36 Respiratory Effort Non-Labored 10/22/18 19:36 Blood Pressure 92/48 L 10/22/18 19:14 Pulse Oximetry 95 10/22/18 19:14 Pain Level 95 10/22/18 19:14
--- NOTE | 2018-10-22 19:54 | ED.GENADUL_ITS ---
Discharge Plan Disposition Patient Disposition: [facility] Condition: Stable Discharge Details Chief Complaint: GenMedical Clinical Impression: Methotrexate toxicity Reason For Visit: ERICK Primary Care Provider: Emily Lucio ED Provider: Jero Jiménez Home Meds and New Rx's Prescriptions: No Action acetaminophen [Tylenol] 325 MG tablet 650 mg PO Q6H PRN RF: 0 methotrexate sodium 2.5 MG tablet 8 tab PO QWEEK RF: 0 folic acid 1 MG tablet 2 mg PO DAILY RF: 0 hydroxychloroquine 200 MG tablet 200 mg PO HS RF: 0 cholecalciferol (vitamin D3) 2,000 UNIT tablet 2,000 unit PO DAILY RF: 0 fluticasone [Flonase Allergy Relief] 9.9 ML spray,suspension 9.9 ml NS DAILY PRNRF: 0 calcium carbonate [Calcium 500] 500 MG tablet 2 tab PO DAILY RF: 0 losartan 25 MG tablet 25 mg PO DAILY RF: 0 metoprolol succinate 25 MG tablet extended release 24 hr 25 mg PO DAILY RF: 0 methimazole 5 MG tablet 5 mg PO DAILY RF: 0 PROVENTIL HFA 18 GM HFA.AER.AD 2 puff Inhalation Q4H PRN RF: 0 leucovorin calcium 10 mg Tablet 10 mg PO DAILY RF: 0 bisacodyl 10 mg Suppository 10 mg PA DAILY PRNRF: 0 ferrous sulfate 325 mg (65 mg iron) Tablet 325 mg PO BID RF: 0 naproxen sodium 220 mg Tablet 220 mg PO BID PRNRF: 0 biotin 5 mg Tablet 1 tab PO DAILY RF: 0 [id number]-cvegrodyl-efwc Tablet 1 tab PO DAILY RF: 0 Symbicort 160-4.5 mcg/actuation Hfa Aerosol Inhaler 1 puff Inhalation BID RF: 0 hydrocodone-acetaminophen 5-325 mg Tablet 1 tab PO Q6H PRN PRN (Reason: Pain) Qty: 5 RF: 0 aspirin 81 mg Tablet,Delayed Release (Dr/Ec) 81 mg PO BID Qty: 0 RF: 0 Medical Decision Making 78-year-old female referred from [facility] and rehab after stat laboratories today revealed a new pancytopenia. Patient subsequently discovered to have been inadvertently administered daily doses of methotrexate. She arrives afebrile, interactive and without significant complaint other than generalized malaise, some nausea, and notes that earlier in the week she had increased bruising at her elbows and right hip. IV placed, repeat labs obtained including methotrexate level which will be a send out. Patient initiated on D5W with an amp of bicarbonate for hydration and to promote urinary alkalinization. Please note, leucovorin is not available @ [facility]. Case discussed with on-call rheumatology as well as hematology/oncology at [facility]. Case accepted in transfer by Dr. Martel I reviewed labs from earlier today which show white blood cell count of 1.9 decreased from 7.2, hemoglobin of 6.8 decreased from 8.5, platelets of 62 decreased from 296. The comparison labs were drawn on October 17. Repeat labs pending. Lab Data Lab results reviewed: Yes I reviewed the patient's lab results. Laboratory Tests Range/Units 10/22/18 10/22/18 19:55 19:55 WBC (4.4-10.8) k/cumm 2.21 L RBC (4.00-5.20) m/cumm 2.42 L Hgb (12.0-15.5) g/dL 7.8 L Hct (36.0-46.0) % 24.0 L MCV (80-95) fL 99.2 H MCH (27.0-33.0) pg 32.2 MCHC (32.0-36.0) g/dL 32.5 RDW (11.7-14.6) % 16.3 H Plt Count (130-400) x1000/uL 57 L MPV (8.0-11.0) fL 9.8 Immature Gran % 0.0 Neutrophils % 80.0 Lymphocytes % 11.0 Monocytes % 4.0 Eosinophils % 2.0 Basophils % 1.0 Absolute Neutrophils (1.2-6.7) k/cumm 1.81 Band Neutrophils % 2.0 Absolute Lymphocytes (1.2-3.4) k/cumm 0.24 L Absolute Monocytes (0.11-0.7) k/cumm 0.09 L Absolute Eosinophils (0.0-0.7) k/cumm 0.04 Absolute Basophils (0.0-0.2) k/cumm 0.02 Differential Comment Manual differential RBC Morphology See below Anisocytosis 1+ Microcytosis 1+ Sodium (136-145) mmol/L 141 Potassium (3.5-5.1) mmol/L 4.1 Chloride (98-107) mmol/L 108 H Carbon Dioxide (21.0-32.0) mmol/L 25.4 Anion Gap (3-11) mmol/L 7.6 BUN (7-18) mg/dL 33 H Creatinine (0.55-1.02) mg/dL 0.70 Estimated GFR/1.73 m2 (mL/min/1.73m2) >= 60.00 Glucose (70-100) mg/dL 89 Calcium (8.5-10.1) mg/dL 7.9 L Total Bilirubin (0.2-1.0) mg/dL 0.8 AST (15-37) U/L 18 ALT (12-78) U/L 15 Alkaline Phosphatase (46-116) U/L 73 Total Protein (6.4-8.2) g/dL 5.1 L Albumin (3.4-5.0) g/dL 2.1 L HPI General Mode of arrival: EMS . Date/Time Provider Initiated Documentation: 10/22/18 19:15 . Limitations to Documentation: no limitations . Information obtained by: patient, family and EMS . History of Present Illness 78 year old F presents to the emergency department with the chief complaint of Malaise and weakness for 3 days, freq bruising, question MTX toxicity, described as mild, Quality is described as constant, No relieving factors improve symptom(s), No exacerbating factors reported . Patient notes loss of appetite and weakness. Patient did receive the following treatments prior to arrival, none HPI Narrative: Referred from [facility] after note of generalized wqeakness, frequent bruising and nausea over 3 days time. Found to have received daily dose of Methotrexaate (by report) over 6 days consecutively, rather than q week. Patient was referred after consultation with rheumatology resulted in stat laboratories which revealed a pancytopenia. Related Data Home Medications Medication Instructions Recorded Confirmed acetaminophen [Tylenol] 650 mg PO Q6H PRN tab-cap 01/18/13 10/22/18 cholecalciferol (vitamin D3) 2,000 unit PO DAILY 01/18/13 10/22/18 folic acid 2 mg PO DAILY tab-cap 01/18/13 10/22/18 hydroxychloroquine 200 mg PO HS tab-cap 01/18/13 10/22/18 methotrexate sodium 8 tab PO QWEEK 01/18/13 10/22/18 fluticasone [Flonase Allergy 9.9 ml NS DAILY PRN 10/27/15 10/06/18 Relief] calcium carbonate [Calcium 500] 2 tab PO DAILY tab-cap 03/18/16 10/22/18 losartan 25 mg PO DAILY tab-cap 03/18/16 10/22/18 methimazole 5 mg PO DAILY tab-cap 03/18/16 10/22/18 metoprolol succinate 25 mg PO DAILY tab-cap 03/18/16 10/22/18 Proventil Hfa 2 puff INHALATION Q4H PRN inhaler 03/06/18 10/22/18 NS Symbicort 1 puff INHALATION BID 10/06/18 10/06/18 [id number]-odbgwpygw-lkrs 1 tab PO DAILY 10/06/18 10/22/18 aspirin 81 mg PO BID #0 tab 10/10/18 10/22/18 hydrocodone-acetaminophen 1 tab PO Q6H PRN PRN #5 tab 10/10/18 10/22/18 biotin 1 tab PO DAILY 10/22/18 10/22/18 bisacodyl 10 mg PA DAILY PRN 10/22/18 10/22/18 ferrous sulfate 325 mg PO BID 10/22/18 10/22/18 leucovorin calcium 10 mg PO DAILY 10/22/18 10/22/18 naproxen sodium 220 mg PO BID PRN 10/22/18 10/22/18 Previous Rx's Medication Instructions Recorded aspirin 81 mg PO BID #0 tab 10/10/18 hydrocodone-acetaminophen 1 tab PO Q6H PRN PRN #5 tab 10/10/18 Allergies Allergy/AdvReac Type Severity Reaction Status Date / Time sulfasalazine AdvReac Intermediate Lupus Type Unverified 10/22/18 19:21 Symptoms General Stated Complaint: GenMedical DEIRDRE: 3 Review of Systems Review of Systems 8 systems reviewed and otherwise neg PFSH Medical History Fx lower radius/ulna-closed (Acute) Bigeminy Bilateral hearing loss CAD (coronary artery disease) COPD (chronic obstructive pulmonary disease) Chronic obstructive lung disease Colitis Hearing loss History of hypertension History of tobacco use Hyperthyroidism Mitral valve disease Osteopenia Osteoporosis Rheumatoid arthritis Rhinitis Ulcerative colitis Surgical History Colonoscopy - IV Sedation (~2008) Colonoscopy - MAC (03/22/18) Family History Mother Asthma Father No problems noted. Sister No problems noted. Sister No problems noted. Brother No problems noted. Social History Smoking/Tobacco Use Status: Former Tobacco Use Exam Narrative Exam Narrative: GEN: awake, alert, oriented 3. Pleasant, well groomed, interactive. HEAD: Normocephalic, atraumatic ENT: Mucous membranes moist, oropharynx unremarkable, External ear exam unremarkable EYES: PERRL, EOMI NECK: Full ROM, no KAY, no menigismus CHEST/RESP: Nontender, clear to auscultation bilateral, no wheeze/rhonchi/rales CARDIOVASCULAR: RRR, no murmur, rub demarcus. 2+ Rad pulse bilateral ABDOMEN: Soft, nontender, no mass. +Bowel sounds EXT: Full ROM, no edema, no rash. The right thigh has lateral surgical incisions that are well-healed. No ecchymosis appreciated Neuro: Grossly normal neurologic exam, conversant, interactive. Psych: Speech fluent, thoughts congruent, affect normal Course Vital Signs Temperature 37.1 C 10/22/18 19:14 Pulse 77 10/22/18 19:14 Respiratory Rate 16 10/22/18 19:14 Blood Pressure 92/48 L 10/22/18 19:14 Pulse Oximetry 95 10/22/18 19:14 Temperature 37.1 C 10/22/18 19:14 Temperature Source Skin 10/22/18 19:14 Pulse 77 10/22/18 19:14 Respiratory Rate 24 10/22/18 19:36 Respiratory Effort Non-Labored 10/22/18 19:36 Blood Pressure 92/48 L 10/22/18 19:14 Pulse Oximetry 95 10/22/18 19:14 Pain Level 95 10/22/18 19:14
[2018-10-22 20:13] LABS: Abs Immature Grans 0.08 k/cumm (0.0-0.09); HGB 7.8 g/dL (12.0-15.5); Mean Corp. HGB Concentration 32.5 g/dL (32.0-36.0); Mean Corpuscular Hemoglobin 32.2 pg (27.0-33.0); Mean Corpuscular Volume 99.2 fL (80-95); Mean Platelet Volume 9.8 fL (8.0-11.0); RBC 2.42 m/cumm (4.00-5.20); RBC Distribution Width 16.3 % (11.7-14.6); White Blood Cell Count 2.21 k/cumm (4.4-10.8)
[2018-10-22 20:21] LABS: ALT 15 U/L (12-78); AST 18 U/L (15-37); Albumin 2.1 g/dL (3.4-5.0); Alkaline Phosphatase 73 U/L (46-116); Anion Gap 7.6 mmol/L (3-11); BUN 33 mg/dL (7-18); Bilirubin, Total 0.8 mg/dL (0.2-1.0); CO2 25.4 mmol/L (21.0-32.0); Calcium 7.9 mg/dL (8.5-10.1); Chloride 108 mmol/L (98-107); Glucose 89 mg/dL (70-100); Potassium 4.1 mmol/L (3.5-5.1); Sodium 141 mmol/L (136-145); Total Protein 5.1 g/dL (6.4-8.2)
[2018-10-22] MEDS: SODIUM BICARBONATE 150 MEQ in DEXTROSE 5%-WATER 850 ML IV (20:24)
[2018-10-22] MEDS: Sodium Bicarbonate 50 MEQ/50 ML SYR (20:30)
[2018-10-22 20:38] LABS: Absolute Lymphocyte Count 0.24 k/cumm (1.2-3.4); Absolute Neutrophil Count 1.81 k/cumm (1.2-6.7); Platelet Count 57 x1000/uL (130-400)
[2018-10-22 20:39] LABS: Absolute Basophil Count 0.02 k/cumm (0.0-0.2); Absolute Eosinophil Count 0.04 k/cumm (0.0-0.7); Absolute Monocyte Count 0.09 k/cumm (0.11-0.7); Anisocytosis 1+; Diff Comment Manual Differential; Microcytosis 1+
--- NOTE | 2018-10-22 22:37 | NUR.NOTE ---
Nursing Note: Pt sent with [address] @ 3268 with bicarb drip running. [facility] made aware of departure. pt sent with glasses and right hearing aid, no other belongings. Daughter and family to meet @ [facility].
[2018-10-23 16:10] LABS: Methotrexate <0.05 umol/L
== END 2018-10-22 22:37 | disposition short-term general hospital (02) ==
PROVIDERS: Emergency Provider Emergency Medicine; PCP Family Medicine
DX: T45.1X1A Poisoning by antineoplastic and immunosuppressive drugs, accidental (unintentional), initial encounter (principal); D61.810 Antineoplastic chemotherapy induced pancytopenia; R11.0 Nausea; J44.9 Chronic obstructive pulmonary disease, unspecified; Z87.891 Personal history of nicotine dependence; I10 Essential (primary) hypertension
CPT/HCPCS: 80053; 86850; 86900; 86901; 96365; 99285; 83520; 85025

== ENCOUNTER 2018-12-01 20:37 | Outpatient (REF) | payer MEDICARE, BC, SELFPAY ==
[2018-12-01 21:25] LABS: TSH (W/Ref FT4) 0.51 uIU/mL (0.358-3.74)
== END 2018-12-01 20:57 ==
LOC: LBN 20:37
PROVIDERS: PCP Family Medicine; Visit Provider Family Medicine
DX: E03.9 Hypothyroidism, unspecified (principal)
CPT/HCPCS: 84443

== ENCOUNTER 2019-01-15 22:25 | Outpatient (REF) | payer MEDICARE, BC, SELFPAY ==
[2019-01-15 21:47] LABS: FREE T4 1.33 ng/dL (0.76-1.46); TSH 0.32 uIU/mL (0.358-3.74)
[2019-01-15 21:58] LABS: Vitamin D 25 Total 86.9 ng/ml (30-100)
== END 2019-01-15 22:45 ==
LOC: LBN 22:25
PROVIDERS: PCP Family Medicine; Visit Provider Family Medicine
DX: E05.90 Thyrotoxicosis, unspecified without thyrotoxic crisis or storm (principal); M06.9 Rheumatoid arthritis, unspecified; M85.80 Other specified disorders of bone density and structure, unspecified site; E78.5 Hyperlipidemia, unspecified
CPT/HCPCS: 82306; 84439; 84443

== ENCOUNTER 2019-02-02 18:50 | Outpatient (REF) | payer MEDICARE, BC, SELFPAY | END 2019-02-02 19:10 | LOC: NCHCN 18:50 | PROVIDERS: PCP Family Medicine; Visit Provider Family Medicine | DX: R32 Unspecified urinary incontinence (principal) | CPT/HCPCS: 87077; 87086; 87186 ==

== ENCOUNTER 2019-02-04 12:19 | Inpatient (IN) | payer MEDICARE, BC, SELFPAY ==
[2019-02-04 12:25] VITALS: BP 124/65; PULSE 72; RESP 18; TEMP 37.1; O2SAT 98
--- NOTE | 2019-02-04 12:55 | W.ED.GENAD ---
Discharge Plan Disposition Patient Disposition: [facility] INPATIENT Condition: Stable Discharge Details Chief Complaint: Urinary Clinical Impression: Acute UTI Primary Care Provider: Emily Lucio ED Provider: Jero Jiménez Home Meds and New Rx's Prescriptions: No Action acetaminophen [Tylenol] 325 MG tablet 650 mg PO Q6H PRN RF: 0 methotrexate sodium 2.5 MG tablet 8 tab PO QWEEK RF: 0 folic acid 1 MG tablet 2 mg PO DAILY RF: 0 hydroxychloroquine 200 MG tablet 200 mg PO HS RF: 0 cholecalciferol (vitamin D3) 2,000 UNIT tablet 2,000 unit PO DAILY RF: 0 fluticasone propionate [Flonase Allergy Relief] 9.9 ML spray,suspension 9.9 ml NS DAILY PRNRF: 0 calcium carbonate [Calcium 500] 500 MG tablet 2 tab PO DAILY RF: 0 metoprolol succinate 25 MG tablet extended release 24 hr 25 mg PO DAILY RF: 0 methimazole 5 MG tablet 5 mg PO DAILY RF: 0 PROVENTIL HFA 18 GM HFA.AER.AD 2 puff Inhalation Q4H PRN RF: 0 leucovorin calcium 10 mg Tablet 10 mg PO DAILY RF: 0 bisacodyl 10 mg Suppository 10 mg [place] DAILY PRNRF: 0 naproxen sodium 220 mg Tablet 220 mg PO BID PRNRF: 0 biotin 5 mg Tablet 1 tab PO DAILY RF: 0 mhdqobd-crijanrhs-vnks Tablet 1 tab PO DAILY RF: 0 Symbicort 160-4.5 mcg/actuation Hfa Aerosol Inhaler 1 puff Inhalation BID RF: 0 hydrocodone-acetaminophen 5-325 mg Tablet 1 tab PO Q6H PRN PRN (Reason: Pain) Qty: 5 RF: 0 aspirin 81 mg Tablet,Delayed Release (Dr/Ec) 81 mg PO BID Qty: 0 RF: 0 omeprazole 20 mg Capsule,Delayed Release(Dr/Ec) 20 mg PO DAILY RF: 0 Prolia 60 mg/mL Syringe .[id number] RF: 0 Medical Decision Making 78-year-old female presents from home with her doctor out of health for positive urinary tract infection in clinic with report of MRSA on culture today. Patient is known to me from recent transfer to [facility] for methotrexate toxicity which resulted in hair loss, weight loss, brief period of intubation, septic and discharged to group home from which she was recently released. She arrives afebrile, well-appearing, in good spirits and in no acute distress. Lab results reviewed and urine culture from show staph staph aureus with penicillin binding protein to a. Confirmatory test pending. Sensitive to gentamicin, daptomycin and intermediate sensitivity to vancomycin. IV placed, screening labs obtained and repeat urine obtained. Laboratories are reassuring. Creatinine 0.6. Repeat urinalysis questionably contaminated. CXR without focal infiltrate, question small area of atelectasis left base. Consistent with acute UTI. Given that it is MRSA, abx initiated in the ED. Case discussed with hospitalist service and patient to be admitted. Lab Data Lab results reviewed: Yes I reviewed the patient's lab results. Laboratory Results - last 24 hr 02/04/19 02/04/19 13:05 13:05 WBC 8.62 RBC 4.34 Hgb 13.3 Hct 41.2 MCV 94.9 MCH 30.6 MCHC 32.3 RDW 15.4 H Plt Count 185 MPV 10.4 Immature Gran % 0.5 Neutrophils % 70.0 Lymphocytes % 15.1 Monocytes % 13.2 Eosinophils % 0.7 Basophils % 0.5 Absolute Neutrophils 6.04 Absolute Lymphocytes 1.30 Absolute Monocytes 1.14 H Absolute Eosinophils 0.06 Absolute Basophils 0.04 Sodium 138 Potassium 3.7 Chloride 102 Carbon Dioxide 25.9 Anion Gap 10.1 BUN 28 H Creatinine 0.68 Estimated GFR/1.73 m2 >= 60.00 Glucose 83 Calcium 8.9 Total Bilirubin 0.4 AST 29 ALT 16 Alkaline Phosphatase 126 H Total Protein 8.1 Albumin 3.0 L HPI General Mode of arrival: ambulatory. Date/Time Provider Initiated Documentation: 02/04/19 12:26. Limitations to Documentation: no limitations. Information obtained by: patient and family. History of Present Illness 78 year old F presents to the emergency department with the chief complaint of Urinary tract infection. Report of MRSA per home health, positive dysuria, described as moderate, Quality is described as burning, and is localized to the pelvis. Patient reports no radiation. Patient started experiencing this day(s) No relieving factors improve symptom(s), No exacerbating factors reported . Patient notes no other symptoms.. Patient did receive the following treatments prior to arrival, none Related Data Home Medications Medication Instructions Recorded Confirmed acetaminophen [Tylenol] 650 mg PO Q6H PRN tab-cap 01/18/13 02/04/19 cholecalciferol (vitamin D3) 2,000 unit PO DAILY 01/18/13 02/04/19 folic acid 2 mg PO DAILY tab-cap 01/18/13 02/04/19 hydroxychloroquine 200 mg PO HS tab-cap 01/18/13 02/04/19 methotrexate sodium 8 tab PO QWEEK 01/18/13 02/04/19 fluticasone propionate [Flonase 9.9 ml NS DAILY PRN 10/27/15 02/04/19 Allergy Relief] calcium carbonate [Calcium 500] 2 tab PO DAILY tab-cap 03/18/16 02/04/19 methimazole 5 mg PO DAILY tab-cap 03/18/16 02/04/19 metoprolol succinate 25 mg PO DAILY tab-cap 03/18/16 02/04/19 Proventil Hfa 2 puff INHALATION Q4H PRN inhaler 03/06/18 02/04/19 NS Symbicort 1 puff INHALATION BID 10/06/18 02/04/19 niygqeh-ghbifohze-nzyx 1 tab PO DAILY 10/06/18 02/04/19 aspirin 81 mg PO BID #0 tab 10/10/18 02/04/19 hydrocodone-acetaminophen 1 tab PO Q6H PRN PRN #5 tab 10/10/18 02/04/19 biotin 1 tab PO DAILY 10/22/18 02/04/19 bisacodyl 10 mg [place] DAILY PRN 10/22/18 02/04/19 leucovorin calcium 10 mg PO DAILY 10/22/18 02/04/19 naproxen sodium 220 mg PO BID PRN 10/22/18 02/04/19 denosumab [Prolia] .[id number] 02/04/19 omeprazole 20 mg PO DAILY 02/04/19 02/04/19 Previous Rx's Medication Instructions Recorded aspirin 81 mg PO BID #0 tab 10/10/18 hydrocodone-acetaminophen 1 tab PO Q6H PRN PRN #5 tab 10/10/18 Allergies Allergy/AdvReac Type Severity Reaction Status Date / Time sulfasalazine AdvReac Intermediate Lupus Type Unverified 02/04/19 12:46 Symptoms General Stated Complaint: Urinary DEIRDRE: 3 Review of Systems Review of Systems Patient recovering from methotrexate toxicity, recent released from [facility] and living with daughter. She has lost some hair and has been gaining weight again up 10 pounds. + cough. Increased urinary frequency and urgency over 3 days time. Denies other illness. 8 systems reviewed and otherwise negative [facility] Social History Smoking/Tobacco Use Status: Former Tobacco Use Drug use: Never Do you feel safe in your relationship?: Yes Exam Narrative Exam Narrative: GEN: awake, alert, oriented 3. Pleasant, well groomed, interactive, thin. HEAD: Normocephalic, atraumatic ENT: Mucous membranes moist, oropharynx unremarkable, External ear exam unremarkable EYES: PERRL, EOMI NECK: Full ROM, no KAY, no menigismus CHEST/RESP: Nontender, clear to auscultation bilateral, no wheeze/rhonchi/rales CARDIOVASCULAR: RRR, no murmur, rub demarcus. 2+ Rad pulse bilateral ABDOMEN: Soft, nontender, no mass. +Bowel sounds EXT: Full ROM, no edema, no rash Neuro: Grossly normal neurologic exam, conversant, interactive. Psych: Speech fluent, thoughts congruent, affect normal Course Vital Signs Temperature 37.1 C 02/04/19 12:25 Pulse 72 02/04/19 12:25 Respiratory Rate 18 02/04/19 12:25 Blood Pressure 124/65 02/04/19 12:25 Pulse Oximetry 98 02/04/19 12:25 Temperature 37.1 C 02/04/19 12:25 Temperature Source Skin 02/04/19 12:25 Pulse 72 02/04/19 12:25 Respiratory Rate 18 02/04/19 12:25 Blood Pressure 124/65 02/04/19 12:25 Blood Pressure Position Sitting 02/04/19 12:25 Pulse Oximetry 98 02/04/19 12:25 Oxygen Delivery Method Room Air 02/04/19 12:25 Oxygen Flow Rate 0 02/04/19 12:25 Pain Level 0 02/04/19 12:25
--- NOTE | 2019-02-04 12:58 | ED.GENADUL_ITS ---
Discharge Plan Disposition Patient Disposition: [facility] INPATIENT Condition: Stable Discharge Details Chief Complaint: Urinary Clinical Impression: Acute UTI Primary Care Provider: Emily Lucio ED Provider: Jero Jiménez Home Meds and New Rx's Prescriptions: No Action acetaminophen [Tylenol] 325 MG tablet 650 mg PO Q6H PRN RF: 0 methotrexate sodium 2.5 MG tablet 8 tab PO QWEEK RF: 0 folic acid 1 MG tablet 2 mg PO DAILY RF: 0 hydroxychloroquine 200 MG tablet 200 mg PO HS RF: 0 cholecalciferol (vitamin D3) 2,000 UNIT tablet 2,000 unit PO DAILY RF: 0 fluticasone propionate [Flonase Allergy Relief] 9.9 ML spray,suspension 9.9 ml NS DAILY PRNRF: 0 calcium carbonate [Calcium 500] 500 MG tablet 2 tab PO DAILY RF: 0 metoprolol succinate 25 MG tablet extended release 24 hr 25 mg PO DAILY RF: 0 methimazole 5 MG tablet 5 mg PO DAILY RF: 0 PROVENTIL HFA 18 GM HFA.AER.AD 2 puff Inhalation Q4H PRN RF: 0 leucovorin calcium 10 mg Tablet 10 mg PO DAILY RF: 0 bisacodyl 10 mg Suppository 10 mg MN DAILY PRNRF: 0 naproxen sodium 220 mg Tablet 220 mg PO BID PRNRF: 0 biotin 5 mg Tablet 1 tab PO DAILY RF: 0 orlnexo-qxmugxkjm-wfgh Tablet 1 tab PO DAILY RF: 0 Symbicort 160-4.5 mcg/actuation Hfa Aerosol Inhaler 1 puff Inhalation BID RF: 0 hydrocodone-acetaminophen 5-325 mg Tablet 1 tab PO Q6H PRN PRN (Reason: Pain) Qty: 5 RF: 0 aspirin 81 mg Tablet,Delayed Release (Dr/Ec) 81 mg PO BID Qty: 0 RF: 0 omeprazole 20 mg Capsule,Delayed Release(Dr/Ec) 20 mg PO DAILY RF: 0 Prolia 60 mg/mL Syringe .[id number] RF: 0 Medical Decision Making 78-year-old female presents from home with her doctor out of health for positive urinary tract infection in clinic with report of MRSA on culture today. Patient is known to me from recent transfer to [facility] for methotrexate toxicity which resulted in hair loss, weight loss, brief period of intubation, septic and discharged to senior living from which she was recently released. She arrives afebrile, well-appearing, in good spirits and in no acute distress. Lab results reviewed and urine culture from show staph staph aureus with penicillin binding protein to a. Confirmatory test pending. Sensitive to gentamicin, daptomycin and intermediate sensitivity to vancomycin. IV placed, screening labs obtained and repeat urine obtained. Laboratories are reassuring. Creatinine 0.6. Repeat urinalysis questionably contaminated. CXR without focal infiltrate, question small area of atelectasis left base. Consistent with acute UTI. Given that it is MRSA, abx initiated in the ED. Case discussed with hospitalist service and patient to be admitted. Lab Data Lab results reviewed: Yes I reviewed the patient's lab results. Laboratory Results - last 24 hr 02/04/19 02/04/19 13:05 13:05 WBC 8.62 RBC 4.34 Hgb 13.3 Hct 41.2 MCV 94.9 MCH 30.6 MCHC 32.3 RDW 15.4 H Plt Count 185 MPV 10.4 Immature Gran % 0.5 Neutrophils % 70.0 Lymphocytes % 15.1 Monocytes % 13.2 Eosinophils % 0.7 Basophils % 0.5 Absolute Neutrophils 6.04 Absolute Lymphocytes 1.30 Absolute Monocytes 1.14 H Absolute Eosinophils 0.06 Absolute Basophils 0.04 Sodium 138 Potassium 3.7 Chloride 102 Carbon Dioxide 25.9 Anion Gap 10.1 BUN 28 H Creatinine 0.68 Estimated GFR/1.73 m2 >= 60.00 Glucose 83 Calcium 8.9 Total Bilirubin 0.4 AST 29 ALT 16 Alkaline Phosphatase 126 H Total Protein 8.1 Albumin 3.0 L HPI General Mode of arrival: ambulatory . Date/Time Provider Initiated Documentation: 02/04/19 12:26 . Limitations to Documentation: no limitations . Information obtained by: patient and family . History of Present Illness 78 year old F presents to the emergency department with the chief complaint of Urinary tract infection. Report of MRSA per home health, positive dysuria, d escribed as moderate, Quality is described as burning, and is localized to the pelvis. Patient reports no radiation. Patient started experiencing this day(s) No relieving factors improve symptom(s), No exacerbating factors reported . Patient notes no other symptoms.. Patient did receive the following treatments prior to arrival, none Related Data Home Medications Medication Instructions Recorded Confirmed acetaminophen [Tylenol] 650 mg PO Q6H PRN tab-cap 01/18/13 02/04/19 cholecalciferol (vitamin D3) 2,000 unit PO DAILY 01/18/13 02/04/19 folic acid 2 mg PO DAILY tab-cap 01/18/13 02/04/19 hydroxychloroquine 200 mg PO HS tab-cap 01/18/13 02/04/19 methotrexate sodium 8 tab PO QWEEK 01/18/13 02/04/19 fluticasone propionate [Flonase 9.9 ml NS DAILY PRN 10/27/15 02/04/19 Allergy Relief] calcium carbonate [Calcium 500] 2 tab PO DAILY tab-cap 03/18/16 02/04/19 methimazole 5 mg PO DAILY tab-cap 03/18/16 02/04/19 metoprolol succinate 25 mg PO DAILY tab-cap 03/18/16 02/04/19 Proventil Hfa 2 puff INHALATION Q4H PRN inhaler 03/06/18 02/04/19 NS Symbicort 1 puff INHALATION BID 10/06/18 02/04/19 bktpwxc-nqjznxfgi-fllk 1 tab PO DAILY 10/06/18 02/04/19 aspirin 81 mg PO BID #0 tab 10/10/18 02/04/19 hydrocodone-acetaminophen 1 tab PO Q6H PRN PRN #5 tab 10/10/18 02/04/19 biotin 1 tab PO DAILY 10/22/18 02/04/19 bisacodyl 10 mg MN DAILY PRN 10/22/18 02/04/19 leucovorin calcium 10 mg PO DAILY 10/22/18 02/04/19 naproxen sodium 220 mg PO BID PRN 10/22/18 02/04/19 denosumab [Prolia] .[id number] 02/04/19 omeprazole 20 mg PO DAILY 02/04/19 02/04/19 Previous Rx's Medication Instructions Recorded aspirin 81 mg PO BID #0 tab 10/10/18 hydrocodone-acetaminophen 1 tab PO Q6H PRN PRN #5 tab 10/10/18 Allergies Allergy/AdvReac Type Severity Reaction Status Date / Time sulfasalazine AdvReac Intermediate Lupus Type Unverified 02/04/19 12:46 Symptoms General Stated Complaint: Urinary DEIRDRE: 3 Review of Systems Review of Systems Patient recovering from methotrexate toxicity, recent released from [facility] and living with daughter. She has lost some hair and has been gaining weight again up 10 pounds. + cough. Increased urinary frequency and urgency over 3 days time. Denies other illness. 8 systems reviewed and otherwise negative COUNTS INCLUDE 234 BEDS AT THE [facility] Social History Smoking/Tobacco Use Status: Former Tobacco Use Drug use: Never Do you feel safe in your relationship?: Yes Exam Narrative Exam Narrative: GEN: awake, alert, oriented 3. Pleasant, well groomed, interactive, thin. HEAD: Normocephalic, atraumatic ENT: Mucous membranes moist, oropharynx unremarkable, External ear exam unremarkable EYES: PERRL, EOMI NECK: Full ROM, no KAY, no menigismus CHEST/RESP: Nontender, clear to auscultation bilateral, no wheeze/rhonchi/rales CARDIOVASCULAR: RRR, no murmur, rub demarcus. 2+ Rad pulse bilateral ABDOMEN: Soft, nontender, no mass. +Bowel sounds EXT: Full ROM, no edema, no rash Neuro: Grossly normal neurologic exam, conversant, interactive. Psych: Speech fluent, thoughts congruent, affect normal Course Vital Signs Temperature 37.1 C 02/04/19 12:25 Pulse 72 02/04/19 12:25 Respiratory Rate 18 02/04/19 12:25 Blood Pressure 124/65 02/04/19 12:25 Pulse Oximetry 98 02/04/19 12:25 Temperature 37.1 C 02/04/19 12:25 Temperature Source Skin 02/04/19 12:25 Pulse 72 02/04/19 12:25 Respiratory Rate 18 02/04/19 12:25 Blood Pressure 124/65 02/04/19 12:25 Blood Pressure Position Sitting 02/04/19 12:25 Pulse Oximetry 98 02/04/19 12:25 Oxygen Delivery Method Room Air 02/04/19 12:25 Oxygen Flow Rate 0 02/04/19 12:25 Pain Level 0 02/04/19 12:25
[2019-02-04] MEDS: Normal Saline 1,000 ML 125 ML IV ×2 (13:05→16:30)
--- NOTE | 2019-02-04 13:05 | DI.RAD_ITS ---
SYMPTOM/DIAGNOSIS: COUGH, SOB FRONTAL AND LATERAL CHEST: Comparison is made with 10/10/18. Heart size and pulmonary vasculature are within normal limits. There is again seen a cardiac valvular replacement. No effusions or pneumothoraces are identified. There is a question of an opacity in the left lung base. This may represent atelectasis or pneumonia. Degenerative changes are seen in the spine. IMPRESSION: Left basilar infiltrate. This may represent atelectasis or pneumonia.
[2019-02-04 13:10] LABS: Abs Immature Grans 0.04 k/cumm (0.0-0.09); Absolute Basophil Count 0.04 k/cumm (0.0-0.2); Absolute Eosinophil Count 0.06 k/cumm (0.0-0.7); Absolute Monocyte Count 1.14 k/cumm (0.11-0.7); Absolute Neutrophil Count 6.04 k/cumm (1.2-6.7); Basophils % 0.5; Eosinophils % 0.7; HCT 41.2 % (36.0-46.0); HGB 13.3 g/dL (12.0-15.5); Immature Grans % 0.5; Lymphocytes % 15.1; Mean Corp. HGB Concentration 32.3 g/dL (32.0-36.0); Mean Corpuscular Hemoglobin 30.6 pg (27.0-33.0); Mean Corpuscular Volume 94.9 fL (80-95); Mean Platelet Volume 10.4 fL (8.0-11.0); Monocytes % 13.2; Platelet Count 185 x1000/uL (130-400); RBC 4.34 m/cumm (4.00-5.20); RBC Distribution Width 15.4 % (11.7-14.6); White Blood Cell Count 8.62 k/cumm (4.4-10.8)
[2019-02-04 13:24] LABS: ALT 16 U/L (12-78); AST 29 U/L (15-37); Alkaline Phosphatase 126 U/L (46-116); Anion Gap 10.1 mmol/L (3-11); BUN 28 mg/dL (7-18); Bilirubin, Total 0.4 mg/dL (0.2-1.0); CO2 25.9 mmol/L (21.0-32.0); CREATININE 0.68 mg/dL (0.55-1.02); Calcium 8.9 mg/dL (8.5-10.1); Chloride 102 mmol/L (98-107); Glucose 83 mg/dL (70-100); Potassium 3.7 mmol/L (3.5-5.1); Sodium 138 mmol/L (136-145); Total Protein 8.1 g/dL (6.4-8.2)
[2019-02-04 13:52] LABS: Bilirubin Negative (Negative); Blood Trace-intact (Negative); Clarity Sl Cloudy; Glucose Negative (Negative); Ketones Trace mg/dL (Negative); Leukocyte Esterase Moderate (Negative); Nitrite Negative (Negative); Urobilinogen 0.2 EU/dL (Up TO 0.2); pH 5.5 (5-8)
[2019-02-04 14:09] LABS: Bacteria Few HPF (Negative); C & S Indicated? No/Sq. Contamination; Casts Negative LPF (Negative); Crystals Negative HPF (Negative); Epithelial Cells Many HPF (Negative); Mucus Moderate (Negative); Other Cells Few Transitional (Negative); WBC 20-50 HPF (0-5)
--- NOTE | 2019-02-04 14:26 | DI.VRAD_ITS ---
EXAM: XR Chest, 2 Views EXAM DATE/TIME: 02/04/2019 1:05 PM CLINICAL HISTORY: 78 years old, female; Signs and symptoms; Other: Cough; Patient HX: Cough SOB TECHNIQUE: Imaging protocol: XR of the chest, 2 views. COMPARISON: CR XR CHEST 2V PA LATERAL 10/10/2018 12:48 PM FINDINGS: Lungs: There is a small patchy density in the left lung base. Differential diagnosis includes atelectasis and small pneumonia. The lungs are otherwise clear. Pleural space: No pleural effusion or pneumothorax. Heart/Mediastinum: The cardiomediastinal silhouette and pulmonary vasculature are within normal limits. A cardiac valve replacement is unchanged. Bones/joints: Degenerative changes of aging throughout the thoracic spine. IMPRESSION: Small patchy density in the left lung base. Differential diagnosis includes atelectasis versus small pneumonia. Dictated and Authenticated by: Car Lee MD. Ordering:LINCOLN Nogueira MD
[2019-02-04] MEDS: LINEZOLID 600 MG/300 ML BAG 300 MG IVPB (15:03)
[2019-02-04 15:45] VITALS: BP 114/51; PULSE 63; RESP 16; TEMP 37.1; O2SAT 97
[2019-02-04 15:50] VITALS: BP 137/69; PULSE 69; RESP 16; TEMP 36.1; O2SAT 96
[2019-02-04] MEDS: Normal Saline Flush 10 ML SYR IVP (16:30)
--- NOTE | 2019-02-04 16:35 | W.PM.HP.N ---
Date of service: 02/04/19 Time of Service: 16:58 Assessment and Plan (1) UTI (urinary tract infection), uncomplicated: Current visit: Yes Status: Acute Due to MRSA, present on admission. Patient was initiated on IV linezolid as there is a concern for her remaining immunosuppressed, even though she is no longer actively on methotrexate. I feel that after 72 hours of IV linezolid, she could be discharged home with PO linezolid if her insurance covers it and if her repeat urinalysis is still positive. 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 This is not an acute event (happened in September of 2018). (3) Rheumatoid arthritis: Current visit: No Status: Chronic Stable. Follow up with rheumatology as outpatient. (4) COPD (chronic obstructive pulmonary disease): Current visit: No Status: Chronic Not in acute exacerbation. Apparently, the patient is no longer taking symbicort at home. Will monitor respiratory status. (5) Ulcerative colitis: Current visit: No Status: Chronic At baseline. Follow up as outpatient (6) DVT prophylaxis: Current visit: No Status: Acute SCD's + TEDs - abstain from chemical DVT PPx as has a h/o blood loss anemia (7) Discharge planning issues: Current visit: No Status: Acute Full code (discussed with patient and daughter). PT/OT consulted. Will need to verify coverage of PO linezolid with insurance. History of Present Illness Chief Complaint: Urinary incontinence/urgency/frequency Narrative: Ms Stephenson is an 78 year old female with PMHx of recent episode of severe methotrexate toxicity, COPD, RA, UC, hyperthyroidism, who was sent to [facility] ED today because her urine C&S from 02/02/19 from her PCP's office, where she complained of urinary incontinence, urgency, and frequency, grew MRSA. Per our microbiology department, the urine is sensitive to linezolid, on which she was initiated in the ED. We were asked to admit the patient for further care. The patient denies fevers/chills, dizziness/chest pain/shortness of breath/abdominal pain. Per patient, she has had these symptoms for 3 weeks. She first reported them to her daughter and PCP on 02/02/19 (2 days ago). Review of Systems Review of Systems 12 systems reviewed. Pertinent positives and negatives are as per HPI. Additionally, reports chronic cough since the methotrexate toxicity episode as well as chronic rhinorrhea. [facility] Social History Smoking/Tobacco Use Status: Former Tobacco Use Drug use: Never Do you feel safe in your relationship?: Yes Meds Home Medications Medication Instructions Recorded Confirmed Type acetaminophen [Tylenol] 650 mg PO Q6H PRN tab-cap 01/18/13 02/04/19 History cholecalciferol (vitamin D3) 2,000 unit PO DAILY 01/18/13 02/04/19 History folic acid 2 mg PO DAILY tab-cap 01/18/13 02/04/19 History fluticasone propionate [Flonase 1 spray NS DAILY PRN 10/27/15 02/04/19 History Allergy Relief] methimazole 5 mg PO DAILY tab-cap 03/18/16 02/04/19 History metoprolol succinate 25 mg PO DAILY tab-cap 03/18/16 02/04/19 History biotin 1 tab PO DAILY 10/22/18 02/04/19 History calcium carbonate-vitamin D3 1 tab PO DAILY 02/04/19 02/04/19 History omeprazole 20 mg PO DAILY 02/04/19 02/04/19 History Allergies Allergy/AdvReac Type Severity Reaction Status Date / Time sulfasalazine AdvReac Intermediate Lupus Type Unverified 02/04/19 12:46 Symptoms Exam Narrative Exam Narrative: General: Very pleasant elderly frail female, hard of hearing, very short valenzuela hair - appears to be growing back, comfortably laying in bed Neurological: A&OX3, [place]; no focal deficits Psychiatric: Appropriate speech pattern/content Skin: Dry, intact HEENT: Atraumatic, normocephalic; EOMI, dry MM, clear oropharynx; no submandibular or cervical lymphadenopathy; no goiter or JVD Cardiovascular: RRR, quiet ALAYNA Lungs: CTAB/diminished Gastrointestinal: abdomen is soft, nontender, nondistended Extremities: no e/c/c BLE's. 1+ B pedal pulses Results Labs : 02/04/19 13:05 02/04/19 13:05 Laboratory Results - last 24 hr 02/04/19 02/04/19 02/04/19 13:05 13:05 13:40 WBC 8.62 RBC 4.34 Hgb 13.3 Hct 41.2 MCV 94.9 MCH 30.6 MCHC 32.3 RDW 15.4 H Plt Count 185 MPV 10.4 Immature Gran % 0.5 Neutrophils % 70.0 Lymphocytes % 15.1 Monocytes % 13.2 Eosinophils % 0.7 Basophils % 0.5 Absolute Neutrophils 6.04 Absolute Lymphocytes 1.30 Absolute Monocytes 1.14 H Absolute Eosinophils 0.06 Absolute Basophils 0.04 Sodium 138 Potassium 3.7 Chloride 102 Carbon Dioxide 25.9 Anion Gap 10.1 BUN 28 H Creatinine 0.68 Estimated GFR/1.73 m2 >= 60.00 Glucose 83 Calcium 8.9 Total Bilirubin 0.4 AST 29 ALT 16 Alkaline Phosphatase 126 H Total Protein 8.1 Albumin 3.0 L Urine Color Yellow Urine Clarity Sl cloudy Urine pH 5.5 Ur Specific [place] 1.020 Urine Protein 30 H Urine Ketones Trace H Urine Blood Trace-intact H Urine Nitrite Negative Urine Bilirubin Negative Urine Urobilinogen 0.2 Ur Leukocyte Esterase Moderate H Urine RBC 10-20 H Urine WBC 20-50 Ur Epithelial Cells Many Urine Crystals Negative Urine Bacteria Few Urine Casts Negative Urine Mucus Moderate Urine Other Few transitional Ur Culture Indicated? No/sq. contamination Urine Glucose Negative Last Vital Signs Temp 36.1 C L 02/04/19 15:50 Pulse 69 02/04/19 15:50 Resp 16 02/04/19 15:50 BP 137/69 02/04/19 15:50 Pulse Ox 96 02/04/19 15:50
[2019-02-04 20:34] VITALS: BP 105/60; PULSE 66; RESP 16; TEMP 36; O2SAT 95
[2019-02-05] VITALS (7 sets, daily range): BP systolic 103–152; BP diastolic 54–73; PULSE 52–74; RESP 16–18; TEMP 35.7–37.7; O2SAT 93–97
[2019-02-05] MEDS: Normal Saline 1,000 ML 125 ML IV ×2 (00:41→09:46)
[2019-02-05] MEDS: LINEZOLID 600 MG/300 ML BAG 300 MG IVPB ×2 (01:44→14:21)
[2019-02-05 08:11] LABS: Abs Immature Grans 0.04 k/cumm (0.0-0.09); Absolute Basophil Count 0.02 k/cumm (0.0-0.2); Absolute Eosinophil Count 0.06 k/cumm (0.0-0.7); Absolute Lymphocyte Count 1.03 k/cumm (1.2-3.4); Absolute Monocyte Count 0.75 k/cumm (0.11-0.7); Absolute Neutrophil Count 5.03 k/cumm (1.2-6.7); Basophils % 0.3; Eosinophils % 0.9; HCT 38.5 % (36.0-46.0); HGB 12.3 g/dL (12.0-15.5); Immature Grans % 0.6; Lymphocytes % 14.9; Mean Corp. HGB Concentration 31.9 g/dL (32.0-36.0); Mean Corpuscular Hemoglobin 30.7 pg (27.0-33.0); Mean Platelet Volume 10.7 fL (8.0-11.0); Monocytes % 10.8; Neutrophils % 72.5; Platelet Count 169 x1000/uL (130-400); RBC 4.01 m/cumm (4.00-5.20); RBC Distribution Width 15.2 % (11.7-14.6); White Blood Cell Count 6.93 k/cumm (4.4-10.8)
[2019-02-05 08:24] LABS: Anion Gap 8.2 mmol/L (3-11); BUN 14 mg/dL (7-18); CO2 23.8 mmol/L (21.0-32.0); CREATININE 0.63 mg/dL (0.55-1.02); Calcium 8.5 mg/dL (8.5-10.1); Chloride 107 mmol/L (98-107); Glucose 86 mg/dL (70-100); Magnesium 1.6 mg/dL (1.8-2.4); Potassium 4.3 mmol/L (3.5-5.1); Sodium 139 mmol/L (136-145)
[2019-02-05] MEDS: Acetaminophen 325 MG TAB PO ×2 (08:30→21:58)
[2019-02-05] MEDS: Omeprazole 20 MG CAPCR PO (08:31)
[2019-02-05] MEDS: Folic Acid 1 MG TAB 2 MG PO (08:31)
[2019-02-05] MEDS: Calcium 600mg/Vit D 200U TAB 1 TAB PO (08:31)
[2019-02-05] MEDS: methIMAzole 5 MG TAB PO (08:31)
[2019-02-05] MEDS: Metoprolol CR 25 MG TABCR PO (08:31)
[2019-02-05] MEDS: MAGNESIUM SULFATE 2 GM/50 ML BAG IVPB (11:28)
--- NOTE | 2019-02-05 12:44 | PDOC.CMIN ---
- If Service Date Differs Date of service: 02/05/19 Time of Service: 12:45 Care Management Initial Assess REASON FOR HOSPITALIZATION:: UTI PAST MEDICAL HISTORY/PAST SURGICAL HISTORY:: Methotrexate Toxicity, Ulcerative colitis, Hyperthyroidism, DJD, CAD, HTN, Rheumatoid arthritis, COPD, Bilateral Sensorineural hearing loss, Fx lower radius/ulna-closed. PREVIOUS FUNCTIONAL STATUS/SOCIAL/FAMILY SUPPORTS:: Carmella resides in [facility] with her sister Margareth. Carmella reports that she has family whom assist them in the home, and that her sister requires quite a bit of care in the home. Carmella reports that she was recently at [facility] and then spent some time in [facility] prior to returning home, which she states she returned home on . Carmella states that her family members Rowan and Primo Solitario are her primary supports. CURRENT FUNCTIONAL STATUS:: Lying in bed, pleasant and receptive to discussion. ADVANCE DIRECTIVES:: On file. Primo Solitario is agent. Rowan Solitario is alternate Has patient been provided with information about the portal?: Yes Did the patient sign up for the portal?: No CODE STATUS:: Full Code INSURANCE COVERAGE / FINANCIAL ISSUES:: Medicare, BCBS CURRENT HOME/COMMUNITY SERVICES/EQUIPMENT:: Currently Carmella receives services through home health, for PT. She reports that she has a FWW, Raised toilet seat, Grab bars, shower chair, and that there are canes in the home which she does not utilize. PRIMARY CARE PHYSICIAN:: Dr. Lucio POTENTIAL DISCHARGE NEEDS:: F/U appointment with PCP. Resume home health services PATIENT/FAMILY EDUCATION NEEDS:: Review DC instructions, any limitations, and ongoing DC planning discussion. Discuss 'Ask Me Three' ANTICIPATED BARRIERS TO DISCHARGE:: None identified at this time. TRANSPORTATION:: Via private vehicle with family PLAN:: Carmella will return home with continued home health services. She will F/U with PCP and plan of care as prescribed. Family to transport when ready.
--- NOTE | 2019-02-05 14:08 | PHARADMIT ---
Addendum entered by Elenita Paul 02/06/19 15:09: Pharmacy Note Subjective improving per morning report Objective VS-okay electrolytes-within normal limits Assessment day 3 linezolid iv fluids discontinued, no other med changes Plan repeat UA tomorrow to test for cure if positive will need 7 day course of abx possible discharge pending results/insurance coverage of abx Original Note: Admission Pharmacy Clinical Review MRSA UTI Code Status Full Code Current Weight 41.9 kg Renally Cleared and Narrow Therapeutic Index Meds Crcl ~37.09 mL/min current meds okay QTc Value / Action Taken n/a BP Control, Fever BP 122/65 afebrile Electrolytes reviewed mag 1.6 DVT Prophylaxis none Opiate Usage / Scheduled Bowel Regimen Ordered no/prn Plt/SCr for Heparin / Enoxaparin plt 169 SCr 0.63 INR for Warfarin n/a H/H stable, WBC/Bands h/h 12.3/38.5 wbc 6.93 Antibiotic appropriateness linezolid Cultures and Sensitivities blood cultures and MRSA screen pending urine culture grew MRSA Surgical ABX d/c within 24 hr n/a DM control / Insulin Dosing BG 86 none Heart Failure (Check EF%) (JOHAN's, B-Block, Diuretics) metoprolol IV to PO Switch n/a Home Meds Reviewed yes Home Meds Not Ordered all ordered Comments
--- NOTE | 2019-02-05 14:20 | CHAPLAIN ---
Carmella was in bed when I visited. She tells me about going [place] [facility] [place] and [place]. She had just returned home this past Tuesday and ended up in the ER here on Tuesday. Carmella is a member of [employer], so I let her know that Fr. López or Fr Evans will likely be here this afternoon. Carmella has large extended family and family members are very supportive.
--- NOTE | 2019-02-05 14:24 | INITIAL_ITS ---
- If Service Date Differs Date of service: 02/05/19 Time of Service: 12:45 Care Management Initial Assess REASON FOR HOSPITALIZATION:: UTI PAST MEDICAL HISTORY/PAST SURGICAL HISTORY:: Methotrexate Toxicity, Ulcerative colitis, Hyperthyroidism, DJD, CAD, HTN, Rheumatoid arthritis, COPD, Bilateral Sensorineural hearing loss, Fx lower radius/ulna-closed. PREVIOUS FUNCTIONAL STATUS/SOCIAL/FAMILY SUPPORTS:: Carmella resides in [facility] with her sister Margareth. Carmella reports that she has family whom assist them in the home, and that her sister requires quite a bit of care in the home. Carmella reports that she was recently at [facility] and then spent some time in [facility] prior to returning home, which she states she returned home on . Carmella states that her family members Rowan and Primo Solitario are her primary supports. CURRENT FUNCTIONAL STATUS:: Lying in bed, pleasant and receptive to discussion. ADVANCE DIRECTIVES:: On file. Primo Solitario is agent. Rowan Solitario is alternate Has patient been provided with information about the portal?: Yes Did the patient sign up for the portal?: No CODE STATUS:: Full Code INSURANCE COVERAGE / FINANCIAL ISSUES:: Medicare, BCBS CURRENT HOME/COMMUNITY SERVICES/EQUIPMENT:: Currently Carmella receives services through home health, for PT. She reports that she has a FWW, Raised toilet seat, Grab bars, shower chair, and that there are canes in the home which she does not utilize. PRIMARY CARE PHYSICIAN:: Dr. Lucio POTENTIAL DISCHARGE NEEDS:: F/U appointment with PCP. Resume home health services PATIENT/FAMILY EDUCATION NEEDS:: Review DC instructions, any limitations, and ongoing DC planning discussion. Discuss 'Ask Me Three' ANTICIPATED BARRIERS TO DISCHARGE:: None identified at this time. TRANSPORTATION:: Via private vehicle with family PLAN:: Carmella will return home with continued home health services. She will F/U with PCP and plan of care as prescribed. Family to transport when ready.
--- NOTE | 2019-02-05 15:39 | W.PM.PROGNOT ---
Date of Service Date of service: 02/05/19 Time of Service: 15:39 Assessment and Plan (1) UTI (urinary tract infection), uncomplicated: Current visit: Yes Status: Acute Due to MRSA, present on admission. Continue IV linezolid (day 2). R/o chronic urinary retention - bladder scans. 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 The patient is under impression that the patient's principal process engineer would not necessarily agree with that. I suggested that the daughter speak with the patient's PCP and have Dr Lucio orchestrate a discussion between the pulmonlogist and the receptionist clerk. (3) Rheumatoid arthritis: Current visit: No Status: Chronic As above Follow up with rheumatology as outpatient. (4) COPD (chronic obstructive pulmonary disease): Current visit: No Status: Chronic Not in acute exacerbation. Respiratory status stable. Follow up with pulmonology as outpatient (5) Ulcerative colitis: Current visit: No Status: Chronic At baseline. Follow up as outpatient (6) DVT prophylaxis: Current visit: No Status: Acute SCD's + TEDs - abstain from chemical DVT PPx as has a h/o blood loss anemia (7) Discharge planning issues: Current visit: No Status: Acute Full code (discussed with patient and daughter). PT/OT consulted. Will need to verify coverage of PO linezolid with insurance. Subjective Interval history since last seen: Ms Stephenson states she only had one episode of incontinence today - but last night had a lot of urgency. She was retaining 600 cc of urine yesterday, requiring a straight cath. She overall feels better. Denies dizziness, chest pain, shortness of breath, nausea, vomiting. Complains of her chronic L shoulder pain due to rheumatoid arthritis which feels better with aqua K pack. Exam Narrative Exam Narrative: General: Very pleasant elderly frail female, hard of hearing, A&OX3, NAD HEENT: EOMI, MMM Cardiovascular: RRR, quiet ALAYNA Lungs: CTAB/diminished Gastrointestinal: abdomen is soft, nontender, nondistended Extremities: no e/c/c BLE's. 1+ B pedal pulses Objective Objective Clinical Data: Abnormal lab results 02/05/19 02/05/19 Range/Units 07:55 07:55 MCV 96.0 H (80-95) fL MCHC 31.9 L (32.0-36.0) g/dL RDW 15.2 H (11.7-14.6) % Absolute Lymphocytes 1.03 L (1.2-3.4) k/cumm Absolute Monocytes 0.75 H (0.11-0.7) k/cumm Magnesium 1.6 L (1.8-2.4) mg/dL Vital Signs Temperature 36.3 C L 02/05/19 11:25 Temperature Source Tympanic 02/05/19 11:25 Pulse 52 L 02/05/19 11:25 Pulse Rhythm Regular 02/05/19 08:24 Respiratory Rate 16 02/05/19 11:25 Respiratory Effort Non-Labored 02/05/19 08:24 Respiratory Depth Normal 02/05/19 08:24 Respiratory Pattern Normal 02/05/19 08:24 Blood Pressure 122/65 02/05/19 11:25 Blood Pressure Position Sitting 02/04/19 12:25 Pulse Oximetry 94 L 02/05/19 11:25 Oxygen Delivery Method Room Air 02/05/19 11:25 Oxygen Flow Rate 0 02/05/19 11:25 Pain Level 2 02/05/19 11:25 Intake & Output 02/04/19 02/05/19 02/05/19 23:59 11:59 23:59 Intake Total 667.083 / 201.658 6378 / 2560 Output Total 1100 / 1100 Balance 667.083 / 343.249 2149 / 1460 Weight 40.098 kg 41.9 kg Intake: IV 427.083 / 201.401 3408 / 2320 Oral 240 / 240 240 / 240 Output: Urine 1100 / 1100 Other: Urine Color Yellow Urine Appearance Clear Clear Urine Odor Normal Comment Bladder scan post void; 167 average. No straight cath needed; will continue to monitor. Voiding Methods Diaper Bedside Commode Incontinent Laboratory Results WBC 6.93 k/cumm (4.4-10.8) 02/05/19 07:55 RBC 4.01 m/cumm (4.00-5.20) 02/05/19 07:55 Hgb 12.3 g/dL (12.0-15.5) 02/05/19 07:55 Hct 38.5 % (36.0-46.0) 02/05/19 07:55 MCV 96.0 fL (80-95) H 02/05/19 07:55 MCH 30.7 pg (27.0-33.0) 02/05/19 07:55 MCHC 31.9 g/dL (32.0-36.0) L 02/05/19 07:55 RDW 15.2 % (11.7-14.6) H 02/05/19 07:55 Plt Count 169 x1000/uL (130-400) 02/05/19 07:55 MPV 10.7 fL (8.0-11.0) 02/05/19 07:55 Immature Gran % 0.6 02/05/19 07:55 Neutrophils % 72.5 02/05/19 07:55 Lymphocytes % 14.9 02/05/19 07:55 Monocytes % 10.8 02/05/19 07:55 Eosinophils % 0.9 02/05/19 07:55 Basophils % 0.3 02/05/19 07:55 Absolute Neutrophils 5.03 k/cumm (1.2-6.7) 02/05/19 07:55 Absolute Lymphocytes 1.03 k/cumm (1.2-3.4) L 02/05/19 07:55 Absolute Monocytes 0.75 k/cumm (0.11-0.7) H 02/05/19 07:55 Absolute Eosinophils 0.06 k/cumm (0.0-0.7) 02/05/19 07:55 Absolute Basophils 0.02 k/cumm (0.0-0.2) 02/05/19 07:55 Sodium 139 mmol/L (136-145) 02/05/19 07:55 Potassium 4.3 mmol/L (3.5-5.1) 02/05/19 07:55 Chloride 107 mmol/L (98-107) 02/05/19 07:55 Carbon Dioxide 23.8 mmol/L (21.0-32.0) 02/05/19 07:55 Anion Gap 8.2 mmol/L (3-11) 02/05/19 07:55 BUN 14 mg/dL (7-18) D 02/05/19 07:55 Creatinine 0.63 mg/dL (0.55-1.02) 02/05/19 07:55 Estimated GFR/1.73 m2 >= 60.00 (mL/min/1.73m2) 02/05/19 07:55 Glucose 86 mg/dL (70-100) 02/05/19 07:55 Calcium 8.5 mg/dL (8.5-10.1) 02/05/19 07:55 Magnesium 1.6 mg/dL (1.8-2.4) L 02/05/19 07:55 Total Bilirubin 0.4 mg/dL (0.2-1.0) 02/04/19 13:05 AST 29 U/L (15-37) 02/04/19 13:05 ALT 16 U/L (12-78) 02/04/19 13:05 Alkaline Phosphatase 126 U/L (46-116) H 02/04/19 13:05 Total Protein 8.1 g/dL (6.4-8.2) 02/04/19 13:05 Albumin 3.0 g/dL (3.4-5.0) L 02/04/19 13:05 Urine Color Yellow (Yellow) 02/04/19 13:40 Urine Clarity Sl cloudy 02/04/19 13:40 Urine pH 5.5 (5-8) 02/04/19 13:40 Ur Specific [place] 1.020 (1.005-1.025) 02/04/19 13:40 Urine Protein 30 mg/dL (Negative) H 02/04/19 13:40 Urine Ketones Trace mg/dL (Negative) H 02/04/19 13:40 Urine Blood Trace-intact (Negative) H 02/04/19 13:40 Urine Nitrite Negative (Negative) 02/04/19 13:40 Urine Bilirubin Negative (Negative) 02/04/19 13:40 Urine Urobilinogen 0.2 EU/dL (Up TO 0.2) 02/04/19 13:40 Ur Leukocyte Esterase Moderate (Negative) H 02/04/19 13:40 Urine RBC 10-20 (0-2) H 02/04/19 13:40 Urine WBC 20-50 HPF (0-5) 02/04/19 13:40 Ur Epithelial Cells Many HPF (Negative) 02/04/19 13:40 Urine Crystals Negative HPF (Negative) 02/04/19 13:40 Urine Bacteria Few HPF (Negative) 02/04/19 13:40 Urine Casts Negative LPF (Negative) 02/04/19 13:40 Urine Mucus Moderate (Negative) 02/04/19 13:40 Urine Other Few transitional (Negative) 02/04/19 13:40 Ur Culture Indicated? No/sq. contamination 02/04/19 13:40 Urine Glucose Negative mg/dL (Negative) 02/04/19 13:40
--- NOTE | 2019-02-05 15:47 | PGE_ITS ---
Date of Service Date of service: 02/05/19 Time of Service: 15:39 Assessment and Plan (1) UTI (urinary tract infection), uncomplicated: Current visit: Yes Status: Acute Due to MRSA, present on admission. Continue IV linezolid (day 2). R/o chronic urinary retention - bladder scans. 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 The patient is under impression that the patient's high pressure operator would not necessarily agree with that. I suggested that the daughter speak with the patient's PCP and have Dr Lucio orchestrate a discussion between the pulmonlogist and the psychiatric cns. (3) Rheumatoid arthritis: Current visit: No Status: Chronic As above Follow up with rheumatology as outpatient. (4) COPD (chronic obstructive pulmonary disease): Current visit: No Status: Chronic Not in acute exacerbation. Respiratory status stable. Follow up with pulmonology as outpatient (5) Ulcerative colitis: Current visit: No Status: Chronic At baseline. Follow up as outpatient (6) DVT prophylaxis: Current visit: No Status: Acute SCD's + TEDs - abstain from chemical DVT PPx as has a h/o blood loss anemia (7) Discharge planning issues: Current visit: No Status: Acute Full code (discussed with patient and daughter). PT/OT consulted. Will need to verify coverage of PO linezolid with insurance. Subjective Interval history since last seen: Ms Stephenson states she only had one episode of incontinence today - but last night had a lot of urgency. She was retaining 600 cc of urine yesterday, requiring a straight cath. She overall feels better. Denies dizziness, chest pain, shortness of breath, nausea, vomiting. Complains of her chronic L shoulder pain due to rheumatoid arthritis which feels better with aqua K pack. Exam Narrative Exam Narrative: General: Very pleasant elderly frail female, hard of hearing, A&OX3, NAD HEENT: EOMI, MMM Cardiovascular: RRR, quiet ALAYNA Lungs: CTAB/diminished Gastrointestinal: abdomen is soft, nontender, nondistended Extremities: no e/c/c BLE's. 1+ B pedal pulses Objective Objective Clinical Data: Abnormal lab results 02/05/19 02/05/19 Range/Units 07:55 07:55 MCV 96.0 H (80-95) fL MCHC 31.9 L (32.0-36.0) g/dL RDW 15.2 H (11.7-14.6) % Absolute Lymphocytes 1.03 L (1.2-3.4) k/cumm Absolute Monocytes 0.75 H (0.11-0.7) k/cumm Magnesium 1.6 L (1.8-2.4) mg/dL Vital Signs Temperature 36.3 C L 02/05/19 11:25 Temperature Source Tympanic 02/05/19 11:25 Pulse 52 L 02/05/19 11:25 Pulse Rhythm Regular 02/05/19 08:24 Respiratory Rate 16 02/05/19 11:25 Respiratory Effort Non-Labored 02/05/19 08:24 Respiratory Depth Normal 02/05/19 08:24 Respiratory Pattern Normal 02/05/19 08:24 Blood Pressure 122/65 02/05/19 11:25 Blood Pressure Position Sitting 02/04/19 12:25 Pulse Oximetry 94 L 02/05/19 11:25 Oxygen Delivery Method Room Air 02/05/19 11:25 Oxygen Flow Rate 0 02/05/19 11:25 Pain Level 2 02/05/19 11:25 Intake & Output 02/04/19 02/05/19 02/05/19 23:59 11:59 23:59 Intake Total 667.083 / 493.723 8330 / 2560 Output Total 1100 / 1100 Balance 667.083 / 896.532 6801 / 1460 Weight 40.098 kg 41.9 kg Intake: IV 427.083 / 195.521 1380 / 2320 Oral 240 / 240 240 / 240 Output: Urine 1100 / 1100 Other: Urine Color Yellow Urine Appearance Clear Clear Urine Odor Normal Comment Bladder scan post void; 167 average. No straight cath needed; will continue to monitor. Voiding Methods Diaper Bedside Commode Incontinent Laboratory Results WBC 6.93 k/cumm (4.4-10.8) 02/05/19 07:55 RBC 4.01 m/cumm (4.00-5.20) 02/05/19 07:55 Hgb 12.3 g/dL (12.0-15.5) 02/05/19 07:55 Hct 38.5 % (36.0-46.0) 02/05/19 07:55 MCV 96.0 fL (80-95) H 02/05/19 07:55 MCH 30.7 pg (27.0-33.0) 02/05/19 07:55 MCHC 31.9 g/dL (32.0-36.0) L 02/05/19 07:55 RDW 15.2 % (11.7-14.6) H 02/05/19 07:55 Plt Count 169 x1000/uL (130-400) 02/05/19 07:55 MPV 10.7 fL (8.0-11.0) 02/05/19 07:55 Immature Gran % 0.6 02/05/19 07:55 Neutrophils % 72.5 02/05/19 07:55 Lymphocytes % 14.9 02/05/19 07:55 Monocytes % 10.8 02/05/19 07:55 Eosinophils % 0.9 02/05/19 07:55 Basophils % 0.3 02/05/19 07:55 Absolute Neutrophils 5.03 k/cumm (1.2-6.7) 02/05/19 07:55 Absolute Lymphocytes 1.03 k/cumm (1.2-3.4) L 02/05/19 07:55 Absolute Monocytes 0.75 k/cumm (0.11-0.7) H 02/05/19 07:55 Absolute Eosinophils 0.06 k/cumm (0.0-0.7) 02/05/19 07:55 Absolute Basophils 0.02 k/cumm (0.0-0.2) 02/05/19 07:55 Sodium 139 mmol/L (136-145) 02/05/19 07:55 Potassium 4.3 mmol/L (3.5-5.1) 02/05/19 07:55 Chloride 107 mmol/L (98-107) 02/05/19 07:55 Carbon Dioxide 23.8 mmol/L (21.0-32.0) 02/05/19 07:55 Anion Gap 8.2 mmol/L (3-11) 02/05/19 07:55 BUN 14 mg/dL (7-18) D 02/05/19 07:55 Creatinine 0.63 mg/dL (0.55-1.02) 02/05/19 07:55 Estimated GFR/1.73 m2 >= 60.00 (mL/min/1.73m2) 02/05/19 07:55 Glucose 86 mg/dL (70-100) 02/05/19 07:55 Calcium 8.5 mg/dL (8.5-10.1) 02/05/19 07:55 Magnesium 1.6 mg/dL (1.8-2.4) L 02/05/19 07:55 Total Bilirubin 0.4 mg/dL (0.2-1.0) 02/04/19 13:05 AST 29 U/L (15-37) 02/04/19 13:05 ALT 16 U/L (12-78) 02/04/19 13:05 Alkaline Phosphatase 126 U/L (46-116) H 02/04/19 13:05 Total Protein 8.1 g/dL (6.4-8.2) 02/04/19 13:05 Albumin 3.0 g/dL (3.4-5.0) L 02/04/19 13:05 Urine Color Yellow (Yellow) 02/04/19 13:40 Urine Clarity Sl cloudy 02/04/19 13:40 Urine pH 5.5 (5-8) 02/04/19 13:40 Ur Specific [place] 1.020 (1.005-1.025) 02/04/19 13:40 Urine Protein 30 mg/dL (Negative) H 02/04/19 13:40 Urine Ketones Trace mg/dL (Negative) H 02/04/19 13:40 Urine Blood Trace-intact (Negative) H 02/04/19 13:40 Urine Nitrite Negative (Negative) 02/04/19 13:40 Urine Bilirubin Negative (Negative) 02/04/19 13:40 Urine Urobilinogen 0.2 EU/dL (Up TO 0.2) 02/04/19 13:40 Ur Leukocyte Esterase Moderate (Negative) H 02/04/19 13:40 Urine RBC 10-20 (0-2) H 02/04/19 13:40 Urine WBC 20-50 HPF (0-5) 02/04/19 13:40 Ur Epithelial Cells Many HPF (Negative) 02/04/19 13:40 Urine Crystals Negative HPF (Negative) 02/04/19 13:40 Urine Bacteria Few HPF (Negative) 02/04/19 13:40 Urine Casts Negative LPF (Negative) 02/04/19 13:40 Urine Mucus Moderate (Negative) 02/04/19 13:40 Urine Other Few transitional (Negative) 02/04/19 13:40 Ur Culture Indicated? No/sq. contamination 02/04/19 13:40 Urine Glucose Negative mg/dL (Negative) 02/04/19 13:40
--- NOTE | 2019-02-05 16:00 | PT.INIE ---
Date of service: 02/05/19 Time of Service: 09:46 PT Notes Inpatient Physical Therapy Evaluation Date: 02/05/2018 Referring Doctor: Yanni Samuel MD PT Orders: PT CONSULT: Eval/treat Precautions: Fall. Contact precautions. Patient Profile/Admitting Diagnosis: 78-year-old female who was sent to the ED on 02/04/2019 due to an out-patient C&S result of MRSA in urine on 02/02/2019, urinary incontinence, urinary urgency, and urinary frequency which have persisted for the past 3 weeks. She is status post R ORIF with trochanteric fixation nail system on 10/06/2018 and has recently been discharged from a intermediate facility last week. PMHX: Severe Methotrexate toxicity. COPD, RA, Ulcerative Colitis, Hyperthyroidism Social History/Home Situation: Patient receives 23/05 care for her and for her younger sister Margareth from 4 caregivers who each take turns in providing their care. They live in a 1 floor house in [place] with 2 steps to enter, rails on both sides. There is one more step to kitchen with a rail on the left side going up. She states that she has been walking up to 200 feet with her front wheeled walker at home and was just discharged from [facility] on , 02/01/2019 at walker level. Patient's house has been made handicap-accessible for both her and her sister. Beds have been modified so that the they are accessible for both patient and her sister patient. Grab bars have been put in the bathroom for safety. Equipment Owned/DME: FWW with tray, shower chair. Subjective: Patient is pleasant and cooperative; agreeable to a PT consult and treatment. She hopes to go back home with sister when safe. She is very satisfied with level of care that she has received from all her 4 caregivers who are also family members. She states that her joints have been problematic and giving her discomfort for a long time now but her left shoulder has been hurting the most. Objective: General Observation: Patient seen lying in bed. IV in right UE. Mental Status: Alert and oriented x3 Pain: Patient reports 3/10 pain on the left shoulder. Vital Signs: 152/64 mmHg, 65 bpm, 96%, 36.1 degrees C ROM: Right Upper Extremity: WFL Left Upper Extremity: Patient was able to bring both hands behind head, she was able to bring both arms forward to about 150 degrees of shoulder flexion on the left and about 180 on the right side. Elbow WFL. Right Lower Extremity: Hip flexion to 120 degrees. Knee and ankle joints WFL. Left Lower Extremity: WFL Strength: Right Upper Extremity: WFL Left Upper Extremity: Shoulder flexors 3-/5. Shoulder abductors 3-/5. Elbow and wrist WFL Right Lower Extremity: Hip flexors 3-/5. Hip abductors 3-/5. Knee flexors 4-/5. Knee extensors 3+/5. Ankle plantar flexors 4/5. Ankle dorsiflexors 4/5. Left Lower Extremity: Hip flexors 4-/5. Hip abductors 3+/5. Knee flexors 4-/5. Knee extensors 4-/5. Ankle plantar flexors 4/5. Ankle dorsiflexors 4/5. Sensation: Intact to BLE as to pain and pressure. Bed Mobility/Transfers: Rolling SBA Supine to sit SBA Sit to supine SBA Sit to stand CGA Stand to sit CGA Bed to chair CGA Chair to bed CGA Gait: Patient tolerated in room ambulation for 25 feet x2 with 2 turns using front-wheeled walker with CGA provided, FWB on B UE/LE. No SOB, no LOB, no dizziness observed throughout gait activity. Balance: Static Sitting: Good Dynamic Sitting: Good Static Standing: Fair Dynamic Standing: Fair Special Tests: Mobility Limitations Standardized Measure [facility] AM-PAC 6 clicks Basic Mobility Inpatient Short Form: Raw Score: 18 CMS Score: 47% deficit Informed Consent/Education: Patient instructed in purpose of PT consult and plan of care. Assessment: Patient is a 78 year old female referred to physical therapy services with the diagnosis of MRSA in urine, urinary incontinence with increased urgency and frequency, and generalized weakness. Patient presents with clinical signs and symptoms consistent with current/admitting diagnoses that have resulted to mobility limitations, gait instability, generalized weakness, and impaired motor control as demonstrated by the following impairment level findings: 1. Decreased strength to B LE major muscle groups 2. Impaired balance 3. Impaired activity tolerance 4. Limitation of joint range of motion in right hip Impairments are contributing to the following functional limitations: 1. Increased completion time for bed mobility skills 2. Increased dependence with transfers 3. Inability to safely ambulate without assistive device and physical assistance 4. Increase completion time for mobility ADL performance 5. Increased fall risk 6. Inability to negotiate steps alone safely Patient is assessed as Moderate 11879 complexity based on the following: History: 78-year-old female with MRSA colonization of urine accompanied by urinary incontinence with increased urgency and frequency as well as with generalized weakness Examination: Underlying impairments and functional deficits resulting to AMPA score of 18 with an equivalent CMS score of 47% deficit Presentation: Evolving Decision Makin moderate complexity Goals: Goals X1 week 1. Supine-Sit independent 2. Sit-Supine independent 3. Sit-Stand independent 4. Stand-Sit independent 5. Bed-Chair independent 6. Chair-Bed independent 7. Gait on level surface ambulation independent with use of least restrictive device for at least 300 feet without report of pain nor dyspnea 8. Stairs independent while holding onto bilateral rails for at least 5 steps without report of pain nor dyspnea 9. Independent with home exercise program 10. Balance good for static and dynamic standing Plan of Care/Treatment Plan: 1-2x/day, 7 days/week x 1 week. Plan of care has been reviewed with the WATCH INSPECTOR FINAL MOVEMENT providing the service under Physical Therapy direction. Initiate Physical Therapy intervention for strengthening, bed mobility, transfers, gait, stairs, balance training, use of assistive device. DISCHARGE RECOMMENDATIONS: Patient will benefit from short-term home health PT services in order to facilitate a smooth transition to home, allow for re-education and re-training of caregivers for safety strategies as well as for patient's functional maintenance program. TREATMENT CODE/TIME: 59800 30 minutes, 10 minutes, [id number] 16 minutes, beginning at 9:46 AM. Thank you very much for this referral. Jessica Joseph, PT, DPT, CLT [facility]
--- NOTE | 2019-02-05 16:07 | IN_ITS ---
Date of service: 02/05/19 Time of Service: 09:46 PT Notes Inpatient Physical Therapy Evaluation Date: 02/05/2018 Referring Doctor: Yanni Samuel MD PT Orders: PT CONSULT: Eval/treat Precautions: Fall. Contact precautions. Patient Profile/Admitting Diagnosis: 78-year-old female who was sent to the ED on 02/04/2019 due to an out-patient C&S result of MRSA in urine on 02/02/2019, urinary incontinence, urinary urgency, and urinary frequency which have persisted for the past 3 weeks. She is status post R ORIF with trochanteric fixation nail system on 10/06/2018 and has recently been [facility] a [facility] last [facility]. PMHX: Severe Methotrexate toxicity. COPD, RA, Ulcerative Colitis, Hyperthyroidism Social History/Home Situation: Patient receives 23/05 care for her and for her younger sister Margareth from 4 caregivers who each take turns in providing their care. They live in a 1 floor house in [place] with 2 steps to enter, rails on both sides. There is one more step to kitchen with a rail on the left side going up. She states that she has been walking up to 200 feet with her front wheeled walker at home and was just discharged from [facility] on , 02/01/2019 at walker level. Patient's house has been made handicap-accessible for both her and her sister. Beds have been modified so that the they are accessible for both patient and her sister patient. Grab bars have been put in the bathroom for safety. Equipment Owned/DME: FWW with tray, shower chair. Subjective: Patient is pleasant and cooperative; agreeable to a PT consult and treatment. She hopes to go back home with sister when safe. She is very satisfied with level of care that she has received from all her 4 caregivers who are also family members. She states that her joints have been problematic and giving her discomfort for a long time now but her left shoulder has been hurting the most. Objective: General Observation: Patient seen lying in bed. IV in right UE. Mental Status: Alert and oriented x3 Pain: Patient reports 3/10 pain on the left shoulder. Vital Signs: 152/64 mmHg, 65 bpm, 96%, 36.1 degrees C ROM: Right Upper Extremity: WFL Left Upper Extremity: Patient was able to bring both hands behind head, she was able to bring both arms forward to about 150 degrees of shoulder flexion on the left and about 180 on the right side. Elbow WFL. Right Lower Extremity: Hip flexion to 120 degrees. Knee and ankle joints WFL. Left Lower Extremity: WFL Strength: Right Upper Extremity: WFL Left Upper Extremity: Shoulder flexors 3-/5. Shoulder abductors 3-/5. Elbow and wrist WFL Right Lower Extremity: Hip flexors 3-/5. Hip abductors 3-/5. Knee flexors 4- /5. Knee extensors 3+/5. Ankle plantar flexors 4/5. Ankle dorsiflexors 4/5. Left Lower Extremity: Hip flexors 4-/5. Hip abductors 3+/5. Knee flexors 4-/5. Knee extensors 4-/5. Ankle plantar flexors 4/5. Ankle dorsiflexors 4/5. Sensation: Intact to BLE as to pain and pressure. Bed Mobility/Transfers: Rolling SBA Supine to sit SBA Sit to supine SBA Sit to stand CGA Stand to sit CGA Bed to chair CGA Chair to bed CGA Gait: Patient tolerated in room ambulation for 25 feet x2 with 2 turns using front-wheeled walker with CGA provided, FWB on B UE/LE. No SOB, no LOB, no dizziness observed throughout gait activity. Balance: Static Sitting: Good Dynamic Sitting: Good Static Standing: Fair Dynamic Standing: Fair Special Tests: Mobility Limitations Standardized Measure [facility] AM-PAC 6 clicks Basic Mobility Inpatient Short Form: Raw Score: 18 CMS Score: 47% deficit Informed Consent/Education: Patient instructed in purpose of PT consult and plan of care. Assessment: Patient is a 78 year old female referred to physical therapy services with the diagnosis of MRSA in urine, urinary incontinence with increased urgency and frequency, and generalized weakness. Patient presents with clinical signs and symptoms consistent with current/admitting diagnoses that have resulted to mobility limitations, gait instability, generalized weakness, and impaired motor control as demonstrated by the following impairment level findings: 1. Decreased strength to B LE major muscle groups 2. Impaired balance 3. Impaired activity tolerance 4. Limitation of joint range of motion in right hip Impairments are contributing to the following functional limitations: 1. Increased completion time for bed mobility skills 2. Increased dependence with transfers 3. Inability to safely ambulate without assistive device and physical assistance 4. Increase completion time for mobility ADL performance 5. Increased fall risk 6. Inability to negotiate steps alone safely Patient is assessed as Moderate 54232 complexity based on the following: History: 78-year-old female with MRSA colonization of urine accompanied by urinary incontinence with increased urgency and frequency as well as with generalized weakness Examination: Underlying impairments and functional deficits resulting to AMPA score of 18 with an equivalent CMS score of 47% deficit Presentation: Evolving Decision Makin moderate complexity Goals: Goals X1 week 1. Supine-Sit independent 2. Sit-Supine independent 3. Sit-Stand independent 4. Stand-Sit independent 5. Bed-Chair independent 6. Chair-Bed independent 7. Gait on level surface ambulation independent with use of least restrictive device for at least 300 feet without report of pain nor dyspnea 8. Stairs independent while holding onto bilateral rails for at least 5 steps without report of pain nor dyspnea 9. Independent with home exercise program 10. Balance good for static and dynamic standing Plan of Care/Treatment Plan: 1-2x/day, 7 days/week x 1 week. Plan of care has been reviewed with the CLIENT SERVICES SPECIALIST providing the service under Physical Therapy direction. Initiate Physical Therapy intervention for strengthening, bed mobility, transfers, gait, stairs, balance training, use of assistive device. DISCHARGE RECOMMENDATIONS: Patient will benefit from short-term home health PT services in order to facilitate a smooth transition to home, allow for re- education and re-training of caregivers for safety strategies as well as for patient's functional maintenance program. TREATMENT CODE/TIME: 61161 30 minutes, 18617 10 minutes, 24176 16 minutes, beginning at 9:46 AM. Thank you very much for this referral. Jessica Joseph, PT, DPT, CLT [facility]
--- NOTE | 2019-02-05 16:25 | OT.INIE ---
Occupational Therapy Notes Inpatient Occupational Therapy Evaluation Date: 02/05/19 Referring Doctor:Yanni Samuel MD OT Orders: Eval and Treat Precautions: Contact, Fall PATIENT PROFILE/ADMITTING DIAGNOSIS: Pt is an 78 year old female admitted to [facility] for UTI, MRSA, methotrexate toxicity, sepsis. Past Medical History: Methotrexate toxicity. COPD, RA, Ulcerative Colitis, Hyperthyroidism Social History/Home Situation: Pt lives with her sister and has (A) from her caregiver/cousin Rowan. She states that at baseline she is (I) with all ADLs/IADLs. She is able to drive but is not currently driving. Her house is a one level home and is handicap accessible. Equipment owned/DME: All DME needed. SUBJECTIVE: Pt was sitting in her bed with caregiver/cousin at her side. She states that she is agreeable to OT session. OBJECTIVE: General Observation: IV (R) UE Mental Status: A&Ox3 Pain: No c/o pain ROM: RUE AROM WFL L UE AROM WFL STRENGTH: RUE 4/5 throughout globally, lathe spotter is strong LUE 4/5 throughout globally, lathe spotter is strong Therapeutic Activities [id number]: Pt was educated and trained in the following adaptive equipment for ADLs/IADLs including show horn, sock aid, entertainment production professional and dressing stick. Pt verbalized understanding and demonstrates with fair technique with min vc throughout. BALANCE: Static sitting Normal Dynamic Sitting Normal Static Standing NT Dynamic Standing NT SPECIAL TESTS: Daily Activity Limitations Standardized Measure [facility] AM -PAC ?6 clicks? Daily Activity Inpatient Short Form: Raw score: 20 Standardized score: 42.03 CMS score:38.32% INFORMED CONSENT/EDUCATION: Pt instructed in purpose of OT Consult and plan of care. ASSESSMENT: Patient is a 78-year-old female referred to occupational therapy services with diagnosis of UTI, MRSA, methotraxate toxicity, sepsis. Patient presents with clinical signs and symptoms consistent with dx, as demonstrated by the following impairment level finding/ functional limitations: PMHx, decreased functional activity tolerance, decreased (I) of ADLs in the sitting position, decreased functional mobility, decreased (I) in ADLs in the standing position, s/p recent hip surgery. AMPAC score 20, cMS score 38.32% Patient is assessed as a Moderate 22093 complexity based on the following: History: See Above Examination: See Above Presentation: Evolving Decision Making: AMPAC score 20, cMS score 38.32% GOALS Goals x1 week 1. Transfers (I) FWW 2. Dressing (I) sitting in chair 3. Bathing (I) standing at sink 4. Toileting (I) on toilet 5. Eating (I) 6. Grooming (I) for hair and teeth standing at sink PLAN OF CARE/TREATMENT PLAN: 1x/day, 5 days/ week x 1week Initiate Occupational Therapy Services for bathing, dressing, grooming, toileting, eating, transfer training. DISCHARGE RECOMMENDATIONS Home with home health OT services for assessment of ADLs in home setting. TREATMENT TIME/MINUTES/CODES 98549, 88308, 45minutes (08:20) Alba Antoine OTR/L [facility]
--- NOTE | 2019-02-05 16:29 | OTIE_ITS ---
Occupational Therapy Notes Inpatient Occupational Therapy Evaluation Date: 02/05/19 Referring Doctor:Yanni Samuel MD OT Orders: Eval and Treat Precautions: Contact, Fall PATIENT PROFILE/ADMITTING DIAGNOSIS: Pt is an 78 year old female admitted to [facility] for UTI, MRSA, methotrexate toxicity, sepsis. Past Medical History: Methotrexate toxicity. COPD, RA, Ulcerative Colitis, Hyperthyroidism Social History/Home Situation: Pt lives with her sister and has (A) from her caregiver/cousin Rowan. She states that at baseline she is (I) with all ADLs/ IADLs. She is able to drive but is not currently driving. Her house is a one level home and is handicap accessible. Equipment owned/DME: All DME needed. SUBJECTIVE: Pt was sitting in her bed with caregiver/cousin at her side. She states that she is agreeable to OT session. OBJECTIVE: General Observation: IV (R) UE Mental Status: A&Ox3 Pain: No c/o pain ROM: RUE AROM WFL L UE AROM WFL STRENGTH: RUE 4/5 throughout globally, karate instructor is strong LUE 4/5 throughout globally, karate instructor is strong Therapeutic Activities [id number]: Pt was educated and trained in the following adaptive equipment for ADLs/IADLs including show horn, sock aid, dioramist and dressing stick. Pt verbalized understanding and demonstrates with fair technique with min vc throughout. BALANCE: Static sitting Normal Dynamic Sitting Normal Static Standing NT Dynamic Standing NT SPECIAL TESTS: Daily Activity Limitations Standardized Measure [facility] AM -PAC ?6 clicks? Daily Activity Inpatient Short Form: Raw score: 20 Standardized score: 42.03 CMS score:38.32% INFORMED CONSENT/EDUCATION: Pt instructed in purpose of OT Consult and plan of care. ASSESSMENT: Patient is a 78-year-old female referred to occupational therapy services with diagnosis of UTI, MRSA, methotraxate toxicity, sepsis. Patient presents with clinical signs and symptoms consistent with dx, as demonstrated by the following impairment level finding/ functional limitations: PMHx, decreased functional activity tolerance, decreased (I) of ADLs in the sitting position, decreased functional mobility, decreased (I) in ADLs in the standing position, s/p recent hip surgery. AMPAC score 20, cMS score 38.32% Patient is assessed as a Moderate 04983 complexity based on the following: History: See Above Examination: See Above Presentation: Evolving Decision Making: AMPAC score 20, cMS score 38.32% GOALS Goals x1 week 1. Transfers (I) FWW 2. Dressing (I) sitting in chair 3. Bathing (I) standing at sink 4. Toileting (I) on toilet 5. Eating (I) 6. Grooming (I) for hair and teeth standing at sink PLAN OF CARE/TREATMENT PLAN: 1x/day, 5 days/ week x 1week Initiate Occupational Therapy Services for bathing, dressing, grooming, toileting, eating, transfer training. DISCHARGE RECOMMENDATIONS Home with home health OT services for assessment of ADLs in home setting. TREATMENT TIME/MINUTES/CODES 32894, 80602, 45minutes (08:20) Alba Antoine OTR/L [facility]
--- NOTE | 2019-02-05 17:37 | PT.INNT ---
PT Notes Patient seen for second session but was unavailable as she was taking her supper. Will plan to see patient tomorrow at prescribed treatment frequency. Jessica Joseph, PT, DPT, CLT
[2019-02-06] MEDS: LINEZOLID 600 MG/300 ML BAG 300 MG IVPB ×2 (01:56→14:48)
[2019-02-06] MEDS: Normal Saline Flush 10 ML SYR IVP (01:57)
[2019-02-06 04:00] VITALS: BP 150/84; PULSE 67; RESP 16; TEMP 37.1; O2SAT 98
[2019-02-06 07:31] LABS: Anion Gap 7.8 mmol/L (3-11); BUN 12 mg/dL (7-18); CO2 25.2 mmol/L (21.0-32.0); CREATININE 0.72 mg/dL (0.55-1.02); Calcium 8.6 mg/dL (8.5-10.1); Chloride 106 mmol/L (98-107); Glucose 92 mg/dL (70-100); Potassium 3.8 mmol/L (3.5-5.1); Sodium 139 mmol/L (136-145)
[2019-02-06 07:45] VITALS: BP 146/80; PULSE 73; RESP 16; TEMP 36.1; O2SAT 93
[2019-02-06] MEDS: Omeprazole 20 MG CAPCR PO (09:04)
[2019-02-06] MEDS: Calcium 600mg/Vit D 200U TAB 1 TAB PO (09:05)
[2019-02-06] MEDS: methIMAzole 5 MG TAB PO (09:05)
[2019-02-06] MEDS: Metoprolol CR 25 MG TABCR PO (09:05)
[2019-02-06] MEDS: Folic Acid 1 MG TAB 2 MG PO (09:05)
--- NOTE | 2019-02-06 10:30 | OT.INTREAT ---
Date of service: 02/06/19 Time of Service: 09:30 Occupational Therapy Notes Occupational Therapy Inpatient Treatment Note Date: 02/06/19 PRECAUTIONS: Standard SUBJECTIVE: Pt was sitting in chair when OT arrived. She was agreeable to OT session and states that she is feeling good today. OBJECTIVE: PAIN:no c/o pain FUNCTIONAL MOBILITY Sit-stand: (S) Stand-sit: (S) Bed-Chair: (S) FWW Chair-bed: (S) FWW GROOMING: Standing at sink with FWW pt was able to perform teeth brushing (I) with min vc for hand placement on walker. DRESSING: Pt demonstrated ideal technique with sock aid and was able to (I) don and doff (B) socks in the sitting position with min vc for positioning of sock aid while donning. ASSESSMENT/PLAN: Pt is demonstrating increased (I) in ADL routine. Functionally she is able to move throughout the room with functional mobility with (S). She is demonstrating increased functional activity tolerance and is receptive to education and training. OT will monitor pts response at next session. TREATMENT CODES/TIME: 82724, 15 minutes (09:30) GUADALUPE French/[facility]
--- NOTE | 2019-02-06 10:36 | OTTR_ITS ---
Date of service: 02/06/19 Time of Service: 09:30 Occupational Therapy Notes Occupational Therapy Inpatient Treatment Note Date: 02/06/19 PRECAUTIONS: Standard SUBJECTIVE: Pt was sitting in chair when OT arrived. She was agreeable to OT session and states that she is feeling good today. OBJECTIVE: PAIN:no c/o pain FUNCTIONAL MOBILITY Sit-stand: (S) Stand-sit: (S) Bed-Chair: (S) FWW Chair-bed: (S) FWW GROOMING: Standing at sink with FWW pt was able to perform teeth brushing (I) with min vc for hand placement on walker. DRESSING: Pt demonstrated ideal technique with sock aid and was able to (I) don and doff (B) socks in the sitting position with min vc for positioning of sock aid while donning. ASSESSMENT/PLAN: Pt is demonstrating increased (I) in ADL routine. Functionally she is able to move throughout the room with functional mobility with (S). She is demonstrating increased functional activity tolerance and is receptive to education and training. OT will monitor pts response at next session. TREATMENT CODES/TIME: 90786, 15 minutes (09:30) GUADALUPE French/[facility]
--- NOTE | 2019-02-06 10:55 | PDOC.CMPRO ---
- If Service Date Differs Date of service: 02/06/19 Time of Service: 10:55 Care Management Progress Note S/O: Carmella is lying in bed when this typewriter mechanic visits this morning. She reports that she was up with physical therapy this morning, and feels as though it went well. Discussed DC plans with Carmella which remain unchanged at this time. She reports that she wants to be home, as she has been hospitalized as well as at a SNF for the past. A: 78 y/o female admitted 02/04/19 for MRSA UTI P: Carmella will return home once medically cleared. She will continue to have home health PT services at time of DC. Carmella will F/U with PCP and plan of care as prescribed. Family to transport.
--- NOTE | 2019-02-06 11:15 | CMPROGNOTE_ITS ---
- If Service Date Differs Date of service: 02/06/19 Time of Service: 10:55 Care Management Progress Note S/O: Carmella is lying in bed when this investment underwriter visits this morning. She reports that she was up with physical therapy this morning, and feels as though it went well. Discussed DC plans with Carmella which remain unchanged at this time. She reports that she wants to be home, as she has been hospitalized as well as at a SNF for the past. A: 78 y/o female admitted 02/04/19 for MRSA UTI P: Carmella will return home once medically cleared. She will continue to have home health PT services at time of DC. Carmella will F/U with PCP and plan of care as prescribed. Family to transport.
[2019-02-06 11:46] VITALS: BP 136/73; PULSE 71; RESP 16; TEMP 37; O2SAT 96
--- NOTE | 2019-02-06 14:23 | W.PM.PROGNOT ---
Date of Service Date of service: 02/06/19 Time of Service: 14:23 Assessment and Plan (1) UTI (urinary tract infection), uncomplicated: Current visit: No Status: Acute Due to MRSA, present on admission. She was initially retaining urine, however, this seems to have resolved, PVRs have been zero multiple times. Continue IV linezolid (day #3). Repeat UA tomorrow morning to test for cure. (2) Methotrexate toxicity: Current visit: No Status: Chronic Follow up with PCP for discussion between pulmonology and rheumatology regarding question of restarting methotrexate. (3) Rheumatoid arthritis: Current visit: No Status: Chronic Follow up with rheumatology as outpatient. (4) COPD (chronic obstructive pulmonary disease): Current visit: No Status: Chronic Not in acute exacerbation. Respiratory status stable. Follow up with pulmonology as outpatient. (5) Ulcerative colitis: Current visit: No Status: Chronic At baseline. Follow up as outpatient. (6) DVT prophylaxis: Current visit: No Status: Acute SCD's + TEDs - abstain from chemical DVT PPx as has a h/o blood loss anemia. Encourage hydration and frequent ambulation. (7) Discharge planning issues: Current visit: No Status: Acute She is a FULL code. If her UA remains positive tomorrow, she will need 7 day course of Linezolid. Will need to verify coverage by insurance complany vs staying in the hosptial for the duration of treatment. This case was discussed with Dr. Samuel who is in agreement. Subjective Interval history since last seen: Ms Stephenson reports feeling better today. She denies weakness, although she is tired. She denies any urinary symptoms including dysuria, hematuria, frequency, urgency, CVA tenderness or abdominal pain. She is eating and drinking without nausea, vomiting or diarrhea. She denies dizziness, shortness of breath, coughing, wheezing, chest pain/pressure, palpitations or edema. Exam Narrative Exam Narrative: General: Very pleasant frail, elderly female, she is hard of hearing, A&OX3, in no acute distress. Neck: supple, no JVD. HEENT: Pupils equal and round, EOMI, mucous membranes moist. Cardiovascular: heart has regular rate and rhythm, no murmur appreciated. Lungs: respirations even an unlabored, fine rales to bilateral bases Gastrointestinal: normoactive bowel sounds, abdomen is soft, nontender on palpation, nondistended Extremities: no clubbing, cyanosis or edema. pedal pulses palpable bilaterally, TEDS on bilaterally. Objective Objective Clinical Data: Vital Signs Temperature 37 C 02/06/19 11:46 Temperature Source Tympanic 02/06/19 11:46 Pulse 71 02/06/19 11:46 Pulse Rhythm Regular 02/06/19 11:44 Respiratory Rate 16 02/06/19 11:46 Respiratory Effort 02/06/19 11:44 Respiratory Depth Normal 02/06/19 11:44 Respiratory Pattern Normal 02/06/19 11:44 Blood Pressure 136/73 02/06/19 11:46 Blood Pressure Position Sitting 02/04/19 12:25 Pulse Oximetry 96 02/06/19 11:46 Oxygen Delivery Method Room Air 02/06/19 11:46 Oxygen Flow Rate 0 02/06/19 11:46 Pain Level 0 02/06/19 11:46 Intake & Output 02/05/19 02/06/19 02/06/19 23:59 11:59 23:59 Intake Total 832.083 / 3392.083 542.083 / 782.083 240 / 782.083 Output Total 1550 / 2650 1650 / 1650 Balance -717.917 / 742.083 -1107.917 / -867.917 240 / -867.917 Weight 41.8 kg Intake: IV 352.083 / 2672.083 52.083 / 52.083 Oral 480 / 720 490 / 730 240 / 730 Output: Urine 1550 / 2650 1650 / 1650 Post Void Residual 0 / 0 Other: Urine Color Yellow Yellow Urine Appearance Clear Clear Urine Odor Normal Comment patient had voided in the toilet, she had missed the hat , so was not able to measure full amount, o residual Stool Size Moderate Small Stool Characteristics Hard Soft Formed Voiding Methods Bedside Commode Bedside Commode Laboratory Results WBC 6.93 k/cumm (4.4-10.8) 02/05/19 07:55 RBC 4.01 m/cumm (4.00-5.20) 02/05/19 07:55 Hgb 12.3 g/dL (12.0-15.5) 02/05/19 07:55 Hct 38.5 % (36.0-46.0) 02/05/19 07:55 MCV 96.0 fL (80-95) H 02/05/19 07:55 MCH 30.7 pg (27.0-33.0) 02/05/19 07:55 MCHC 31.9 g/dL (32.0-36.0) L 02/05/19 07:55 RDW 15.2 % (11.7-14.6) H 02/05/19 07:55 Plt Count 169 x1000/uL (130-400) 02/05/19 07:55 MPV 10.7 fL (8.0-11.0) 02/05/19 07:55 Immature Gran % 0.6 02/05/19 07:55 Neutrophils % 72.5 02/05/19 07:55 Lymphocytes % 14.9 02/05/19 07:55 Monocytes % 10.8 02/05/19 07:55 Eosinophils % 0.9 02/05/19 07:55 Basophils % 0.3 02/05/19 07:55 Absolute Neutrophils 5.03 k/cumm (1.2-6.7) 02/05/19 07:55 Absolute Lymphocytes 1.03 k/cumm (1.2-3.4) L 02/05/19 07:55 Absolute Monocytes 0.75 k/cumm (0.11-0.7) H 02/05/19 07:55 Absolute Eosinophils 0.06 k/cumm (0.0-0.7) 02/05/19 07:55 Absolute Basophils 0.02 k/cumm (0.0-0.2) 02/05/19 07:55 Sodium 139 mmol/L (136-145) 02/06/19 06:45 Potassium 3.8 mmol/L (3.5-5.1) 02/06/19 06:45 Chloride 106 mmol/L (98-107) 02/06/19 06:45 Carbon Dioxide 25.2 mmol/L (21.0-32.0) 02/06/19 06:45 Anion Gap 7.8 mmol/L (3-11) 02/06/19 06:45 BUN 12 mg/dL (7-18) 02/06/19 06:45 Creatinine 0.72 mg/dL (0.55-1.02) 02/06/19 06:45 Estimated GFR/1.73 m2 >= 60.00 (mL/min/1.73m2) 02/06/19 06:45 Glucose 92 mg/dL (70-100) 02/06/19 06:45 Calcium 8.6 mg/dL (8.5-10.1) 02/06/19 06:45 Magnesium 2.0 mg/dL (1.8-2.4) 02/06/19 06:45 Total Bilirubin 0.4 mg/dL (0.2-1.0) 02/04/19 13:05 AST 29 U/L (15-37) 02/04/19 13:05 ALT 16 U/L (12-78) 02/04/19 13:05 Alkaline Phosphatase 126 U/L (46-116) H 02/04/19 13:05 Total Protein 8.1 g/dL (6.4-8.2) 02/04/19 13:05 Albumin 3.0 g/dL (3.4-5.0) L 02/04/19 13:05 Urine Color Yellow (Yellow) 02/04/19 13:40 Urine Clarity Sl cloudy 02/04/19 13:40 Urine pH 5.5 (5-8) 02/04/19 13:40 Ur Specific [place] 1.020 (1.005-1.025) 02/04/19 13:40 Urine Protein 30 mg/dL (Negative) H 02/04/19 13:40 Urine Ketones Trace mg/dL (Negative) H 02/04/19 13:40 Urine Blood Trace-intact (Negative) H 02/04/19 13:40 Urine Nitrite Negative (Negative) 02/04/19 13:40 Urine Bilirubin Negative (Negative) 02/04/19 13:40 Urine Urobilinogen 0.2 EU/dL (Up TO 0.2) 02/04/19 13:40 Ur Leukocyte Esterase Moderate (Negative) H 02/04/19 13:40 Urine RBC 10-20 (0-2) H 02/04/19 13:40 Urine WBC 20-50 HPF (0-5) 02/04/19 13:40 Ur Epithelial Cells Many HPF (Negative) 02/04/19 13:40 Urine Crystals Negative HPF (Negative) 02/04/19 13:40 Urine Bacteria Few HPF (Negative) 02/04/19 13:40 Urine Casts Negative LPF (Negative) 02/04/19 13:40 Urine Mucus Moderate (Negative) 02/04/19 13:40 Urine Other Few transitional (Negative) 02/04/19 13:40 Ur Culture Indicated? No/sq. contamination 02/04/19 13:40 Urine Glucose Negative mg/dL (Negative) 02/04/19 13:40
[2019-02-06 16:20] VITALS: BP 142/80; PULSE 67; RESP 18; TEMP 37.2; O2SAT 97
--- NOTE | 2019-02-06 16:50 | CHAPLAIN ---
Carmella was sitting up in her chair when I visited. She said she is feeling better. The priests who usually visit on Tuesday, were not here yesterday so, with Carmella's permission, I called [facility] to let them know she is here and would like a visit. She expects family to be in later today.
[2019-02-06 19:35] VITALS: BP 142/73; PULSE 65; RESP 17; TEMP 36.7; O2SAT 95
[2019-02-07 00:02] VITALS: BP 147/74; PULSE 74; RESP 19; TEMP 37.5; O2SAT 94
[2019-02-07] MEDS: LINEZOLID 600 MG/300 ML BAG 300 MG IVPB ×2 (01:43→14:19)
[2019-02-07 03:20] VITALS: BP 157/81; PULSE 63; RESP 16; TEMP 36.9; O2SAT 96
[2019-02-07 07:45] VITALS: BP 129/72; PULSE 72; RESP 18; TEMP 36.5; O2SAT 96
[2019-02-07] MEDS: Metoprolol CR 25 MG TABCR PO (09:09)
[2019-02-07] MEDS: Omeprazole 20 MG CAPCR PO (09:09)
[2019-02-07] MEDS: Calcium 600mg/Vit D 200U TAB 1 TAB PO (09:09)
[2019-02-07] MEDS: methIMAzole 5 MG TAB PO (09:09)
[2019-02-07] MEDS: Folic Acid 1 MG TAB 2 MG PO (09:10)
[2019-02-07 11:43] VITALS: BP 146/75; PULSE 52; RESP 16; TEMP 36.6; O2SAT 98
--- NOTE | 2019-02-07 11:51 | OT.INTREAT ---
Date of service: 02/07/19 Time of Service: 11:05 Occupational Therapy Notes Occupational Therapy Inpatient Treatment Note Date: 02/07/19 PRECAUTIONS: Fall, standard SUBJECTIVE: Pt was sitting in chair when OT arrived. She reports that she would like to get washed up and slept well last night. OBJECTIVE: PAIN:no c/o pain BATHING: Sitting in chair with max (A) set up Upper Body: (I) face, (B) UE, abdomen, max (A) back Lower Body: Min (A) (B) feet DRESSING: Upper Extremity: (I) donning and doffing hospital gown. Lower Extremity: Max (A) without adaptive equipment for donning and doffing (B) socks. ASSESSMENT/PLAN: Pt is functionally able to perform ADLs with increased (I). She has been using the toilet per pt report and is progressing with (I) in standing ADLs which is her baseline level of function. TREATMENT CODES/TIME: 28542y6, 15 minutes (11:05) Alba Antoine OTR/[facility]
--- NOTE | 2019-02-07 11:55 | OTTR_ITS ---
Date of service: 02/07/19 Time of Service: 11:05 Occupational Therapy Notes Occupational Therapy Inpatient Treatment Note Date: 02/07/19 PRECAUTIONS: Fall, standard SUBJECTIVE: Pt was sitting in chair when OT arrived. She reports that she would like to get washed up and slept well last night. OBJECTIVE: PAIN:no c/o pain BATHING: Sitting in chair with max (A) set up Upper Body: (I) face, (B) UE, abdomen, max (A) back Lower Body: Min (A) (B) feet DRESSING: Upper Extremity: (I) donning and doffing hospital gown. Lower Extremity: Max (A) without adaptive equipment for donning and doffing (B) socks. ASSESSMENT/PLAN: Pt is functionally able to perform ADLs with increased (I). She has been using the toilet per pt report and is progressing with (I) in standing ADLs which is her baseline level of function. TREATMENT CODES/TIME: [id number], 15 minutes (11:05) Alba Antoine OTR/[facility]
--- NOTE | 2019-02-07 14:46 | PDOC.CMPRO ---
- If Service Date Differs Date of service: 02/07/19 Time of Service: 14:46 Care Management Progress Note S/O: Carmella is sitting up in the chair when this telegraphic typewriter installer visits this morning, she is pleasant and receptive to discussion. Per report Carmella to have a repeat UA today as she has been on IV antibiotics, and there is questions as to whether she will require PO Zyvox at time of DC. As of this morning there is no UA specimen sent to the lab as of yet. A: 78 y/o female admitted 02/04/19 for MRSA UTI P: Carmella will return home once medically cleared. She will continue to have home health PT services at time of DC. Carmella will F/U with PCP and plan of care as prescribed. Family to transport.
--- NOTE | 2019-02-07 14:49 | CMPROGNOTE_ITS ---
- If Service Date Differs Date of service: 02/07/19 Time of Service: 14:46 Care Management Progress Note S/O: Carmella is sitting up in the chair when this screen writer visits this morning, she is pleasant and receptive to discussion. Per report Carmella to have a repeat UA today as she has been on IV antibiotics, and there is questions as to whether she will require PO Zyvox at time of DC. As of this morning there is no UA specimen sent to the lab as of yet. A: 78 y/o female admitted 02/04/19 for MRSA UTI P: Carmella will return home once medically cleared. She will continue to have home health PT services at time of DC. Carmella will F/U with PCP and plan of care as prescribed. Family to transport.
[2019-02-07 15:24] LABS: Bilirubin Negative (Negative); Blood Negative (Negative); Clarity Clear; Glucose Negative (Negative); Ketones Trace mg/dL (Negative); Leukocyte Esterase Negative (Negative); Nitrite Negative (Negative); Urobilinogen 0.2 EU/dL (Up TO 0.2)
--- NOTE | 2019-02-07 15:58 | DSE_ITS ---
Date of service: 02/07/19 Time of Service: 15:56 DS: Diagnosis Discharge Diagnosis (1) UTI (urinary tract infection), uncomplicated: Status: Acute (2) Methotrexate toxicity: Status: Chronic (3) Rheumatoid arthritis: Status: Chronic (4) COPD (chronic obstructive pulmonary disease): Status: Chronic (5) Ulcerative colitis: Status: Chronic Discharge Plan Disposition Patient Disposition: HOME W/HOME HEALTH SERVICE Condition: Stable Discharge Details Reason For Visit: MRSA UTI (PRESENT ON ADMISSION) Admit Date/Time: 02/04/19 14:32 Admit Provider: Yanni Samuel Attending Provider: Yanni Samuel Primary Care Provider: Emily Lucio [facility] Course Hospital Course: Carmella Stephenson is a very pleasant 78 year old female with a past medical history significant for recent episode of severe methotrexate toxicity, COPD, RA, UC, hyperthyroidism, who was sent to [facility] ED on 02/04/19 after her urine C&S from 02/02/19 that was collected in her PCP's office, after she reported urinary incontinence, urgency, and frequency, grew MRSA, sensitive to linezolid. Her blood cultures are negative at 72 hours. She was started on IV Linezolid and admitted to the med/surg floor. She received a 3 day course of Linezolid and had a repeat UA today which was no longer suspicious for infection. She denied any ongoing urinary symptoms including dysuria, frequency, urgency, hematuria. She was assessed for urinary retention, for which she initially required straight catheterization, however as the infection was treated, she was no longer found to have post void residuals. As she no longer has a UTI, she will be discharged home with no antibiotics. She had a recent hospitalization for methotrexate toxicity and her family was concerned that her Subsorter was considering resuming methotrexate. She is also followed by Pulmonology, the patient did not feel that her computed tomography scanner operator would agree with this. She was encouraged to follow up with her PCP for facilitation of a discussion between these providers. She will be discharged home and continue to have home health PT services. She will follow up with her PCP as scheduled. Home Meds and New Rx's Prescriptions: Continued acetaminophen [Tylenol] 325 MG tablet 650 mg PO Q6H PRN RF: 0 folic acid 1 MG tablet 2 mg PO DAILY RF: 0 cholecalciferol (vitamin D3) 2,000 UNIT tablet 2,000 unit PO DAILY RF: 0 fluticasone propionate [Flonase Allergy Relief] 9.9 ML spray,suspension 1 spray NS DAILY PRNRF: 0 metoprolol succinate 25 MG tablet extended release 24 hr 25 mg PO DAILY RF: 0 methimazole 5 MG tablet 5 mg PO DAILY RF: 0 biotin 5 mg Tablet 1 tab PO DAILY RF: 0 omeprazole 20 mg Capsule,Delayed Release(Dr/Ec) 20 mg PO DAILY RF: 0 calcium carbonate-vitamin D3 1,000 mg(2,500 mg)-800 unit Tablet 1 tab PO DAILY RF: 0 Discharge Instructions Instructions: Urinary Tract Infection in Women (DC) Additional Instructions: Follow up with your PCP within weeks. Resume your usual medications. Continue home health PT. Take care! Referrals: Emily Lucio MD [Primary Care Provider] - 02/22/19 10:20 am Activity:: Activity as Tolerated Equipment/Supplies:: No Equipment Needed Diet:: Heart healthy diet Discharge Orders Discharge Orders: Discharge Order (Routine); Ordered 02/07/19 Ordered By: Taylor Hudson Exam Narrative Exam Narrative: General: Very pleasant frail, elderly female, she is hard of hearing, A&OX3, in no acute distress. Neck: supple, no JVD. HEENT: Pupils equal and round, EOMI, mucous membranes moist. Cardiovascular: heart has regular rate and rhythm, no murmur appreciated. Lungs: respirations even an unlabored, lung sounds clear throughout. Gastrointestinal: normoactive bowel sounds, abdomen is soft, nontender on palpation, nondistended Extremities: no clubbing, cyanosis or edema. pedal pulses palpable bilaterally, TEDS on bilaterally. DS: Data Vitals/I&O Vitals and I&O: Vital Signs Temperature 36.6 C 02/07/19 11:43 Temperature Source Tympanic 02/07/19 11:43 Pulse 52 L 02/07/19 11:43 Pulse Rhythm Regular 02/07/19 11:08 Respiratory Rate 16 02/07/19 11:43 Respiratory Effort 02/07/19 11:08 Respiratory Depth Shallow 02/07/19 11:08 Respiratory Pattern Normal 02/07/19 11:08 Blood Pressure 146/75 H 02/07/19 11:43 Blood Pressure Position Sitting 02/04/19 12:25 Pulse Oximetry 98 02/07/19 11:43 Oxygen Delivery Method Room Air 02/07/19 11:43 Oxygen Flow Rate 0 02/07/19 11:43 Pain Level 3 02/07/19 11:43 Comment 02/07/19 03:20 Intake & Output 02/06/19 02/07/19 02/07/19 23:59 11:59 23:59 Intake Total 540 / 1382.083 860 / 1110 250 / 1110 Output Total 350 / 2300 600 / 600 Balance 190 / -917.917 260 / 510 250 / 510 Weight 41.3 kg Intake: IV 300 / 652.083 300 / 300 Oral 240 / 730 560 / 810 250 / 810 Output: Urine 350 / 2300 600 / 600 Other: Urine Color Pale Yellow Urine Appearance Clear Clear Urine Odor Normal Comment Missed hat. Stool Size Moderate Stool Characteristics Soft Brown Voiding Methods Toilet Toilet Completed studies during hospitalization [Text1]: 02/04/19: FRONTAL AND LATERAL CHEST: Comparison is made with 10/10/18. Heart size and pulmonary vasculature are within normal limits. There is again seen a cardiac valvular replacement. No effusions or pneumothoraces are identified. There is a question of an opacity in the left lung base. This may represent atelectasis or pneumonia. Degenerative changes are seen in the spine. IMPRESSION: Left basilar infiltrate. This may represent atelectasis or pneumonia. Labs on day of discharge: Labs from last 24 hours 02/07/19 13:00 Urine Color Yellow Urine Clarity Clear Urine pH 6.0 Ur Specific [place] 1.020 Urine Protein Negative Urine Ketones Trace H Urine Blood Negative Urine Nitrite Negative Urine Bilirubin Negative Urine Urobilinogen 0.2 Ur Leukocyte Esterase Negative Urine Glucose Negative Preliminary micro results at discharge 02/04/19 13:23 Blood Culture - Preliminary Blood NO GROWTH 72 HOURS 02/04/19 13:23 Blood Culture - Preliminary Blood NO GROWTH 72 HOURS [facility] Medical History Fx lower radius/ulna-closed (Acute) Bigeminy Bilateral hearing loss CAD (coronary artery disease) COPD (chronic obstructive pulmonary disease) Chronic obstructive lung disease Colitis Hearing loss History of hypertension History of tobacco use Hyperthyroidism Mitral valve disease Osteopenia Osteoporosis Rheumatoid arthritis Rhinitis Ulcerative colitis Surgical History Colonoscopy - IV Sedation (~2008) Colonoscopy - MAC (03/22/18) Family History Mother Asthma Father No problems noted. Sister No problems noted. Sister No problems noted. Brother No problems noted. Social History Smoking/Tobacco Use Status: Former Tobacco Use Drug use: Never Do you feel safe in your relationship?: Yes
--- NOTE | 2019-02-07 17:09 | PT.INTREAT ---
Date of service: 02/07/19 Time of Service: 10:06 PT Notes Date: 02/06/2018 Referring Doctor: Yanni Samuel MD PT Orders: PT CONSULT: Eval/treat Precautions: Fall. Contact precautions. Subjective: Patient is pleasant and cooperative, agreeable to a PT treatment. She states I went to the bathroom on my own using the walker. Patient stated that she got up 3 different times last night with nurse staff but attempted to go on her own early this morning. Objective: General Observation: Sitting on recliner Mental Status: Alert and oriented x3 Pain: Patient complains of that same left shoulder still at 3/10. Bed Mobility/Transfers: Rolling SBA Supine to sit SBA Sit to supine SBA Sit to stand SBA Stand to sit SBA Bed to chair SBA Chair to bed SBA Gait: Patient tolerated level surface ambulation for 100 feet x2 using FWW and SBA of PT now with increasing chcio. Patient also tolerated up and down stairs 3 x 4 and 2 x 6 using step to pattern while holding onto bilateral rails. No SOB, no LOB, no dizziness observed/reported throughout gait activity. THERA EX: Patient tolerated standing level exercises during the afternoon session as per exercise flow sheet with out complaints of increased pain nor dizziness. ASSESSMENT: Patient demonstrates increased tolerance to functional mobility training gait and balance training and strengthening exercises continue to benefit from skilled PT services and anticipation of discharge to home when medically stable. PLAN: Continue with PT POC as initially established. Patient will benefit from short-term home health PT services in order to facilitate a smooth transition to home, allow for re-education and re-training of caregivers for safety strategies as well as for patient's functional maintenance program. TREATMENT CODE/TIME: 97178 18 minutes, 66472 10 minutes, beginning at 10:06 AM. 65000 18 minutes beginning at 14:52 PM for the afternoon session. Jessica Joseph, PT, DPT, CLT [facility]
--- NOTE | 2019-02-07 17:21 | PTTR_ITS ---
Date of service: 02/07/19 Time of Service: 10:06 PT Notes Date: 02/06/2018 Referring Doctor: Yanni Samuel MD PT Orders: PT CONSULT: Eval/treat Precautions: Fall. Contact precautions. Subjective: Patient is pleasant and cooperative, agreeable to a PT treatment. She states I went to the bathroom on my own using the walker. Patient stated that she got up 3 different times last night with nurse staff but attempted to go on her own early this morning. Objective: General Observation: Sitting on recliner Mental Status: Alert and oriented x3 Pain: Patient complains of that same left shoulder still at 3/10. Bed Mobility/Transfers: Rolling SBA Supine to sit SBA Sit to supine SBA Sit to stand SBA Stand to sit SBA Bed to chair SBA Chair to bed SBA Gait: Patient tolerated level surface ambulation for 100 feet x2 using FWW and SBA of PT now with increasing chico. Patient also tolerated up and down stairs 3 x 4 and 2 x 6 using step to pattern while holding onto bilateral rails. No SOB, no LOB, no dizziness observed/reported throughout gait activity. THERA EX: Patient tolerated standing level exercises during the afternoon session as per exercise flow sheet with out complaints of increased pain nor dizziness. ASSESSMENT: Patient demonstrates increased tolerance to functional mobility tra ining gait and balance training and strengthening exercises continue to benefit from skilled PT services and anticipation of discharge to home when medically stable. PLAN: Continue with PT POC as initially established. Patient will benefit from short-term home health PT services in order to facilitate a smooth transition to home, allow for re-education and re-training of caregivers for safety strategies as well as for patient's functional maintenance program. TREATMENT CODE/TIME: 11070 18 minutes, 25519 10 minutes, beginning at 10:06 AM. 40763 18 minutes beginning at 14:52 PM for the afternoon session. Jessica Joseph, PT, DPT, CLT [facility]
--- NOTE | 2019-02-07 17:22 | PTTR_ITS ---
Date of service: 02/07/19 Time of Service: 11:02 PT Notes Inpatient Physical Therapy Treatment Note [facility] Date: 02/07/2018 Referring Doctor: Yanni Samuel MD PT Orders: PT CONSULT: Eval/treat Precautions: Fall. Contact precautions. Subjective: Patient is pleasant and cooperative, agreeable to a PT treatment. She states that she slept better last night. Patient stated that she got up just once last night. She is seen today in conversation with relative Rowan. Objective: General Observation: Sitting on recliner. Electric heating pad on left shoulder. Mental Status: Alert and oriented x3 Pain: Patient complains of that same left shoulder still at 3/10. Bed Mobility/Transfers: Rolling SBA Supine to sit SBA Sit to supine SBA Sit to stand SBA Stand to sit SBA Bed to chair SBA Chair to bed SBA Gait: Patient tolerated level surface ambulation for 150 using FWW and SBA of PT now with increasing chico. Patient also tolerated 2 sets of 5 repetitions for sit to stand activity with arms across chest from edge of bed. No SOB, no LOB, no dizziness observed/reported throughout gait activity. THERA EX: Patient tolerated standing level exercises during the afternoon session as per exercise flow sheet with out complaints of increased pain nor dizziness. ASSESSMENT: Patient demonstrates increased tolerance to functional mobility training gait and balance training and strengthening exercises continue to bene fit from skilled PT services and anticipation of discharge to home when medically stable. PLAN: Continue with PT POC as initially established. Patient will benefit from short-term home health PT services in order to facilitate a smooth transition to home, allow for re-education and re-training of caregivers for safety strategies as well as for patient's functional maintenance program. TREATMENT CODE/TIME: 79489 18 minutes beginning at 12:01 PM. 82453 24 minutes beginning at 14:46 PM for the afternoon session. Jessica Joseph, PT, DPT, CLT [facility]
--- NOTE | 2019-02-08 09:30 | INDS_ITS ---
Date of service: 02/08/19 PT Notes Inpatient Physical Therapy Discharge Summary Dates: 02/08/2019 Dates of Service: 02/05/2019 through 02/07/2019 Referring Doctor: Yanni Samuel MD PT Orders: PT CONSULT: Eval/treat Precautions: Fall. Contact precautions. Patient Profile/Admitting Diagnosis: 78-year-old female who was sent to the ED on 02/04/2019 due to an out-patient C&S result of MRSA in urine on 02/02/2019, urinary incontinence, urinary urgency, and urinary frequency which have persisted for the past 3 weeks. She is status post R ORIF with trochanteric fixation nail system on 10/06/2018 and has recently been discharged from a intermediate facility last week. PMHX: Severe Methotrexate toxicity. COPD, RA, Ulcerative Colitis, Hyperthyroidism Social History/Home Situation: Patient receives 23/05 care for her and for her younger sister Margareth from 4 caregivers who each take turns in providing their care. They live in a 1 floor house in [place] with 2 steps to enter, rails on both sides. There is one more step to kitchen with a rail on the left side going up. She states that she has been walking up to 200 feet with her front wheeled walker at home and was just discharged from [facility] on , 02/01/2019 at walker level. Patient's house has been made handicap-accessible for both her and her sister. Beds have been modified so that the they are accessible for both patient and her sister patient. Grab bars have been put in the bathroom for safety. Equipment Owned/DME: FWW with tray, shower chair. Subjective: Patient is pleasant and cooperative, agreeable to a PT treatment. She states that she slept better last night. Patient stated that she got up just once last night. She is seen today in conversation with relative Rowan. Objective: General Observation: Sitting on recliner. Electric heating pad on left shoulder. Mental Status: Alert and oriented x3 Pain: Patient complains of that same left shoulder still at 3/10. ROM: Right Upper Extremity: WFL Left Upper Extremity: Patient was able to bring both hands behind head, she was able to bring both arms forward to about 150 degrees of shoulder flexion on the left and about 180 on the right side. Elbow WFL. Right Lower Extremity: Hip flexion to 120 degrees. Knee and ankle joints WFL. Left Lower Extremity: WFL Strength: Right Upper Extremity: WFL Left Upper Extremity: Shoulder flexors 3-/5. Shoulder abductors 3-/5. Elbow and wrist WFL Right Lower Extremity: Hip flexors 4-/5. Hip abductors 4-/5. Knee flexors 4- /5. Knee extensors 4-/5. Ankle plantar flexors 4/5. Ankle dorsiflexors 4/5. Left Lower Extremity: Hip flexors 4-/5. Hip abductors 4-/5. Knee flexors 4-/5. Knee extensors 4-/5. Ankle plantar flexors 4/5. Ankle dorsiflexors 4/5. Sensation: Intact to BLE as to pain and pressure. Bed Mobility/Transfers: Rolling SBA Supine to sit SBA Sit to supine SBA Sit to stand SBA Stand to sit SBA Bed to chair SBA Chair to bed SBA Gait: Patient tolerated level surface ambulation for 150 using FWW and SBA of PT now with increasing chico. Patient also tolerated 2 sets of 5 repetitions for sit to stand activity with arms across chest from edge of bed. No SOB, no LOB, no dizziness observed/reported throughout gait activity. Balance: Static Sitting: Good Dynamic Sitting: Good Static Standing: Fair Dynamic Standing: Fair Special Tests: Mobility Limitations Standardized Measure [facility] AM-PAC 6 clicks Basic Mobility Inpatient Short Form: Raw Score: 22 CMS Score: 21% deficit Informed Consent/Education: Patient instructed in purpose of PT consult and plan of care. Assessment: Patient is a 78 year old female referred to physical therapy services with the diagnosis of MRSA in urine, urinary incontinence with increased urgency and frequency, and generalized weakness. Patient demonstrates increased tolerance to functional mobility training gait and balance training and strengthening exercises continue to benefit from skilled PT services and anticipation of discharge to home when medically stable. Patient presents with clinical signs and symptoms consistent with current/admitting diagnoses that have resulted to mobility limitations, gait instability, generalized weakness, and impaired motor control as demonstrated by the following impairment level findings: 1. Decreased strength to B LE major muscle groups 2. Impaired balance 3. Impaired activity tolerance 4. Limitation of joint range of motion in right hip Impairments are contributing to the following functional limitations: 1. Increased completion time for bed mobility skills 2. Increased dependence with transfers 3. Inability to safely ambulate without assistive device and physical assistance 4. Increase completion time for mobility ADL performance 5. Increased fall risk 6. Inability to negotiate steps alone safely Goals: Goals X1 week 1. Supine-Sit independent NOT MET 2. Sit-Supine independent NOT MET 3. Sit-Stand independent NOT MET 4. Stand-Sit independent NOT MET 5. Bed-Chair independent NOT MET 6. Chair-Bed independent NOT MET 7. Gait on level surface ambulation independent with use of least restrictive device for at least 300 feet without report of pain nor dyspnea NOT MET 8. Stairs independent while holding onto bilateral rails for at least 5 steps without report of pain nor dyspnea NOT MET 9. Independent with home exercise program NOT MET 10. Balance good for static and dynamic standing NOT MET DISCHARGE RECOMMENDATIONS: Patient will benefit from short-term home health PT services in order to facilitate a smooth transition to home, allow for re- education and re-training of caregivers for safety strategies as well as for patient's functional maintenance program. TREATMENT CODE/TIME: 33383 18 minutes beginning at 12:01 PM. 47817 24 minutes beginning at 14:46 PM for the afternoon session. Thank you very much for this referral. Jessica Joseph, PT, DPT, CLT [facility]
--- NOTE | 2019-02-08 10:39 | OT.INDS ---
Date of service: 02/08/19 Time of Service: 10:39 Occupational Therapy Notes Occupational Therapy Inpatient Discharge Summary Date: 02/08/19 for 02/07/19 Dates of Service: 02/05/19-02/07/19 Referring Doctor:Yanni Samuel MD OT Orders: Eval and Treat Precautions: Contact, Fall PATIENT PROFILE/ADMITTING DIAGNOSIS: Pt is an 78 year old female admitted to [facility] for UTI, MRSA, methotrexate toxicity, sepsis. Past Medical History: Methotrexate toxicity. COPD, RA, Ulcerative Colitis, Hyperthyroidism Social History/Home Situation: Pt lives with her sister and has (A) from her caregiver/cousin Rowan. She states that at baseline she is (I) with all ADLs/IADLs. She is able to drive but is not currently driving. Her house is a one level home and is handicap accessible. Equipment owned/DME: All DME needed. THIS DOCUMENT SERVES A SUMMARY OF CARE, NO SKILLED OT SERVICES PROVIDED FOR THIS DOCUMENTATION SUBJECTIVE: NT OBJECTIVE: ROM: RUE AROM WFL L UE AROM WFL STRENGTH: RUE 4/5 throughout globally, prepress specialist is strong LUE 4/5 throughout globally, prepress specialist is strong Per previous OT sessions, pt was able to perform bathing routines (I) in sitting position, toileting (I) on toilet, dressing (I) in sitting position, grooming (I) standing at the sink. BALANCE: Static sitting Normal Dynamic Sitting Normal Static Standing NT Dynamic Standing NT ASSESSMENT: Patient is a 78-year-old female referred to occupational therapy services with diagnosis of UTI, MRSA, methotraxate toxicity, sepsis. Pt was seen for 3 skilled OT services. She was able to perform ADLs/IADLs with ideal technique. She performs them with use of FWW and demonstrated ideal technique with adative equipment at last session. Pt was discharged on 02/07/19 to return home. GOALS All goals met except #3 1. Transfers (I) FWW 2. Dressing (I) sitting in chair 3. Bathing (I) standing at sink (not met) 4. Toileting (I) on toilet 5. Eating (I) 6. Grooming (I) for hair and teeth standing at sink PLAN OF CARE/TREATMENT PLAN: Discharge from skilled OT services DISCHARGE RECOMMENDATIONS Home with home health OT services for assessment of ADLs in home setting. TREATMENT TIME/MINUTES/CODES N/A Alba Bergton, OTR/L [facility]
--- NOTE | 2019-02-08 10:44 | OTDS_ITS ---
Date of service: 02/08/19 Time of Service: 10:39 Occupational Therapy Notes Occupational Therapy Inpatient Discharge Summary Date: 02/08/19 for 02/07/19 Dates of Service: 02/05/19-02/07/19 Referring Doctor:Yanni Samuel MD OT Orders: Eval and Treat Precautions: Contact, Fall PATIENT PROFILE/ADMITTING DIAGNOSIS: Pt is an 78 year old female admitted to [facility] for UTI, MRSA, methotrexate toxicity, sepsis. Past Medical History: Methotrexate toxicity. COPD, RA, Ulcerative Colitis, Hyperthyroidism Social History/Home Situation: Pt lives with her sister and has (A) from her caregiver/cousin Rowan. She states that at baseline she is (I) with all ADLs/IADLs. She is able to drive but is not currently driving. Her house is a one level home and is handicap accessible. Equipment owned/DME: All DME needed. THIS DOCUMENT SERVES A SUMMARY OF CARE, NO SKILLED OT SERVICES PROVIDED FOR THIS DOCUMENTATION SUBJECTIVE: NT OBJECTIVE: ROM: RUE AROM WFL L UE AROM WFL STRENGTH: RUE 4/5 throughout globally, translation director is strong LUE 4/5 throughout globally, translation director is strong Per previous OT sessions, pt was able to perform bathing routines (I) in sitting position, toileting (I) on toilet, dressing (I) in sitting position, grooming (I) standing at the sink. BALANCE: Static sitting Normal Dynamic Sitting Normal Static Standing NT Dynamic Standing NT ASSESSMENT: Patient is a 78-year-old female referred to occupational therapy services with diagnosis of UTI, MRSA, methotraxate toxicity, sepsis. Pt was seen for 3 skilled OT services. She was able to perform ADLs/IADLs with ideal technique. She performs them with use of FWW and demonstrated ideal technique with adative equipment at last session. Pt was discharged on 02/07/19 to return home. GOALS All goals met except #3 1. Transfers (I) FWW 2. Dressing (I) sitting in chair 3. Bathing (I) standing at sink (not met) 4. Toileting (I) on toilet 5. Eating (I) 6. Grooming (I) for hair and teeth standing at sink PLAN OF CARE/TREATMENT PLAN: Discharge from skilled OT services DISCHARGE RECOMMENDATIONS Home with home health OT services for assessment of ADLs in home setting. TREATMENT TIME/MINUTES/CODES N/A Alba Campbellton, OTR/L [facility]
== END 2019-02-07 16:56 | disposition home health service (06) | DRG 689 ==
LOC: ER 14:47 → MS 15:44
PROVIDERS: Nurse Practitioner; Admitting Provider Internal Medicine; Emergency Provider Emergency Medicine; PCP Family Medicine; Visit Provider Internal Medicine
DX: N39.0 Urinary tract infection, site not specified (principal); J18.9 Pneumonia, unspecified organism; J98.11 Atelectasis; B95.62 Methicillin resistant Staphylococcus aureus infection as the cause of diseases classified elsewhere; R33.9 Retention of urine, unspecified; R53.1 Weakness; T45.1X1D Poisoning by antineoplastic and immunosuppressive drugs, accidental (unintentional), subsequent encounter; M06.9 Rheumatoid arthritis, unspecified; J44.9 Chronic obstructive pulmonary disease, unspecified; F17.210 Nicotine dependence, cigarettes, uncomplicated; E03.9 Hypothyroidism, unspecified; I10 Essential (primary) hypertension
CPT/HCPCS: 36410; 36415; 80048; 80053; 87040; 87081; 96360; 96361; 97110; 97162; 97166; 97530; 97535; 99223; 99232; 99239; 99285; 71046; 81003; 81015; 83735; 85025; 99284; J2020; J3490

== ENCOUNTER 2019-02-20 00:07 | Outpatient (CLI) | payer MEDICARE, BC, SELFPAY ==
--- NOTE | 2019-02-20 14:13 | DI.RAD_ITS ---
SYMPTOMS/DIAGNOSIS: H/O OSTEOPOROSIS, M81.0 DEXA SCAN WITH PATRIC: Comparison is made with exams from 2005 through 2017. The PATRIC image shows no evidence of compression fractures. Degenerative changes are seen, as well as scoliosis. Sclerosis is seen, greatest at T12-L1, and on the right side at L3-4 and L4-5. The degenerative changes elevate the bone mineral density measurements. The bone mineral density measurements of the lumbar spine correspond to a total T score of 0. This is a 2.1% decrease when compared with 2016 and a 3.4% increase when compared with 2004. The bone mineral density measurements of the left hip correspond to a total T score and femoral neck T score of -3.0. This is a 4.2% decrease when compared with 2016 and a 14% decrease when compared with 2004. The bone mineral density measurements of the left forearm correspond to a T score of the distal third of -3.8. This is not significantly changed from 2017. There has been a 7.6% decrease when compared with 2010. IMPRESSION: Normal bone mineral density of the lumbar spine with little private branch exchange repairer time. Osteoporosis of the left hip and left forearm.
== END 2019-02-20 00:27 ==
PROVIDERS: PCP Family Medicine; Visit Provider Internal Medicine
DX: M81.0 Age-related osteoporosis without current pathological fracture (principal)
CPT/HCPCS: 77080

== ENCOUNTER 2019-02-22 13:46 | Outpatient (CLI) | payer MEDICARE, BC, SELFPAY ==
[2019-02-22] MEDS: Omnipaque 350 MG/ML 100 ML BTL IJ (12:36)
--- NOTE | 2019-02-22 12:38 | DI.CT_ITS ---
SYMPTOMS/DIAGNOSIS: CHRONIC COUGH, R05, PERSISTENT OVER 1 YR, H/O SEVERE METHOTREXATE TOXICITY DUE TO INADVERTENT OVERDOSING A FEW MONTHS AGO, DISTANT SMOKING HX, RA CHEST CT: The examination was carried out with intravenous administration of 70.3 cc's of Omnipaque 350. There is some increase in the interstitial markings of the lungs and regions of atelectasis are demonstrated in the lung bases. Lung cysts are identified in both lower lobes and in the right upper lobe. There is no evidence of an infiltrate or mass or pleural effusion. There is no evidence of hilar or mediastinal adenopathy. The heart is not enlarged. A mitral valve prosthesis is noted in place. There is no pericardial effusion. There is no evidence of an aortic aneurysm. Degenerative changes involving the dorsal spine are identified. SUMMARY: No evidence of acute cardiopulmonary disease. Chronic pulmonary changes as described above.
== END 2019-02-22 14:06 ==
PROVIDERS: PCP Family Medicine; Visit Provider Family Medicine
DX: R05 Cough (principal); Z87.891 Personal history of nicotine dependence; M06.9 Rheumatoid arthritis, unspecified; J98.11 Atelectasis; Z95.2 Presence of prosthetic heart valve
CPT/HCPCS: 71260; J3490

== ENCOUNTER 2019-03-13 10:44 | Outpatient (CLI) | payer MEDICARE, BC, SELFPAY ==
--- NOTE | 2019-03-13 10:31 | DI.RAD_ITS ---
SYMPTOMS/DIAGNOSIS: RIGHT HIP FX PELVIS AND RIGHT HIP: Comparison is made with December,. Hardware is again noted in the proximal femur for fracture fixation. There has been no change in hardware or fracture alignment. There has been healing at the proximal femoral fracture. Nonunited fragments of the greater and lesser tuberosities are unchanged. The left hip is unremarkable.
== END 2019-03-13 11:04 ==
PROVIDERS: PCP Family Medicine; Referring Provider Family Medicine; Visit Provider Orthopaedic Surgery
DX: S72.141D Displaced intertrochanteric fracture of right femur, subsequent encounter for closed fracture with routine healing (principal); X58.XXXD Exposure to other specified factors, subsequent encounter; Z98.890 Other specified postprocedural states
CPT/HCPCS: 99212; 73502

== ENCOUNTER 2019-03-16 14:01 | Inpatient (IN) | payer MEDICARE, BC, SELFPAY ==
[2019-03-16 14:12] VITALS: BP 135/72; PULSE 111; RESP 38; TEMP 38.4; O2SAT 97
--- NOTE | 2019-03-16 14:17 | DI.RAD_ITS ---
SYMPTOMS/DIAGNOSIS: COUGH, FEVER AP AND LATERAL CHEST: Comparison is made with January,. The heart size is within normal limits. A mitral valve prosthesis is noted. There are underlying fibrotic changes. There is increased density seen in both the right upper and right middle lobe. There is also a question of increased density at the left lung base, although this has not definitely changed from the previous exam. IMPRESSION: Right-sided infiltrates, suspicious for pneumonia. No effusions are seen.
--- NOTE | 2019-03-16 14:23 | W.ED.GENAD ---
Discharge Plan Disposition Patient Disposition: [facility] INPATIENT Condition: Stable Discharge Details Chief Complaint: RespSymp Clinical Impression: Pneumonia Primary Care Provider: Emily Lucio ED Provider: Ronnell Moore Home Meds and New Rx's Prescriptions: No Action hydroxychloroquine 200 mg tablet 200 mg PO DAILY RF: 0 acetaminophen [Tylenol] 325 MG tablet 650 mg PO Q6H PRN RF: 0 folic acid 1 MG tablet 2 mg PO DAILY RF: 0 cholecalciferol (vitamin D3) 2,000 UNIT tablet 2,000 unit PO DAILY RF: 0 fluticasone propionate [Flonase Allergy Relief] 9.9 ML spray,suspension 1 spray NS DAILY PRNRF: 0 metoprolol succinate 25 MG tablet extended release 24 hr 25 mg PO DAILY RF: 0 methimazole 5 MG tablet 5 mg PO DAILY RF: 0 biotin 5 mg Tablet 1 tab PO DAILY RF: 0 omeprazole 20 mg Capsule,Delayed Release(Dr/Ec) 20 mg PO DAILY RF: 0 calcium carbonate-vitamin D3 1,000 mg(2,500 mg)-800 unit Tablet 1 tab PO DAILY RF: 0 Medical Decision Making 78 yo female with hx of RA, UC, hyperthyroidism, cad, htn, copd, who comes in with 2-3 days of general weakness, productive cough and chills, and is noted to have a fever here. Denies rashes, chest pain, headaches, neck stiffness, abd pain. She did have a right hip fx repaired months ago, has no swelling or redness on exam with full rom on exam so doubt septic joint. Given fever here and cough will obtain cultures, lactate, give fluids and also obtain chest xray. HAs no abdominal tenderness or gi symptoms so doubt colitis or other intrabdominal pathology. 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 She is hd stable, feels too weak and given her age will admit for IV abx Differential Diagnosis pna, influenza, uti Medical Records Medical records reviewed: Yes I reviewed the patient's medical records. Imaging Data Radiologic Study: Attestation: I personally reviewed and interpreted this imaging study as follows: Imaging: X-Ray Radiologist's impression: right sided infiltrate Lab Data Lab results reviewed: Yes I reviewed the patient's lab results. HPI General Mode of arrival: ambulatory. Date/Time Provider Initiated Documentation: 03/16/19 14:08. Limitations to Documentation: no limitations. Information obtained by: patient. History of Present Illness 78 year old F presents to the emergency department with the chief complaint of weakness, described as moderate, Quality is described as aching, Patient started experiencing this day(s) (3) and it has been constant. No relieving factors improve symptom(s), No exacerbating factors reported . Patient did receive the following treatments prior to arrival, none Related Data Home Medications Medication Instructions Recorded Confirmed acetaminophen [Tylenol] 650 mg PO Q6H PRN tab-cap 01/18/13 03/16/19 cholecalciferol (vitamin D3) 2,000 unit PO DAILY 01/18/13 03/16/19 folic acid 2 mg PO DAILY tab-cap 01/18/13 03/16/19 fluticasone propionate [Flonase 1 spray NS DAILY PRN 10/27/15 03/16/19 Allergy Relief] methimazole 5 mg PO DAILY tab-cap 03/18/16 03/16/19 metoprolol succinate 25 mg PO DAILY tab-cap 03/18/16 03/16/19 biotin 1 tab PO DAILY 10/22/18 03/16/19 calcium carbonate-vitamin D3 1 tab PO DAILY 02/04/19 03/16/19 omeprazole 20 mg PO DAILY 02/04/19 03/16/19 hydroxychloroquine 200 mg tablet 200 mg PO DAILY tab 03/13/19 03/16/19 Allergies Allergy/AdvReac Type Severity Reaction Status Date / Time sulfasalazine AdvReac Intermediate Lupus Type Unverified 03/16/19 14:15 Symptoms General Stated Complaint: RespSymp DEIRDRE: 3 Review of Systems Review of Systems All systems reviewed & are unremarkable except as noted in HPI and below Cardiovascular Denies chest pain and Denies dyspnea Respiratory Denies dyspnea Gastrointestinal Denies abdominal pain, Denies nausea and Denies vomiting Genitourinary Denies dysuria Integumentary/Breasts Denies rash Endocrine Denies cold intolerance and Denies heat intolerance [facility] Medical History Fx lower radius/ulna-closed (Acute) Bigeminy Bilateral hearing loss CAD (coronary artery disease) COPD (chronic obstructive pulmonary disease) Chronic obstructive lung disease Colitis Hearing loss History of hypertension History of tobacco use Hyperthyroidism Mitral valve disease Osteopenia Osteoporosis Rheumatoid arthritis Rhinitis Ulcerative colitis Social History Smoking/Tobacco Use Status: Former Tobacco Use Alcohol Intake: never Drug use: Never Do you feel safe in your relationship?: Yes Exam Const General: no acute distress Orientation: alert HENMT Head: normal to inspection Ears: external ears normal General nose exam: external nose normal Mouth: moist mucous membranes Eyes General: appearance normal, both eyes and all related structures Neck Neck: normal visual inspection Resp Effort & Inspection: normal respiratory effort and able to speak in complete sentences Cardio Rate: tachycardic Skin General skin exam: no rashes or lesions noted Neuro General: alert and oriented x3 Extrem General: normal to inspection Psych Mental Status: mental status grossly normal Course Vital Signs Temperature 38.4 C H 03/16/19 14:12 Pulse 111 H 03/16/19 14:12 Respiratory Rate 38 H 03/16/19 14:12 Blood Pressure 135/72 03/16/19 14:12 Pulse Oximetry 97 03/16/19 14:12 Temperature 38.4 C H 03/16/19 14:12 Temperature Source Temporal Artery Scan 03/16/19 14:12 Pulse 111 H 03/16/19 14:12 Respiratory Rate 38 H 03/16/19 14:12 Respiratory Effort Non-Labored 03/16/19 14:16 Respiratory Depth Normal 03/16/19 14:16 Blood Pressure 135/72 03/16/19 14:12 Blood Pressure Position Sitting 03/16/19 14:12 Pulse Oximetry 97 03/16/19 14:12 Pain Level 0 03/16/19 14:12 Lab/Test Results Lab/Test Results: 03/16/19 14:17 Blood Blood Culture - Pending 03/16/19 14:17 Blood Blood Culture - Pending
[2019-03-16 14:40] LABS: Lactate-non-spesis 2.8 mmol/l (0.6-1.4)
[2019-03-16 14:46] LABS: Abs Immature Grans 0.04 k/cumm (0.0-0.09); Absolute Basophil Count 0.02 k/cumm (0.0-0.2); Absolute Eosinophil Count 0.01 k/cumm (0.0-0.7); Absolute Lymphocyte Count 0.59 k/cumm (1.2-3.4); Absolute Monocyte Count 1.17 k/cumm (0.11-0.7); Absolute Neutrophil Count 10.37 k/cumm (1.2-6.7); Basophils % 0.2; Eosinophils % 0.1; HCT 44.5 % (36.0-46.0); HGB 14.7 g/dL (12.0-15.5); Immature Grans % 0.3; Lymphocytes % 4.8; Mean Corpuscular Volume 93.9 fL (80-95); Mean Platelet Volume 11.4 fL (8.0-11.0); Monocytes % 9.6; Platelet Count 149 x1000/uL (130-400); RBC 4.74 m/cumm (4.00-5.20)
[2019-03-16 14:57] LABS: ALT 16 U/L (12-78); AST 20 U/L (15-37); Albumin 2.9 g/dL (3.4-5.0); Alkaline Phosphatase 112 U/L (46-116); Anion Gap 10.4 mmol/L (3-11); BUN 21 mg/dL (7-18); Bilirubin, Total 0.6 mg/dL (0.2-1.0); CO2 25.6 mmol/L (21.0-32.0); CREATININE 0.81 mg/dL (0.55-1.02); Calcium 8.8 mg/dL (8.5-10.1); Chloride 102 mmol/L (98-107); Glucose 194 mg/dL (70-100); INR 1.1 (0.9-1.1); PTT Activated 27.3 sec (21.0-31.4); Potassium 3.4 mmol/L (3.5-5.1); Prothrombin Time 11.5 sec (9.3-11.0); Sodium 138 mmol/L (136-145); Total Protein 7.9 g/dL (6.4-8.2)
[2019-03-16] MEDS: Normal Saline 1,000 ML 1000 ML IV (15:10)
[2019-03-16] MEDS: cefTRIAXone 1 GM/50 ML BAG IVPB (15:28)
[2019-03-16] MEDS: AZITHROMYCIN 500 MG in Normal Saline 250 ML 250 MG IVPB (16:09)
[2019-03-16] MEDS: Acetaminophen 325 MG TAB PO ×2 (16:25→20:10)
[2019-03-16 16:26] VITALS: TEMP 38.4
--- NOTE | 2019-03-16 16:28 | W.PM.HP.N ---
Date of service: 03/16/19 Time of Service: 16:28 Assessment and Plan (1) Pneumonia: Current visit: No Status: Acute Chest x-ray confirms right-sided infiltrate suspicious for pneumonia. She is febrile with mild leukocytosis, lactate elevated at 2.8. Continue ceftriaxone and azithromycin as started in the emergency department. Gentle IV fluid hydration. She has been on a prednisone taper, give stress dose steroids. Mucinex and Tessalon Perles, as needed nebulizer treatments, supplemental oxygen as needed. Procalcitonin pending, blood and sputum cultures pending, repeat lactate pending. Reassess leukocytosis in the morning. Physical therapy and Occupational Therapy have been consulted. (2) Rheumatoid arthritis: Current visit: No Status: Chronic Recent severe methotrexate toxicity. She is followed by rheumatology. She is currently on a prednisone taper, down to 1 mg/day. In the setting of pneumonia with generalized weakness will give stress dose steroids. She will need to follow-up with her auto claims adjuster as an outpatient. Continue hydroxychloroquine per home regimen. (3) COPD (chronic obstructive pulmonary disease): Current visit: No Status: Chronic Does not appear to be in acute exacerbation. Treat pneumonia as above. (4) HTN (hypertension): Current visit: No Status: Chronic Continue metoprolol per home regimen. (5) Hyperthyroidism: Current visit: No Status: Chronic Continue methimazole per home regimen. (6) Ulcerative colitis: Current visit: No Status: Chronic She denies any problems with ulcerative colitis for several years. (7) Adrenal insufficiency: Current visit: Yes Status: Acute As above, stress dose steroids in the setting of current prednisone use. (8) DVT prophylaxis: Current visit: No Status: Acute Subcutaneous Lovenox. (9) Discharge planning issues: Current visit: No Status: Acute She is a full code. She lives at home with her sister. She has home health physical therapy at present. Physical therapy and Occupational Therapy have been consulted in the setting of pneumonia and generalized weakness. This case was discussed with Dr. Merchant who is in agreement. History of Present Illness Chief Complaint: Weakness, shortness of breath, cough Narrative: Yumi Stephenson is a very pleasant 78-year-old female with a past medical history significant for rheumatoid arthritis, currently on a prednisone taper down to 1 mg/day at present, COPD ulcerative colitis, hyperthyroidism, coronary artery disease, hypertension and methotrexate toxicity who presented to the emergency department today with a 2-day history of generalized weakness, shaking, shortness of breath both with activity and at rest, cough productive of thick yellow/green sputum. She denies any coughing episodes while eating or drinking. In the emergency room, she was found to have an elevated temperature to 38 4, tachycardia at 111, mild leukocytosis at 12.2, elevated lactate at 2.8, she had a chest x-ray which showed Right-sided infiltrates, suspicious for pneumonia. No effusions noted. She was given IV fluids, IV azithromycin and ceftriaxone and admitted to the [facility] for further evaluation and treatment. At the time of her admission to the [facility], she reports feeling mildly better than when she arrived at the emergency department, she continues to feel weak and shaky, she continues to feel short of breath at rest, she has a cough productive of thick yellow/green sputum, she does not feel wheezy, she denies chest pain/pressure, palpitations. She reports a decreased appetite over the past 2 days, she has not been drinking much in the way of fluids, she denies abdominal pain, nausea, vomiting or diarrhea. She had a normal bowel movement today. She was treated over a month ago here at the hospital for a urinary tract infection. She reports feeling back to baseline after her discharge home. She denies any dysuria or hematuria at this time. She denies any skin rash or lesion, no lower extremity edema. She denies any sick contacts. She lives with her sister in [facility]. She has home health physical therapy. Review of Systems Review of Systems All systems reviewed & are unremarkable except as noted in HPI and below PFSH Medical History Fracture of right hip requiring operative repair (Resolved) Fx lower radius/ulna-closed (Acute) Bigeminy Bilateral hearing loss CAD (coronary artery disease) COPD (chronic obstructive pulmonary disease) Chronic obstructive lung disease Colitis Hearing loss History of hypertension History of tobacco use Hyperthyroidism Mitral valve disease Osteopenia Osteoporosis Rheumatoid arthritis Rhinitis Ulcerative colitis Surgical History Colonoscopy - IV Sedation (~2008) Colonoscopy - MAC (03/22/18) Family History Mother Asthma Father No problems noted. Sister No problems noted. Sister No problems noted. Brother No problems noted. Social History Smoking/Tobacco Use Status: Former Tobacco Use Alcohol Intake: never Drug use: Never Do you feel safe in your relationship?: Yes Meds Home Medications Medication Instructions Recorded Confirmed Type acetaminophen [Tylenol] 650 mg PO Q6H PRN tab-cap 01/18/13 03/16/19 History cholecalciferol (vitamin D3) 2,000 unit PO DAILY 01/18/13 03/16/19 History folic acid 2 mg PO DAILY tab-cap 01/18/13 03/16/19 History fluticasone propionate [Flonase 1 spray NS DAILY PRN 10/27/15 03/16/19 History Allergy Relief] methimazole 5 mg PO DAILY tab-cap 03/18/16 03/16/19 History metoprolol succinate 25 mg PO DAILY tab-cap 03/18/16 03/16/19 History biotin 1 tab PO DAILY 10/22/18 03/16/19 History calcium carbonate-vitamin D3 1 tab PO DAILY 02/04/19 03/16/19 History omeprazole 20 mg PO DAILY 02/04/19 03/16/19 History hydroxychloroquine 200 mg tablet 200 mg PO DAILY tab 03/13/19 03/16/19 History prednisone 03/16/19 03/16/19 History Allergies Allergy/AdvReac Type Severity Reaction Status Date / Time sulfasalazine AdvReac Intermediate Lupus Type Unverified 03/16/19 14:15 Symptoms Exam Narrative Exam Narrative: General: Very pleasant frail, elderly female, she is hard of hearing, A&OX3, laying on stretcher with head elevated, in no acute distress. Appears mildly short of breath while speaking. Neck: supple, no JVD. HEENT: Pupils equal and round, EOMI, mucous membranes slightly dry. Cardiovascular: heart has regular rate and rhythm, no murmur appreciated. Lungs: Mildly short of breath while speaking, rales to right base, rhonchi to left base. Gastrointestinal: normoactive bowel sounds, abdomen is soft, nontender on palpation, nondistended Extremities: no clubbing, cyanosis or edema. pedal pulses palpable bilaterally. Results Labs : 03/16/19 14:35 03/16/19 14:35 Laboratory Results - last 24 hr 03/16/19 03/16/19 03/16/19 14:35 14:35 14:35 WBC 12.20 H RBC 4.74 Hgb 14.7 Hct 44.5 MCV 93.9 MCH 31.0 MCHC 33.0 RDW 17.0 H Plt Count 149 MPV 11.4 H Immature Gran % 0.3 Neutrophils % 85.0 Lymphocytes % 4.8 Monocytes % 9.6 Eosinophils % 0.1 Basophils % 0.2 Absolute Neutrophils 10.37 H Absolute Lymphocytes 0.59 L Absolute Monocytes 1.17 H Absolute Eosinophils 0.01 Absolute Basophils 0.02 PT INR APTT Sodium 138 Potassium 3.4 L Chloride 102 Carbon Dioxide 25.6 Anion Gap 10.4 BUN 21 H Creatinine 0.81 Estimated GFR/1.73 m2 >= 60.00 Glucose 194 H Lactate 2.8 H Calcium 8.8 Total Bilirubin 0.6 AST 20 ALT 16 Alkaline Phosphatase 112 Total Protein 7.9 Albumin 2.9 L 03/16/19 14:35 WBC RBC Hgb Hct MCV MCH MCHC RDW Plt Count MPV Immature Gran % Neutrophils % Lymphocytes % Monocytes % Eosinophils % Basophils % Absolute Neutrophils Absolute Lymphocytes Absolute Monocytes Absolute Eosinophils Absolute Basophils PT 11.5 H INR 1.1 APTT 27.3 Sodium Potassium Chloride Carbon Dioxide Anion Gap BUN Creatinine Estimated GFR/1.73 m2 Glucose Lactate Calcium Total Bilirubin AST ALT Alkaline Phosphatase Total Protein Albumin Last Vital Signs Temp 38.4 C H 03/16/19 16:26 Pulse 111 H 03/16/19 14:12 Resp 38 H 03/16/19 14:12 BP 135/72 03/16/19 14:12 Pulse Ox 97 03/16/19 14:12
[2019-03-16 16:40] VITALS: BP 135/72; PULSE 111; RESP 38; TEMP 38.4; O2SAT 97
[2019-03-16 16:57] VITALS: BP 117/67; PULSE 92; RESP 17; TEMP 37.6; O2SAT 94
[2019-03-16 17:40] LABS: Procalcitonin 0.4 ng/mL
[2019-03-16] MEDS: Hydrocortisone SOD SUC. 100 MG VIAL 50 MG IVP (18:06)
[2019-03-16] MEDS: Enoxaparin 40 MG/0.4 ML SYR SC (18:06)
[2019-03-16] MEDS: Normal Saline 1,000 ML 50 ML IV (18:06)
[2019-03-16 19:18] VITALS: BP 92/56; PULSE 83; RESP 16; TEMP 37.2; O2SAT 93
[2019-03-16] MEDS: Benzonatate 100 MG CAP PO (20:10)
[2019-03-16] MEDS: guaiFENesin 600 MG TABCR PO (20:10)
[2019-03-16] MEDS: Potassium Chloride 20 MEQ TABCR 40 MEQ PO (20:10)
[2019-03-16 20:17] VITALS: O2SAT 94
[2019-03-17] VITALS (11 sets, daily range): BP systolic 100–130; BP diastolic 46–66; PULSE 57–76; RESP 16–20; TEMP 36.1–36.9; O2SAT 93–98
[2019-03-17] MEDS: Hydrocortisone SOD SUC. 100 MG VIAL 50 MG IVP ×2 (01:05→10:34)
[2019-03-17 05:42] LABS: Bilirubin Negative (Negative); Blood Negative (Negative); Clarity Clear; Glucose Negative (Negative); Ketones Negative (Negative); Leukocyte Esterase Small (Negative); Nitrite Negative (Negative)
[2019-03-17 05:49] LABS: Bacteria Few HPF (Negative); C & S Indicated? No/Sq. Contamination; Casts 0-2 Hyaline LPF (Negative); Crystals Negative HPF (Negative); Epithelial Cells Many HPF (Negative); Mucus Negative (Negative); RBC 0-2 (0-2)
[2019-03-17 07:25] LABS: Abs Immature Grans 0.03 k/cumm (0.0-0.09); Absolute Basophil Count 0.01 k/cumm (0.0-0.2); Absolute Lymphocyte Count 0.75 k/cumm (1.2-3.4); Absolute Monocyte Count 0.67 k/cumm (0.11-0.7); Absolute Neutrophil Count 8.83 k/cumm (1.2-6.7); Basophils % 0.1; HCT 39.6 % (36.0-46.0); HGB 12.8 g/dL (12.0-15.5); Immature Grans % 0.3; Lymphocytes % 7.3; Mean Corp. HGB Concentration 32.3 g/dL (32.0-36.0); Mean Corpuscular Hemoglobin 30.5 pg (27.0-33.0); Mean Corpuscular Volume 94.3 fL (80-95); Mean Platelet Volume 11.6 fL (8.0-11.0); Monocytes % 6.5; Neutrophils % 85.8; Platelet Count 145 x1000/uL (130-400); RBC Distribution Width 16.5 % (11.7-14.6); White Blood Cell Count 10.29 k/cumm (4.4-10.8)
[2019-03-17 07:44] LABS: Anion Gap 8.5 mmol/L (3-11); BUN 21 mg/dL (7-18); CO2 23.5 mmol/L (21.0-32.0); CREATININE 0.61 mg/dL (0.55-1.02); Calcium 8.3 mg/dL (8.5-10.1); Chloride 107 mmol/L (98-107); Glucose 121 mg/dL (70-100); Magnesium 1.7 mg/dL (1.8-2.4); Sodium 139 mmol/L (136-145)
[2019-03-17] MEDS: Benzonatate 100 MG CAP PO ×3 (08:37→20:03)
[2019-03-17] MEDS: Metoprolol CR 25 MG TABCR PO (08:37)
[2019-03-17] MEDS: Potassium Chloride 20 MEQ TABCR 40 MEQ PO ×2 (08:37→20:03)
[2019-03-17] MEDS: methIMAzole 5 MG TAB PO (08:38)
[2019-03-17] MEDS: Omeprazole 20 MG CAPCR PO (08:38)
[2019-03-17] MEDS: Hydroxychloroquine 200 MG TAB PO (08:38)
--- NOTE | 2019-03-17 10:10 | PHARADMIT ---
Addendum entered by Madiha Alexander 03/18/19 13:08: Pharmacy Note Subjective Objective VS ok, afebrile, weight up 2.6kg Mag 1.7 Micro sputum: scant growth Micro blood: no growth Assessment Added Mag Chloride in addition to Mag Oxide (ok per MD)-both administered spaced apart from Hydroxychloroquine for optimal absorption Solu-cortef decreased Azithromycin IV is day#3 this afternoon Rocephin dc'd and changed to Zosyn day #2 for possibility of aspiration speech eval: able to take whole pills with liquid wash Plan watch for IV to oral steroids, possible discontinuation of Azithromycin Original Note: Admission Pharmacy Clinical Review PNEUMONIA Code Status Full Code Current Weight 40 kg Renally Cleared and Narrow Therapeutic Index Meds CrCl~35.4ml/min QTc Value / Action Taken QTC 451 (Sep 2018) BP Control, Fever BP 117/65 Afebrile (Tmax 38.4 on admission) Electrolytes reviewed Mag 1.7, K+ 4.0 May need Mag supplement Already on K-dur 40meq po BID DVT Prophylaxis Lovenox 40mg...watch SCr for dose adjustment Opiate Usage / Scheduled Bowel Regimen Ordered Plt/SCr for Heparin / Enoxaparin Plt 145 SCr 0.61 INR for Warfarin H/H stable, WBC/Bands H/H 12.8/39.6 WBC 10.29 Antibiotic appropriateness Rocephin/Azith IV...day#2 Cultures and Sensitivities Blood pending Sputum pending flu negative Surgical ABX d/c within 24 hr DM control / Insulin Dosing BG 121 Heart Failure (Check EF%) (JOHAN's, B-Block, Diuretics) IV to PO Switch IV steroids to oral sometime today Azithromycin to oral at discharge Home Meds Reviewed Home Meds Not Ordered Comments Dehydrated, little intake last few days Room air, no SOB per RT, will do exercise oximetry today Has OT/PT Hx of Rheumatoid Arthritis w/previous MTX toxicity
[2019-03-17] MEDS: Normal Saline Flush 10 ML SYR IVP ×3 (10:34→18:18)
[2019-03-17] MEDS: Magnesium Oxide 400 MG TAB PO ×2 (10:34→20:02)
--- NOTE | 2019-03-17 10:42 | PT.INIE ---
Date of service: 03/17/19 Time of Service: 10:00 PT Notes Inpatient Physical Therapy Evaluation Date: 03/17/19 Referring Doctor: Taylor Hudson NP PT Orders: PT CONSULT: generalized weakness, pneumonia, RA Precautions: Standard, contact Patient Profile/Admitting Diagnosis: Presented to ER on 03/16/18 following 2-3 days of generalized weakness, SOB, fever, and cough. Chest x-ray suggest R sided pneumonia, resulting in admission for proper treatment. PMHX: Medical History Fracture of right hip requiring operative repair (Resolved) Fx lower radius/ulna-closed (Acute) Bigeminy Bilateral hearing loss CAD (coronary artery disease) COPD (chronic obstructive pulmonary disease) Chronic obstructive lung disease Colitis Hearing loss History of hypertension History of tobacco use Hyperthyroidism Mitral valve disease Osteopenia Osteoporosis Rheumatoid arthritis Rhinitis Ulcerative colitis Surgical History Colonoscopy - IV Sedation (~2008) Colonoscopy - MAC (03/22/18) Social History/Home Situation: Lives with sister in a private home. House is one level with 2 steps to get on to porch, than one into house. Grab rails have been installed appropriately for ease for stair use. Premorbid level of function: I with in/out of bed, dressing, and hygiene. Utilizes meals on wheels. Has family that checks in with her daily. Presently receiving home health PT. Current Functional Limitations: Supervision with short distance ambulation, requires RW. Equipment Owned/DME: RW Subjective: Denies pain. Niece is present who reports she has lost 6# in 1 week. Niece reports she has seen remarkable improvement in Carmella over the past day, in regards to her energy and strength. Carmella states she feels much better, and is gaining her energy back. Objective: General Observation: Sitting in recliner chair, IV R cubitol fossa. Breathing on room air. Very petite, frail elederly woman, in good spirits and mentally sharp. VIEJAS. Mental Status: A & O x3 Pain: 0/10 Vital Signs: Pre-rx: BP 102/47, HR 67, 100% O2 sat on room air. Post-rx: BP 110/58, HR 71, O2 sat 98% on room air ROM: Right Upper Extremity: Grossly WFL Left Upper Extremity: Grossly WFL Right Lower Extremity: Grossly WFL Left Lower Extremity: Grossly WFL Strength: Right Upper Extremity: Grossly 4+/5 Left Upper Extremity: Grossly 4+/5 Right Lower Extremity: Grossly 4/5 Left Lower Extremity: Grossly 4/5 Sensation: Intact to light touch and pressure Bed Mobility/Transfers: Supervision with Sit <> stand at RW. Gait: RW, 75ftx2, closer supervision Balance: Static Sitting: Good Dynamic Sitting: Good, age appropriate Static Standing: Good, with RW, age appropriate Dynamic Standing: Fair, require RW Special Tests: Mobility Limitations Standardized Measure [facility] AM-PAC 6 clicks Basic Mobility Inpatient Short Form: Raw Score: 22 Standardized Score: 21% disability CMS Score: CMS Modifier: Informed Consent/Education: Patient instructed in purpose of PT consult and plan of care. Assessment: Patient is a 78 year old female referred to physical therapy services with the diagnosis of pneumonia, generalized weakness, and RA. Patient presents with clinical signs and symptoms consistent with recovery of pneumonia and generalized weakness, as demonstrated by the following impairment level findings: mild balance impairment, and generalized weakness. Impairments are contributing to the following functional limitations: AMPAC score of 21% disability, and supervision required for functional ambulation. Patient [place] [id number] History: See comorbidities Examination: See above impairments and functional limitations Presentation: Stable Decision Making: Easy, AMPAC 21% disability Goals: Goals X1 week 1. Supine-Sit I 2. Sit-Supine I 3. Sit-Stand I 4. Stand-Sit I 5. Bed-Chair I 6. Chair-Bed I 7. Gait I,w tih RW 8. Stairs 3, with supervision, and rail Plan of Care/Treatment Plan: 1-2x/day, 7 days/week x 1 week. Plan of care has been reviewed with the ASSISTANT CHIEF ENGINEER providing the service under Physical Therapy direction. Initiate Physical Therapy intervention for strengthening, bed mobility, transfers, gait, stairs, balance training, use of assistive device. DISCHARGE RECOMMENDATIONS: Home, with continued home health PT service. TREATMENT CODE/TIME: 40 minutes, [id number] Chelsea Rangel, MPT
--- NOTE | 2019-03-17 12:22 | INITIAL_ITS ---
- If Service Date Differs Date of service: 03/17/19 Time of Service: 12:18 Care Management Initial Assess REASON FOR HOSPITALIZATION:: Pneumonia PAST MEDICAL HISTORY/PAST SURGICAL HISTORY:: Methotrexate Toxicity, Ulcerative colitis, Hyperthyroidism, DJD, CAD, HTN, Rheumatoid arthritis, COPD, Bilateral Sensorineural hearing loss, Fx lower radius/ulna-closed. PREVIOUS FUNCTIONAL STATUS/SOCIAL/FAMILY SUPPORTS:: Carmella resides in [facility] with her sister Margareth. Carmella reports that she has family to assist them at home, as well as home health services. She reports she is indepedent with ADL's and receives PT supports at home. CURRENT FUNCTIONAL STATUS:: Carmella is alert and engaged during assessment. She states she understands the plan of care and feels that she is already feeling better. She is able to describe events that led to admission. She is hopeful to return home soon to her sister. She states she is blessed to have so many that care for her. ADVANCE DIRECTIVES:: On file. Primo Solitario is agent. Rowan Solitario is alternate Has patient been provided with information about the portal?: Yes Did the patient sign up for the portal?: No CODE STATUS:: Full Code INSURANCE COVERAGE / FINANCIAL ISSUES:: Medicare, BCBS CURRENT HOME/COMMUNITY SERVICES/EQUIPMENT:: Currently Carmella receives services through home health, for PT. She reports that she has a FWW, Raised toilet seat, Grab bars, shower chair, she also has a cane if needed. PRIMARY CARE PHYSICIAN:: POTENTIAL DISCHARGE NEEDS:: Follow up appointment with primary care scheduled prior to discharge. Resumption of home health services. PATIENT/FAMILY EDUCATION NEEDS:: Discharge education, limitations and follow up plan of care. ANTICIPATED BARRIERS TO DISCHARGE:: None identified TRANSPORTATION:: Via private car with family at time of discharge. PLAN:: Carmella is being treated for pneumonia ? of aspiration pneumonia. She receiving IV antibiotcs and steroids she remains acute today. She has a speech consult ordered as well as PT/OT consult. MRSA rule out is pending. She is hopeful she will be able to return home in the next few days. She will resume home health PT when she returns home. CM to continue to provide support.
--- NOTE | 2019-03-17 13:44 | PGE_ITS ---
Date of Service Date of service: 03/17/19 Time of Service: 13:31 Assessment and Plan (1) Pneumonia: Current visit: No Status: Acute Chest x-ray confirms right-sided infiltrate suspicious for pneumonia. I question whether there is a possibility of aspiration - neither the patient nor her family can definitively reassure me that the patient doesn't have choking spells while eating. I have ordered speech therapy eval as well as changed rocephin to zosyn. Will d/c azithromycin tomorrow if the patient remains afebrile. Await culture results. 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 She is followed by rheumatology. On home steroid taper, here with adrenal insufficiency. Start to taper IV steroids. Continue hydroxychloroquine. (3) COPD (chronic obstructive pulmonary disease): Current visit: No Status: Chronic I agree that there does not appear to be an acute exacerbation of COPD. Hypoxia has now resolved. Tx as above (4) HTN (hypertension): Current visit: No Status: Chronic Continue metoprolol per home regimen. (5) Hyperthyroidism: Current visit: No Status: Chronic Continue methimazole per home regimen. (6) Ulcerative colitis: Current visit: No Status: Chronic She denies any problems with ulcerative colitis for several years. (7) Adrenal insufficiency: Current visit: Yes Status: Acute As above, stress dose steroids in the setting of current prednisone use. (8) DVT prophylaxis: Current visit: No Status: Acute Subcutaneous Lovenox. (9) Discharge planning issues: Current visit: No Status: Acute She is a full code. She lives at home with her sister. Family verbalizes that, perhaps, this is no longer a safe living arrangement. With this illness, the patient did not take her medications for several days - and her sister didn't either. Family verbalizes that they feel the patient would be much safer at an assisted living facility. Will discuss with case management. Subjective Interval history since last seen: Ms Stephenson states that her breathing is a lot better. She is now on room air. Denies dizziness, chest pain, shortness of breath at rest, nausea, vomiting. Exam Narrative Exam Narrative: General: Frail elderly female, sitting comfortably in a chair, A&Ox3, [place] HEENT; EOMI, MMM Heart: RRR, no m/r/g Lungs: crackles at B bases, otherwise diminished GI: abdomen is soft, nontender, nondistended Extremities: trace BLE edema (her normal when she sit) Objective Objective Clinical Data: Abnormal lab results 03/16/19 03/16/19 03/16/19 Range/Units 14:35 14:35 14:35 WBC 12.20 H (4.4-10.8) k/cumm RDW 17.0 H (11.7-14.6) % MPV 11.4 H (8.0-11.0) fL Absolute Neutrophils 10.37 H (1.2-6.7) k/cumm Absolute Lymphocytes 0.59 L (1.2-3.4) k/cumm Absolute Monocytes 1.17 H (0.11-0.7) k/cumm PT (9.3-11.0) sec Potassium 3.4 L (3.5-5.1) mmol/L BUN 21 H (7-18) mg/dL Glucose 194 H (70-100) mg/dL Lactate 2.8 H (0.6-1.4) mmol/l Calcium (8.5-10.1) mg/dL Magnesium (1.8-2.4) mg/dL Albumin 2.9 L (3.4-5.0) g/dL Urine Protein (Negative) mg/dL Urine Urobilinogen (Up TO 0.2) EU/dL Ur Leukocyte Esterase (Negative) 03/16/19 03/17/19 03/17/19 Range/Units 14:35 05:12 06:54 WBC (4.4-10.8) k/cumm RDW (11.7-14.6) % MPV (8.0-11.0) fL Absolute Neutrophils (1.2-6.7) k/cumm Absolute Lymphocytes (1.2-3.4) k/cumm Absolute Monocytes (0.11-0.7) k/cumm PT 11.5 H (9.3-11.0) sec Potassium (3.5-5.1) mmol/L BUN 21 H (7-18) mg/dL Glucose 121 H (70-100) mg/dL Lactate (0.6-1.4) mmol/l Calcium 8.3 L (8.5-10.1) mg/dL Magnesium 1.7 L (1.8-2.4) mg/dL Albumin (3.4-5.0) g/dL Urine Protein Trace H (Negative) mg/dL Urine Urobilinogen 1.0 H (Up TO 0.2) EU/dL Ur Leukocyte Esterase Small H (Negative) 03/17/19 Range/Units 06:54 WBC (4.4-10.8) k/cumm RDW 16.5 H (11.7-14.6) % MPV 11.6 H (8.0-11.0) fL Absolute Neutrophils 8.83 H (1.2-6.7) k/cumm Absolute Lymphocytes 0.75 L (1.2-3.4) k/cumm Absolute Monocytes (0.11-0.7) k/cumm PT (9.3-11.0) sec Potassium (3.5-5.1) mmol/L BUN (7-18) mg/dL Glucose (70-100) mg/dL Lactate (0.6-1.4) mmol/l Calcium (8.5-10.1) mg/dL Magnesium (1.8-2.4) mg/dL Albumin (3.4-5.0) g/dL Urine Protein (Negative) mg/dL Urine Urobilinogen (Up TO 0.2) EU/dL Ur Leukocyte Esterase (Negative) Vital Signs Temperature 36.9 C 03/17/19 07:28 Temperature Source Tympanic 03/17/19 07:28 Pulse 66 03/17/19 08:33 Pulse Rhythm Regular 03/17/19 07:40 Respiratory Rate 16 03/17/19 07:28 Respiratory Effort Non-Labored 03/17/19 07:40 Respiratory Depth Normal 03/17/19 07:40 Respiratory Pattern Normal 03/17/19 07:40 Blood Pressure 117/65 03/17/19 07:28 Blood Pressure Position Sitting 03/16/19 14:12 Pulse Oximetry 98 03/17/19 07:55 Oxygen Delivery Method Room Air 03/17/19 07:55 Oxygen Flow Rate 0 03/17/19 07:55 Pain Level 0 03/16/19 19:18 Intake & Output 03/16/19 03/17/19 03/17/19 23:59 11:59 23:59 Intake Total 1300 / 1300 1645.167 / 1645.167 Output Total 600 / 600 Balance 1300 / 1300 1045.167 / 1045.167 Weight 39.3 kg 40 kg Intake: IV 1300 / 1300 845.167 / 845.167 Oral 800 / 800 Output: Urine 600 / 600 Other: Urine Color Yellow Urine Appearance Clear Stool Size Large Voiding Methods Bedside Commode Laboratory Results WBC 10.29 k/cumm (4.4-10.8) 03/17/19 06:54 RBC 4.20 m/cumm (4.00-5.20) 03/17/19 06:54 Hgb 12.8 g/dL (12.0-15.5) 03/17/19 06:54 Hct 39.6 % (36.0-46.0) 03/17/19 06:54 MCV 94.3 fL (80-95) 03/17/19 06:54 MCH 30.5 pg (27.0-33.0) 03/17/19 06:54 MCHC 32.3 g/dL (32.0-36.0) 03/17/19 06:54 RDW 16.5 % (11.7-14.6) H 03/17/19 06:54 Plt Count 145 x1000/uL (130-400) 03/17/19 06:54 MPV 11.6 fL (8.0-11.0) H 03/17/19 06:54 Immature Gran % 0.3 03/17/19 06:54 Neutrophils % 85.8 03/17/19 06:54 Lymphocytes % 7.3 03/17/19 06:54 Monocytes % 6.5 03/17/19 06:54 Eosinophils % 0.0 03/17/19 06:54 Basophils % 0.1 03/17/19 06:54 Absolute Neutrophils 8.83 k/cumm (1.2-6.7) H 03/17/19 06:54 Absolute Lymphocytes 0.75 k/cumm (1.2-3.4) L 03/17/19 06:54 Absolute Monocytes 0.67 k/cumm (0.11-0.7) 03/17/19 06:54 Absolute Eosinophils 0.00 k/cumm (0.0-0.7) 03/17/19 06:54 Absolute Basophils 0.01 k/cumm (0.0-0.2) 03/17/19 06:54 PT 11.5 sec (9.3-11.0) H 03/16/19 14:35 INR 1.1 (0.9-1.1) 03/16/19 14:35 APTT 27.3 sec (21.0-31.4) 03/16/19 14:35 Sodium 139 mmol/L (136-145) 03/17/19 06:54 Potassium 4.0 mmol/L (3.5-5.1) 03/17/19 06:54 Chloride 107 mmol/L (98-107) 03/17/19 06:54 Carbon Dioxide 23.5 mmol/L (21.0-32.0) 03/17/19 06:54 Anion Gap 8.5 mmol/L (3-11) 03/17/19 06:54 BUN 21 mg/dL (7-18) H 03/17/19 06:54 Creatinine 0.61 mg/dL (0.55-1.02) 03/17/19 06:54 Estimated GFR/1.73 m2 >= 60.00 (mL/min/1.73m2) 03/17/19 06:54 Glucose 121 mg/dL (70-100) H 03/17/19 06:54 Lactate 2.8 mmol/l (0.6-1.4) H 03/16/19 14:35 Calcium 8.3 mg/dL (8.5-10.1) L 03/17/19 06:54 Magnesium 1.7 mg/dL (1.8-2.4) L 03/17/19 06:54 Total Bilirubin 0.6 mg/dL (0.2-1.0) 03/16/19 14:35 AST 20 U/L (15-37) 03/16/19 14:35 ALT 16 U/L (12-78) 03/16/19 14:35 Alkaline Phosphatase 112 U/L (46-116) 03/16/19 14:35 Total Protein 7.9 g/dL (6.4-8.2) 03/16/19 14:35 Albumin 2.9 g/dL (3.4-5.0) L 03/16/19 14:35 Procalcitonin 0.4 ng/mL 03/16/19 14:35 Urine Color Yellow (Yellow) 03/17/19 05:12 Urine Clarity Clear 03/17/19 05:12 Urine pH 6.0 (5-8) 03/17/19 05:12 Ur Specific [place] 1.020 (1.005-1.025) 03/17/19 05:12 Urine Protein Trace mg/dL (Negative) H 03/17/19 05:12 Urine Ketones Negative mg/dL (Negative) 03/17/19 05:12 Urine Blood Negative (Negative) 03/17/19 05:12 Urine Nitrite Negative (Negative) 03/17/19 05:12 Urine Bilirubin Negative (Negative) 03/17/19 05:12 Urine Urobilinogen 1.0 EU/dL (Up TO 0.2) H 03/17/19 05:12 Ur Leukocyte Esterase Small (Negative) H 03/17/19 05:12 Urine RBC 0-2 (0-2) 03/17/19 05:12 Urine WBC 10-20 HPF (0-5) 03/17/19 05:12 Ur Epithelial Cells Many HPF (Negative) 03/17/19 05:12 Urine Crystals Negative HPF (Negative) 03/17/19 05:12 Urine Bacteria Few HPF (Negative) 03/17/19 05:12 Urine Casts 0-2 hyaline LPF (Negative) 03/17/19 05:12 Urine Mucus Negative (Negative) 03/17/19 05:12 Ur Culture Indicated? No/sq. contamination 03/17/19 05:12 Urine Glucose Negative mg/dL (Negative) 03/17/19 05:12 CXR 03/16/19: official read reviewed. Per my personal read, while some of the changes are seen on the CXR from 02/04/19, the bibasilar findings are definitely worse on this admission.
[2019-03-17] MEDS: PIPERACILLIN/TAZO 3.375 GM in Normal Saline 50 ML IVPB ×2 (15:14→23:14)
--- NOTE | 2019-03-17 16:31 | W.SPEECHEVAL ---
Date of service: 03/17/19 Time of Service: 03:15 Speech Therapy Evaluation Note: REFERRING PROVIDER: Dr. Samuel BACKGROUND This is an 78 year old right-handed female who presented to the ED from home on 03/16/19 with a 2-day h/o generalized weakness, dyspnea and cough. A CXR of that date revealed RUL & RML infiltrates. She was admitted for tx of a possible pneumonia. Today a swallow evaluation was requested to assess for aspiration risk. 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 The patient (pt) is able to provide additional background information with regard to p. o. consistencies taken at home in the weeks prior to this admission. She takes what, by description, are Thin liquids, a Regular consistency diet and whole pills with a liquid wash. OBJECTIVE Nursing reports: - T:36.7 - O2 sat: 97% on RA - LS: CTA and diminished bilaterally (B) - Pt is currently on Thin liquids, a Regular consistency diet & whole pills with a liquid wash. The pt took multiple whole pills at one time with a liquid wash earlier today without difficulty. The pt is reclined in bed and watching TV. She greets me with good direct eye contact, a smile & an intelligible verbal greeting. She is agreeable to working with me. She converses well, both asking & answering questions & shows good use of humor. She is A & O x 4 and able to follow 3-step directions. Oral Sensorimotor Exam The pt is partially edentulous in all 4 quadrants. She states she has a partial upper denture that she hasn't worn since this past September due to ill fit. She denies any dental discomfort and hygiene appears adequate. Oral sensation is WNL-B for buccal, labial & lingual areas. Motorically, the smile is symmetrical as are forehead wrinkles. Labiobuccal strength/coordination is WNL-B. No lingual deviation on protrusion is seen in a setting of good excursion. Lingual lateralization is WNL-B as are lingual rapid alternating movements. No lingual fasciculations are seen. Lingual strength is WNL-B as is mandibular lateralization. Velopharyngeal elevation is strong & symmetrical. Volitional cough & throat-clear are both strong. Speech intelligibility to this unfamiliar listener in the absence of background noise is 100%. Vocal intensity & quality are both WNL. The pt shows consistent production of a lateralized /s/. Swallowing - Moderately-thick liquid: Good bolus control & posterior oral transit (POT); no juan signs/symptoms (s/s) of aspiration/penetration (A/P); oral clearance 100%; no oral escape. These results are true for both single & consecutive swallows by cup. - Mildly-thick liquid: Results are the same as for Mod.-thick liquid. These results are true for both single & consecutive swallows by both cup & straw. - Thin liquid: Results are the same as for Mildly-thick liquid. - Puree food: Good bolus control & linguopalatal bolus compression; POT WNL; no juan s/s A/P; oral clearance 100%; no oral escape. - Minced & Moist food: Good mastication quality, bolus control & POT; no juan s/s A/P; oral clearance 100%; no oral escape. - Soft & Bite-sized food: Results are the same as for M&M food. - modified Regular food: Use of appropriately increased mastication time & this does result in good mastication quality; bolus control & POT both WNL; no juan s/s A/P; oral clearance 100%; no oral escape. - Regular food: Results are the same as for modified Regular food. - Pills are not assessed at this visit. The pt is observed to independently self-feed using her dominant RUE and a regular utensil. INTERPRETATION The pt shows no clinical signs of an oropharyngeal dysphagia with intake of her baseline p.o. food & liquid consistencies. Consequently, she is felt to be at minimal riisk of aspiration. RECOMMENDATIONS 1. Continue current p.o. consistencies of Thin liquids, a Regular consistency diet & whole pills with a liquid wash. 2. Continue independent self-feeding. 3. No speech therapy for swallowing is indicated at this time. Thank you for referring this pt.
[2019-03-17] MEDS: AZITHROMYCIN 500 MG in Normal Saline 250 ML 250 MG IVPB (16:47)
[2019-03-17] MEDS: Normal Saline 1,000 ML 50 ML IV (16:47)
[2019-03-17] MEDS: Hydrocortisone SOD SUC. 100 MG VIAL 25 MG IVP (18:17)
[2019-03-17] MEDS: Enoxaparin 40 MG/0.4 ML SYR SC (18:18)
[2019-03-17] MEDS: Docusate Sodium 100 MG CAP PO (20:02)
[2019-03-17] MEDS: Acetaminophen 325 MG TAB PO (20:03)
[2019-03-17] MEDS: guaiFENesin 600 MG TABCR PO (20:03)
[2019-03-17 22:25] LABS: Anaplasma phagocytophilum Negative (Negative); B. miyamotoi PCR Negative (Negative); Babesia divergens/MO-1 Negative (Negative); Babesia duncani Negative (Negative); Babesia microti Negative (Negative); Ehrlichia chaffeensis Negative (Negative); Ehrlichia ewingii/canis Negative (Negative); Ehrlichia muris eauclairensis Negative (Negative)
[2019-03-18] MEDS: Hydrocortisone SOD SUC. 100 MG VIAL 25 MG IVP ×2 (01:35→11:21)
[2019-03-18 03:34] VITALS: BP 130/70; PULSE 68; RESP 18; TEMP 36.6; O2SAT 98
[2019-03-18] MEDS: PIPERACILLIN/TAZO 3.375 GM in Normal Saline 50 ML IVPB ×2 (05:51→12:45)
[2019-03-18 07:29] LABS: Abs Immature Grans 0.06 k/cumm (0.0-0.09); Absolute Basophil Count 0.02 k/cumm (0.0-0.2); Absolute Eosinophil Count 0.02 k/cumm (0.0-0.7); Absolute Neutrophil Count 8.26 k/cumm (1.2-6.7); Basophils % 0.2; Eosinophils % 0.2; HCT 41.2 % (36.0-46.0); HGB 13.5 g/dL (12.0-15.5); Immature Grans % 0.6; Lymphocytes % 9.7; Mean Corp. HGB Concentration 32.8 g/dL (32.0-36.0); Mean Corpuscular Hemoglobin 30.9 pg (27.0-33.0); Mean Corpuscular Volume 94.3 fL (80-95); Mean Platelet Volume 11.8 fL (8.0-11.0); Monocytes % 8.8; Neutrophils % 80.5; Platelet Count 166 x1000/uL (130-400); RBC 4.37 m/cumm (4.00-5.20); RBC Distribution Width 16.6 % (11.7-14.6); White Blood Cell Count 10.26 k/cumm (4.4-10.8)
[2019-03-18 07:46] LABS: Anion Gap 8.9 mmol/L (3-11); BUN 20 mg/dL (7-18); CO2 23.1 mmol/L (21.0-32.0); CREATININE 0.65 mg/dL (0.55-1.02); Calcium 8.4 mg/dL (8.5-10.1); Chloride 106 mmol/L (98-107); Glucose 101 mg/dL (70-100); Magnesium 1.7 mg/dL (1.8-2.4); Sodium 138 mmol/L (136-145)
[2019-03-18 07:50] VITALS: BP 132/69; PULSE 53; RESP 18; TEMP 36.1; O2SAT 96
[2019-03-18 07:55] VITALS: O2SAT 97
[2019-03-18 08:13] VITALS: PULSE 60
[2019-03-18] MEDS: Hydroxychloroquine 200 MG TAB PO (08:14)
[2019-03-18] MEDS: Benzonatate 100 MG CAP PO ×2 (08:14→14:18)
[2019-03-18] MEDS: Metoprolol CR 25 MG TABCR PO (08:14)
[2019-03-18] MEDS: Omeprazole 20 MG CAPCR PO (08:15)
[2019-03-18] MEDS: methIMAzole 5 MG TAB PO (08:15)
[2019-03-18] MEDS: Potassium Chloride 20 MEQ TABCR 40 MEQ PO (08:15)
[2019-03-18 11:20] VITALS: BP 126/62; PULSE 65; RESP 17; TEMP 36.9; O2SAT 98
[2019-03-18] MEDS: Magnesium Chloride 64 MG TABCR PO (11:22)
[2019-03-18] MEDS: Magnesium Oxide 400 MG TAB PO (11:23)
[2019-03-18] MEDS: Normal Saline Flush 10 ML SYR IVP (11:23)
--- NOTE | 2019-03-18 11:35 | PT.INTREAT ---
Date of service: 03/18/19 Time of Service: 11:10 PT Notes Inpatient Physical Therapy Treatment Note [facility] Date: 03/18/19 SUBJECTIVE: pt reports that she is feeling better. She offers no complaints to me this am. OBJECTIVE: [] BED MOBILITY/TRANSFERS Supine-sit: S Sit-supine: S Sit-stand: S Stand-sit:S GAIT Assistive Device:FWW Weight bearing:full Assist: S Distance: 150' THEREX: performed a global LE strength and stabilization routine, see flowsheet for details. ASSESSMENT: tolerated session quite well. No SOB or fatigue noted. Could progress her ther ex next session. PLAN: continue PT POC. TREATMENT CODE/TIME: 23 min. TPx1, TAx1.
--- NOTE | 2019-03-18 13:48 | W.PM.DS.N ---
Date of service: 03/18/19 Time of Service: 13:48 DS: Diagnosis Discharge Diagnosis (1) Pneumonia: Status: Acute (2) Rheumatoid arthritis: Status: Chronic (3) COPD (chronic obstructive pulmonary disease): Status: Chronic (4) HTN (hypertension): Status: Chronic (5) Hyperthyroidism: Status: Chronic (6) Ulcerative colitis: Status: Chronic (7) Adrenal insufficiency: Status: Acute Discharge Plan Disposition Patient Disposition: HOME W/HOME HEALTH SERVICE Condition: Stable Discharge Details Reason For Visit: PNEUMONIA Admit Date/Time: 03/16/19 16:02 Admit Provider: Jhonny Merchant Attending Provider: Jhonny Merchant Primary Care Provider: Emily Lucio [facility] Hospital Course: Ms Stephenson is an 78 year old female with PMHx of non-oxygen dependent COPD, RA finishing a home steroid taper, hyperthyroidism, 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 She was initiated on azithromycin, rocephin, stress dose steroids, gentle IV fluids (PO intake at home had been poor), mucolytics. While she was mildly hypoxic on presentation, her oxygen requirement resolved by hospital day 2, be that at rest or with activity. She did not require nebulizer therapy for the last 48 hours. She was evaluated by speech therapy - no dysphagia was appreciated, and no changes to current diet/consistency of liquids were made. At this point, it is felt that the patient is stable for discharge home to complete 4 more days of antibiotics, a lengthy steroid taper (ultimately to be finished with the guidance of rheumatology), inhalers. She will require home health nursing, PT, COAL AND ASH SUPERVISOR, and case management did give her paperwork to complete [place] [facility]. She is also being referred to palliative care as outpatient. Home Meds and New Rx's Prescriptions: New potassium chloride [Klor-Con M20] 20 mEq Tablet,Er Particles/Crystals 40 meq PO DAILY Qty: 7 RF: 0 benzonatate 100 mg Capsule 100 mg PO TID PRN PRNQty: 30 RF: 0 guaifenesin [Mucinex] 600 mg Tablet Extended Release 12hr 600 mg PO BID PRN PRN (Reason: cough) Qty: 30 RF: 0 amoxicillin-pot clavulanate [Augmentin] 875-125 mg tablet 1 tab PO BID Qty: 9 RF: 0 azithromycin 250 mg tablet 250 mg PO DAILY 4 Days Qty: 4 RF: 0 prednisone 5 mg tablet See Rx Instructions .ROUTE .COMPLEX Qty: 34 RF: 0 magnesium oxide 400 mg (241.3 mg magnesium) Tablet 400 mg PO BID@1000,2000 Qty: 30 RF: 0 Continued hydroxychloroquine 200 mg tablet 200 mg PO DAILY RF: 0 acetaminophen [Tylenol] 325 MG tablet 650 mg PO Q6H PRN RF: 0 folic acid 1 MG tablet 2 mg PO DAILY RF: 0 cholecalciferol (vitamin D3) 2,000 UNIT tablet 2,000 unit PO DAILY RF: 0 fluticasone propionate [Flonase Allergy Relief] 9.9 ML spray,suspension 1 spray NS DAILY PRNRF: 0 metoprolol succinate 25 MG tablet extended release 24 hr 25 mg PO DAILY RF: 0 methimazole 5 MG tablet 5 mg PO DAILY RF: 0 biotin 5 mg Tablet 1 tab PO DAILY RF: 0 omeprazole 20 mg Capsule,Delayed Release(Dr/Ec) 20 mg PO DAILY RF: 0 calcium carbonate-vitamin D3 1,000 mg(2,500 mg)-800 unit Tablet 1 tab PO DAILY RF: 0 albuterol sulfate [ProAir HFA] 90 mcg/actuation Hfa Aerosol Inhaler 2 puff Inhalation Q4H PRN PRN (Reason: Shortness Of Breath) RF: 0 Discontinued prednisone 1 mg Tablet 2.5 mg PO DAILY RF: 0 Discharge Instructions Instructions: Amoxicillin/Clavulanate Potassium (By mouth), Azithromycin (By mouth), Bacterial Pneumonia (DC) Additional Instructions: Return to the hospital if you are not safe at home, if you feel worse, have any fever, bleeding, chest pain, or shortness of breath. Bloodwork via home health on 03/21/19 Care Plan Goals: Discharging home with home health nursing, PT, COAL AND ASH SUPERVISOR Stand Alone Forms: Nursing Discharge Form Referrals: Emily Lucio MD [Primary Care Provider] - (Please call PCP on Tuesday to set up a 2 week follow-up appointment.) Activity:: Activity as Tolerated Equipment/Supplies:: No Equipment Needed Diet:: Cardiac diet Discharge Orders Discharge Orders: Discharge Order (Routine); Ordered 03/18/19 Ordered By: Yanni Samuel Other Ambulatory Orders: Basic Metabolic Panel (Routine) Timeframe: 20190321 Location: Determined by Patient Ordered By: Yanni Samuel Magnesium (Routine) Timeframe: 20190321 Location: Determined by Patient Ordered By: Yanni Samuel Exam Narrative Exam Narrative: General: Frail elderly female, sitting comfortably in a chair, A&Ox3, [place], looks better than yesterday - watched while she ambulated - no dyspnea noted. HEENT; EOMI, MMM Heart: RRR, no m/r/g Lungs: crackles/quiet rhonchi at B bases, otherwise diminished, unchanged from yesterday GI: abdomen is soft, nontender, nondistended Extremities: no e/c/c BLE's DS: Data Vitals/I&O Vitals and I&O: Vital Signs Temperature 36.9 C 03/18/19 11:20 Temperature Source Tympanic 03/18/19 11:20 Pulse 65 03/18/19 11:20 Pulse Rhythm Regular 03/18/19 08:15 Respiratory Rate 17 03/18/19 11:20 Respiratory Effort Non-Labored 03/18/19 08:15 Respiratory Depth Normal 03/18/19 08:15 Respiratory Pattern Normal 03/18/19 08:15 Blood Pressure 126/62 03/18/19 11:20 Blood Pressure Position Sitting 03/16/19 14:12 Pulse Oximetry 98 03/18/19 11:20 Oxygen Delivery Method Room Air 03/18/19 11:20 Oxygen Flow Rate 0 03/18/19 11:20 Pain Level 0 03/17/19 19:36 Intake & Output 03/17/19 03/18/19 03/18/19 23:59 11:59 23:59 Intake Total 675.833 / 2321.000 1400.833 / 2240.833 840 / 2240.833 Balance 675.833 / 5996.228 7014.833 / 2240.833 840 / 2240.833 Weight 42.6 kg Intake: IV 475.833 / 1321.000 965.833 / 965.833 Oral 200 / 1000 435 / 1275 840 / 1275 Other: Urine Appearance Cloudy Comment Homero Stubbs asked me to bladder scan after she voided, scanned 3 times all 3 times were 0ml missed hat Stool Size Small Stool Characteristics Soft Voiding Methods Bedside Commode Toilet Completed studies during hospitalization [Text1]: CXR 03/16/19: Right-sided infiltrates, suspicious for pneumonia. No effusions are seen. Pending studies at discharge: Lyme studies Labs on day of discharge: Labs from last 24 hours 03/18/19 03/18/19 06:42 06:42 WBC 10.26 RBC 4.37 Hgb 13.5 Hct 41.2 MCV 94.3 MCH 30.9 MCHC 32.8 RDW 16.6 H Plt Count 166 MPV 11.8 H Immature Gran % 0.6 Neutrophils % 80.5 Lymphocytes % 9.7 Monocytes % 8.8 Eosinophils % 0.2 Basophils % 0.2 Absolute Neutrophils 8.26 H Absolute Lymphocytes 1.00 L Absolute Monocytes 0.90 H Absolute Eosinophils 0.02 Absolute Basophils 0.02 Sodium 138 Potassium 4.0 Chloride 106 Carbon Dioxide 23.1 Anion Gap 8.9 BUN 20 H Creatinine 0.65 Estimated GFR/1.73 m2 >= 60.00 Glucose 101 H Calcium 8.4 L Magnesium 1.7 L Preliminary micro results at discharge 03/17/19 08:40 Sputum Culture - Preliminary Sputum Normal Christina 03/16/19 15:28 Blood Culture - Preliminary Blood NO GROWTH 24 HOURS 03/16/19 14:35 Blood Culture - Preliminary Blood NO GROWTH 24 HOURS PFSH Medical History Fracture of right hip requiring operative repair (Resolved) Fx lower radius/ulna-closed (Acute) Bigeminy Bilateral hearing loss CAD (coronary artery disease) COPD (chronic obstructive pulmonary disease) Chronic obstructive lung disease Colitis Hearing loss History of hypertension History of tobacco use Hyperthyroidism Mitral valve disease Osteopenia Osteoporosis Rheumatoid arthritis Rhinitis Ulcerative colitis Surgical History Colonoscopy - IV Sedation (~2008) Colonoscopy - MAC (03/22/18) Family History Mother Asthma Father No problems noted. Sister No problems noted. Sister No problems noted. Brother No problems noted. Social History Smoking/Tobacco Use Status: Former Tobacco Use Alcohol Intake: never Drug use: Never Do you feel safe in your relationship?: Yes
--- NOTE | 2019-03-18 13:53 | DSE_ITS ---
Date of service: 03/18/19 Time of Service: 13:48 DS: Diagnosis Discharge Diagnosis (1) Pneumonia: Status: Acute (2) Rheumatoid arthritis: Status: Chronic (3) COPD (chronic obstructive pulmonary disease): Status: Chronic (4) HTN (hypertension): Status: Chronic (5) Hyperthyroidism: Status: Chronic (6) Ulcerative colitis: Status: Chronic (7) Adrenal insufficiency: Status: Acute Discharge Plan Disposition Patient Disposition: HOME W/HOME HEALTH SERVICE Condition: Stable Discharge Details Reason For Visit: PNEUMONIA Admit Date/Time: 03/16/19 16:02 Admit Provider: Jhonny Merchant Attending Provider: Jhonny Merchant Primary Care Provider: Emily Lucio [facility] Course Hospital Course: Ms Stephenson is an 78 year old female with PMHx of non-oxygen dependent COPD, RA finishing a home steroid taper, hyperthyroidism, 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 She was initiated on azithromycin, rocephin, stress dose steroids, gentle IV fluids (PO intake at home had been poor), mucolytics. While she was mildly hypoxic on presentation, her oxygen requirement resolved by hospital day 2, be that at rest or with activity. She did not require nebulizer therapy for the last 48 hours. She was evaluated by speech therapy - no dysphagia was appreciated, and no changes to current diet/consistency of liquids were made. At this point, it is felt that the patient is stable for discharge home to complete 4 more days of antibiotics, a lengthy steroid taper (ultimately to be finished with the guidance of rheumatology), inhalers. She will require home health nursing, PT, CVT TECH, and case management did give her paperwork to complete [facility] She is also being referred to palliative care as outpatient. Home Meds and New Rx's Prescriptions: New potassium chloride [Klor-Con M20] 20 mEq Tablet,Er Particles/Crystals 40 meq PO DAILY Qty: 7 RF: 0 benzonatate 100 mg Capsule 100 mg PO TID PRN PRNQty: 30 RF: 0 guaifenesin [Mucinex] 600 mg Tablet Extended Release 12hr 600 mg PO BID PRN PRN (Reason: cough) Qty: 30 RF: 0 amoxicillin-pot clavulanate [Augmentin] 875-125 mg tablet 1 tab PO BID Qty: 9 RF: 0 azithromycin 250 mg tablet 250 mg PO DAILY 4 Days Qty: 4 RF: 0 prednisone 5 mg tablet See Rx Instructions .ROUTE .COMPLEX Qty: 34 RF: 0 magnesium oxide 400 mg (241.3 mg magnesium) Tablet 400 mg PO BID@1000,2000 Qty: 30 RF: 0 Continued hydroxychloroquine 200 mg tablet 200 mg PO DAILY RF: 0 acetaminophen [Tylenol] 325 MG tablet 650 mg PO Q6H PRN RF: 0 folic acid 1 MG tablet 2 mg PO DAILY RF: 0 cholecalciferol (vitamin D3) 2,000 UNIT tablet 2,000 unit PO DAILY RF: 0 fluticasone propionate [Flonase Allergy Relief] 9.9 ML spray,suspension 1 spray NS DAILY PRNRF: 0 metoprolol succinate 25 MG tablet extended release 24 hr 25 mg PO DAILY RF: 0 methimazole 5 MG tablet 5 mg PO DAILY RF: 0 biotin 5 mg Tablet 1 tab PO DAILY RF: 0 omeprazole 20 mg Capsule,Delayed Release(Dr/Ec) 20 mg PO DAILY RF: 0 calcium carbonate-vitamin D3 1,000 mg(2,500 mg)-800 unit Tablet 1 tab PO DAILY RF: 0 albuterol sulfate [ProAir HFA] 90 mcg/actuation Hfa Aerosol Inhaler 2 puff Inhalation Q4H PRN PRN (Reason: Shortness Of Breath) RF: 0 Discontinued prednisone 1 mg Tablet 2.5 mg PO DAILY RF: 0 Discharge Instructions Instructions: Amoxicillin/Clavulanate Potassium (By mouth), Azithromycin (By mouth), Bacterial Pneumonia (DC) Additional Instructions: Return to the hospital if you are not safe at home, if you feel worse, have any fever, bleeding, chest pain, or shortness of breath. Bloodwork via home health on 03/21/19 Care Plan Goals: Discharging home with home health nursing, PT, CVT TECH Stand Alone Forms: Nursing Discharge Form Referrals: Emily Lucio MD [Primary Care Provider] - (Please call PCP on Tuesday to set up a 2 week follow-up appointment.) Activity:: Activity as Tolerated Equipment/Supplies:: No Equipment Needed Diet:: Cardiac diet Discharge Orders Discharge Orders: Discharge Order (Routine); Ordered 03/18/19 Ordered By: Yanni Samuel Other Ambulatory Orders: Basic Metabolic Panel (Routine) Timeframe: 20190321 Location: Determined by Patient Ordered By: Yanni Samuel Magnesium (Routine) Timeframe: 20190321 Location: Determined by Patient Ordered By: Yanni Samuel Exam Narrative Exam Narrative: General: Frail elderly female, sitting comfortably in a chair, A&Ox3, [place], looks better than yesterday - watched while she ambulated - no dyspnea noted. HEENT; EOMI, MMM Heart: RRR, no m/r/g Lungs: crackles/quiet rhonchi at B bases, otherwise diminished, unchanged from yesterday GI: abdomen is soft, nontender, nondistended Extremities: no e/c/c BLE's DS: Data Vitals/I&O Vitals and I&O: Vital Signs Temperature 36.9 C 03/18/19 11:20 Temperature Source Tympanic 03/18/19 11:20 Pulse 65 03/18/19 11:20 Pulse Rhythm Regular 03/18/19 08:15 Respiratory Rate 17 03/18/19 11:20 Respiratory Effort Non-Labored 03/18/19 08:15 Respiratory Depth Normal 03/18/19 08:15 Respiratory Pattern Normal 03/18/19 08:15 Blood Pressure 126/62 03/18/19 11:20 Blood Pressure Position Sitting 03/16/19 14:12 Pulse Oximetry 98 03/18/19 11:20 Oxygen Delivery Method Room Air 03/18/19 11:20 Oxygen Flow Rate 0 03/18/19 11:20 Pain Level 0 03/17/19 19:36 Intake & Output 03/17/19 03/18/19 03/18/19 23:59 11:59 23:59 Intake Total 675.833 / 2321.000 1400.833 / 2240.833 840 / 2240.833 Balance 675.833 / 4435.421 8498.833 / 2240.833 840 / 2240.833 Weight 42.6 kg Intake: IV 475.833 / 1321.000 965.833 / 965.833 Oral 200 / 1000 435 / 1275 840 / 1275 Other: Urine Appearance Cloudy Comment Homero Stubbs asked me to bladder scan after she voided, scanned 3 times all 3 times were 0ml missed hat Stool Size Small Stool Characteristics Soft Voiding Methods Bedside Commode Toilet Completed studies during hospitalization [Text1]: CXR 03/16/19: Right-sided infiltrates, suspicious for pneumonia. No effusions are seen. Pending studies at discharge: Lyme studies Labs on day of discharge: Labs from last 24 hours 03/18/19 03/18/19 06:42 06:42 WBC 10.26 RBC 4.37 Hgb 13.5 Hct 41.2 MCV 94.3 MCH 30.9 MCHC 32.8 RDW 16.6 H Plt Count 166 MPV 11.8 H Immature Gran % 0.6 Neutrophils % 80.5 Lymphocytes % 9.7 Monocytes % 8.8 Eosinophils % 0.2 Basophils % 0.2 Absolute Neutrophils 8.26 H Absolute Lymphocytes 1.00 L Absolute Monocytes 0.90 H Absolute Eosinophils 0.02 Absolute Basophils 0.02 Sodium 138 Potassium 4.0 Chloride 106 Carbon Dioxide 23.1 Anion Gap 8.9 BUN 20 H Creatinine 0.65 Estimated GFR/1.73 m2 >= 60.00 Glucose 101 H Calcium 8.4 L Magnesium 1.7 L Preliminary micro results at discharge 03/17/19 08:40 Sputum Culture - Preliminary Sputum Normal Christina 03/16/19 15:28 Blood Culture - Preliminary Blood NO GROWTH 24 HOURS 03/16/19 14:35 Blood Culture - Preliminary Blood NO GROWTH 24 HOURS PFSH Medical History Fracture of right hip requiring operative repair (Resolved) Fx lower radius/ulna-closed (Acute) Bigeminy Bilateral hearing loss CAD (coronary artery disease) COPD (chronic obstructive pulmonary disease) Chronic obstructive lung disease Colitis Hearing loss History of hypertension History of tobacco use Hyperthyroidism Mitral valve disease Osteopenia Osteoporosis Rheumatoid arthritis Rhinitis Ulcerative colitis Surgical History Colonoscopy - IV Sedation (~2008) Colonoscopy - MAC (03/22/18) Family History Mother Asthma Father No problems noted. Sister No problems noted. Sister No problems noted. Brother No problems noted. Social History Smoking/Tobacco Use Status: Former Tobacco Use Alcohol Intake: never Drug use: Never Do you feel safe in your relationship?: Yes
--- NOTE | 2019-03-18 14:23 | PDOC.HHF2F ---
1. Encounter Date and Reason I certify that CHAPIN MARTINEZ was seen by Yanni Samuel on 03/18/19 and that I had a [id number] encounter with this patient that meets the physician face to face encounter requirements. 2. Clinical Findings Supporting Skilled Need and Homebound Status I certify that home health services are medically necessary, include either intermittent senior living and/or physical/speech therapy, and that this patient is homebound in that absences from the home require considerable and taxing effort and are infrequent or of short duration, or are attributable to the need to receive medical care. [X] (a) Attached documentation from encounter provides clinical findings supporting skilled need and homebound status (including what assistance patient requires to leave the home). The encounter with the patient was in whole, or in part, for the following medical condition, which is the primary reason for home health care: PNEUMONIA Snf: COPD, finishing treatment for pneumonia, medication teaching/assessment at home. Also, please collect BMP and magnesium on 03/21/19 - results to Dr Lucio Physical Therapy: resume/eval and treat SPANISH PROFESSOR: evaluate need for additional home resources Homebound: unable to leave home without assistance. 3. Certification and Authentication I certify that I composed the above information based on my clinical judgement relating to this patient's medical condition and, if applicable, clinical findings communicated to me by the NPP or inpatient physician who performed the Home Health Referral. All further orders will be obtained through ___Dr Lucio (Community Based Physician - PCP)
--- NOTE | 2019-03-18 14:26 | HHF2F_ITS ---
1. Encounter Date and Reason I certify that CHAPIN MARTINEZ was seen by Yanni Samuel on 03/18/19 and that I had a [id number] encounter with this patient that meets the physician face to face encounter requirements. 2. Clinical Findings Supporting Skilled Need and Homebound Status I certify that home health services are medically necessary, include either intermittent intermediate and/or physical/speech therapy, and that this patient is homebound in that absences from the home require considerable and taxing effort and are infrequent or of short duration, or are attributable to the need to receive medical care. [X] (a) Attached documentation from encounter provides clinical findings supporting skilled need and homebound status (including what assistance patient requires to leave the home). The encounter with the patient was in whole, or in part, for the following medical condition, which is the primary reason for home health care: PNEUMONIA Alf: COPD, finishing treatment for pneumonia, medication teaching/assessment at home. 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 3. Certification and Authentication I certify that I composed the above information based on my clinical judgement relating to this patient's medical condition and, if applicable, clinical findings communicated to me by the NPP or inpatient physician who performed the Home Health Referral. All further orders will be obtained through ___Dr Lucio (Community Based Physician - PCP)
--- NOTE | 2019-03-18 14:28 | PDOC.CMDIS ---
- If Service Date Differs Date of service: 03/18/19 Time of Service: 14:28 LACE Index Scoring Tool - Questions: Length of Stay (in days): 3 Acuity (Admit via E.D.?): Yes Care Management Discharge Reason for Hospitalization: Pneumonia Discharge Plan: Carmella is being discharge home today. CM met with patient and her caregiver Rocío. Rocío is concerned that Carmella is not taking her medicaitons at home daily and that she and her sister are becoming more forgetful. She states she has been taking care of the sisters since 09/2018 and she states she needs assistance. CM faxed a referral and notes to [facility], and [facility]. CM requested CHIEF MEDICAL OFFICER through [employer] to meet with aCrmella and Rocío to assess needs and assist in completing [employer] applications. CM provided applications for both sisters to be completed in hopes that they could stay together. CM also provided private care taking resources including [facility]and [facility]. CM provided contact information for follow up and will fax updates to chronic manager respiratory care as well as referral to palliative care. Rocío is willing to bring Pt home with additional resources and follow up with outpatient resources as needed. Carmella states she is ready to return home and be discharged from the hosptial. Patient/Family Education Needs: Discharge education, limitations and follow up plan of care, CM reviewed plan with pt and her caregiver Rocío. Services Needed at Discharge: Home Delivered Meals, Home Health Care Services, Physical Therapy
--- NOTE | 2019-03-18 14:36 | CMDISCH_ITS ---
- If Service Date Differs Date of service: 03/18/19 Time of Service: 14:28 LACE Index Scoring Tool - Questions: Length of Stay (in days): 3 Acuity (Admit via E.D.?): Yes Care Management Discharge Reason for Hospitalization: Pneumonia Discharge Plan: Carmella is being discharge home today. CM met with patient and her caregiver Rocío. Rocío is concerned that Carmella is not taking her medicaitons at home daily and that she and her sister are becoming more forgetful. She states she has been taking care of the sisters since 09/2018 and she states she needs assistance. CM faxed a referral and notes to [facility], and [facility]. CM requested TOE POUNDER through [employer] to meet with Carmella and Rocío to assess needs and assist in completing [employer] applications. CM provided applications for both sisters to be completed in hopes that they could stay together. CM also provided private care taking resources including [facility]and [facility]. CM provided contact information for follow up and will fax updates to chronic resident care spec as well as referral to palliative care. Rocío is willing to bring Pt home with additional resources and follow up with outpatient resources as needed. Carmella states she is ready to return home and be discharged from the hosptial. Patient/Family Education Needs: Discharge education, limitations and follow up plan of care, CM reviewed plan with pt and her caregiver Rocío. Services Needed at Discharge: Home Delivered Meals, Home Health Care Services, Physical Therapy
[2019-03-19 12:09] LABS: Lyme Ab w Rflx to Lyme Confirm Negative
--- NOTE | 2019-03-19 16:39 | PT.INDS ---
Date of service: 03/19/19 PT Notes Inpatient Physical Therapy Discharge Summary Dates: 03/19/2019 Dates of Service: 03/17/2019 through 03/18/2019 This is a clinical summary of care provided on the duration of dates listed above. No charge was made in the completion of this documentation. Referring Doctor: Taylor Hudson NP PT Orders: PT CONSULT: generalized weakness, pneumonia, RA Precautions: Standard, contact Patient Profile/Admitting Diagnosis: Presented to ER on 03/16/18 following 2-3 days of generalized weakness, SOB, fever, and cough. Chest x-ray suggest R sided pneumonia, resulting in admission for proper treatment. PMHX: Medical History Fracture of right hip requiring operative repair (Resolved) Fx lower radius/ulna-closed (Acute) Bigeminy Bilateral hearing loss CAD (coronary artery disease) COPD (chronic obstructive pulmonary disease) Chronic obstructive lung disease Colitis Hearing loss History of hypertension History of tobacco use Hyperthyroidism Mitral valve disease Osteopenia Osteoporosis Rheumatoid arthritis Rhinitis Ulcerative colitis Surgical History Colonoscopy - IV Sedation (~2008) Colonoscopy - MAC (03/22/18) Social History/Home Situation: Lives with sister in a private home. House is one level with 2 steps to get on to porch, than one into house. Grab rails have been installed appropriately for ease for stair use. Premorbid level of function: I with in/out of bed, dressing, and hygiene. Utilizes meals on wheels. Has family that checks in with her daily. Presently receiving home health PT. Current Functional Limitations: Supervision with short distance ambulation, requires RW. Equipment Owned/DME: RW Subjective: NT Objective: General Observation: NT Mental Status: NT Pain:NT ROM: Right Upper Extremity: Grossly WFL Left Upper Extremity: Grossly WFL Right Lower Extremity: Grossly WFL Left Lower Extremity: Grossly WFL Strength: Right Upper Extremity: Grossly 4+/5 Left Upper Extremity: Grossly 4+/5 Right Lower Extremity: Grossly 4/5 Left Lower Extremity: Grossly 4/5 Sensation: Intact to light touch and pressure Bed Mobility/Transfers: Supervision with Sit <> stand at RW. Gait: RW, 150 feet using F WW with supervision provided. Balance: Static Sitting: Good Dynamic Sitting: Good, age appropriate Static Standing: Good, with RW, age appropriate Dynamic Standing: Fair, require RW Assessment: Patient is a 78 year old female referred to physical therapy services with the diagnosis of pneumonia, generalized weakness, and RA. Patient presents with clinical signs and symptoms consistent with recovery of pneumonia and generalized weakness, as demonstrated by the following impairment level findings: mild balance impairment, and generalized weakness. Impairments are contributing to the following functional limitations: AMPAC score of 21% disability, and supervision required for functional ambulation. Goals: Goals X1 week 1. Supine-Sit I NOT MET 2. Sit-Supine I NOT MET 3. Sit-Stand I NOT MET 4. Stand-Sit I NOT MET 5. Bed-Chair I NOT MET 6. Chair-Bed I NOT MET 7. Gait I,w tih RW NOT MET 8. Stairs 3, with supervision, and rail NOT MET DISCHARGE RECOMMENDATIONS: Home, with continued home health PT service. TREATMENT CODE/TIME:VA Thank you very much for this referral. Jessica Joseph PT, DPT, CLT [facility]
== END 2019-03-18 15:47 | disposition home health service (06) | DRG 190 ==
LOC: ER 16:34 → MS 16:56
PROVIDERS: Nurse Practitioner; Admitting Provider Internal Medicine; Emergency Provider Emergency Medicine; PCP Family Medicine; Visit Provider Internal Medicine
DX: J44.0 Chronic obstructive pulmonary disease with (acute) lower respiratory infection (principal); J18.9 Pneumonia, unspecified organism; E27.40 Unspecified adrenocortical insufficiency; R09.02 Hypoxemia; M06.9 Rheumatoid arthritis, unspecified; I10 Essential (primary) hypertension; E05.90 Thyrotoxicosis, unspecified without thyrotoxic crisis or storm; Z79.899 Other long term (current) drug therapy; Z13.89 Encounter for screening for other disorder
CPT/HCPCS: 36415; 80048; 80053; 84145; 87040; 87081; 87449; 92610; 94618; 96361; 96365; 96367; 97110; 97161; 97530; 99222; 99232; 99239; 99285; J1650; 71046; 81003; 81015; 83605; 83735; 85025; 85610; 85730; 86618; 87070; 87205; 87798; 99284; J0456; J0696; J1720; J2543

== ENCOUNTER 2019-03-21 10:21 | Outpatient (REF) | payer MEDICARE, BC, SELFPAY ==
[2019-03-21 10:41] LABS: BUN 19 mg/dL (7-18); CREATININE 0.65 mg/dL (0.55-1.02); Calcium 8.9 mg/dL (8.5-10.1); Chloride 102 mmol/L (98-107); Glucose 70 mg/dL (70-100); Magnesium 1.9 mg/dL (1.8-2.4); Potassium 4.5 mmol/L (3.5-5.1); Sodium 140 mmol/L (136-145)
== END 2019-03-21 10:41 ==
LOC: LBN 10:21
PROVIDERS: PCP Family Medicine; Visit Provider Family Medicine
DX: E83.42 Hypomagnesemia (principal); I10 Essential (primary) hypertension; E27.40 Unspecified adrenocortical insufficiency; E87.6 Hypokalemia; B95.62 Methicillin resistant Staphylococcus aureus infection as the cause of diseases classified elsewhere; T45.1X1D Poisoning by antineoplastic and immunosuppressive drugs, accidental (unintentional), subsequent encounter
CPT/HCPCS: 80048; 83735

== ENCOUNTER 2019-05-16 11:50 | Outpatient (REF) | payer MEDICARE, BC, SELFPAY ==
[2019-05-16 20:20] LABS: Anion Gap 10.5 mmol/L (3-11); BUN 22 mg/dL (7-18); CO2 25.5 mmol/L (21.0-32.0); CREATININE 0.62 mg/dL (0.55-1.02); Calcium 9.2 mg/dL (8.5-10.1); Chloride 104 mmol/L (98-107); Glucose 104 mg/dL (70-100); Potassium 4.3 mmol/L (3.5-5.1); Sodium 140 mmol/L (136-145)
== END 2019-05-16 12:10 ==
LOC: NCHCN 11:50
PROVIDERS: PCP Family Medicine; Visit Provider Family Medicine
DX: I10 Essential (primary) hypertension (principal)
CPT/HCPCS: 80048

== ENCOUNTER 2019-06-13 11:29 | Outpatient (CLI) | payer MEDICARE, BC, SELFPAY ==
--- NOTE | 2019-06-13 11:28 | DI.RAD_ITS ---
SYMPTOMS/DIAGNOSIS: F/U OF RIGHT HIP NAIL FIXATION PELVIS AND RIGHT HIP: Comparison is made with September, and February,. There has been no change in the alignment of the hardware in the proximal right femur. There is an old intertrochanteric fracture. The hip joint spaces are well maintained.
== END 2019-06-13 11:49 ==
PROVIDERS: PCP Family Medicine; Referring Provider Family Medicine; Visit Provider Orthopaedic Surgery
DX: S72.001D Fracture of unspecified part of neck of right femur, subsequent encounter for closed fracture with routine healing (principal); J44.9 Chronic obstructive pulmonary disease, unspecified; Z87.891 Personal history of nicotine dependence; X58.XXXD Exposure to other specified factors, subsequent encounter
CPT/HCPCS: 99213; 73502

== ENCOUNTER 2019-09-04 22:53 | Outpatient (REF) | payer MEDICARE, BC, SELFPAY ==
[2019-09-04 22:13] LABS: Abs Immature Grans 0.04 k/cumm (0.0-0.09); Absolute Basophil Count 0.02 k/cumm (0.0-0.2); Absolute Eosinophil Count 0.14 k/cumm (0.0-0.7); Absolute Monocyte Count 1.19 k/cumm (0.11-0.7); Absolute Neutrophil Count 6.47 k/cumm (1.2-6.7); Basophils % 0.2; Eosinophils % 1.5; HCT 41.9 % (36.0-46.0); HGB 13.5 g/dL (12.0-15.5); Immature Grans % 0.4; Lymphocytes % 13.2; Mean Corp. HGB Concentration 32.2 g/dL (32.0-36.0); Mean Corpuscular Volume 93.1 fL (80-95); Mean Platelet Volume 11.4 fL (8.0-11.0); Monocytes % 13.1; Neutrophils % 71.6; Platelet Count 288 x1000/uL (130-400); RBC Distribution Width 14.9 % (11.7-14.6); White Blood Cell Count 9.06 k/cumm (4.4-10.8)
[2019-09-04 22:47] LABS: TSH 2.37 uIU/mL (0.36-3.74)
[2019-09-04 23:23] LABS: Vitamin D 25 Total 94.6 ng/ml (30-100)
== END 2019-09-04 23:13 ==
LOC: LBN 22:53
PROVIDERS: PCP Family Medicine; Visit Provider Family Medicine
DX: I10 Essential (primary) hypertension (principal); M81.0 Age-related osteoporosis without current pathological fracture; J44.9 Chronic obstructive pulmonary disease, unspecified; M06.9 Rheumatoid arthritis, unspecified; M62.81 Muscle weakness (generalized)
CPT/HCPCS: 82306; 84439; 84443; 85025

== ENCOUNTER 2019-10-08 22:43 | Outpatient (REF) | payer MEDICARE, BC, SELFPAY ==
[2019-10-08 22:46] LABS: Vitamin D 25 Total 87.8 ng/ml (30-100)
== END 2019-10-08 23:03 ==
LOC: LBN 22:43
PROVIDERS: PCP Family Medicine; Visit Provider Family Medicine
DX: M06.9 Rheumatoid arthritis, unspecified (principal); M62.81 Muscle weakness (generalized); I10 Essential (primary) hypertension; M81.0 Age-related osteoporosis without current pathological fracture; J44.9 Chronic obstructive pulmonary disease, unspecified
CPT/HCPCS: 82306

== ENCOUNTER 2020-02-25 16:32 | Outpatient (REF) | payer MEDICARE, BC, SELFPAY ==
[2020-02-25 17:48] LABS: FREE T4 0.92 ng/dL (0.76-1.46); TSH 2.35 uIU/mL (0.36-3.74)
== END 2020-02-25 16:52 ==
LOC: LBN 16:32
PROVIDERS: PCP Family Medicine; Visit Provider Internal Medicine
DX: E55.9 Vitamin D deficiency, unspecified (principal); E05.90 Thyrotoxicosis, unspecified without thyrotoxic crisis or storm
CPT/HCPCS: 82306; 84439; 84443

== ENCOUNTER 2020-07-21 19:00 | Outpatient (REF) | payer MEDICARE, BC, SELFPAY ==
[2020-07-21 14:14] LABS: HCT 42.2 % (36.0-46.0); HGB 13.4 g/dL (11.2-15.7); MCH 30.1 pg (27.0-33.0); MCHC 31.8 % (32.0-36.0); MCV 94.8 fL (80-95); MPV 10.4 fL (8.0-11.0); Platelet Count 284 10^3/uL (130-400); RBC 4.45 10^6/uL (3.93-5.22); RDW 14.3 % (11.7-14.6); RDW-SD 49.4 fL
[2020-07-21 14:31] LABS: ALT 11 U/L (14-59); AST 19 U/L (15-37); Albumin 3.6 g/dL (3.4-5.0); Alkaline Phosphatase 86 U/L (46-116); Anion Gap 9.9 mmol/L (3-11); BUN 22 mg/dL (7-18); Bilirubin, Total 0.3 mg/dL (0.2-1.0); CO2 28.1 mmol/L (21.0-32.0); Calcium 9.9 mg/dL (8.5-10.1); Chloride 100 mmol/L (98-107); Glucose 130 mg/dL (74-106); Potassium 4.5 mmol/L (3.5-5.1); Sodium 138 mmol/L (136-145); TSH (W/Ref FT4) 1.84 uIU/mL (0.36-3.74); Total Protein 7.4 g/dL (6.4-8.2)
[2020-07-21 14:54] LABS: ESR 52 mm/hr (0-30)
== END 2020-07-21 19:20 ==
LOC: NCHCN 19:00
PROVIDERS: PCP Family Medicine; Visit Provider Family Medicine
DX: R63.6 Underweight (principal); M79.18 Myalgia, other site; E05.90 Thyrotoxicosis, unspecified without thyrotoxic crisis or storm
CPT/HCPCS: 80053; 85027; 85652; 84443; 86140

== ENCOUNTER 2020-12-16 09:35 | Outpatient (REF) | payer MEDICARE, BC, SELFPAY ==
[2020-12-16 11:05] LABS: Magnesium 1.7 mg/dL (1.8-2.4); Vitamin B12 502 pg/mL (193-986)
== END 2020-12-16 09:36 | disposition home or self-care (01) ==
LOC: NCHCN 09:35
PROVIDERS: PCP Family Medicine; Visit Provider Nurse Practitioner Family
DX: I10 Essential (primary) hypertension (principal); K21.9 Gastro-esophageal reflux disease without esophagitis
CPT/HCPCS: 82607; 83735

== ENCOUNTER 2020-12-31 16:01 | Outpatient (REF) | payer MEDICARE, BC, SELFPAY ==
[2020-12-31 14:32] LABS: Abs Immature Grans 0.04 10^3/uL (0.0-0.06); Absolute Basophil Count 0.05 10^3/uL (0.0-0.2); Absolute Eosinophil Count 0.13 10^3/uL (0.0-0.7); Absolute Lymphocyte Count 1.14 10^3/uL (1.2-3.4); Absolute Monocyte Count 1.12 10^3/uL (0.1-0.8); Absolute Neutrophil Count 7.27 10^3/uL (1.2-6.7); Basophils % 0.5; Eosinophils % 1.3; HCT 39.4 % (36.0-46.0); HGB 12.4 g/dL (11.2-15.7); Immature Grans % 0.4; Lymphocytes % 11.7; MCH 29.3 pg (27.0-33.0); MCHC 31.5 % (32.0-36.0); MCV 93.1 fL (80-95); MPV 10.2 fL (8.0-11.0); Monocytes % 11.5; Neutrophils % 74.6; Nucleated RBC 0 %; Platelet Count 348 10^3/uL (130-400); RBC 4.23 10^6/uL (3.93-5.22); RDW-SD 51.3 fL; WBC 9.75 10^3/uL (4.4-10.8)
[2020-12-31 14:41] LABS: ALT 11 U/L (14-59); AST 16 U/L (15-37); Albumin 3.4 g/dL (3.4-5.0); Alkaline Phosphatase 81 U/L (46-116); Anion Gap 8.1 mmol/L (3-11); BUN 29 mg/dL (7-18); Bilirubin, Total 0.2 mg/dL (0.2-1.0); CO2 27.9 mmol/L (21.0-32.0); CREATININE 0.7 mg/dL (0.55-1.02); Calcium 9.9 mg/dL (8.5-10.1); Chloride 106 mmol/L (98-107); Glucose 78 mg/dL (74-106); Potassium 4.8 mmol/L (3.5-5.1); Sodium 142 mmol/L (136-145); Total Protein 7.6 g/dL (6.4-8.2)
== END 2020-12-31 16:02 | disposition home or self-care (01) ==
LOC: NCHCN 16:01
PROVIDERS: PCP Family Medicine; Visit Provider Nurse Practitioner Family
DX: M06.9 Rheumatoid arthritis, unspecified (principal); Z51.81 Encounter for therapeutic drug level monitoring
CPT/HCPCS: 80053; 85025

== ENCOUNTER 2021-04-03 11:38 | Outpatient (REF) | payer MEDICARE, BC, SELFPAY ==
[2021-04-03 13:18] LABS: Magnesium 2.1 mg/dL (1.8-2.4)
[2021-04-03 13:29] LABS: Albumin 3.2 g/dL (3.4-5.0); Calcium 8.8 mg/dL (8.5-10.1); TSH 1.56 uIU/mL (0.36-3.74)
[2021-04-03 13:53] LABS: FREE T4 0.95 ng/dL (0.76-1.46); PHOSPHORUS 3.5 mg/dL (2.6-4.7)
[2021-04-04 09:41] LABS: Calcium (Random Urine) 5.8 mg/dL (See Note)
[2021-04-06 10:35] LABS: Parathyroid Hormone,Intact 60 pg/mL (19-88)
== END 2021-04-03 11:39 | disposition home or self-care (01) ==
LOC: LBN 11:38
PROVIDERS: PCP Family Medicine; Visit Provider Internal Medicine
DX: M81.0 Age-related osteoporosis without current pathological fracture (principal); E55.9 Vitamin D deficiency, unspecified; E83.42 Hypomagnesemia; E05.90 Thyrotoxicosis, unspecified without thyrotoxic crisis or storm; R63.6 Underweight; M06.9 Rheumatoid arthritis, unspecified; K51.90 Ulcerative colitis, unspecified, without complications; K21.9 Gastro-esophageal reflux disease without esophagitis; I25.10 Atherosclerotic heart disease of native coronary artery without angina pectoris
CPT/HCPCS: 82306; 82040; 82310; 82340; 83735; 83970; 84100; 84439; 84443

== ENCOUNTER 2021-05-15 03:13 | Outpatient (CLI) | payer MEDICARE, BC, SELFPAY ==
--- NOTE | 2021-05-15 | DI.RAD_ITS ---
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 TECHNIQUE: 2D digital imaging was performed. COMPARISON: CR XR hip RT complete AP pelvis from 06/13/2019 CR XR hip RT complete AP pelvis from 06/13/2019 FINDINGS: BONES: No acute fracture is present. No bony destructive lesion is seen. Degenerative disc changes L3-4 through L5-S1. Hardware in right proximal femur. JOINTS: Degenerative spurring at the SI joints. Facet joint degenerative changes. SOFT TISSUE: Small calcified fibroid. IMPRESSION: Unremarkable radiographs of the coccyx. DATA REPOSITORY: RADIATION DOSE DELIVERED:
== END 2021-05-15 03:33 ==
PROVIDERS: PCP Family Medicine; Visit Provider Family Medicine
DX: L89.152 Pressure ulcer of sacral region, stage 2 (principal)
CPT/HCPCS: 72220

== ENCOUNTER 2021-05-22 19:09 | Outpatient (REF) | payer MEDICARE, BC, SELFPAY ==
--- NOTE | 2021-07-15 08:57 | NS.NUTBLAN_ITS ---
Date of service: 07/15/21 Time of Service: 08:57 Nutritional Consult ASSESSMENT: Spoke to Leesa Hester RN at [facility] regarding referral for Ms. Stephenson for nutrition assessment due to poor appetite/weight loss and pressure wound on buttocks. 4'10 79 lbs, BMI 16.5, has lost 13 lbs in last 90 days (16% weight loss). PMH: RA, CAD, Hyperthyroidism, Ulcerative colitis and now with protein/calorie malnutrition due to significant weight loss as a result of poor appetite and inability to tolerate nutrition supplements such as Ensure/Boost. Pt has diarrhea with ensure/boost even when provided in 1 oz servings. Recent labs (04/03/21) indicate Vit D, TSH wnl. Meds include D3, Calcium, B vitamins. [facility] staff has been offering snacks, meals and/or supplements every 2-3 hours however Ms. Stephenson will not consume more than 25% of foods provided. Recommend appetite stimulant such as remeron, megace to stimulate appetite. Also, recommend assess ulcerative colitis as may need medication management/steroids for better digestion. Depression may also be a factor for poor appetite and needs to be assessed. Ms. Stephenson has increased nutrient needs in view of low weight, increased needs for healing of pressure wound. Recommend adding Proheal liquid protein supplement - 1 oz TID to provide additional 45 g protein. Also recommend MVI, Vit C 500 mg BID, 220 mg Zinc Sulfate x 14 days to aid in healing process. Estimated Needs: [id number] kcal, 50-60 g protein NUTRITIONAL DIAGNOSIS: Moderate malnutrition in view of significant weight loss as a result of decreasing appetite Invervention weekly weights Recommend adding appetite stimulant such as remeron/megace Recommend adding MVI, Vit C 500 mg BID, 220 mg zinc sulfate x 14 days to aid in wound healing Plan will be available prn Time Spent in Nutritional Counseling and Treatment: 20
== END 2021-05-22 19:10 | disposition home or self-care (01) ==
LOC: NCHCN 19:09
PROVIDERS: PCP Family Medicine; Visit Provider Nurse Practitioner Family
DX: N39.0 Urinary tract infection, site not specified (principal)
CPT/HCPCS: 87077; 87086; 87186

== ENCOUNTER 2021-08-27 01:12 | Outpatient (CLI) | payer MEDICARE, BC, SELFPAY ==
--- NOTE | 2021-08-27 | DI.DEXA_ITS ---
Exam(s) XR DEXA BONE DENSITY W/WO PATRIC EXAM: XR DEXA BONE DENSITY W/WO PATRIC CLINICAL HISTORY: OSTEOPOROSIS, ON FOSOMAX, M81.0 TECHNIQUE: Routine DEXA evaluation of the lumbar spine, hip, or forearm. COMPARISON: Compared to prior examination of January 2019 FINDINGS: Performed on a Hologic unit. Lateral image: No compression fracture evident. Lumbar Spine total T-score: 0.2. Prior 2019 reading was 0.0 Hip total T-score:Not performed due to the presence of hip hardware. Independent reading at the level of the femoral neck yields at T-score of . Forearm total T-score: -3.6 IMPRESSION: Bone mineral density measures in the osteoporosis range for the forearm bones, implying the fracture risk is moderate high. Note: Any spine fracture indicates 5x risk for subsequent spine fracture and 2x risk for subsequent h ip fracture. World Health Organization criteria for BMD interpretation classify patients: Normal...... T- Score at or above -1.0 Osteopenic... T- Score between -1.0 and -2.5 Osteoporosis... T-Score at or below -2.5
== END 2021-08-27 01:32 ==
PROVIDERS: PCP Family Medicine; Visit Provider Nurse Practitioner Family
DX: M81.0 Age-related osteoporosis without current pathological fracture (principal); Z13.820 Encounter for screening for osteoporosis
CPT/HCPCS: 77080

== ENCOUNTER 2021-10-14 00:22 | Outpatient (CLI) | payer MEDICARE, BC, SELFPAY ==
[2021-10-14] MEDS: Gadoterate meglumine 20 ML VIAL 7 ML IVP (12:51)
[2021-10-14] MEDS: Normal Saline Flush 10 ML SYR IVP (12:51)
--- NOTE | 2021-10-14 13:25 | DI.MRI_ITS ---
Exam(s) MR PELVIS WO/W EXAM: MR PELVIS WO/W CLINICAL HISTORY: PRESSURE ULCER OF SACRAL REGION L89.152 COMPARISON: No exams were available for comparison FINDINGS: There subcutaneous edema over the sacrum posteriorly. This extends down to the level of the lower sa theresa-coccyx. In addition, to the left of center at the upper gluteal fold level there is a subcutane ous abscess which measures 4 cm wide by 1.8 cm AP by 3.5 cm craniocaudal. This is at the left coccyg eal level. No abnormal intraosseous signal seen in the level of the ischial tuberosities. The lower sacrum-coccyx exhibits some mild increase intraosseous signal on STIR imaging but no conflu ent hypointense signal on precontrast non fat sat T1 weighted sequences (which is the most specific f inding for osteomyelitis). The overlying cortex appears intact. There is no abnormal enhancement in the overlying gluteal musculature. There is hardware in both hips. No asymmetric hip joint effusions. IMPRESSION: 1. Abnormal subcutaneous edema/fluid over the lower sacrum-coccyx region and there also appears to be a left of center upper gluteal fold abscess measuring 4 x 1.8 x 3.5 cm. 2. Mild increased signal in the subjacent lower sacrum dex coccyx but not pathognomonic of osteomyeli tis at this time. However, this patient is at significant risk for osteomyelitis at this level and i f clinically indicated repeat MRI in 1 week can be performed, earlier if clinically indicated. DATA REPOSITORY:
== END 2021-10-14 00:42 ==
PROVIDERS: PCP Family Medicine; Visit Provider Physician Assistant Medical
DX: L89.152 Pressure ulcer of sacral region, stage 2 (principal); R93.41 Abnormal radiologic findings on diagnostic imaging of renal pelvis, ureter, or bladder
CPT/HCPCS: 72197

== ENCOUNTER 2021-11-06 11:29 | Outpatient (CLI) | payer MEDICARE, BC, SELFPAY ==
[2021-11-08 15:31] LABS: COVID-19 RT-PCR UVMMC Result Negative (Negative)
== END 2021-11-06 11:30 | disposition home or self-care (01) ==
PROVIDERS: PCP Family Medicine; Visit Provider Nurse Practitioner Family
DX: Z20.822 Contact with and (suspected) exposure to COVID-19 (principal)
CPT/HCPCS: U0003

== ENCOUNTER 2022-03-05 21:24 | Outpatient (REF) | payer MEDICARE, BC, SELFPAY ==
[2022-03-06 14:30] LABS: COVID-19 RT-PCR UVMMC Result Positive (Negative)
== END 2022-03-05 21:25 | disposition home or self-care (01) ==
LOC: NCHCN 21:24
PROVIDERS: PCP Nurse Practitioner Family; Visit Provider Nurse Practitioner Family
DX: Z20.822 Contact with and (suspected) exposure to COVID-19 (principal)
CPT/HCPCS: U0003; U0005

== ENCOUNTER 2022-03-24 17:49 | Outpatient (REF) | payer MEDICARE, BC, SELFPAY ==
[2022-03-24 18:49] LABS: Abs Immature Grans 0.03 10^3/uL (0.0-0.06); Absolute Basophil Count 0.05 10^3/uL (0.0-0.2); Absolute Eosinophil Count 0.18 10^3/uL (0.0-0.7); Absolute Lymphocyte Count 1.27 10^3/uL (1.2-3.4); Absolute Monocyte Count 0.94 10^3/uL (0.1-0.8); Absolute Neutrophil Count 4.42 10^3/uL (1.2-6.7); Basophils % 0.7; Eosinophils % 2.6; HCT 35.8 % (36.0-46.0); HGB 11.3 g/dL (11.2-15.7); Immature Grans % 0.4; Lymphocytes % 18.4; MCH 29.7 pg (27.0-33.0); MCHC 31.6 % (32.0-36.0); MCV 94 fL (80-95); MPV 10.3 fL (8.0-11.0); Monocytes % 13.6; Neutrophils % 64.3; Platelet Count 271 10^3/uL (130-400); RBC 3.81 10^6/uL (3.93-5.22); RDW 15.8 % (11.7-14.6); RDW-SD 53.3 fL; WBC 6.89 10^3/uL (4.4-10.8)
[2022-03-24 18:53] LABS: ESR 72 mm/hr (0-30)
[2022-03-24 19:03] LABS: ALT 11 U/L (14-59); AST 15 U/L (15-37); Albumin 3.2 g/dL (3.4-5.0); Alkaline Phosphatase 84 U/L (46-116); Anion Gap 7.8 mmol/L (3-11); BUN 22 mg/dL (7-18); Bilirubin, Total 0.2 mg/dL (0.2-1.0); C-Reactive Protein 5.04 mg/dL (0.0-0.3); CO2 26.2 mmol/L (21.0-32.0); CREATININE 0.7 mg/dL (0.55-1.02); Calcium 8.7 mg/dL (8.5-10.1); Chloride 108 mmol/L (98-107); Glucose 87 mg/dL (74-106); Potassium 5.4 mmol/L (3.5-5.1); Sodium 142 mmol/L (136-145); Total Protein 7.1 g/dL (6.4-8.2)
== END 2022-03-24 17:50 | disposition home or self-care (01) ==
LOC: LBN 17:49
PROVIDERS: PCP Nurse Practitioner Family; Visit Provider Physician Assistant
DX: Z51.81 Encounter for therapeutic drug level monitoring (principal)
CPT/HCPCS: 80053; 85652; 85025; 86140

== ENCOUNTER 2022-04-05 16:17 | Outpatient (REF) | payer MEDICARE, BC, SELFPAY ==
[2022-04-05 18:56] LABS: Abs Immature Grans 0.06 10^3/uL (0.0-0.06); Absolute Basophil Count 0.06 10^3/uL (0.0-0.2); Absolute Lymphocyte Count 1.47 10^3/uL (1.2-3.4); Absolute Monocyte Count 1.06 10^3/uL (0.1-0.8); Absolute Neutrophil Count 5.21 10^3/uL (1.2-6.7); Basophils % 0.7; Bilirubin Negative (Negative); Blood Negative (Negative); Clarity Sl Cloudy (Clear); Eosinophils % 2.5; Glucose Negative (Negative); HCT 36.5 % (36.0-46.0); HGB 11.2 g/dL (11.2-15.7); Immature Grans % 0.7; Ketones Negative (Negative); Leukocyte Esterase Trace (Negative); Lymphocytes % 18.2; MCH 29.4 pg (27.0-33.0); MCHC 30.7 % (32.0-36.0); MCV 96 fL (80-95); MPV 10.2 fL (8.0-11.0); Monocytes % 13.2; Neutrophils % 64.7; Nitrite Negative (Negative); Platelet Count 356 10^3/uL (130-400); RBC 3.81 10^6/uL (3.93-5.22); RDW-SD 56.9 fL; Specific Gravity >= 1.030 (1.005-1.025); Urobilinogen 0.2 EU/dL (Up TO 0.2); WBC 8.06 10^3/uL (4.4-10.8); pH 5.5 (5-8)
[2022-04-05 19:09] LABS: Bacteria Few HPF (Negative); C & S Indicated? Yes; Casts Negative LPF (Negative); Crystals Negative HPF (Negative); Epithelial Cells Few HPF (Negative); Mucus Negative (Negative); RBC 0-2 HPF (0-2)
[2022-04-05 19:27] LABS: COMMENT (LAB VIEW ONLY) 88.24 mg/dL; Microalb ug/mg Crea 40.7 ug/mg Cr
[2022-04-05 19:48] LABS: ALT 13 U/L (14-59); AST 11 U/L (15-37); Albumin 3.4 g/dL (3.4-5.0); Alkaline Phosphatase 86 U/L (46-116); Anion Gap 11.1 mmol/L (3-11); BUN 28 mg/dL (7-18); Bilirubin, Total 0.1 mg/dL (0.2-1.0); CO2 24.9 mmol/L (21.0-32.0); CREATININE 0.8 mg/dL (0.55-1.02); Calcium 8.5 mg/dL (8.5-10.1); Chloride 109 mmol/L (98-107); FREE T4 1.01 ng/dL (0.76-1.46); Glucose 134 mg/dL (74-106); Magnesium 1.9 mg/dL (1.8-2.4); Sodium 145 mmol/L (136-145); TSH 1.56 uIU/mL (0.36-3.74); Total Protein 7.3 g/dL (6.4-8.2); Vitamin B12 414 pg/mL (193-986)
== END 2022-04-05 16:18 | disposition home or self-care (01) ==
LOC: NCHCN 16:17
PROVIDERS: PCP Nurse Practitioner Family; Visit Provider Nurse Practitioner Family
DX: I10 Essential (primary) hypertension (principal); E83.42 Hypomagnesemia; E05.90 Thyrotoxicosis, unspecified without thyrotoxic crisis or storm; D75.89 Other specified diseases of blood and blood-forming organs
CPT/HCPCS: 80053; 87077; 81003; 81015; 82043; 82570; 82607; 83735; 84439; 84443; 84481; 85025; 87086; 87186

== ENCOUNTER 2022-04-21 17:15 | Outpatient (REF) | payer MEDICARE, BC, SELFPAY ==
[2022-04-21 14:30] LABS: Anion Gap 7.9 mmol/L (3-11); BUN 27 mg/dL (7-18); CO2 26.1 mmol/L (21.0-32.0); CREATININE 0.6 mg/dL (0.55-1.02); Calcium 8.8 mg/dL (8.5-10.1); Chloride 103 mmol/L (98-107); Glucose 80 mg/dL (74-106); Potassium 5.3 mmol/L (3.5-5.1); Sodium 137 mmol/L (136-145)
== END 2022-04-21 17:16 | disposition home or self-care (01) ==
LOC: NCHCN 17:15
PROVIDERS: PCP Nurse Practitioner Family; Visit Provider Nurse Practitioner Family
DX: I10 Essential (primary) hypertension (principal)
CPT/HCPCS: 80048

== ENCOUNTER 2022-05-06 21:35 | Outpatient (REF) | payer MEDICARE, BC, SELFPAY ==
[2022-05-06 13:55] LABS: Albumin 3.5 g/dL (3.4-5.0); Anion Gap 9.6 mmol/L (3-11); BUN 26 mg/dL (7-18); CO2 26.4 mmol/L (21.0-32.0); CREATININE 0.7 mg/dL (0.55-1.02); Calcium 9.5 mg/dL (8.5-10.1); Chloride 103 mmol/L (98-107); Glucose 145 mg/dL (74-106); Potassium 4.8 mmol/L (3.5-5.1); Sodium 139 mmol/L (136-145)
== END 2022-05-06 21:36 | disposition home or self-care (01) ==
LOC: NCHCN 21:35
PROVIDERS: PCP Nurse Practitioner Family; Visit Provider Nurse Practitioner Family
DX: E87.5 Hyperkalemia (principal); R63.6 Underweight
CPT/HCPCS: 80048; 82040

== ENCOUNTER 2023-04-15 16:37 | Outpatient (REF) | payer MEDICARE, BC, SELFPAY ==
[2023-04-15 18:44] LABS: ALT 15 U/L (14-59); AST 15 U/L (15-37); Albumin 3.1 g/dL (3.4-5.0); Alkaline Phosphatase 62 U/L (46-116); Anion Gap 7.4 mmol/L (3-11); BUN 24 mg/dL (7-18); Bilirubin, Total 0.3 mg/dL (0.2-1.0); CO2 28.6 mmol/L (21.0-32.0); CREATININE 0.9 mg/dL (0.55-1.02); Calcium 9.5 mg/dL (8.5-10.1); Chloride 102 mmol/L (98-107); Estimated GFR 63.04 (mL/min/1.73m2); FREE T4 0.96 ng/dL (0.76-1.46); Glucose 107 mg/dL (74-106); Magnesium 1.9 mg/dL (1.8-2.4); Potassium 5.3 mmol/L (3.5-5.1); Sodium 138 mmol/L (136-145); TSH 0.66 uIU/mL (0.36-3.74); Total Protein 7.3 g/dL (6.4-8.2); Vitamin B12 1072 pg/mL (193-986)
[2023-04-16 22:15] LABS: T3,Free 5.1 pg/mL (2.8-5.3)
== END 2023-04-15 16:38 | disposition home or self-care (01) ==
LOC: NCHCN 16:37
PROVIDERS: PCP Nurse Practitioner Family; Visit Provider Nurse Practitioner Family
DX: E05.90 Thyrotoxicosis, unspecified without thyrotoxic crisis or storm (principal); E83.42 Hypomagnesemia; I10 Essential (primary) hypertension; K21.9 Gastro-esophageal reflux disease without esophagitis; Z79.899 Other long term (current) drug therapy
CPT/HCPCS: 80053; 82607; 83735; 84439; 84443; 84481

== ENCOUNTER 2023-06-27 13:22 | Outpatient (REF) | payer MEDICARE, BC, SELFPAY ==
[2023-06-27 15:09] LABS: Anion Gap 7.9 mmol/L (3-11); BUN 28 mg/dL (7-18); CO2 28.1 mmol/L (21.0-32.0); CREATININE 0.9 mg/dL (0.55-1.02); Calcium 9.6 mg/dL (8.5-10.1); Chloride 102 mmol/L (98-107); Estimated GFR 63.04 (mL/min/1.73m2); Glucose 110 mg/dL (74-106); Potassium 4.3 mmol/L (3.5-5.1); Sodium 138 mmol/L (136-145)
== END 2023-06-27 13:23 | disposition home or self-care (01) ==
LOC: NCHCN 13:22
PROVIDERS: PCP Nurse Practitioner Family; Visit Provider Nurse Practitioner Family
DX: I10 Essential (primary) hypertension (principal); E87.5 Hyperkalemia; I25.10 Atherosclerotic heart disease of native coronary artery without angina pectoris; K21.9 Gastro-esophageal reflux disease without esophagitis
CPT/HCPCS: 80048

== ENCOUNTER → 2023-11-10 02:20 | Outpatient (CLI) | payer MEDICARE, BC, SELFPAY ==
--- NOTE | 2023-11-10 | DI.DEXA_ITS ---
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 COMPARISON: CR XR DEXA BONE DENSITY W/WO PATRIC from 08/27/2021 FINDINGS: Performed on a HoloINFIMET unit. Lateral image: No compression fracture evident. Lumbar Spine total T-score:-0.7. Prior July 2021 reading was 0.2 Hip total T-score:Not performed Independent reading at the level of the femoral neck yields T-score of Forearm total T-score: -3.3. Prior reading was also in the osteoporosis range at -3.8 IMPRESSION: Bone mineral density measures in the osteoporosis range for the forearm-wrist. Fracture risk is high Note: Any spine fracture indicates 5x risk for subsequent spine fracture and 2x risk for subsequent h ip fracture. World Health Organization criteria for BMD interpretation classify patients: Normal...... T- Score at or above -1.0 Osteopenic... T- Score between -1.0 and -2.5 Osteoporosis... T-Score at or below -2.5
== END ==
PROVIDERS: PCP Nurse Practitioner Family; Visit Provider Nurse Practitioner Family
DX: M81.0 Age-related osteoporosis without current pathological fracture (principal); Z13.820 Encounter for screening for osteoporosis
CPT/HCPCS: 77080

== ENCOUNTER → 2023-11-22 09:50 | Outpatient (BNVA) | payer MEDICARE, BC, SELFPAY | PROVIDERS: PCP Nurse Practitioner Family; Referring Provider Nurse Practitioner Family; Visit Provider Surgery | DX: R22.32 Localized swelling, mass and lump, left upper limb (principal) | CPT/HCPCS: 99203 ==

== ENCOUNTER 2024-02-05 16:29 | Emergency (ER) | payer MEDICARE, BC, SELFPAY ==
[2024-02-05] VITALS (29 sets, daily range): BP systolic 115–169; BP diastolic 42–104; PULSE 53–65; RESP 14–16; TEMP 36.6; O2SAT 90–98
[2024-02-05] MEDS: Normal Saline 500 ML IV (17:00)
[2024-02-05 17:11] LABS: Abs Immature Grans 0.05 10^3/uL (0.0-0.06); Absolute Basophil Count 0.04 10^3/uL (0.0-0.2); Absolute Eosinophil Count 0.56 10^3/uL (0.0-0.7); Absolute Lymphocyte Count 0.99 10^3/uL (1.2-3.4); Absolute Monocyte Count 1.02 10^3/uL (0.1-0.8); Absolute Neutrophil Count 5.68 10^3/uL (1.2-6.7); Basophils % 0.5; Eosinophils % 6.7; HCT 38.3 % (36.0-46.0); HGB 12.1 g/dL (11.2-15.7); Immature Grans % 0.6; Lymphocytes % 11.9; MCH 30.8 pg (27.0-33.0); MCHC 31.6 % (32.0-36.0); MCV 98 fL (80-95); MPV 9.8 fL (8.0-11.0); Monocytes % 12.2; Neutrophils % 68.1; Platelet Count 252 10^3/uL (130-400); RBC 3.93 10^6/uL (3.93-5.22); RDW 16.5 % (11.7-14.6); RDW-SD 59.7 fL; WBC 8.34 10^3/uL (4.4-10.8)
[2024-02-05 17:26] LABS: ALT 13 U/L (14-59); AST 22 U/L (15-37); Albumin 3.3 g/dL (3.4-5.0); Alkaline Phosphatase 71 U/L (46-116); Anion Gap 10.6 mmol/L (3-11); BUN 43 mg/dL (7-18); Bilirubin, Total 0.3 mg/dL (0.2-1.0); CO2 22.4 mmol/L (21.0-32.0); CREATININE 1.2 mg/dL (0.55-1.02); Calcium 9.1 mg/dL (8.5-10.1); Chloride 107 mmol/L (98-107); Estimated GFR 44.36 (mL/min/1.73m2); Glucose 98 mg/dL (74-106); Magnesium 1.7 mg/dL (1.8-2.4); Sodium 140 mmol/L (136-145)
--- NOTE | 2024-02-05 17:50 | ED.GENADUL_ITS ---
Discharge Plan Disposition Patient Disposition: Home Discharge Details Clinical Impression: Acute dehydration, Diarrhea Primary Care Provider: Ekaterina Mcclain ED Provider: Anish Harrison Home Meds and New Rx's Prescriptions: No Action prednisone 5 mg tablet 5 mg PO DAILY vitamin B complex Tablet 1 tab PO DAILY loratadine [Allergy Relief (loratadine)] 10 mg tablet 10 mg PO DAILY mirtazapine [Remeron] 30 mg tablet 30 mg PO QHS tumeric 500 mg PO DAILY Slow-Mag 71.5 mg tablet,delayed release (DR/EC) 71.5 mg PO DAILY calcium carbonate [Tums] 200 mg calcium (500 mg) tablet,chewable 200 mg PO BID hydroxychloroquine 200 mg tablet 200 mg PO DAILY Patient Comments: 03.13.19 pt states her rhumatologist per her on this.HE cholecalciferol (vitamin D3) 2,000 UNIT tablet 2,000 unit PO DAILY fluticasone propionate [Flonase Allergy Relief] 9.9 ML spray,suspension 1 spray NS DAILY PRN metoprolol succinate 25 MG tablet extended release 24 hr 25 mg PO DAILY methimazole 5 MG tablet 5 mg PO DAILY acetaminophen [Tylenol] 325 mg tablet 650 mg PO TID PRN aspirin 81 mg tablet,delayed release (DR/EC) 81 mg PO DAILY gabapentin 300 mg capsule 300 mg PO TID Prolia 60 mg/mL syringe 60 mg subcut [id number] Patient Comments: due in february omeprazole 20 mg capsule,delayed release(DR/EC) 20 mg PO DAILY PRN albuterol sulfate [ProAir HFA] 90 mcg/actuation Hfa Aerosol Inhaler 2 puff Inhalation Q4H PRN PRN (Reason: Shortness Of Breath) Discharge Instructions Instructions: Dehydration (ED), Acute Diarrhea (ED) Additional Instructions: It is very important that you continue to stay well-hydrated while having diarrhea. We will call you if your stool specimen shows any results that need treatment Feel free to return to the emergency department for any new or significant worsening of symptoms such as fever chills, abdominal pain, blood or mucus in your stool. Referrals: Ekaterina Mcclain [Primary Care Provider] - 3 days (If not improving) HPI General Mode of arrival: ambulatory . Date/Time Provider Initiated Documentation: 02/05/24 16:30 . Limitations to Documentation: no limitations . Information obtained by: patient, family and RN notes reviewed . History of Present Illness 83 year old F presents to the emergency department with the chief complaint of Diarrhea, described as moderate, Patient started experiencing this day(s) (3) and it has been constant. No relieving factors improve symptom(s), No exacerbating factors reported . Patient notes no other symptoms.. Patient did receive the following treatments prior to arrival, none Related Data Home Medications Medication Instructions Recorded Confirmed cholecalciferol (vitamin D3) 50 2,000 unit PO DAILY 01/18/13 02/05/24 mcg (2,000 unit) tablet fluticasone propionate 50 1 spray NS DAILY PRN 10/27/15 02/05/24 mcg/actuation nasal spray,suspension (Flonase Allergy Relief) methimazole 5 mg tablet 5 mg PO DAILY 03/18/16 02/05/24 metoprolol succinate 25 mg 25 mg PO DAILY 03/18/16 02/05/24 tablet,extended release 24 hr hydroxychloroquine 200 mg tablet 200 mg PO DAILY 03/13/19 02/05/24 albuterol sulfate 90 mcg/actuation 2 puff inhalation Q4H PRN PRN 03/18/19 02/05/24 aerosol inhaler (ProAir HFA) Shortness Of Breath acetaminophen 325 mg tablet 650 mg PO TID PRN 06/13/19 02/05/24 (Tylenol) aspirin 81 mg tablet,delayed 81 mg PO DAILY 11/09/23 02/05/24 release denosumab 60 mg/mL subcutaneous 60 mg subcut [id number] 11/09/23 02/05/24 syringe (Prolia) gabapentin 300 mg capsule 300 mg PO TID 11/09/23 02/05/24 calcium carbonate 200 mg calcium 200 mg PO BID 11/22/23 02/05/24 (500 mg) chewable tablet (Tums) loratadine 10 mg tablet (Allergy 10 mg PO DAILY 11/22/23 02/05/24 Relief (loratadine)) magnesium chloride 71.5 mg 71.5 mg PO DAILY 11/22/23 02/05/24 (magnesium chloride) tablet,delayed release (Slow-Mag) mirtazapine 30 mg tablet (Remeron) 30 mg PO QHS 11/22/23 02/05/24 omeprazole 20 mg capsule,delayed 20 mg PO DAILY PRN 11/22/23 02/05/24 release prednisone 5 mg tablet 5 mg PO DAILY 11/22/23 02/05/24 tumeric 500 mg PO DAILY 11/22/23 02/05/24 vitamin B complex 1 tab PO DAILY 11/22/23 02/05/24 Allergies Allergy/AdvReac Type Severity Reaction Status Date / Time sulfasalazine AdvReac Intermediate Lupus Type Verified 02/05/24 16:36 Symptoms General Stated Complaint: Abd Prob DEIRDRE: 3 Review of Systems Constitutional Constitutional: Denies chills, Denies fever(s) and Reports poor appetite ENT Ears, Nose, Mouth, and Throat: Denies sore throat Cardiovascular Cardiovascular: Denies chest pain and Denies dyspnea Respiratory Respiratory: Denies cough and Denies dyspnea Gastrointestinal Gastrointestinal: Reports as per HPI, Denies abdominal pain, Denies hematochezia, Reports diarrhea, Denies nausea and Denies vomiting Exam Const General: cooperative Orientation: alert, awake and oriented x3 Resp Effort & Inspection: normal respiratory effort and able to speak in complete sentences Auscultation: clear to auscultation bilaterally Cardio Rate: regular rate Rhythm: regular rhythm Heart Sounds: S1 normal and S2 normal GI Inspection: normal to inspection Palpation: soft, not firm, no guarding, no masses, no pulsatile masses, not rigid and nontender Auscultation: normal bowel sounds Back/Spine/Pelvis Back: no CVA tenderness Neuro General: patient alert, patient awake, patient oriented x3, gait normal and moves all extremities Course Vital Signs Vital signs: Vital Signs Temperature 36.6 C 02/05/24 16:40 Pulse 60 02/05/24 16:40 Respiratory Rate 16 02/05/24 16:40 Blood Pressure 149/86 H 02/05/24 16:40 Pulse Oximetry 95 02/05/24 16:40 Temperature 36.6 C 02/05/24 16:40 Temperature Source Temporal Artery Scan 02/05/24 16:40 Pulse 60 02/05/24 16:40 Respiratory Rate 16 02/05/24 16:40 Respiratory Effort Normal, Non-Labored 02/05/24 16:43 Blood Pressure 149/86 H 02/05/24 16:40 Blood Pressure Position Supine 02/05/24 16:40 Pulse Oximetry 95 02/05/24 16:40 Oxygen Delivery Method Room Air 02/05/24 16:40 Oxygen Flow Rate 0 02/05/24 16:40 Pain Level 0 02/05/24 16:40 Lab/Test Results Lab/Test Results: Laboratory Tests Range/Units 02/05/24 16:56 WBC (4.4-10.8) 10^3/uL 8.34 RBC (3.93-5.22) 10^6/uL 3.93 Hgb (11.2-15.7) g/dL 12.1 Hct (36.0-46.0) % 38.3 MCV (80-95) fL 98 H MCH (27.0-33.0) pg 30.8 MCHC (32.0-36.0) % 31.6 L RDW (11.7-14.6) % 16.5 H Plt Count (130-400) 10^3/uL 252 MPV (8.0-11.0) fL 9.8 Immature Gran % 0.6 Neutrophils % 68.1 Lymphocytes % 11.9 Monocytes % 12.2 Eosinophils % 6.7 Basophils % 0.5 Nucleated RBC % (0.0-0.3) % 0.0 Absolute Neutrophils (1.2-6.7) 10^3/uL 5.68 Absolute Lymphocytes (1.2-3.4) 10^3/uL 0.99 L Absolute Monocytes (0.1-0.8) 10^3/uL 1.02 H Absolute Eosinophils (0.0-0.7) 10^3/uL 0.56 Absolute Basophils (0.0-0.2) 10^3/uL 0.04 Sodium (136-145) mmol/L 140 Potassium (3.5-5.1) mmol/L 5.0 Chloride (98-107) mmol/L 107 Carbon Dioxide (21.0-32.0) mmol/L 22.4 Anion Gap (3-11) mmol/L 10.6 BUN (7-18) mg/dL 43 H Creatinine (0.55-1.02) mg/dL 1.2 H Est GFR (CKD-EPI 2020) (mL/min/1.73m2) 44.36 Glucose (74-106) mg/dL 98 Calcium (8.5-10.1) mg/dL 9.1 Magnesium (1.8-2.4) mg/dL 1.7 L Total Bilirubin (0.2-1.0) mg/dL 0.3 AST (15-37) U/L 22 ALT (14-59) U/L 13 L Alkaline Phosphatase (46-116) U/L 71 Total Protein (6.4-8.2) g/dL 8.0 Albumin (3.4-5.0) g/dL 3.3 L Medical Decision Making Patient presenting the emergency department for chief complaint of diarrhea. Patient is a resident at [facility] and states that starting on Tuesday she started having some diarrhea. She has also had poor appetite since then but denies any pain or discomfort, fever or chills, or systemic symptoms. Patient denies any known food sources that could have caused illness, contact with any ill persons, or recent travel. Physical exam shows no tachycardia, no abdominal tenderness, stable vital signs, otherwise benign exam. Patient is alert and oriented. Given patient's age and frail appearance will check labs and give fluid bolus pending results. Labs reviewed and CBC is overall nondiagnostic with no significant leukocytosis or shift, CMP does show slight worsening of GFR which is typically in the 60s and now is 44 along with elevated BUN and creatinine. Will give additional 500 mL fluid bolus. Magnesium is 1.7 so we will give magnesium gluconate otherwise all other findings are nondiagnostic. We were able to obtain a stool specimen but was not able to obtain a appropriate urine specimen. Repeat BMP shows improved creatinine and decreased BUN with improved GFR. Labs are otherwise stable. Reassessed patient and patient was able to eat a sandwich, have multiple glasses of water, and got a total of 1 L of fluids. Given overall improvement and able to tolerate p.o. I do feel that patient is able to be safely discharged pending further results which I informed her and daughter that we will contact them if any results need treatment. After discussion of diagnosis and plan of care patient and family has no further needs, questions, or concerns and states clear understanding to return to the emergency department for any worsening symptoms. This documentation was generated using [employer] system, please disregard any oddities of phrase or misspellings. Lab Data Lab results reviewed: Yes I reviewed the patient's lab results. Quality:SDOH Health Related Social Needs: No Data to Display PFSH All Active Problems (Updated 02/05/24 @ 20:57 by Anish Harrison NP) Diarrhea (Acute) Acute dehydration (Acute) Nodule of skin of hand (Acute) Fatigue (Acute) Upper respiratory infection (Acute) Sensorineural hearing loss (Acute) Excessive cerumen in left ear canal (Acute) Excessive cerumen in right ear canal (Acute) Adrenal insufficiency (Acute) Methotrexate toxicity (Chronic) UTI (urinary tract infection), uncomplicated (Acute) Pneumonia (Acute) Acute blood loss anemia (Acute) Full code status (Acute) Leukocytosis (Acute) DVT prophylaxis (Acute) Discharge planning issues (Acute) Falls (Acute) Intertrochanteric fracture of right femur (Acute) Status post ORIF on 10/06/2018 H/O mitral valve replacement (Acute) Ulcerative colitis (Chronic) Hyperthyroidism (Chronic) DJD (degenerative joint disease) (Chronic) CAD (coronary artery disease) (Chronic) HTN (hypertension) (Chronic) Rheumatoid arthritis (Chronic) COPD (chronic obstructive pulmonary disease) (Chronic) Sensorineural hearing loss, bilateral (Acute 05/07/14) Medical History Cardiac arrhythmia Rheumatic disease of mitral valve Fx lower radius/ulna-closed Ulcerative colitis Chronic obstructive lung disease COPD (chronic obstructive pulmonary disease) Bilateral hearing loss History of hypertension Rhinitis Osteopenia Mitral valve disease Hyperthyroidism Colitis CAD (coronary artery disease) History of tobacco use Bigeminy Osteoporosis Hearing loss 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 Sister No problems noted. Sister No problems noted. Brother No problems noted. Social History Smoking/Tobacco Use Status: Former Tobacco Use Smoking risk assessment performed?: Yes Alcohol Intake: never Drug use: Never Substance use type: does not use Housing: assisted living facility Do you feel safe at home: Yes Do you feel safe in your relationship?: Yes Additional Social history: Baylee Yang
[2024-02-05] MEDS: Lactated Ringers 500 ML IV (18:07)
[2024-02-05] MEDS: Magnesium Gluconate 500 MG TAB PO (18:26)
--- NOTE | 2024-02-05 19:34 | NUR.NOTE ---
Pt is unable to produce urine or have a bowel movement at this time, pt was assisted to a bedside commode but was unable to go, DELLA
[2024-02-05 20:27] LABS: Anion Gap 11.7 mmol/L (3-11); BUN 40 mg/dL (7-18); CO2 22.3 mmol/L (21.0-32.0); Calcium 8.8 mg/dL (8.5-10.1); Chloride 109 mmol/L (98-107); Estimated GFR 55.21 (mL/min/1.73m2); Glucose 86 mg/dL (74-106); Potassium 4.4 mmol/L (3.5-5.1); Sodium 143 mmol/L (136-145)
--- NOTE | 2024-02-05 21:19 | NUR.NOTE ---
pt was never able to give a urine
[2024-02-05 21:28] LABS: C Diff PCR Negative (Negative)
[2024-02-06 19:54] LABS: Campylobacter PCR Negative (Negative); Salmonella PCR Negative (Negative); Shiga Toxin PCR Negative (Negative); Shigella/Enteroinvasive Ecoli Negative (Negative)
== END 2024-02-05 21:21 | disposition home or self-care (01) ==
PROVIDERS: Emergency Provider Nurse Practitioner Family; PCP Nurse Practitioner Family
DX: R19.7 Diarrhea, unspecified (principal); E86.0 Dehydration; I10 Essential (primary) hypertension; I25.10 Atherosclerotic heart disease of native coronary artery without angina pectoris; J44.9 Chronic obstructive pulmonary disease, unspecified; M06.9 Rheumatoid arthritis, unspecified; Z79.82 Long term (current) use of aspirin; Z95.2 Presence of prosthetic heart valve; Z87.891 Personal history of nicotine dependence
CPT/HCPCS: 80048; 80053; 87329; 87493; 87505; 96360; 96361; 99284; 83735; 85025

== ENCOUNTER 2024-02-10 18:03 | Outpatient (REF) | payer MEDICARE, BC, SELFPAY ==
[2024-02-10 17:35] LABS: Anion Gap 13.3 mmol/L (3-11); BUN 30 mg/dL (7-18); CO2 22.7 mmol/L (21.0-32.0); CREATININE 0.9 mg/dL (0.55-1.02); Calcium 9.2 mg/dL (8.5-10.1); Chloride 106 mmol/L (98-107); Estimated GFR 62.65 (mL/min/1.73m2); Glucose 133 mg/dL (74-106); Magnesium 1.4 mg/dL (1.8-2.4); Potassium 4.7 mmol/L (3.5-5.1); Sodium 142 mmol/L (136-145)
== END 2024-02-10 18:04 | disposition home or self-care (01) ==
LOC: NCHCN 18:03
PROVIDERS: PCP Nurse Practitioner Family; Visit Provider Nurse Practitioner Family
DX: E83.42 Hypomagnesemia (principal); I10 Essential (primary) hypertension
CPT/HCPCS: 80048; 83735

== ENCOUNTER → 2024-03-06 12:57 | Outpatient (BNVA) | payer MEDICARE, BC, SELFPAY | PROVIDERS: PCP Nurse Practitioner Family; Referring Provider Nurse Practitioner Family; Visit Provider Podiatrist | DX: Z51.89 Encounter for other specified aftercare (principal); L97.511 Non-pressure chronic ulcer of other part of right foot limited to breakdown of skin; M20.41 Other hammer toe(s) (acquired), right foot | CPT/HCPCS: 99214 ==

== ENCOUNTER → 2024-03-12 01:59 | Outpatient (CLI) | payer MEDICARE, BC, SELFPAY ==
--- NOTE | 2024-03-12 07:45 | DI.RAD_ITS ---
Exam(s) XR FOOT RT COMPLETE EXAM: XR FOOT RT COMPLETE CLINICAL HISTORY: Ulcer right second and third toe at DIP joint,m20.41,l97.511. TECHNIQUE: 2D digital imaging was performed of the right foot. Three images were obtained. AP, obl ique and lateral views were obtained. COMPARISON: No exams were available for comparison FINDINGS: BONES: There are areas of sclerosis involving the navicular, cuboid and calcaneus. These may represe nt stress fractures. Old healed fractures should also be considered. Metastatic disease cannot be e xcluded. No bony destructive lesion is seen. JOINTS: No dislocation present. Degenerative changes are seen in the foot. SOFT TISSUE: Normal. IMPRESSION: 1. Areas of sclerosis involving the cuboid, calcaneus and navicular bones as described above. MRI of the foot should be considered for further evaluation. 2. No destructive changes are seen at the interphalangeal joints of the 2nd and 3rd toe to suggest os teomyelitis. Portions of the 3rd toe are poorly visualized due to the positioning. If there is cont inued clinical concern, an MRI should be considered for further evaluation. DATA REPOSITORY: RADIATION DOSE DELIVERED:
--- NOTE | 2024-03-12 07:45 | DI.RAD_ITS ---
Exam(s) XR FOOT LT COMPLETE EXAM: XR FOOT LT COMPLETE CLINICAL HISTORY: Comparison views,pain lt foot, m79.672. TECHNIQUE: 2D digital imaging was performed of the left foot. Three images were obtained. AP, obli que and lateral views were obtained. COMPARISON: CR XR hip RT complete AP pelvis from 01/16/2019 CR XR FOOT RT COMPLETE from 03/12/2024 FINDINGS: BONES: No acute fracture is present. No bony destructive lesion is seen. The bones are osteopenic. T here is an old fracture deformity of the head of the proximal phalanx of the 2nd toe. There is scler osis seen in the proximal calcaneus. Similar findings are seen in the proximal cuboid bone. This ma y represent a fracture. JOINTS: No dislocation present. Degenerative changes are seen in the foot. SOFT TISSUE: Normal. IMPRESSION: Sclerotic changes are seen in the proximal calcaneus which may represent a stress fracture. Metastas is is considered less likely. Similar findings are also seen in the cuboid bone. MRI of the foot sh ould be considered for further evaluation. DATA REPOSITORY: RADIATION DOSE DELIVERED:
== END ==
PROVIDERS: PCP Nurse Practitioner Family; Visit Provider Podiatrist
DX: M20.41 Other hammer toe(s) (acquired), right foot (principal); L97.511 Non-pressure chronic ulcer of other part of right foot limited to breakdown of skin; M79.672 Pain in left foot
CPT/HCPCS: 73630

== ENCOUNTER → 2024-03-22 09:43 | Outpatient (BNVA) | payer MEDICARE, BC, SELFPAY | PROVIDERS: PCP Nurse Practitioner Family; Referring Provider Nurse Practitioner Family; Visit Provider Podiatrist | DX: Z51.89 Encounter for other specified aftercare (principal); L97.511 Non-pressure chronic ulcer of other part of right foot limited to breakdown of skin; M20.41 Other hammer toe(s) (acquired), right foot; D49.2 Neoplasm of unspecified behavior of bone, soft tissue, and skin; M79.671 Pain in right foot; T45.1X1A Poisoning by antineoplastic and immunosuppressive drugs, accidental (unintentional), initial encounter; M25.572 Pain in left ankle and joints of left foot | CPT/HCPCS: 99214 ==

== ENCOUNTER 2024-04-08 10:52 | Outpatient (REF) | payer MEDICARE, BC, SELFPAY ==
[2024-04-08 12:04] LABS: ALT 16 U/L (14-59); AST 16 U/L (15-37); Albumin 3.5 g/dL (3.4-5.0); Alkaline Phosphatase 68 U/L (46-116); Anion Gap 10.6 mmol/L (3-11); BUN 25 mg/dL (7-18); Bilirubin, Total 0.3 mg/dL (0.2-1.0); CO2 28.4 mmol/L (21.0-32.0); Calcium 9.1 mg/dL (8.5-10.1); Calculated LDL 77 mg/dL (<100); Chloride 102 mmol/L (98-107); Cholesterol 173 mg/dL (<200); Estimated GFR 55.21 (mL/min/1.73m2); Glucose 146 mg/dL (74-106); HDL Cholesterol 56 mg/dL (40-60); Magnesium 1.6 mg/dL (1.8-2.4); Potassium 4.7 mmol/L (3.5-5.1); Sodium 141 mmol/L (136-145); TSH 1.11 uIU/Ml (0.36-3.74); Total Protein 7.5 g/dL (6.4-8.2); Triglyceride 202 mg/dL (<150); Vitamin B12 1148 pg/mL (193-986); Vitamin D 25 Total 46.1 ng/mL (30-100)
[2024-04-08 12:21] LABS: FREE T4 0.84 ng/dL (0.76-1.46)
[2024-04-09 17:42] LABS: T3,Free 4.1 pg/mL (2.8-5.3)
== END 2024-04-08 10:53 | disposition home or self-care (01) ==
LOC: NCHCN 10:52
PROVIDERS: PCP Nurse Practitioner Family; Visit Provider Nurse Practitioner Family
DX: E05.90 Thyrotoxicosis, unspecified without thyrotoxic crisis or storm (principal); M81.0 Age-related osteoporosis without current pathological fracture
CPT/HCPCS: 80053; 80061; 82306; 82607; 83735; 84439; 84443; 84481

== ENCOUNTER → 2024-04-12 00:26 | Outpatient (CLI) | payer MEDICARE, BC, SELFPAY ==
--- NOTE | 2024-04-12 09:30 | DI.MRI_ITS ---
Exam(s) MR LOWER JOINT RT WO/W EXAM: MR LOWER JOINT RT WO/W CLINICAL HISTORY: Sclerotic changes to calc D49.2 NEOPLASM M25.571 PAIN RT ANKLE T45.1X1A. TECHNIQUE: Multiplanar multisequence MRI was performed. CONTRAST MATERIAL: IV Contrast: mL of Dotarem contrast administered. IV Contrast: 7 mL of Dotarem contrast administered. COMPARISON: None. FINDINGS: BONES/JOINTS: No acute fracture. There is abnormal signal seen in the body of the calcaneus which ma y represent an old fracture deformity. Abnormal hypointense signal is seen in the navicular on the T 1 weighted images which correspond to hyperintense signals on the T2 weighted images. The findings a re suspicious for avascular necrosis.. There is mild marrow edema seen in several tarsal bones. The re is articular cartilage thinning at the tibial talar joint. There is narrowing of the tibial talar joint space particularly laterally. There is a moderate tibiotalar joint effusion. LIGAMENTS: The tibiofibular and calcaneofibular ligaments are intact. The talofibular ligaments are i ntact. The deltoid ligament is intact. The syndesmosis is unremarkable. Sinus tarsi is normal. MUSCULOTENDINOUS STRUCTURES: Achilles tendon: Unremarkable. Plantar fascia: Unremarkable. Anterior Extensor tendons: There is a small amount of fluid seen around the extensor digitorum tendon s which may represent a tenosynovitis. Posterior Tibialis: There is a small amount of fluid seen around the tendon distally which may repres ent a tenosynovitis. Flexor Digitorum longus: Unremarkable. Flexor Hallucis longus: Unremarkable. Peroneus longus: Small amount of fluid around the peroneus brevis and longus tendons suggesting a ten osynovitis. Peroneus brevis:Small amount of fluid around the peroneus brevis and longus tendon suggesting tenosyn ovitis. SOFT TISSUES: Unremarkable. OTHER FINDINGS: None. ENHANCEMENT: IMPRESSION: 1. 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 2. Abnormal signal seen in the calcaneus which may represent a old fracture deformity. 3. Tenosynovitis of several tendons around the ankle as described above. 4. Arthrosis of the tibial talar joint with joint space narrowing particularly laterally. 5. Moderate tibial talar joint effusion. DATA REPOSITORY:
--- NOTE | 2024-04-12 09:30 | DI.MRI_ITS ---
Exam(s) MR LOWER JOINT LT WO/W EXAM: MR LOWER JOINT LT WO/W CLINICAL HISTORY: Sclerotic changes to calc T45.1X1A D49.2 NEOPLASM M25.572 PAIN LT ANKLE. TECHNIQUE: Multiplanar multisequence MRI was performed. CONTRAST MATERIAL: IV Contrast: 7 mL of Dotarem contrast administered. COMPARISON: Comparison x-ray is 03/12/2024. Comparison MRI is 01/01/2015. FINDINGS: BONES/JOINTS: There is an old fracture deformities seen in the body of the calcaneus. There is an ol d fracture deformities seen in the cuboid. There is an acute nondisplaced fracture involving the med ial malleolus. There is an acute fracture involving the lateral talar dome. No bone lesions identif ied. There is arthrosis of the tibial talar joint with loss of the articular cartilage, narrowing of the tibial talar joint and subchondral edema particularly medially. No joint effusion is present. LIGAMENTS: The tibiofibular and calcaneofibular ligaments are intact. There is mild hyperintense sign al seen in the posterior talonavicular ligament which may represent a sprain. The deltoid ligament i s intact. The syndesmosis is unremarkable. Sinus tarsi is normal. MUSCULOTENDINOUS STRUCTURES: Achilles tendon: Unremarkable. Plantar fascia: Unremarkable. Anterior Extensor tendons: Unremarkable. Posterior Tibialis: Unremarkable. Flexor Digitorum longus: Unremarkable. Flexor Hallucis longus: Unremarkable. Peroneus longus: Unremarkable. Peroneus brevis:Unremarkable. SOFT TISSUES: Unremarkable. OTHER FINDINGS: None. ENHANCEMENT: No suspicious enhancement is seen. IMPRESSION: 1. Old fracture deformities are seen in the calcaneus and the cuboid. These were present on the [facility] r MRI examination from 2014. 2. Linear hypointense signal seen in the lateral aspect of the talar dome which may represent an acut e fracture or avascular necrosis. 3. Linear abnormal signal seen in the base of the medial malleolus suspicious for fracture. CT corre lation is recommended. 4. Sprain of the posterior talonavicular ligament. 5. Arthrosis of the tibial talar joint as described above. DATA REPOSITORY:
[2024-04-12] MEDS: Gadoterate meglumine 20 ML SYRINGE 7 ML IVP (10:20)
[2024-04-12] MEDS: Normal Saline Flush 10 ML SYR IVP (10:20)
--- NOTE | 2024-04-12 13:26 | DI.VRAD_ITS ---
PROCEDURE INFORMATION: Exam: MR Right Lower Extremity Joint Without and With Contrast; Ankle Exam date and time: 04/12/2024 9:33 AM Age: 83 years old Clinical indication: Abnormal findings; Abnormal imaging study; Abnormal foot xray TECHNIQUE: Imaging protocol: Magnetic resonance imaging of the right lower extremity without and with contrast. Exam focused on the ankle. Contrast material: DOTAREM; Contrast volume: 7 ml; Contrast route: INTRAVENOUS (IV); COMPARISON: CR XR FOOT RT COMPLETE 03/12/2024 11:11 AM FINDINGS: Bones/joints: Moderate narrowing of the tibiotalar joint. Subchondral cystic changes present in the distal tibia and superior talus. Chronic fracture deformity of the mid calcaneus adjacent to the subtalar joint. Edema present in the mid/superior calcaneus. Degenerative narrowing of the subtalar joint. Posterior tibiotalar joint effusion. The navicular tarsal bone is fragmented. LIGAMENTS: Distal tibiofibular syndesmosis: Unremarkable. No tear. Anterior talofibular ligament: Unremarkable. No tear. Posterior talofibular ligament: Unremarkable. No tear. Calcaneofibular ligament: Chronically torn calcaneofibular ligament. Deltoid ligament complex: Unremarkable. No tear. TENDONS: Flexor tendons of foot: Unremarkable as visualized. Tibialis posterior tendon: Fluid present within the tibialis posterior tendon sheath. No tear. Peroneal tendons: Unremarkable as visualized. Extensor tendons of foot: Unremarkable as visualized. Tibialis anterior tendon: Unremarkable as visualized. Achilles tendon: Unremarkable as visualized. Tarsal canal (Sinus tarsi): Unremarkable. Normal signal of the fat. Tarsal tunnel: Unremarkable. Soft tissues: Unremarkable. Plantar fascia: Plantar fascia is unremarkable. IMPRESSION: 1. Fracture deformity of the mid calcaneus adjacent to the subtalar joint. Alternatively this could represent a chronic osteotomy site. 2. Fragmented navicular tarsal bone. 3. Moderate tibiotalar arthropathy. 4. Moderate subtalar arthropathy. 5. Chronically torn calcaneofibular ligament. 6. Tibialis posterior tenosynovitis. Dictated and Authenticated by: Felton Ovalle MD. Ordering:SARAH BETH Jean MD
--- NOTE | 2024-04-12 13:26 | DI.VRAD_ITS ---
Addendum created by Felton Ovalle MD on 04/12/2024 2:00:09 PM EDT: Possible chronic stress fracture of the proximal cuboid tarsal bone. Initial report created on 04/12/2024 1:25:17 PM EDT: PROCEDURE INFORMATION: Exam: MR Left Lower Extremity Joint Without and With Contrast; Ankle Exam date and time: 04/12/2024 10:12 AM Age: 83 years old Clinical indication: Abnormal findings; Abnormal imaging study; Abnormal foot xray TECHNIQUE: Imaging protocol: Magnetic resonance imaging of the left lower extremity without and with contrast. Exam focused on the ankle. Contrast material: DOTAREM; Contrast volume: 7 ml; Contrast route: INTRAVENOUS (IV); COMPARISON: CR XR FOOT LT COMPLETE 03/12/2024 11:11 AM. No report provided. FINDINGS: Bones/joints: Advanced degenerative narrowing of the tibiotalar joint. Subchondral cystic changes present of the distal tibia and talus. No bone marrow edema present in the distal tibia or fibula. Chronic fracture of the calcaneus adjacent to the subtalar joint. Degenerative narrowing of the calcaneal cuboid joint space. LIGAMENTS: Distal tibiofibular syndesmosis: Unremarkable. No tear. Anterior talofibular ligament: Unremarkable. No tear. Posterior talofibular ligament: Unremarkable. No tear. Calcaneofibular ligament: Calcaneal fibular ligament. Attenuated/torn. Deltoid ligament complex: Unremarkable. No tear. TENDONS: Flexor tendons of foot: Unremarkable as visualized. Tibialis posterior tendon: Unremarkable as visualized. Peroneal tendons: Unremarkable as visualized. Extensor tendons of foot: Unremarkable as visualized. Tibialis anterior tendon: Unremarkable as visualized. Achilles tendon: Unremarkable as visualized. Tarsal canal (Sinus tarsi): Unremarkable. Normal signal of the fat. Tarsal tunnel: Unremarkable. Soft tissues: Unremarkable. Plantar fascia: Plantar fascia is unremarkable. IMPRESSION: 1. Chronic fracture deformity of the mid calcaneus subjacent to the tub talar joint. 2. Advanced degenerative changes of the tibiotalar joint. 3. Degenerative changes of the subtalar and calcaneocuboid joints. 4. Chronically torn calcaneofibular ligament. Dictated and Authenticated by: Felton Ovalle MD. Ordering:SARAH BETH Jean MD
== END ==
PROVIDERS: PCP Nurse Practitioner Family; Visit Provider Podiatrist
DX: M17.11 Unilateral primary osteoarthritis, right knee; S93.492A Sprain of other ligament of left ankle, initial encounter; X58.XXXA Exposure to other specified factors, initial encounter
CPT/HCPCS: 73723

== ENCOUNTER → 2024-04-16 09:28 | Outpatient (BNVA) | payer MEDICARE, BC, SELFPAY | PROVIDERS: PCP Nurse Practitioner Family; Referring Provider Nurse Practitioner Family; Visit Provider Podiatrist | DX: Z09 Encounter for follow-up examination after completed treatment for conditions other than malignant neoplasm (principal); Z86.31 Personal history of diabetic foot ulcer; M19.071 Primary osteoarthritis, right ankle and foot; M19.072 Primary osteoarthritis, left ankle and foot; M87.074 Idiopathic aseptic necrosis of right foot; Z87.81 Personal history of (healed) traumatic fracture; M20.41 Other hammer toe(s) (acquired), right foot | CPT/HCPCS: 99213 ==

== ENCOUNTER 2024-05-01 15:12 | Outpatient (REF) | payer MEDICARE, BC, SELFPAY | END 2024-05-01 15:13 | disposition home or self-care (01) | LOC: NCHCN 15:12 | PROVIDERS: PCP Nurse Practitioner Family; Visit Provider Nurse Practitioner Family | DX: E83.42 Hypomagnesemia (principal) | CPT/HCPCS: 83735 ==

== ENCOUNTER → 2024-06-19 10:29 | Outpatient (BNVA) | payer MEDICARE, BC, SELFPAY | PROVIDERS: PCP Nurse Practitioner Family; Referring Provider Nurse Practitioner Family; Visit Provider Podiatrist | DX: Z51.89 Encounter for other specified aftercare (principal); L97.511 Non-pressure chronic ulcer of other part of right foot limited to breakdown of skin; M20.41 Other hammer toe(s) (acquired), right foot; D49.2 Neoplasm of unspecified behavior of bone, soft tissue, and skin; M79.671 Pain in right foot; T45.1X1A Poisoning by antineoplastic and immunosuppressive drugs, accidental (unintentional), initial encounter; M25.572 Pain in left ankle and joints of left foot; B35.1 Tinea unguium; L60.3 Nail dystrophy | CPT/HCPCS: 99214 ==

== ENCOUNTER 2024-09-10 15:30 | Inpatient (IN) | payer MEDICARE, BC, SELFPAY ==
[2024-09-10] VITALS (61 sets, daily range): BP systolic 151–210; BP diastolic 64–104; PULSE 66–90; RESP 13–30; TEMP 36.5; O2SAT 92–99
--- NOTE | 2024-09-10 15:30 | RT.EKG_ITS ---
APPROVED REPORT Exam: Resting ECG Reason for Exam: weakness Patient Location: E HR:71 bpm ECG Measurements Heart Rate 71 AXIS IA 164 P 49 QRSd 75 QRS -35 QT 408 T 56 QTc 442 Conclusion Sinus rhythm...normal P axis, V-rate 60- 99 no STEMI
--- NOTE | 2024-09-10 15:55 | W.ED.GENAD ---
Discharge Plan Disposition Patient Disposition: Admit to [facility] Discharge Details Clinical Impression: Acute dehydration, Enlarged gallbladder Primary Care Provider: Ekaterina Mcclain ED Provider: Kimber Shabazz Home Meds and New Rx's Prescriptions: No Action prednisone 5 mg tablet 5 mg PO DAILY vitamin B complex Tablet 1 tab PO DAILY loratadine [Allergy Relief (loratadine)] 10 mg tablet 10 mg PO DAILY mirtazapine [Remeron] 30 mg tablet 30 mg PO QHS tumeric 500 mg PO DAILY Slow-Mag 71.5 mg tablet,delayed release (DR/EC) 71.5 mg PO DAILY calcium carbonate [Tums] 200 mg calcium (500 mg) tablet,chewable 200 mg PO BID amoxicillin 500 mg capsule See Rx Instructions .ROUTE .COMPLEX Rx Instructions: 2,000mg; one hour prior to dental appointment hydroxychloroquine 200 mg tablet 200 mg PO DAILY Patient Comments: 03.13.19 pt states her rhumatologist per her on this.HE ketoconazole 2 % cream 1 applic topical DAILY Qty: 120 6RF Rx Instructions: Apply to toenails once daily urea 40 % cream 1 applic topical DAILY Qty: 28.35 3RF cholecalciferol (vitamin D3) 2,000 UNIT tablet 2,000 unit PO DAILY fluticasone propionate [Flonase Allergy Relief] 9.9 ML spray,suspension 1 spray NS DAILY PRN metoprolol succinate 25 MG tablet extended release 24 hr 25 mg PO DAILY methimazole 5 MG tablet 5 mg PO DAILY acetaminophen [Tylenol] 325 mg tablet 650 mg PO TID PRN aspirin 81 mg tablet,delayed release (DR/EC) 81 mg PO DAILY gabapentin 300 mg capsule 300 mg PO TID Prolia 60 mg/mL syringe 60 mg subcut [id number] Patient Comments: due in february benzonatate 100 mg capsule 100 mg PO BID-TID PRN omeprazole 20 mg capsule,delayed release(DR/EC) 20 mg PO DAILY PRN albuterol sulfate [ProAir HFA] 90 mcg/actuation Hfa Aerosol Inhaler 2 puff Inhalation Q4H PRN PRN (Reason: Shortness Of Breath) HPI General Date/Time Provider Initiated Documentation: 09/10/24 15:33. HPI Narrative: Ralf Govea) is a 83year old female who presents to the emergency department today for evaluation of weakness accompanied by fatigue, low appetite, and cough productive of mucus. She denies fever/chills, headache, dizziness, sore throat, congestion, chest pain, shortness of breath/difficulty breathing, nausea/vomiting, abdominal pain, change in bowel or bladder function. Symptoms started after receiving flu and COVID shot according to [facility] and staff.. Past medical history is significant for rheumatoid arthritis, CAD, hypothyroidism, mitral valve disease, adrenal insufficiency, COPD. Physical exam reassuring. Patient is alert and oriented, no acute distress. Easy work of breathing. Normal heart sounds, regular rate and rhythm. Easy work of breathing, lung sounds clear bilaterally. No cough during exam. Abdomen soft, nondistended, nontender to palpation. Moist mucous membranes. D/dx includes but is not limited to: Viral illness, cardiac arrhythmia, ACS, occult infection such as pneumonia or UTI, electrolyte imbalance, kidney or liver dysfunction I independently interpreted the following tests: EKG shows sinus rhythm, rate 71. New LVH since previous on 10/06/2018. No changes consistent with acute ischemia. CBC remarkable for leukocytosis, white cell count 13.42. Elevated BUN to creatinine ratio, 0.9-25. Troponin slightly elevated at 59. UA consistent with dehydration, with concentrated urine and positive ketones. No glucose in urine. Magnesium, TSH, COVID/flu/RSV all reassuring. While in the emergency department, Ray received zofran for nausea, was able to tolerate approx 8-[address] abd/pelvis performed, significant for enlarged gallbladder, concern for cholecystitis. On reassessment, no tenderness with palpation. However, suspicion still strong in patient with decreased PO intake and elevated WBCs. Will admit for IV hydration, abx, and US in AM with surgical consult. Dr Díaz agreeable with plan for admission. Related Data Home Medications ?Medication ?Instructions ?Recorded ?Confirmed cholecalciferol (vitamin D3) 50 2,000 unit PO DAILY 01/18/13 09/10/24 mcg (2,000 unit) tablet fluticasone propionate 50 1 spray NS DAILY PRN 10/27/15 09/10/24 mcg/actuation nasal spray,suspension (Flonase Allergy Relief) methimazole 5 mg tablet 5 mg PO DAILY 03/18/16 09/10/24 metoprolol succinate 25 mg 25 mg PO DAILY 03/18/16 09/10/24 tablet,extended release 24 hr hydroxychloroquine 200 mg tablet 200 mg PO DAILY 03/13/19 09/10/24 albuterol sulfate 90 mcg/actuation 2 puff inhalation Q4H PRN PRN 03/18/19 09/10/24 aerosol inhaler (ProAir HFA) Shortness Of Breath acetaminophen 325 mg tablet 650 mg PO TID PRN 06/13/19 09/10/24 (Tylenol) aspirin 81 mg tablet,delayed 81 mg PO DAILY 11/09/23 09/10/24 release denosumab 60 mg/mL subcutaneous 60 mg subcut [id number] 11/09/23 09/10/24 syringe (Prolia) gabapentin 300 mg capsule 300 mg PO TID 11/09/23 09/10/24 calcium carbonate (Tums) 200 mg PO BID 11/22/23 09/10/24 loratadine 10 mg tablet (Allergy 10 mg PO DAILY 11/22/23 09/10/24 Relief (loratadine)) magnesium chloride 71.5 mg 71.5 mg PO DAILY 11/22/23 09/10/24 (magnesium chloride) tablet,delayed release (Slow-Mag) mirtazapine 30 mg tablet (Remeron) 30 mg PO QHS 11/22/23 09/10/24 omeprazole 20 mg capsule,delayed 20 mg PO DAILY PRN 11/22/23 09/10/24 release prednisone 5 mg tablet 5 mg PO DAILY 11/22/23 09/10/24 tumeric 500 mg PO DAILY 11/22/23 09/10/24 vitamin B complex 1 tab PO DAILY 11/22/23 09/10/24 benzonatate 100 mg capsule 100 mg PO BID-TID PRN 02/13/24 09/10/24 amoxicillin 500 mg capsule See Rx Instructions .Route .COMPLEX 03/06/24 09/10/24 ketoconazole 2 % topical cream 1 applic topical DAILY #120 grams 06/19/24 09/10/24 urea 40 % topical cream 1 applic topical DAILY #28.35 grams 06/19/24 09/10/24 Previous Rx's ?Medication ?Instructions ?Recorded ketoconazole 2 % topical cream 1 applic topical DAILY #120 grams 06/19/24 urea 40 % topical cream 1 applic topical DAILY #28.35 grams 06/19/24 Allergies Allergy/AdvReac Type Severity Reaction Status Date / Time adhesive tape AdvReac Intermediate . Verified 04/16/24 09:34 lisinopril (From Zestril) AdvReac Intermediate hyperkalemi Verified 04/16/24 09:34 a sulfasalazine AdvReac Intermediate Lupus Type Verified 04/16/24 09:34 Symptoms General Stated Complaint: [employer] DEIRDRE: 3 Review of Systems Narrative: see HPI Exam Const General: cooperative, comfortable and no acute distress Nutritional Appearance: thin Orientation: alert and oriented x3 HENMT Face and sinus: dry mucous membranes Resp Effort & Inspection: normal respiratory effort and able to speak in complete sentences Auscultation: clear to auscultation bilaterally Cardio Rate: regular rate Rhythm: regular rhythm GI Inspection: normal to inspection and non-distended Palpation: soft, not rigid and nontender Course Vital Signs Vital signs: Vital Signs Temperature 36.5 C 09/10/24 15:32 Pulse 70 09/10/24 15:32 Respiratory Rate 20 09/10/24 15:32 Blood Pressure 210/100 H 09/10/24 15:32 Pulse Oximetry 98 09/10/24 15:32 Temperature 36.5 C 09/10/24 15:32 Pulse 70 09/10/24 15:32 Respiratory Rate 20 09/10/24 15:42 Respiratory Effort Normal 09/10/24 15:42 Respiratory Depth Normal 09/10/24 15:42 Respiratory Pattern Normal 09/10/24 15:42 Blood Pressure 157/88 H 09/10/24 15:48 Blood Pressure Position Supine 09/10/24 15:32 Pulse Oximetry 98 09/10/24 15:32 Oxygen Delivery Method Room Air 09/10/24 15:32 Oxygen Flow Rate 0 09/10/24 15:32 Pain Level 0 09/10/24 15:39 Medical Decision Making Imaging Data Radiologic Study: Radiologist's impression: [facility] Preliminary Radiology Report Call: [phone] assistance Online chat: [email or web address] Patient Name: CHAPIN MARTINEZ Institution Name: [place] [address] Study Type: CT ABDOMEN/PELVIS WCT CHEST W Ordered As: CT CHEST/ABD/PELVIS W Date of Dictation: 10 Sep 2024 EST Date of Exam: 10 Sep 2024 EST Account Number: Patient : 1940 Patient Location: er Paint Mixer: Referring Physician: KIMBER SHABAZZ This interpretation is based upon the receipt of 1124 images. Page 1 of 3 PROCEDURE INFORMATION: Exam: CT Chest With Contrast; Diagnostic Exam date and time: 09/10/2024 9:02 PM Age: 83 years old Clinical indication: Prior surgery; Surgery date: 6+ months; Surgery type: Mitral valve replacement, bilat hips; Patient HX: Cough, decreased po intake TECHNIQUE: Imaging protocol: Diagnostic computed tomography of the chest with contrast. 3D rendering (Not supervised by radiologist): MIP and/or 3D reconstructed images were created by the technologist. Radiation optimization: All CT scans at this facility use at least one of these dose optimization techniques: automated exposure control; mA and/or kV adjustment per patient size (includes targeted exams where dose is matched to clinical indication); or iterative reconstruction. Contrast material: OMNIPAQUE 350; Contrast volume: 85 ml; Contrast route: INTRAVENOUS (IV); COMPARISON: CR XR CHEST 2V PA LATERAL 09/10/2024 5:53 PM FINDINGS: Thyroid: Heterogeneous enlarged thyroid with multiple thyroid nodules measuring up to 1.1 cm in the right thyroid lobe. Lungs: Bilateral apical fibrotic changes. Bilateral lower lobe atelectasis. No focal consolidation. Pleural spaces: Unremarkable. No pneumothorax. No pleural effusion. Heart: Post mitral valve replacement. Coronary arteries: Mild coronary calcifications. Lymph nodes: Unremarkable. No enlarged lymph nodes. Vasculature: Unremarkable. No aortic aneurysm. Diaphragm: Small hiatal hernia. Bones/joints: Mild curvature of the thoracolumbar spine convex to the right. Small multilevel anterior osteophytes of the thoracic spine, consistent with mild degenerative disease. Soft tissues: Unremarkable. IMPRESSION: No acute cardiopulmonary process. PROCEDURE INFORMATION: Exam: CT Abdomen And Pelvis With Contrast Exam date and time: 09/10/2024 9:02 PM Age: 83 years old Clinical indication: Prior surgery; Surgery date: 6+ months; Surgery type: Mitral valve replacement, bilat hips; Patient HX: Cough, decreased po intake TECHNIQUE: Imaging protocol: Computed tomography of the abdomen and pelvis with contrast. 3D rendering (Not supervised by radiologist): MIP and/or 3D reconstructed images were created by the technologist. Radiation optimization: All CT scans at this facility use at least one of these dose optimization techniques: automated exposure control; mA and/or kV adjustment per patient size (includes targeted exams where dose is matched to clinical indication); or iterative reconstruction. Contrast material: OMNIPAQUE 350; Contrast volume: 85 ml; Contrast route: INTRAVENOUS (IV); COMPARISON: MR PELVIS WO/W 10/14/2021 12:28 PM FINDINGS: Liver: Normal. No mass. Gallbladder and biliary ducts: Over distended gallbladder with mild gallbladder wall thickening. Pancreas: Normal. No ductal dilation. Spleen: Normal. No splenomegaly. Adrenal glands: Normal. No mass. Kidneys and ureters: Multifocal cortical scarring both kidneys, from prior insult. Bilateral simple renal cysts measuring up to 2.1 cm in the upper pole of the left kidney. There is no evidence of hydronephrosis. Stomach and bowel: Diverticulosis of the sigmoid colon. Appendix: No evidence of appendicitis. Intraperitoneal space: Unremarkable. No free air. No significant fluid collection. Vasculature: There are vascular calcifications. Lymph nodes: Unremarkable. No enlarged lymph nodes. Urinary bladder: Unremarkable as visualized. Reproductive: Unremarkable as visualized. Bones/joints: Bilateral ORIF hardware of the femurs. Chondrocalcinosis of the symphysis pubis. Mild degenerative disease of bilateral sacroiliac joints. Mild degenerative disease of bilateral hip joints. Mild retrolisthesis of L1 over L2. Multilevel posterior osteophytes of the lumbar spine with mild bony canal stenosis. Soft tissues: Unremarkable. IMPRESSION: Over distended gallbladder with mild gallbladder wall thickening to be correlated with physical exam and ultrasound if clinically warranted to rule out acute cholecystitis. Quality:[facility] Related Social Needs: No Data to Display PFSH All Active Problems Nail dystrophy (Acute) Onychomycosis (Acute) Skin lesion (Acute) Stress fracture of right calcaneus (Acute) Pain in right ankle (Acute) Pain in left ankle (Acute) Pain in right foot (Acute) Neoplasm of calcaneus (Acute) Pain in left foot (Acute) Hammertoe of right foot (Acute) Ulcer of right foot limited to breakdown of skin (Acute) Osteoporosis (Chronic) CAD (coronary artery disease) (Chronic) Hyperthyroidism (Chronic) Mitral valve disease (Acute) Chronic rhinitis (Acute) Bilateral hearing loss (Acute) Nicotine dependence (Acute) Nodule of skin of hand (Acute) Adrenal insufficiency (Acute) Methotrexate toxicity (Chronic) Full code status (Acute) Leukocytosis (Acute) DVT prophylaxis (Acute) Falls (Acute) Ulcerative colitis (Chronic) DJD (degenerative joint disease) (Chronic) HTN (hypertension) (Chronic) Rheumatoid arthritis (Chronic) COPD (chronic obstructive pulmonary disease) (Chronic) Sensorineural hearing loss, bilateral (Acute 05/07/14) Medical History Intertrochanteric fracture of right femur Status post ORIF on 10/06/2018 Discharge planning issues Acute blood loss anemia Pneumonia UTI (urinary tract infection), uncomplicated Excessive cerumen in right ear canal Excessive cerumen in left ear canal Sensorineural hearing loss Upper respiratory infection Fatigue Hyperkalemia Thyrotoxicosis Cardiac arrhythmia Rheumatic disease of mitral valve Fx lower radius/ulna-closed Ulcerative colitis History of hypertension Rhinitis Colitis History of tobacco use Bigeminy Hearing loss right hearing aid/deaf in left ear Surgical History H/O mitral valve replacement Fracture of right hip requiring operative repair Colonoscopy - MAC (03/22/18) Colonoscopy - IV Sedation (~2008) Family History Mother Asthma Father No problems noted. Sister No problems noted. Sister No problems noted. Brother No problems noted. Social History Smoking/Tobacco Use Status: Former Tobacco Use Smoking risk assessment performed?: Yes Alcohol Intake: never Drug use: Never Substance use type: does not use Housing: assisted living facility Do you feel safe at home: Yes Do you feel safe in your relationship?: Yes Additional Social history: [facility]lee Yang
[2024-09-10 16:05] LABS: Absolute Basophil Count 0.08 10^3/uL (0.0-0.2); Absolute Eosinophil Count 0.09 10^3/uL (0.0-0.7); Absolute Monocyte Count 1.13 10^3/uL (0.1-0.8); Basophils % 0.6 %; Eosinophils % 0.7 %; HCT 43.1 % (36.0-46.0); HGB 13.5 g/dL (11.2-15.7); Immature Grans % 0.7 %; Lymphocytes % 8.9 %; MCH 29.2 pg (27.0-33.0); MCHC 31.3 % (32.0-36.0); MCV 93 fL (80-95); MPV 9.7 fL (8.0-11.0); Monocytes % 8.4 %; Neutrophils % 80.7 %; Platelet Count 376 10^3/uL (130-400); RBC 4.62 10^6/uL (3.93-5.22); RDW 15.7 % (11.7-14.6); WBC 13.42 10^3/uL (4.4-10.8)
[2024-09-10 16:08] LABS: Absolute Lymphocyte Count 1.19 10^3/uL (1.2-3.4); Absolute Neutrophil Count 10.83 10^3/uL (1.2-6.7)
[2024-09-10 16:41] LABS: COVID-19 PCR Negative (Negative); Influenza A PCR Negative (Negative); Influenza B PCR Negative (Negative); RSV PCR Negative (Negative)
[2024-09-10 16:44] LABS: Source Nasopharynx
[2024-09-10 16:46] LABS: ALT 17 U/L (14-59); AST 29 U/L (15-37); Albumin 3.7 g/dL (3.4-5.0); Alkaline Phosphatase 80 U/L (46-116); Anion Gap 16.5 mmol/L (3-11); BUN 25 mg/dL (7-18); Bilirubin, Total 0.43 mg/dL (0.2-1.0); CO2 21.5 mmol/L (21.0-32.0); CREATININE 0.9 mg/dL (0.55-1.02); Calcium 9.5 mg/dL (8.5-10.1); Chloride 107 mmol/L (98-107); Estimated GFR 62.65 (mL/min/1.73m2); Glucose 70 mg/dL (74-106); Magnesium 2.2 mg/dL (1.8-2.4); Potassium 4.8 mmol/L (3.5-5.1); Sodium 145 mmol/L (136-145); TSH (W/Ref FT4) 0.79 uIU/mL (0.36-3.74); Total Protein 8.7 g/dL (6.4-8.2)
[2024-09-10 16:48] LABS: Troponin I 59 ng/L (<or=51)
[2024-09-10 17:48] LABS: Bilirubin Moderate (Negative); Blood Trace-lysed (Negative); Clarity Clear (Clear); Glucose Negative (Negative); Ketones 40 mg/dL (Negative); Leukocyte Esterase Negative (Negative); Nitrite Negative (Negative); Specific Gravity >= 1.030 (1.005-1.025); Urobilinogen 0.2 mg/dL (Up to 0.2)
[2024-09-10 17:54] LABS: Bacteria Few HPF (Negative); Epithelial Cells Few HPF (Negative); RBC 0-2 HPF (0-2)
[2024-09-10 17:56] LABS: C & S Indicated? No; Casts 0-2 Coarse Granular LPF (Negative)
--- NOTE | 2024-09-10 17:58 | DI.RAD_ITS ---
Exam(s) XR CHEST 2V PA LATERAL EXAM: XR CHEST 2V PA LATERAL CLINICAL HISTORY: cough, feeling unwell TECHNIQUE: 2D digital imaging was performed of the chest. Two images were obtained. AP and lateral views were obtained. COMPARISON: CR XR CHEST 2V PA LATERAL from 03/16/2019 FINDINGS: MEDIASTINUM: Normal. HEART: Normal. There is again seen a mitral valve replacement. PULMONARY VASCULATURE: Normal. LUNGS: Chronic interstitial changes are seen in the lungs. No focal consolidating infiltrates are pr esent. PLEURAL SPACE: No pleural effusion or pneumothorax. BONE:Within normal limits for the patient's age. OTHER FINDINGS:Normal. IMPRESSION: No acute pulmonary findings. DATA REPOSITORY: RADIATION DOSE DELIVERED:
[2024-09-10 18:04] LABS: Troponin I 65 ng/L (<or=51)
[2024-09-10 19:16] LABS: Troponin I 66 ng/L (<or=51)
--- NOTE | 2024-09-10 19:30 | DI.CT_ITS ---
Exam(s) CT CHEST/ABD/PEL W EXAM: CT CHEST/ABD/PEL W CLINICAL HISTORY: cough with decreased PO intake. TECHNIQUE: Imaging Protocol: Axial computed tomography images with coronal and sagittal reformatted images were created and reviewed. Computer aided detection (CAD) was utilized. CONTRAST MATERIAL: Intravenous: Omnipaque 350 Contrast volume:85 ml Oral: / no COMPARISON: CT CT CHEST W from 02/22/2019 FINDINGS: CHEST: Tracheobronchial tree: Patent. Pulmonary parenchyma: Evaluation mildly limited by respiratory motion. Mild emphysematous changes. No consolidation or dominant measurable mass. Apical fibrotic changes. Atelectasis bilateral lower lobes. Pleura: No effusion or pneumothorax. Mediastinum: Moderate size hiatal hernia. Aorta: Thoracic portion non-dilated. Pulmonary arteries: No visible emboli. Heart: Status post mitral valve replacement. No pericardial effusion. Left atrial enlargement. Bones: Mild scoliosis. Degenerative changes. No lytic or blastic lesions.No compression fractures. Soft tissues: Unremarkable. ABDOMEN and PELVIS: Liver: Normal density. No measurable mass. Gallbladder and biliary tract: No calcified stones borderline wall thickening. Mild biliary dilatati on which could be within normal limits for the patient's age. No visible common duct stone.. Pancreas: Normal density, no abnormal calcifications or inflammatory process. Spleen: Normal. Kidneys: Normal size, contour and axis. No radiodense stones. No obstructive uropathy. No suspicious masses seen. Adrenal glands: No masses seen. Aorta: Abdominal portion non-dilated. Lymph nodes: Within normal limits. Soft tissues: Unremarkable. Bladder: Unremarkable. Bowel: No obstruction or bowel wall thickening. Extensive diverticulosis. Peritoneal cavity: No ascites. No focal collection. No mesenteric inflammatory response. No free ai r. Bones: Bilateral proximal femoral hardware. Degenerative changes of the hips and lumbar spine. Comp ression fractures. Reproductive organs: Within normal limits. IMPRESSION: No acute abnormality in the chest. Gallbladder is overly distended and shows borderline wall thickening. No visible calcified gallstone s. No definite biliary dilatation or common duct stone. RADIATION DOSE DELIVERED: 131.53mGy.cm Total DLP DATA REPOSITORY: All CT scans at this facility are submitted to the National Radiology Data Registry (NRDR) Dose Index Registry (DIR) with the [employer] (A[employer]). RADIATION OPTIMIZATION: All CT scans at this facility use at least one of these dose optimization te chniques: automated exposure control; mA and/or kV adjustment per patient size (includes targeted exa ms where dose is matched to clinical indication); or iterative reconstruction.
[2024-09-10] MEDS: Normal Saline Flush 10 ML SYR IVP (19:57)
[2024-09-10] MEDS: Ondansetron 4 MG/2 ML VIAL IVP (20:10)
[2024-09-10] MEDS: Normal Saline - Diluent 50 ML VIAL IJ (20:55)
[2024-09-10] MEDS: Omnipaque 350 MG/ML 100 ML BTL IJ (20:56)
--- NOTE | 2024-09-10 22:10 | DI.VRAD_ITS ---
PROCEDURE INFORMATION: Exam: CT Chest With Contrast; Diagnostic Exam date and time: 09/10/2024 9:02 PM Age: 83 years old Clinical indication: Prior surgery; Surgery date: 6+ months; Surgery type: Mitral valve replacement, bilat hips; Patient HX: Cough, decreased po intake TECHNIQUE: Imaging protocol: Diagnostic computed tomography of the chest with contrast. 3D rendering (Not supervised by radiologist): MIP and/or 3D reconstructed images were created by the technologist. Radiation optimization: All CT scans at this facility use at least one of these dose optimization techniques: automated exposure control; mA and/or kV adjustment per patient size (includes targeted exams where dose is matched to clinical indication); or iterative reconstruction. Contrast material: OMNIPAQUE 350; Contrast volume: 85 ml; Contrast route: INTRAVENOUS (IV); COMPARISON: CR XR CHEST 2V PA LATERAL 09/10/2024 5:53 PM FINDINGS: Thyroid: Heterogeneous enlarged thyroid with multiple thyroid nodules measuring up to 1.1 cm in the right thyroid lobe. Lungs: Bilateral apical fibrotic changes. Bilateral lower lobe atelectasis. No focal consolidation. Pleural spaces: Unremarkable. No pneumothorax. No pleural effusion. Heart: Post mitral valve replacement. Coronary arteries: Mild coronary calcifications. Lymph nodes: Unremarkable. No enlarged lymph nodes. Vasculature: Unremarkable. No aortic aneurysm. Diaphragm: Small hiatal hernia. Bones/joints: Mild curvature of the thoracolumbar spine convex to the right. Small multilevel anterior osteophytes of the thoracic spine, consistent with mild degenerative disease. Soft tissues: Unremarkable. IMPRESSION: No acute cardiopulmonary process. PROCEDURE INFORMATION: Exam: CT Abdomen And Pelvis With Contrast Exam date and time: 09/10/2024 9:02 PM Age: 83 years old Clinical indication: Prior surgery; Surgery date: 6+ months; Surgery type: Mitral valve replacement, bilat hips; Patient HX: Cough, decreased po intake TECHNIQUE: Imaging protocol: Computed tomography of the abdomen and pelvis with contrast. 3D rendering (Not supervised by radiologist): MIP and/or 3D reconstructed images were created by the technologist. Radiation optimization: All CT scans at this facility use at least one of these dose optimization techniques: automated exposure control; mA and/or kV adjustment per patient size (includes targeted exams where dose is matched to clinical indication); or iterative reconstruction. Contrast material: OMNIPAQUE 350; Contrast volume: 85 ml; Contrast route: INTRAVENOUS (IV); COMPARISON: MR PELVIS WO/W 10/14/2021 12:28 PM FINDINGS: Liver: Normal. No mass. Gallbladder and biliary ducts: Over distended gallbladder with mild gallbladder wall thickening. Pancreas: Normal. No ductal dilation. Spleen: Normal. No splenomegaly. Adrenal glands: Normal. No mass. Kidneys and ureters: Multifocal cortical scarring both kidneys, from prior insult. Bilateral simple renal cysts measuring up to 2.1 cm in the upper pole of the left kidney. There is no evidence of hydronephrosis. Stomach and bowel: Diverticulosis of the sigmoid colon. Appendix: No evidence of appendicitis. Intraperitoneal space: Unremarkable. No free air. No significant fluid collection. Vasculature: There are vascular calcifications. Lymph nodes: Unremarkable. No enlarged lymph nodes. Urinary bladder: Unremarkable as visualized. Reproductive: Unremarkable as visualized. Bones/joints: Bilateral ORIF hardware of the femurs. Chondrocalcinosis of the symphysis pubis. Mild degenerative disease of bilateral sacroiliac joints. Mild degenerative disease of bilateral hip joints. Mild retrolisthesis of L1 over L2. Multilevel posterior osteophytes of the lumbar spine with mild bony canal stenosis. Soft tissues: Unremarkable. IMPRESSION: Over distended gallbladder with mild gallbladder wall thickening to be correlated with physical exam and ultrasound if clinically warranted to rule out acute cholecystitis. Dictated and Authenticated by: Bennie Lee MD. Ordering:SAMAN Quiroga MD
[2024-09-10] MEDS: Normal Saline 500 ML 1000 ML IV (22:25)
[2024-09-10] MEDS: Refresh PLUS Eye Drops 0.4ml 1 EACH OU (22:57)
--- NOTE | 2024-09-10 23:04 | HPE_ITS ---
Date of service: 09/10/24 Time of Service: 23:06 Assessment and Plan Assessment and plan (1) Acute dehydration: Start date: 09/10/24 Status: Acute Assessment and plan: This is an 83-year-old lady who has had decreased intake over the last several days at [facility] which is a level 3 facility. She has had some nausea in the ED and imaging did reveal probable acute cholecystitis as a cause of her decreased appetite. She will be rehydrated and monitor closely for cardiac decompensation with troponin slightly elevated but no evidence of ischemia or dysrhythmia clinically. She is a full code. (2) Cholecystitis, acute: Start date: 09/10/24 Status: Acute Assessment and plan: Minimal abdominal symptoms but presents with nausea and vomiting and poor intake and dehydration. IV hydration with planned ultrasound of the abdomen in the morning and surgical consultation. Initiate Zosyn IV until surgical consultation and recommendations. Patient is a full code and with elevated troponins which appear to be secondary to strain rather than primary acute coronary syndrome, patient will need to be medically cleared if surgery is entertained. (3) Adrenal insufficiency: Status: Chronic Assessment and plan: With hypoglycemia with no hypotension, stress steroids will be given with IV hydrocortisone. Monitor glucometers before meals and at bedtime with treatment of hypoglycemia if symptomatic. (4) Elevated troponin level not due myocardial infarction: Start date: 09/10/24 Status: Acute Assessment and plan: Gradually elevating and will trend with continued cardiac monitoring. Update Echocardiogram with monitoring for fluid overload with hydration. (5) HTN (hypertension): Status: Chronic Assessment and plan: Continue outpatient medical regimen and adjust as needed. Qualifiers: Hypertension type: primary hypertension Qualified Code(s): I10 - Essential (primary) hypertension (6) Hyperthyroidism: Status: Chronic Assessment and plan: Continue outpatient medical regimen. (7) Rheumatoid arthritis: Status: Chronic Assessment and plan: Clinically stable on immunosuppressive therapy which may cause complications with acute infection and cholecystitis. Qualifiers: Rheumatoid arthritis location: other site Rheumatoid factor presence: u nspecified presence Qualified Code(s): M06.9 - Rheumatoid arthritis, unspecified History of Present Illness History of Present Illness Chief Complaint: Decreased intake with loss of appetite and weakness, cough without fever Narrative: This is an 83-year-old female patient who resides at the [facility] and is very hard of hearing presenting with generalized weakness and decreased intake with decreased appetite as well as cough with slight mucus production. Imaging did not reveal an acute pneumonia and she did have some nausea in the ED though she does not complain of abdominal discomfort. She had recent received her flu and COVID vaccines. In the ED, evaluation did reveal the patient to be dehydrated with concentrated urine but normal creatinine, elevated troponins which were marginal and thought to be secondary to the acute distress with elevated anion gap and BUN as well as low glucose with a history of adrenal insufficiency on prednisone daily. She also has a history of rheumatoid arthritis with treatment compromising her immunity. Her troponins were just above 60 and plateauing with follow-up to be done.. WBC was slightly elevated at 13 but she was not anemic. COVID and flu screening were negative. CT evaluation did not reveal a dilated gallbladder with thickened jefferson with probable cholecystitis. Liver function were not markedly elevated without signs of obstruction and lipase was normal. She was having minimal abdominal pain but did have nausea as stated. She also had decreased appetite. Dr. Ruiz was called for surgical consultation in the morning the patient was to be kept n.p.o. after midnight. With her elevated troponins if she requires surgery, she may need medical stabilization with rehydration and trending troponins prior to proceeding. She was comfortable at the time I examined her with minimal abdominal discomfort and no new complaints. She is a full code. Review of Systems Narrative: 13 point review of systems otherwise unrevealing or stable with patient being poor historian and hard of hearing. PFSH All Active Problems Dysphagia (Acute) Acute dehydration (Acute) Elevated troponin level not due myocardial infarction (Acute) Cholecystitis, acute (Acute) Nail dystrophy (Acute) Onychomycosis (Acute) Skin lesion (Acute) Stress fracture of right calcaneus (Acute) Pain in right ankle (Acute) Pain in left ankle (Acute) Pain in right foot (Acute) Neoplasm of calcaneus (Acute) Pain in left foot (Acute) Hammertoe of right foot (Acute) Ulcer of right foot limited to breakdown of skin (Acute) Osteoporosis (Chronic) CAD (coronary artery disease) (Chronic) Hyperthyroidism (Chronic) Mitral valve disease (Acute) Chronic rhinitis (Acute) Bilateral hearing loss (Acute) Nicotine dependence (Acute) Nodule of skin of hand (Acute) Adrenal insufficiency (Chronic) Methotrexate toxicity (Chronic) Full code status (Acute) Leukocytosis (Acute) DVT prophylaxis (Acute) Falls (Acute) Ulcerative colitis (Chronic) DJD (degenerative joint disease) (Chronic) HTN (hypertension) (Chronic) Rheumatoid arthritis (Chronic) COPD (chronic obstructive pulmonary disease) (Chronic) Sensorineural hearing loss, bilateral (Acute 05/07/14) Medical History Intertrochanteric fracture of right femur Status post ORIF on 10/06/2018 Discharge planning issues Acute blood loss anemia Pneumonia UTI (urinary tract infection), uncomplicated Excessive cerumen in right ear canal Excessive cerumen in left ear canal Sensorineural hearing loss Upper respiratory infection Fatigue Hyperkalemia Thyrotoxicosis Cardiac arrhythmia Rheumatic disease of mitral valve Fx lower radius/ulna-closed Ulcerative colitis History of hypertension Rhinitis Colitis History of tobacco use Bigeminy Hearing loss right hearing aid/deaf in left ear Surgical History H/O mitral valve replacement Fracture of right hip requiring operative repair Colonoscopy - MAC (03/22/18) Colonoscopy - IV Sedation (~2008) Family History Mother Asthma Father No problems noted. Sister No problems noted. Sister No problems noted. Brother No problems noted. Social History Smoking/Tobacco Use Status: Former Tobacco Use Smoking risk assessment performed?: Yes Alcohol Intake: never Drug use: Never Substance use type: does not use Housing: assisted living facility Do you feel safe at home: Yes Do you feel safe in your relationship?: Yes Additional Social history: [facility] Allergies and Home Medications Allergies Allergy/AdvReac Type Severity Reaction Status Date / Time adhesive tape AdvReac Intermediate . Verified 04/16/24 09:34 lisinopril (From Zestril) AdvReac Intermediate hyperkalemi Verified 04/16/24 09:34 a sulfasalazine AdvReac Intermediate Lupus Type Verified 04/16/24 09:34 Symptoms Home Medications ?Medication ?Instructions ?Recorded ?Confirmed ?Type cholecalciferol (vitamin D3) 50 2,000 unit PO DAILY 01/18/13 09/10/24 History mcg (2,000 unit) tablet fluticasone propionate 50 1 spray NS DAILY PRN 10/27/15 09/10/24 History mcg/actuation nasal spray,suspension (Flonase Allergy Relief) methimazole 5 mg tablet 5 mg PO DAILY 03/18/16 09/10/24 History metoprolol succinate 25 mg 25 mg PO DAILY 03/18/16 09/10/24 History tablet,extended release 24 hr hydroxychloroquine 200 mg tablet 200 mg PO DAILY 03/13/19 09/10/24 History albuterol sulfate 90 mcg/actuation 2 puff inhalation Q4H PRN PRN 03/18/19 09/10/24 History aerosol inhaler (ProAir HFA) Shortness Of Breath acetaminophen 325 mg tablet 650 mg PO TID PRN 06/13/19 09/10/24 History (Tylenol) aspirin 81 mg tablet,delayed 81 mg PO DAILY 11/09/23 09/10/24 History release denosumab 60 mg/mL subcutaneous 60 mg subcut [id number] 11/09/23 09/10/24 History syringe (Prolia) gabapentin 300 mg capsule 300 mg PO TID 11/09/23 09/10/24 History calcium carbonate (Tums) 200 mg PO BID 11/22/23 09/10/24 History loratadine 10 mg tablet (Allergy 10 mg PO DAILY 11/22/23 09/10/24 History Relief (loratadine)) magnesium chloride 71.5 mg 71.5 mg PO DAILY 11/22/23 09/10/24 History (magnesium chloride) tablet,delayed release (Slow-Mag) mirtazapine 30 mg tablet (Remeron) 30 mg PO QHS 11/22/23 09/10/24 History omeprazole 20 mg capsule,delayed 20 mg PO DAILY PRN 11/22/23 09/10/24 History release prednisone 5 mg tablet 5 mg PO DAILY 11/22/23 09/10/24 History tumeric 500 mg PO DAILY 11/22/23 09/10/24 History vitamin B complex 1 tab PO DAILY 11/22/23 09/10/24 History benzonatate 100 mg capsule 100 mg PO BID-TID PRN 02/13/24 09/10/24 History amoxicillin 500 mg capsule See Rx Instructions .Route .COMPLEX 03/06/24 09/10/24 History ketoconazole 2 % topical cream 1 applic topical DAILY #120 grams 06/19/24 09/10/24 Rx urea 40 % topical cream 1 applic topical DAILY #28.35 grams 06/19/24 09/10/24 Rx Exam Narrative Exam Narrative: General: Patient is thinly built, appears acutely ill lying in bed with flat affect and poor eye contact. She is in moderate distress from her nausea. She is alert and oriented to person and place. HEENT: Normocephalic, eyes with pupils equal and reactive to light symmetrically, extraocular movements active sclera anicteric. Oropharynx with dry mucosa. Neck: Supple without JVD. Back: Kyphotic without CVA tenderness. Lungs: Fairly clear to auscultation percussion. Breast: Exam deferred. Heart: Regular rate rhythm with no murmurs or gallops appreciated. Abdomen: Soft, slight guarding right upper quadrant but no Askew sign, no palpable hepatomegaly, bowel sounds positive all quadrants. Medical exam deferred. Extremities: No clubbing, cyanosis or pitting edema. Good capillary refill. Skin: Normal color, warm and dry. Neuro: Cranial nerves II through XII gross intact, no focal motor deficits on trocar. She is on her period. Psych: Flat affect with depressed mood. No abnormal thought processes. Remote and recent memory grossly intact. Results Imaging Imaging Studies: Exam: CT Chest With Contrast; Diagnostic Exam date and time: 09/10/2024 9:02 PM Age: 83 years old Clinical indication: Prior surgery; Surgery date: 6+ months; Surgery type: Mitral valve replacement, bilat hips; Patient HX: Cough, decreased po intake TECHNIQUE: Imaging protocol: Diagnostic computed tomography of the chest with contrast. 3D rendering (Not supervised by radiologist): MIP and/or 3D reconstructed images were created by the technologist. Radiation optimization: All CT scans at this facility use at least one of these dose optimization techniques: automated exposure control; mA and/or kV adjustment per patient size (includes targeted exams where dose is matched to clinical indication); or iterative reconstruction. Contrast material: OMNIPAQUE 350; Contrast volume: 85 ml; Contrast route: INTRAVENOUS (IV); COMPARISON: CR XR CHEST 2V PA LATERAL 09/10/2024 5:53 PM FINDINGS: Thyroid: Heterogeneous enlarged thyroid with multiple thyroid nodules measuring up to 1.1 cm in the right thyroid lobe. Lungs: Bilateral apical fibrotic changes. Bilateral lower lobe atelectasis. No focal consolidation. Pleural spaces: Unremarkable. No pneumothorax. No pleural effusion. Heart: Post mitral valve replacement. Coronary arteries: Mild coronary calcifications. Lymph nodes: Unremarkable. No enlarged lymph nodes. Vasculature: Unremarkable. No aortic aneurysm. Diaphragm: Small hiatal hernia. Bones/joints: Mild curvature of the thoracolumbar spine convex to the right. Small multilevel anterior osteophytes of the thoracic spine, consistent with mild degenerative disease. Soft tissues: Unremarkable. IMPRESSION: No acute cardiopulmonary process. PROCEDURE INFORMATION: Exam: CT Abdomen And Pelvis With Contrast Exam date and time: 09/10/2024 9:02 PM Age: 83 years old Clinical indication: Prior surgery; Surgery date: 6+ months; Surgery type: Mitral valve replacement, bilat hips; Patient HX: Cough, decreased po intake COMPARISON: MR PELVIS WO/W 10/14/2021 12:28 PM FINDINGS: Liver: Normal. No mass. Gallbladder and biliary ducts: Over distended gallbladder with mild gallbladder wall thickening. Pancreas: Normal. No ductal dilation. Spleen: Normal. No splenomegaly. Adrenal glands: Normal. No mass. Kidneys and ureters: Multifocal cortical scarring both kidneys, from prior insult. Bilateral simple renal cysts measuring up to 2.1 cm in the upper pole of the left kidney. There is no evidence of hydronephrosis. Stomach and bowel: Diverticulosis of the sigmoid colon. Appendix: No evidence of appendicitis. Intraperitoneal space: Unremarkable. No free air. No significant fluid collection. Vasculature: There are vascular calcifications. Lymph nodes: Unremarkable. No enlarged lymph nodes. Urinary bladder: Unremarkable as visualized. Reproductive: Unremarkable as visualized. Bones/joints: Bilateral ORIF hardware of the femurs. Chondrocalcinosis of the symphysis pubis. Mild degenerative disease of bilateral sacroiliac joints. Mild degenerative disease of bilateral hip joints. Mild retrolisthesis of L1 over L2. Multilevel posterior osteophytes of the lumbar spine with mild bony canal stenosis. Soft tissues: Unremarkable. IMPRESSION: Over distended gallbladder with mild gallbladder wall thickening to be correlated with physical exam and ultrasound if clinically warranted to rule out acute cholecystitis. Labs 09/11/24 06:17 09/11/24 06:17 Labs: Laboratory Results - last 24 hr 09/10/24 09/10/24 09/10/24 15:47 15:55 17:35 WBC 13.42 H RBC 4.62 Hgb 13.5 Hct 43.1 MCV 93 MCH 29.2 MCHC 31.3 L RDW 15.7 H Plt Count 376 MPV 9.7 Immature Gran % 0.7 Neutrophils % 80.7 Lymphocytes % 8.9 Monocytes % 8.4 Eosinophils % 0.7 Basophils % 0.6 Nucleated RBC % 0.0 Absolute Neutrophils 10.83 H Absolute Lymphocytes 1.19 L Absolute Monocytes 1.13 H Absolute Eosinophils 0.09 Absolute Basophils 0.08 Sodium 145 Potassium 4.8 Chloride 107 Carbon Dioxide 21.5 Anion Gap 16.5 H BUN 25 H Creatinine 0.9 Est GFR (CKD-EPI 2020) 62.65 Glucose 70 L Calcium 9.5 Magnesium 2.2 Total Bilirubin 0.43 AST 29 ALT 17 Alkaline Phosphatase 80 Troponin I 59 H* Total Protein 8.7 H Albumin 3.7 TSH 0.79 Urine Color Yellow Urine Clarity Clear Urine pH 5.0 Ur Specific Ismay >= 1.030 H Urine Protein >=300 H Urine Ketones 40 H Urine Blood Trace-lysed H Urine Nitrite Negative Urine Bilirubin Moderate H Urine Urobilinogen 0.2 Ur Leukocyte Esterase Negative Urine RBC 0-2 Urine WBC 5-10 Ur Epithelial Cells Few Urine Crystals Not Applicable Urine Bacteria Few Urine Casts 0-2 Coarse Granular Urine Mucus Not Applicable Ur Culture Indicated? No Urine Glucose Negative COVID-19 Source Nasopharynx SARS-CoV-2 (PCR) Negative Influenza Type A (PCR) Negative Influenza Type B (PCR) Negative RSV (PCR) Negative 09/10/24 09/10/24 17:37 18:47 WBC RBC Hgb Hct MCV MCH MCHC RDW Plt Count MPV Immature Gran % Neutrophils % Lymphocytes % Monocytes % Eosinophils % Basophils % Nucleated RBC % Absolute Neutrophils Absolute Lymphocytes Absolute Monocytes Absolute Eosinophils Absolute Basophils Sodium Potassium Chloride Carbon Dioxide Anion Gap BUN Creatinine Est GFR (CKD-EPI 2020) Glucose Calcium Magnesium Total Bilirubin AST ALT Alkaline Phosphatase Troponin I 65 H* 66 H* Total Protein Albumin TSH Urine Color Urine Clarity Urine pH Ur Specific [place] Urine Protein Urine Ketones Urine Blood Urine Nitrite Urine Bilirubin Urine Urobilinogen Ur Leukocyte Esterase Urine RBC Urine WBC Ur Epithelial Cells Urine Crystals Urine Bacteria Urine Casts Urine Mucus Ur Culture Indicated? Urine Glucose COVID-19 Source SARS-CoV-2 (PCR) Influenza Type A (PCR) Influenza Type B (PCR) RSV (PCR) Last Vital Signs Temp 36.5 C 09/10/24 15:32 Pulse 77 09/10/24 20:32 Resp 29 H 09/10/24 21:20 BP 154/64 H 09/10/24 20:32 Pulse Ox 94 09/10/24 21:20 Time Spent Time spent with Patient: >75 minutes Time was spent: preparing to see the patient(eg.review tests), obtaining and/or reviewing separately otained hiistory, ordering medications,tests, procedures, referring, communicating with other health acute care nurse, indepentently interpreting results and care coordination
[2024-09-10] MEDS: PIPERACILLIN/TAZO 3.375 GM in Normal Saline 50 ML IVPB (23:16)
[2024-09-10 23:47] LABS: Lipase 29 U/L (16-77)
[2024-09-11] VITALS (10 sets, daily range): BP systolic 137–158; BP diastolic 48–69; PULSE 49–76; RESP 16–28; TEMP 36–37; O2SAT 94–97
--- NOTE | 2024-09-11 00:10 | W.PC.ACHO ---
Registration Status: Primary Language: Preferred Language: ED Information & Data Chief Complaint GenMedical 09/10/24 15:58 Triage Note weak, tired, poor intake 09/10/24 15:32 since covid and flu vaccine on 08/30. Usually a get up and go person, per Gaby Yang report. Denies CP, SOB, muscle aches or fevers. Does not appear to be in distress. Pt has some post-nasal drip. Byalee reported urine dipstick ok. C/A/OX4. Medical / Surgical History (Last Reviewed 09/10/24 @ 23:06 by Victor M Díaz) Intertrochanteric fracture of right femur Discharge planning issues Acute blood loss anemia Pneumonia UTI (urinary tract infection), uncomplicated Excessive cerumen in right ear canal Excessive cerumen in left ear canal Sensorineural hearing loss Upper respiratory infection Fatigue Hyperkalemia Thyrotoxicosis Cardiac arrhythmia Rheumatic disease of mitral valve Fx lower radius/ulna-closed Ulcerative colitis History of hypertension Rhinitis Colitis History of tobacco use Bigeminy Hearing loss (Last Reviewed 09/10/24 @ 23:06 by Victor M Díaz) H/O mitral valve replacement Fracture of right hip requiring operative repair Colonoscopy - MAC (03/22/18) Colonoscopy - IV Sedation (~2008) Most Recent Vital Signs Temperature 36.5 C 09/10/24 15:32 Pulse 77 09/10/24 20:32 Pulse 81 09/10/24 21:20 Respiratory Rate 29 H 09/10/24 21:20 Respiratory Effort Normal 09/10/24 15:42 Respiratory Depth Normal 09/10/24 15:42 Respiratory Pattern Normal 09/10/24 15:42 Blood Pressure 154/64 H 09/10/24 20:32 Blood Pressure Mean 80 09/10/24 20:32 Blood Pressure Position Supine 09/10/24 15:32 Pulse Oximetry 94 09/10/24 21:20 Oxygen Delivery Method Room Air 09/10/24 15:32 Oxygen Flow Rate 0 09/10/24 15:32 Pain Level 0 09/10/24 15:39 Allergies adhesive tape Adverse Reaction (Intermediate, Verified 04/16/24 09:34) . lisinopril (From Zestril) Adverse Reaction (Intermediate, Verified 04/16/24 09:34) hyperkalemia sulfasalazine Adverse Reaction (Intermediate, Verified 04/16/24 09:34) Lupus Type Symptoms Precautions Isolation Droplet precaution 09/10/24 15:39 Active Medications Generic Name Dose Route Start Last Admin Trade Name Jackq PRN Reason Stop Dose Admin Carboxymethylcellulose Sodium 1 each 09/10/24 22:15 09/10/24 22:57 Refresh Plus Eye Drops 0.4ml OU 1 each PRN PRN Administration Iohexol 100 ml 09/10/24 20:00 09/10/24 20:56 Omnipaque 350 Mg/Ml 100 Ml Btl IJ 10/10/24 23:59 85 ml DIRECTED LORNEZO Administration Sodium Chloride 0 ml 09/10/24 19:57 09/10/24 19:57 Normal Saline Flush 10 Ml Syr IVP 10 ml PRN PRN Administration Sodium Chloride 50 ml 09/10/24 20:00 09/10/24 20:55 Normal Saline - Diluent 50 Ml Vial IJ 50 ml .FOR DI USE LORENZO Administration IV IV Catheter Type [Left Saline Lock Antecubital] IV Catheter Gauge [Left 18 Antecubital] Diagnostics 09/10/24 09/10/24 09/10/24 Range/Units 18:47 17:37 17:35 WBC (4.4-10.8) 10^3/uL RBC (3.93-5.22) 10^6/uL Hgb (11.2-15.7) g/dL Hct (36.0-46.0) % MCV (80-95) fL MCH (27.0-33.0) pg MCHC (32.0-36.0) % RDW (11.7-14.6) % Plt Count (130-400) 10^3/uL MPV (8.0-11.0) fL Immature Gran % % Neutrophils % % Lymphocytes % % Monocytes % % Eosinophils % % Basophils % % Nucleated RBC % (0.0-0.3) % Absolute Neutrophils (1.2-6.7) 10^3/uL Absolute Lymphocytes (1.2-3.4) 10^3/uL Absolute Monocytes (0.1-0.8) 10^3/uL Absolute Eosinophils (0.0-0.7) 10^3/uL Absolute Basophils (0.0-0.2) 10^3/uL Sodium (136-145) mmol/L Potassium (3.5-5.1) mmol/L Chloride (98-107) mmol/L Carbon Dioxide (21.0-32.0) mmol/L Anion Gap (3-11) mmol/L BUN (7-18) mg/dL Creatinine (0.55-1.02) mg/dL Est GFR (CKD-EPI 2020) (mL/min/1.73m2) Glucose (74-106) mg/dL Calcium (8.5-10.1) mg/dL Magnesium (1.8-2.4) mg/dL Total Bilirubin (0.2-1.0) mg/dL AST (15-37) U/L ALT (14-59) U/L Alkaline Phosphatase (46-116) U/L Troponin I 66 H* 65 H* (<or=51) ng/L Total Protein (6.4-8.2) g/dL Albumin (3.4-5.0) g/dL Lipase (16-77) U/L TSH (0.36-3.74) uIU/mL Urine Color Yellow (Yellow) Urine Clarity Clear (Clear) Urine pH 5.0 (5-8) Ur Specific Cyril >= 1.030 H (1.005-1.025) Urine Protein >=300 H (Neg-Trace) mg/dL Urine Ketones 40 H (Negative) mg/dL Urine Blood Trace-lysed H (Negative) Urine Nitrite Negative (Negative) Urine Bilirubin Moderate H (Negative) Urine Urobilinogen 0.2 (Up to 0.2) mg/dL Ur Leukocyte Esterase Negative (Negative) Urine RBC 0-2 (0-2) HPF Urine WBC 5-10 (0-5) HPF Ur Epithelial Cells Few (Negative) HPF Urine Crystals Not Applicable Urine Bacteria Few (Negative) HPF Urine Casts 0-2 Coarse Granular (Negative) LPF Urine Mucus Not Applicable Ur Culture Indicated? No Urine Glucose Negative (Negative) mg/dL COVID-19 Source SARS-CoV-2 (PCR) (Negative) Influenza Type A (PCR) (Negative) Influenza Type B (PCR) (Negative) RSV (PCR) (Negative) 09/10/24 09/10/24 Range/Units 15:55 15:47 WBC 13.42 H (4.4-10.8) 10^3/uL RBC 4.62 (3.93-5.22) 10^6/uL Hgb 13.5 (11.2-15.7) g/dL Hct 43.1 (36.0-46.0) % MCV 93 (80-95) fL MCH 29.2 (27.0-33.0) pg MCHC 31.3 L (32.0-36.0) % RDW 15.7 H (11.7-14.6) % Plt Count 376 (130-400) 10^3/uL MPV 9.7 (8.0-11.0) fL Immature Gran % 0.7 % Neutrophils % 80.7 % Lymphocytes % 8.9 % Monocytes % 8.4 % Eosinophils % 0.7 % Basophils % 0.6 % Nucleated RBC % 0.0 (0.0-0.3) % Absolute Neutrophils 10.83 H (1.2-6.7) 10^3/uL Absolute Lymphocytes 1.19 L (1.2-3.4) 10^3/uL Absolute Monocytes 1.13 H (0.1-0.8) 10^3/uL Absolute Eosinophils 0.09 (0.0-0.7) 10^3/uL Absolute Basophils 0.08 (0.0-0.2) 10^3/uL Sodium 145 (136-145) mmol/L Potassium 4.8 (3.5-5.1) mmol/L Chloride 107 (98-107) mmol/L Carbon Dioxide 21.5 (21.0-32.0) mmol/L Anion Gap 16.5 H (3-11) mmol/L BUN 25 H (7-18) mg/dL Creatinine 0.9 (0.55-1.02) mg/dL Est GFR (CKD-EPI 2020) 62.65 (mL/min/1.73m2) Glucose 70 L (74-106) mg/dL Calcium 9.5 (8.5-10.1) mg/dL Magnesium 2.2 (1.8-2.4) mg/dL Total Bilirubin 0.43 (0.2-1.0) mg/dL AST 29 (15-37) U/L ALT 17 (14-59) U/L Alkaline Phosphatase 80 (46-116) U/L Troponin I 59 H* (<or=51) ng/L Total Protein 8.7 H (6.4-8.2) g/dL Albumin 3.7 (3.4-5.0) g/dL Lipase 29 (16-77) U/L TSH 0.79 (0.36-3.74) uIU/mL Urine Color (Yellow) Urine Clarity (Clear) Urine pH (5-8) Ur Specific Cyril (1.005-1.025) Urine Protein (Neg-Trace) mg/dL Urine Ketones (Negative) mg/dL Urine Blood (Negative) Urine Nitrite (Negative) Urine Bilirubin (Negative) Urine Urobilinogen (Up to 0.2) mg/dL Ur Leukocyte Esterase (Negative) Urine RBC (0-2) HPF Urine WBC (0-5) HPF Ur Epithelial Cells (Negative) HPF Urine Crystals Urine Bacteria (Negative) HPF Urine Casts (Negative) LPF Urine Mucus Ur Culture Indicated? Urine Glucose (Negative) mg/dL COVID-19 Source Nasopharynx SARS-CoV-2 (PCR) Negative (Negative) Influenza Type A (PCR) Negative (Negative) Influenza Type B (PCR) Negative (Negative) RSV (PCR) Negative (Negative) 09/10/24 23:27 Blood Culture - Pending Blood 09/10/24 23:27 Blood Culture - Pending Blood Intake and Output - 24 Hour Total 09/10/24 15:21 thru 09/10/24 23:55 Intake Total 550 Balance 550 Weight 40.4 kg Intake: IV 550 Falls Risk Assessment History of Falls Previous History 09/10/24 15:39 Contributing Factors Confusion,Impairments 09/10/24 15:39 Ambulatory Aids Uses ambulatory device 09/10/24 15:39 Tubes/Lines With any additional score 09/10/24 15:39 Gait Evaluation W/any additional score 09/10/24 15:39 Cognition No cognitive impairment 09/10/24 15:39 Fall Total Score 76 09/10/24 15:39 Level of Risk Maximum Risk 09/10/24 15:39 Problems (Last Reviewed 09/10/24 @ 23:06 by Victor M Díaz) Acute dehydration (Acute) Elevated troponin level not due myocardial infarction (Acute) Cholecystitis, acute (Acute) Hyperthyroidism (Chronic) Adrenal insufficiency (Chronic) HTN (hypertension) (Chronic) Rheumatoid arthritis (Chronic) v v v v v v v v v Sending and/or Receiving Nurses: Please use comment section below to note any information pertinent to the patient hand-off not included above. Information / Comments: report given Report received from:Elenita
--- NOTE | 2024-09-11 00:20 | NUR.NOTE ---
Nursing Note: This RN called report to [facility] after pt was admitted to inpatient unit. Spoke with Hortensia at [facility]
[2024-09-11] MEDS: ELECTROLYTE-R SOLUTION 1,000 ML 125 ML IV (00:49)
[2024-09-11] MEDS: Hydrocortisone SOD SUC. 100 MG VIAL IVP ×3 (05:22→23:17)
[2024-09-11] MEDS: PIPERACILLIN/TAZO 3.375 GM in Normal Saline 50 ML IVPB ×2 (05:23→13:15)
[2024-09-11] MEDS: Metoprolol 12.5 MG TAB PO ×2 (05:23→17:41)
[2024-09-11] MEDS: Heparin 5,000 UNITS/ML VIAL 5000 UNITS SC ×2 (05:24→23:22)
[2024-09-11 06:28] LABS: HCT 38.4 % (36.0-46.0); MCH 29.6 pg (27.0-33.0); MCHC 31.3 % (32.0-36.0); MCV 95 fL (80-95); MPV 9.6 fL (8.0-11.0); Platelet Count 312 10^3/uL (130-400); RBC 4.06 10^6/uL (3.93-5.22); RDW 15.9 % (11.7-14.6); RDW-SD 54.9 fL; WBC 10.91 10^3/uL (4.4-10.8)
[2024-09-11 06:49] LABS: ALT 13 U/L (14-59); AST 23 U/L (15-37); Albumin 3.1 g/dL (3.4-5.0); Alkaline Phosphatase 71 U/L (46-116); Anion Gap 20.8 mmol/L (3-11); BUN 26 mg/dL (7-18); Bilirubin, Direct 0.2 mg/dL (0.0-0.2); Bilirubin, Total 0.58 mg/dL (0.2-1.0); CO2 17.2 mmol/L (21.0-32.0); CREATININE 0.9 mg/dL (0.55-1.02); Calcium 8.6 mg/dL (8.5-10.1); Chloride 106 mmol/L (98-107); Estimated GFR 62.65 (mL/min/1.73m2); Glucose 55 mg/dL (74-106); Magnesium 2.1 mg/dL (1.8-2.4); Potassium 4.3 mmol/L (3.5-5.1); Sodium 144 mmol/L (136-145); Total Protein 7.4 g/dL (6.4-8.2)
[2024-09-11 06:59] LABS: Troponin I 72 ng/L (<or=51)
--- NOTE | 2024-09-11 07:00 | DI.US_ITS ---
Exam(s) US ABDOMEN LIMITED EXAM: US ABDOMEN LIMITED CLINICAL HISTORY: Dilated gallbladder with thickened jefferson on CT TECHNIQUE: Ultrasound abdomen performed using standard protocol. COMPARISON: CT CHEST WITH CONTRAST from 06/15/[address] CHEST W from 02/22/[address] CHEST/ABD/PEL W from 09/10/2024 FINDINGS: LIVER: Normal size. Normalechogenicity. No focal liver lesions are seen.. GALLBLADDER: Somewhat distended multiple mobile stones less than a centimeter in size borderline wall thickening, 4 millimeters.. No pericholecystic fluid identified. SINGLETON'S SIGN: Negative. BILIARY SYSTEM: Common bile duct measures 5 millimeters. RIGHT KIDNEY: Normal size. No evidence of renal calculi. No evidence of hydronephrosis. No suspicious renal mass. No cyst identified. PANCREAS: Normal where visualized. ABDOMINAL AORTA AND IVC: Visualized portions normal caliber. ASCITES: None seen. IMPRESSION: Distended gallbladder with multiple stones and borderline wall thickening. No visible biliary dilata tion. No common duct stones identified. DATA REPOSITORY:
--- NOTE | 2024-09-11 08:00 | DI.US_ITS ---
APPROVED REPORT EXAM: Comprehensive 2D, Doppler, and color-flow Echocardiogram Patient Location: In-Patient Room/Bed: [address] [employer] Salesperson: Marleni Colbert RDCS (AE) Indications: Mildly elevated troponin levels, Acute dehydration, H/O Mitral valve repair Other Information Study Quality: Adequate. Technically limited study due to body habitus. Conclusion Mild concentric left ventricular hypertrophy. Ejection fraction is 60%. Wall motion is normal Normal right ventricular size. Grossly normal right ventricular function Both atria are normal in size Aortic valve is sclerotic. There is no hemodynamically significant aortic stenosis. There is no aor tic regurgitation Mitral annular calcification. Mild residual mitral regurgitation Estimated right ventricular systolic pressure is 41 mmHg Wall motion Left Ventricle The left ventricle is normal size. The left ventricular systolic function is normal. The left ventric ular ejection fraction is within the normal range. Mild concentric left ventricular hypertrophy. Ther e is normal LV segmental wall motion. There is no ventricular septal defect visualized. LVEF is 60%. Right Ventricle The right ventricle is normal size. Right ventricular systolic function could not be assessed. Atria The left atrium size is normal. The right atrium size is normal. The interatrial septum is intact wit h no evidence for an atrial septal defect. Aortic Valve The Aortic valve is sclerotic. Aortic valve is trileaflet. There is no aortic valvular stenosis. Trac e aortic regurgitation. Mitral Valve Mitral annular calcification No evidence of mitral valve stenosis. Mild mitral regurgitation. Tricuspid Valve The tricuspid valve is normal in structure. There is no tricuspid valve stenosis. Trace tricuspid reg urgitation. The RVSP is 40.7 mmHg. Pulmonic Valve The pulmonary valve is normal in structure. There is no pulmonic valvular stenosis. Mild pulmonic reg urgitation. Great Vessels The aortic root is normal in size. The ascending aorta is mildly dilated. Aortic arch is not well vis ualized. IVC is normal in size and collapses >50% with inspiration. Pericardium There is no pericardial effusion. 2D Dimensions IVSD d PLAX 1.10 cm F: 0.6-1.0 Ao Root d 2.70 cm F: 2.7 - 3.3 LVPW d PLAX 1.10 cm F: 0.6 - 1.0 Ao Asc Diam d 3.45 cm F: 2.3 - 3.1 LVID d PLAX 3.81 cm F: 3.8 - 5.2 LVDs 2.49 cm F: 2.2 - 3.5 LV EF Teichholz 64.4 % FS 34.54 % LV EDV (Teich) 62.4 mL LV ESV (Teich) 22.2 mL M-Mode TAPSE 2.78 cm (M/F) >1.7 Auto EF LV EDV A4C 62.0 mL LV EDV A2C 74.6 mL LV EDV BP 67.4 mL LV ESV A4C 25.5 mL LV ESV A2C 31.1 mL LV ESV BP 28.3 mL LVEF(%) A4C 58.9 % LVEF(%) A2C 58.4 % LVEF(%) BP 58.1 % LV SV A4C 36.6 ml LV SV A2C 43.6 ml LV SV BP 39.2 ml LV CO A4C 1.8 L/min LV CO A2C 2.2 L/min LV CO BP 2.0 L/min HR A4C 50.07 BPM HR A2C 50.14 BPM LV EDV Index (BP) LA Volume LA Length A4C 5.7 cm LA Length A2C 4.4 cm LA Area A4C s 16.46 cm2 LA Area A2C s 11.21 cm2 LA Vol A4C A-L 40.64 mL LA Vol A2C A-L 24.21 mL LA Vol Biplane A-L 35.6 mL LA Vol/BSA A4C A-L LA Vol/BSA A2C A-L LA Vol/BSA BP A-L 27.1 mL/m2 LA Vol A4C MOD 39.1 mL LA Vol A2C MOD 23.3 mL LA Vol BP MOD 34.1 mL LV Diastology MV E Vmax 1.28 (0.4-1.3 m/s) MV A Vmax 1.60 (0.4-1.3 m/s) E/A Ratio 0.8 Aortic Valve AoV Vmax 1.47 m/s LVOT Vmax 1.21 m/s AoV Peak Grad 8.6 mmHg LVOT Peak Grad 5.9 mmHg AoV Area (Vmax) 2.29 cm2 LVOT VTI 0.304 m AoV VTI 0.345 m LVOT Mean Grad 3.3 mmHg AoV Mean [place]. 0.93 m/s LVOT SV 84.62 mL AoV Mean Grad 4.1 mmHg LVOT Diam s 1.85 cm AoV Area (VTI) 2.45 cm2 AV Regurg Peak Gr. 8.60 mmHg Velocity Ratio 0.82 Mitral Valve MV DT 376 (160-240 msec) MV Vmax TIPS 1.46 m/s MV Mean Grad 3.0 (<2mmHg) MV VTI 0.610 m Pulmonary Valve PV Vmax 0.87 (0.5-1.5 m/s) RVOT Vmax 0.61 m/s PV Peak Grad 3.0 mmHg RVOT Peak Gr. 1.5 mmHg PV Mean [place] 0.52 m/s RVOT VTI 0.172 m PV Mean Grad 1.3 mmHg RVOT Mean Gr. 0.8 mmHg Tricuspid Valve RA Pressure 3.00 mmHg TR Vmax 3.07 m/s TV S' 0.17 m/s TR Peak Grad 37.7 mmHg RVSP (TR) 40.7 mmHg
[2024-09-11] MEDS: Pantoprazole 40 MG VIAL IVP (08:14)
[2024-09-11] MEDS: Cholecalciferol (Vitamin D3) 1,000 UNIT TAB 2000 UNITS PO (08:14)
[2024-09-11] MEDS: Normal Saline Flush 10 ML SYR IVP ×2 (08:14→23:30)
[2024-09-11] MEDS: Magnesium Chloride 64 MG TABCR PO (08:15)
[2024-09-11] MEDS: Calcium Carbonate *TUMS* 500 MG CHEW PO ×2 (08:15→19:31)
[2024-09-11] MEDS: Loratidine 10 MG TAB PO (08:15)
[2024-09-11] MEDS: methIMAzole 5 MG TAB PO (08:15)
[2024-09-11] MEDS: Benzonatate 100 MG CAP PO ×3 (08:15→19:30)
[2024-09-11] MEDS: Gabapentin 300 MG CAP PO ×3 (08:15→19:29)
[2024-09-11] MEDS: Aspirin E.C. 81 MG TABEC PO (08:15)
[2024-09-11] MEDS: Hydroxychloroquine 200 MG TAB PO (08:16)
[2024-09-11] MEDS: Vitamins B Comp w/C TAB 1 TAB PO (08:17)
--- NOTE | 2024-09-11 08:50 | PDOC.CMIN ---
Date of service: 09/11/24 Time of Service: 08:51 Care Management Initial Assmt Initial Assessment Reason for Hospitalization: Acute dehydration, cholecystitis Functional Status/Living Situation Patient Presentation: Ralf is sitting in a recliner visiting with her cousin Rocío when CM met with her. Pt is hard of hearing and often relies on Rocío for communication. Per pt, she lives at the [facility] and enjoys it there. During conversation, Ralf shares that in the last 2 years she's lost 2 sisters, a brother, niece and nephew and jokingly states that she's an Orphan. Ralf may benefit from a Palliative consult to discuss goals of care and code status. Town of Residence: [facility] Resides with: Other ([facility]) Significant Other/Family: Local ([place] and [place], [facility]) Employment Status: Retired (From State of [place]/[employer]) Instrumental Activities of Daily Living (ADLs): Independent Activities/Hobbies/SocialSupport: Enjoys reading Medications Medication Management: No Issues/Barriers identified Physical Functioning/Mobility Assistive Device: Walker Advance Directives Advance Directives: Do you have an Advance Directive: Y 02/05/24 16:33 AD On File at [facility]: Y 02/05/24 16:33 Date Asked AD Date Reviewed 09/10/24 09/10/24 15:33 COLST On File at [facility] No 02/05/24 16:33 COLST Date Scanned Code Status Resuscitation Status Full Code Portal Pt does not currently have a portal and education provided: Yes Insurance Coverage/Financial Issues Insurance: /BS of [place] Medicare Financial Issues: None identified Care Team Visit Care Team Role Provider Type Ekaterina Mcclain Primary Care Provider ADV PRACTICE REGISTERED NURSE Tianna Ruiz, DO Other Providers OSTEOPATHIC DOCTOR Kimber Fowler Emergency Provider NURSE PRACTITIONER Victor M Díaz Admit Provider NON-[facility] STAFF PHYSICIAN Attending Provider Discharge Potential Discharge Needs: PCP F/U Appt and Surgical F/U Appt Anticipated Barriers to Discharge: Medical Status Patient/Family Education Needs: Review discharge instructions, discuss Ask Me Three Transportation: Other ([facility] vs. facility transportation) Plan: Palliative consult may be beneficial to review goals of care and code status. May require surgery. Anticipate, Ralf will return to the [facility], when Medically ready. New PT, if needed. CM will follow. PFSH All Active Problems (Updated 09/11/24 @ 10:43 by Gabe Patricia) Dysphagia (Acute) Acute dehydration (Acute) Elevated troponin level not due myocardial infarction (Acute) Cholecystitis, acute (Acute) Nail dystrophy (Acute) Onychomycosis (Acute) Skin lesion (Acute) Stress fracture of right calcaneus (Acute) Pain in right ankle (Acute) Pain in left ankle (Acute) Pain in right foot (Acute) Neoplasm of calcaneus (Acute) Pain in left foot (Acute) Hammertoe of right foot (Acute) Ulcer of right foot limited to breakdown of skin (Acute) Osteoporosis (Chronic) CAD (coronary artery disease) (Chronic) Hyperthyroidism (Chronic) Mitral valve disease (Acute) Chronic rhinitis (Acute) Bilateral hearing loss (Acute) Nicotine dependence (Acute) Nodule of skin of hand (Acute) Adrenal insufficiency (Chronic) Methotrexate toxicity (Chronic) Full code status (Acute) Leukocytosis (Acute) DVT prophylaxis (Acute) Falls (Acute) Ulcerative colitis (Chronic) DJD (degenerative joint disease) (Chronic) HTN (hypertension) (Chronic) Rheumatoid arthritis (Chronic) COPD (chronic obstructive pulmonary disease) (Chronic) Sensorineural hearing loss, bilateral (Acute 05/07/14) Medical History Intertrochanteric fracture of right femur Status post ORIF on 10/06/2018 Discharge planning issues Acute blood loss anemia Pneumonia UTI (urinary tract infection), uncomplicated Excessive cerumen in right ear canal Excessive cerumen in left ear canal Sensorineural hearing loss Upper respiratory infection Fatigue Hyperkalemia Thyrotoxicosis Cardiac arrhythmia Rheumatic disease of mitral valve Fx lower radius/ulna-closed Ulcerative colitis History of hypertension Rhinitis Colitis History of tobacco use Bigeminy Hearing loss right hearing aid/deaf in left ear Surgical History H/O mitral valve replacement Fracture of right hip requiring operative repair Colonoscopy - MAC (03/22/18) Colonoscopy - IV Sedation (~2008) Family History Mother Asthma Father No problems noted. Sister No problems noted. Sister No problems noted. Brother No problems noted. Social History Smoking/Tobacco Use Status: Former Tobacco Use Smoking risk assessment performed?: Yes Alcohol Intake: never Drug use: Never Substance use type: does not use Housing: assisted living facility Do you feel safe at home: Yes Do you feel safe in your relationship?: Yes Additional Social history: Baylee MORALES(Care Management) Screening Will the Patient Participate in the Screening?: Unable to obtain Do you worry about having a steady place to live?: choose not to answer
--- NOTE | 2024-09-11 09:52 | SCONE_ITS ---
Date of service: 09/11/24 Time of Service: 09:52 Assessment and Plan Assessment and plan (1) HTN (hypertension): Status: Chronic Qualifiers: Hypertension type: primary hypertension Qualified Code(s): I10 - Essential (primary) hypertension (2) Mitral valve disease: Status: Acute (3) CAD (coronary artery disease): Status: Chronic (4) Elevated troponin level not due myocardial infarction: Status: Acute (5) Hyperthyroidism: Status: Chronic (6) Adrenal insufficiency: Status: Chronic (7) Bilateral hearing loss: Status: Acute (8) Dysphagia: Status: Acute Assessment and plan: speech evaluation pending (9) Chronic cholecystitis with calculus: Status: Acute Assessment and plan: Currently iris is quite comfortable. She has no abdominal pain. She is not sure if she is hungry or not. She denies any nausea. She would like to try to eat. We did get back her ultrasound eventually which did show relatively stable ejection fraction and some pulmonary hypertension. She has also had her mitral valve replaced. I did review the case extensively with anesthesia and with Dr. Mcdaniel. I also did review her CT. We could certainly do her surgery. Due to the size and the bulkiness of the gallbladder be questionable if it could be done laparoscopically. I think she would make it through the surgery but she is so frail I do not know if her quality of life would be improved, but more likely she would just continue to spiral downward. With just the dehydration and flulike symptoms that she came into the ER with she did have some demand ischemia. Anesthesia is stressful on the heart and this could mean that she is more susceptible to heart attack or stroke. Dr. Carmona did not recommend any further testing. I encouraged Rocío and iris to talk about surgery and see how they feel. Really would like to eat tonight and I think that is reasonable to do a trial of nutrition and see if she succeeds. There is also question of some dysphagia and there is a speech evaluation pending as well. We will continue antibiotics I am going to consult PT We will see how she does in the next 48 hours. If there is no improvement and she still is having a lot of nausea and cannot eat then we will consider surgery Valentin morning. I again discussed with her daughter that there is a high risk of heart attack and stroke. And due to her frail condition there is a high possibility that she may not fully recover and continue to spiral downward. There is always risks of bleeding, infection, pneumonia, blood clots with surgery. There is risks of heart attack or stroke or sudden with anesthesia. There is risks of a lot prolonged mechanical ventilation because of her COPD. There is a chance of open procedure which would begin put her at high risk for complications and a longer healing course. There is always risks of injury to bowel, bladder, blood vessels, or bile ducts. Her daughter was concerned about her passing the stone. But I think the stones are quite small and I do not think that that is going to be an issue here although it could happen. Will reevaluate in a.m. and monitor her course 45 mins spent in direct pt care and 65 in non face to face time (10) Cholecystitis, acute: Status: Acute (11) Rheumatoid arthritis: Status: Chronic Qualifiers: Rheumatoid arthritis location: other site Rheumatoid factor presence: u nspecified presence Qualified Code(s): M06.9 - Rheumatoid arthritis, unspecified (12) COPD (chronic obstructive pulmonary disease): Status: Chronic (13) Nicotine dependence: Status: Acute History of Present Illness Narrative: PT came to the ED c/o weakness accompanied by fatigue, low appetite, and cough productive of mucus. Today, she is not c/o of any abdominal pain. She is not having any n/v. The pt isnot a good historian and much of the information is taken from her daughter. Her daughter does note that her mother never complains. Her daughter states they went out to dinner on night. She did have some heavier and greasy foods. She did not really eat or have much appetite Tuesday and Tuesday. She became very dehydrated and weak and was brought into the ER. Her daughter notes that she thinks she has been losing weight. Although the patient denies and states she has been eating well and her clothes fit the same. Daughter also notes that she seems lately to have been more distended. On CT She does have a very distended GB. there is some mild wall thickening and stones confirmed on US. SHe does have troponins that are increasing. echo is pd. Pt has a hx of RA on in on 5mg pred daily. She is chronically on ASA 81mg. She is still smoking, and COPD. There is also a hx fo UC. Past surgeries significant for heart valve replacement in 2012 at [facility]. She does not remember which valve it is. She is not on any anticoagulation for this. She has had bilateral hip replacements and multiple other orthopedic surgeries. She states she has never had any abdominal surgery before. Review of Systems Narrative: Taken from the patient/chart and her daughter All systems reviewed & are unremarkable except as noted in HPI and below PFSH All Active Problems (Updated 09/12/24 @ 17:36 by Katya Myers NP) ACP (advance care planning) (Acute) Palliative care patient (Acute) Chronic cholecystitis with calculus (Acute) Dysphagia (Acute) Acute dehydration (Acute) Elevated troponin level not due myocardial infarction (Acute) Cholecystitis, acute (Acute) Nail dystrophy (Acute) Onychomycosis (Acute) Skin lesion (Acute) Stress fracture of right calcaneus (Acute) Pain in right ankle (Acute) Pain in left ankle (Acute) Pain in right foot (Acute) Neoplasm of calcaneus (Acute) Pain in left foot (Acute) Hammertoe of right foot (Acute) Ulcer of right foot limited to breakdown of skin (Acute) Osteoporosis (Chronic) CAD (coronary artery disease) (Chronic) Hyperthyroidism (Chronic) Mitral valve disease (Acute) Chronic rhinitis (Acute) Bilateral hearing loss (Acute) Nicotine dependence (Acute) Nodule of skin of hand (Acute) Adrenal insufficiency (Chronic) Methotrexate toxicity (Chronic) Full code status (Acute) Leukocytosis (Acute) DVT prophylaxis (Acute) Falls (Acute) Ulcerative colitis (Chronic) DJD (degenerative joint disease) (Chronic) HTN (hypertension) (Chronic) Rheumatoid arthritis (Chronic) COPD (chronic obstructive pulmonary disease) (Chronic) Sensorineural hearing loss, bilateral (Acute 05/07/14) Medical History Intertrochanteric fracture of right femur Status post ORIF on 10/06/2018 Discharge planning issues Acute blood loss anemia Pneumonia UTI (urinary tract infection), uncomplicated Excessive cerumen in right ear canal Excessive cerumen in left ear canal Sensorineural hearing loss Upper respiratory infection Fatigue Hyperkalemia Thyrotoxicosis Cardiac arrhythmia Rheumatic disease of mitral valve Fx lower radius/ulna-closed Ulcerative colitis History of hypertension Rhinitis Colitis History of tobacco use Bigeminy Hearing loss right hearing aid/deaf in left ear Surgical History H/O mitral valve replacement Fracture of right hip requiring operative repair Colonoscopy - MAC (03/22/18) Colonoscopy - IV Sedation (~2008) Family History Mother Asthma Father No problems noted. Sister No problems noted. Sister No problems noted. Brother No problems noted. Social History Smoking/Tobacco Use Status: Former Tobacco Use Smoking risk assessment performed?: Yes Alcohol Intake: never Drug use: Never Substance use type: does not use Housing: assisted living facility Do you feel safe at home: Yes Do you feel safe in your relationship?: Yes Additional Social history: [employer] Exam Narrative Exam Narrative: PHYSICAL EXAM GENERAL APPEARANCE: Alert, healthy appearance, oriented, x 3,? in no acute distress HYDRATION: Well hydrated HEAD, EYES, EARS, NECK, THROAT: Head is normocephalic, pupils equal, round, reactive to light and accommodation, ocular movement intact, sclera clear and no jaundice. ?Dentition intact- fair LUNGS: normal respiration/normal chest excursion. ?Clear to auscultation bilaterally. ?No wheeze. ?HEART: Regular rate and rhythm. EXTREMITY: Severe deformity from rheumatoid arthritis. Muscle atrophy ABDOMEN: soft and non-tender to palpation.? Normal bowel sounds.? No hernias.? Results Last Vital Signs Temp 37 C 09/11/24 07:52 Pulse 52 L 09/11/24 09:31 Resp 24 09/11/24 07:52 BP 150/63 H 09/11/24 07:52 Pulse Ox 97 09/11/24 09:31 Labs 09/12/24 06:28 09/12/24 06:28 Labs: Laboratory Results - last 24 hr 09/10/24 09/10/24 09/10/24 15:47 15:55 17:35 WBC 13.42 H RBC 4.62 Hgb 13.5 Hct 43.1 MCV 93 MCH 29.2 MCHC 31.3 L RDW 15.7 H Plt Count 376 MPV 9.7 Immature Gran % 0.7 Neutrophils % 80.7 Lymphocytes % 8.9 Monocytes % 8.4 Eosinophils % 0.7 Basophils % 0.6 Nucleated RBC % 0.0 Absolute Neutrophils 10.83 H Absolute Lymphocytes 1.19 L Absolute Monocytes 1.13 H Absolute Eosinophils 0.09 Absolute Basophils 0.08 Sodium 145 Potassium 4.8 Chloride 107 Carbon Dioxide 21.5 Anion Gap 16.5 H BUN 25 H Creatinine 0.9 Est GFR (CKD-EPI 2020) 62.65 Glucose 70 L Calcium 9.5 Magnesium 2.2 Total Bilirubin 0.43 Conjugated Bilirubin AST 29 ALT 17 Alkaline Phosphatase 80 Troponin I 59 H* Total Protein 8.7 H Albumin 3.7 Lipase 29 TSH 0.79 Urine Color Yellow Urine Clarity Clear Urine pH 5.0 Ur Specific [place] >= 1.030 H Urine Protein >=300 H Urine Ketones 40 H Urine Blood Trace-lysed H Urine Nitrite Negative Urine Bilirubin Moderate H Urine Urobilinogen 0.2 Ur Leukocyte Esterase Negative Urine RBC 0-2 Urine WBC 5-10 Ur Epithelial Cells Few Urine Crystals Not Applicable Urine Bacteria Few Urine Casts 0-2 Coarse Granular Urine Mucus Not Applicable Ur Culture Indicated? No Urine Glucose Negative COVID-19 Source Nasopharynx SARS-CoV-2 (PCR) Negative Influenza Type A (PCR) Negative Influenza Type B (PCR) Negative RSV (PCR) Negative 09/10/24 09/10/24 09/11/24 17:37 18:47 05:35 WBC RBC Hgb Hct MCV MCH MCHC RDW Plt Count MPV Immature Gran % Neutrophils % Lymphocytes % Monocytes % Eosinophils % Basophils % Nucleated RBC % Absolute Neutrophils Absolute Lymphocytes Absolute Monocytes Absolute Eosinophils Absolute Basophils Sodium Potassium Chloride Carbon Dioxide Anion Gap BUN Creatinine Est GFR (CKD-EPI 2020) Glucose Calcium Magnesium Total Bilirubin Conjugated Bilirubin AST ALT Alkaline Phosphatase Troponin I 65 H* 66 H* Cancelled Total Protein Albumin Lipase TSH Urine Color Urine Clarity Urine pH Ur Specific [place] Urine Protein Urine Ketones Urine Blood Urine Nitrite Urine Bilirubin Urine Urobilinogen Ur Leukocyte Esterase Urine RBC Urine WBC Ur Epithelial Cells Urine Crystals Urine Bacteria Urine Casts Urine Mucus Ur Culture Indicated? Urine Glucose COVID-19 Source SARS-CoV-2 (PCR) Influenza Type A (PCR) Influenza Type B (PCR) RSV (PCR) 09/11/24 06:17 WBC 10.91 H RBC 4.06 Hgb 12.0 Hct 38.4 MCV 95 MCH 29.6 MCHC 31.3 L RDW 15.9 H Plt Count 312 MPV 9.6 Immature Gran % Neutrophils % Lymphocytes % Monocytes % Eosinophils % Basophils % Nucleated RBC % Absolute Neutrophils Absolute Lymphocytes Absolute Monocytes Absolute Eosinophils Absolute Basophils Sodium 144 Potassium 4.3 Chloride 106 Carbon Dioxide 17.2 L Anion Gap 20.8 H BUN 26 H Creatinine 0.9 Est GFR (CKD-EPI 2020) 62.65 Glucose 55 L Calcium 8.6 Magnesium 2.1 Total Bilirubin 0.58 Conjugated Bilirubin 0.2 AST 23 ALT 13 L Alkaline Phosphatase 71 Troponin I 72 H* Total Protein 7.4 Albumin 3.1 L Lipase TSH Urine Color Urine Clarity Urine pH Ur Specific [place] Urine Protein Urine Ketones Urine Blood Urine Nitrite Urine Bilirubin Urine Urobilinogen Ur Leukocyte Esterase Urine RBC Urine WBC Ur Epithelial Cells Urine Crystals Urine Bacteria Urine Casts Urine Mucus Ur Culture Indicated? Urine Glucose COVID-19 Source SARS-CoV-2 (PCR) Influenza Type A (PCR) Influenza Type B (PCR) RSV (PCR)
--- NOTE | 2024-09-11 10:32 | PGE_ITS ---
Date of Service Date of service: 09/11/24 Time of Service: 09:35 Assessment and Plan Assessment and plan (1) Cholecystitis, acute: Start date: 09/10/24 Status: Acute Assessment and plan: Minimal abdominal symptoms but presents with acutely worse nausea and vomiting and poor intake with dehydration. CT and u/s impressive in terms of size of gallbaldder, also thick. The lack of clear inflammation and minimal pain could be related to her immune suppression. Developing acidosis overnight, which is concerning. I spoke to Dr. Ruiz who is concerned about troponins. She would like (2) Acute dehydration: Start date: 09/10/24 Status: Acute Assessment and plan: Decreased intake over the last several days at [facility] in which is a level 3 facility. Likely a/w cholecystitis as a cause of her decreased appetite. She is on plasmalyte, sugars are a little low, will add S (3) Adrenal insufficiency: Status: Chronic Assessment and plan: With hypoglycemia with no hypotension, stress steroids will be given with IV hydrocortisone given chcf steroid use. (4) Elevated troponin level not due myocardial infarction: Start date: 09/10/24 Status: Acute Assessment and plan: Mild elevation. EKG reassuring, not c/w ACS though she does have a documented history of CAD. As above, would like to get echocardiogram prior to surgery to assess heart function, reassess valve function. (5) Hyperthyroidism: Status: Chronic Assessment and plan: on methimazole (6) Rheumatoid arthritis: Status: Chronic Assessment and plan: currently on prednisone and hydroxychloroquine. She does not appear to have active joint disease. Qualifiers: Rheumatoid arthritis location: other site Rheumatoid factor presence: unspecified presence Qualified Code(s): M06.9 - Rheumatoid arthritis, unspecified (7) Dysphagia: Status: Acute Assessment and plan: To liquids. Possibly related to medication (methotrexate? bisphosphonate?). Will asks for speech/swallow eval (8) DVT prophylaxis: Status: Acute Assessment and plan: pending surgery, SCDs for now Subjective Subjective Patient reports: no new complaints and voiding w/o difficulty; denies diarrhea, nausea, vomiting, shortness of breath or fever Interval history since last seen: Feels okay. No abdominal pain or chest pain. Not dizzy. Breathing feels okay. Per nursing, aspirated after taking morning medications with a little water. Per family this has been happening at home related to irritation possibly from methotrexate. Exam Narrative Exam Narrative: General: Thin, sitting up in chair, bright and interactive, no distress. Alert and oriented x 3 but forgets some things (like u/s done this morning). HEENT: conj thickened and pink c/w blepharitis. no icterus Lungs: Normal effort. Bibasilar rales. no wheeze. Heart: Regular rate rhythm with no murmurs or gallops appreciated. Abdomen: Soft, not tender, though abdomen dose become more firm with deep palpation in RUQ. no palpable hepatomegaly, bowel sounds positive all quadrants. Extremities: No clubbing, cyanosis or pitting edema. Good capillary refill. Skin: Normal color, warm and dry. Psych: Flat affect with depressed mood. No abnormal thought processes. Remote and recent memory grossly intact. Objective Last Vital Signs Temp 37 C 09/11/24 07:52 Pulse 52 L 09/11/24 09:31 Resp 24 09/11/24 07:52 BP 150/63 H 09/11/24 07:52 Pulse Ox 97 09/11/24 09:31 Laboratory Results - last 24 hr 09/10/24 09/10/24 09/10/24 15:47 15:55 17:35 WBC 13.42 H RBC 4.62 Hgb 13.5 Hct 43.1 MCV 93 MCH 29.2 MCHC 31.3 L RDW 15.7 H Plt Count 376 MPV 9.7 Immature Gran % 0.7 Neutrophils % 80.7 Lymphocytes % 8.9 Monocytes % 8.4 Eosinophils % 0.7 Basophils % 0.6 Nucleated RBC % 0.0 Absolute Neutrophils 10.83 H Absolute Lymphocytes 1.19 L Absolute Monocytes 1.13 H Absolute Eosinophils 0.09 Absolute Basophils 0.08 Sodium 145 Potassium 4.8 Chloride 107 Carbon Dioxide 21.5 Anion Gap 16.5 H BUN 25 H Creatinine 0.9 Est GFR (CKD-EPI 2020) 62.65 Glucose 70 L Calcium 9.5 Magnesium 2.2 Total Bilirubin 0.43 Conjugated Bilirubin AST 29 ALT 17 Alkaline Phosphatase 80 Troponin I 59 H* Total Protein 8.7 H Albumin 3.7 Lipase 29 TSH 0.79 Urine Color Yellow Urine Clarity Clear Urine pH 5.0 Ur Specific [place] >= 1.030 H Urine Protein >=300 H Urine Ketones 40 H Urine Blood Trace-lysed H Urine Nitrite Negative Urine Bilirubin Moderate H Urine Urobilinogen 0.2 Ur Leukocyte Esterase Negative Urine RBC 0-2 Urine WBC 5-10 Ur Epithelial Cells Few Urine Crystals Not Applicable Urine Bacteria Few Urine Casts 0-2 Coarse Granular Urine Mucus Not Applicable Ur Culture Indicated? No Urine Glucose Negative COVID-19 Source Nasopharynx SARS-CoV-2 (PCR) Negative Influenza Type A (PCR) Negative Influenza Type B (PCR) Negative RSV (PCR) Negative 09/10/24 09/10/24 09/11/24 17:37 18:47 05:35 WBC RBC Hgb Hct MCV MCH MCHC RDW Plt Count MPV Immature Gran % Neutrophils % Lymphocytes % Monocytes % Eosinophils % Basophils % Nucleated RBC % Absolute Neutrophils Absolute Lymphocytes Absolute Monocytes Absolute Eosinophils Absolute Basophils Sodium Potassium Chloride Carbon Dioxide Anion Gap BUN Creatinine Est GFR (CKD-EPI 2020) Glucose Calcium Magnesium Total Bilirubin Conjugated Bilirubin AST ALT Alkaline Phosphatase Troponin I 65 H* 66 H* Cancelled Total Protein Albumin Lipase TSH Urine Color Urine Clarity Urine pH Ur Specific [place] Urine Protein Urine Ketones Urine Blood Urine Nitrite Urine Bilirubin Urine Urobilinogen Ur Leukocyte Esterase Urine RBC Urine WBC Ur Epithelial Cells Urine Crystals Urine Bacteria Urine Casts Urine Mucus Ur Culture Indicated? Urine Glucose COVID-19 Source SARS-CoV-2 (PCR) Influenza Type A (PCR) Influenza Type B (PCR) RSV (PCR) 09/11/24 06:17 WBC 10.91 H RBC 4.06 Hgb 12.0 Hct 38.4 MCV 95 MCH 29.6 MCHC 31.3 L RDW 15.9 H Plt Count 312 MPV 9.6 Immature Gran % Neutrophils % Lymphocytes % Monocytes % Eosinophils % Basophils % Nucleated RBC % Absolute Neutrophils Absolute Lymphocytes Absolute Monocytes Absolute Eosinophils Absolute Basophils Sodium 144 Potassium 4.3 Chloride 106 Carbon Dioxide 17.2 L Anion Gap 20.8 H BUN 26 H Creatinine 0.9 Est GFR (CKD-EPI 2020) 62.65 Glucose 55 L Calcium 8.6 Magnesium 2.1 Total Bilirubin 0.58 Conjugated Bilirubin 0.2 AST 23 ALT 13 L Alkaline Phosphatase 71 Troponin I 72 H* Total Protein 7.4 Albumin 3.1 L Lipase TSH Urine Color Urine Clarity Urine pH Ur Specific [place] Urine Protein Urine Ketones Urine Blood Urine Nitrite Urine Bilirubin Urine Urobilinogen Ur Leukocyte Esterase Urine RBC Urine WBC Ur Epithelial Cells Urine Crystals Urine Bacteria Urine Casts Urine Mucus Ur Culture Indicated? Urine Glucose COVID-19 Source SARS-CoV-2 (PCR) Influenza Type A (PCR) Influenza Type B (PCR) RSV (PCR) Time Spent with Patient Time Spent with Patient: >50 minutes Time was spent: preparing to see the patient(eg.review tests), obtaining and/or reviewing separately otained hiistory, ordering medications,tests, procedures, referring, communicating with other health career advisor, indepentently int erpreting results, counseling the patient and care coordination
--- NOTE | 2024-09-11 11:30 | RT.EKG_ITS ---
APPROVED REPORT Exam: Resting ECG Reason for Exam: elevated trop Patient Location: I HR:53 bpm ECG Measurements Heart Rate 53 AXIS NV 199 P -4 QRSd 80 QRS -31 QT 525 T 42 QTc 493 Conclusion Sinus rhythm...normal P axis, V-rate 50- 99 Inferior infarct, old...Q >35mS, II III aVF Anterior infarct, old...Q >40mS, abnormal ST-T, V2-V5 Excessive artifact Artifact in lead(s) I,II,III,V1,V2,V3,V4,V5,V6
[2024-09-11 12:17] LABS: Troponin I 71 ng/L (<or=51)
[2024-09-11] MEDS: DEXTROSE 5%-LACTATED RINGERS 1,000 ML 50 ML IV (14:19)
[2024-09-11] MEDS: ELECTROLYTE-R SOLUTION 1,000 ML 50 ML IV (14:19)
[2024-09-11] MEDS: Normal Saline 10 ML VIAL IJ (14:39)
--- NOTE | 2024-09-11 15:31 | CHAPLAIN ---
Ralf was up in the recliner when I visited. She had a friend visiting her. Rlaf is a member of [facility] and earlier today, Katya Brennan, a Eucharistic deacon from [facility] brought Ralf communion. This was very important to Ralf.
[2024-09-11] MEDS: Dextrose 50%-Water 25 GM/50 ML SYR IVP (15:36)
--- NOTE | 2024-09-11 15:50 | PHA.REVIEW2 ---
Pharmacy Admission Review Admission Clinical Review Admission Pharmacy Review: Dysphagia (Acute) Acute dehydration (Acute) Elevated troponin level not due myocardial infarction (Acute) Cholecystitis, acute (Acute) DVT prophylaxis (Acute) adhesive tape Adverse Reaction (Intermediate, Verified 04/16/24 09:34) . lisinopril (From Zestril) Adverse Reaction (Intermediate, Verified 04/16/24 09:34) hyperkalemia sulfasalazine Adverse Reaction (Intermediate, Verified 04/16/24 09:34) Lupus Type Symptoms Resuscitation Status Full Code Height 4 ft 11 in Weight 38.4 kg Pharmacy Admission Review Renal Dosing Renal Dosing: BUN 26 mg/dL (7-18) H 09/11/24 06:17 Creatinine 0.9 mg/dL (0.55-1.02) 09/11/24 06:17 Medications needing adjustments: Intervened (crcl = 24.9) List of meds needing interventions: adjusted zosyn from 3.375g to 2.25g q6h for crcl <40 Anticoagulation Anticoagulation: Hgb 12.0 g/dL (11.2-15.7) 09/11/24 06:17 Hct 38.4 % (36.0-46.0) 09/11/24 06:17 Plt Count 312 10^3/uL (130-400) 09/11/24 06:17 Creatinine 0.9 mg/dL (0.55-1.02) 09/11/24 06:17 DVT Prophylaxis: Reviewed Medications: Heparin (5000 units subq q8h) Therapeutic Anticoagulation: Reviewed (n/a) Opiate Usage Evaluate Pain Scale/Pains Meds: Reviewed (not on opiates) Relevant Labs Relevant Labs: Sodium 144 mmol/L (136-145) 09/11/24 06:17 Potassium 4.3 mmol/L (3.5-5.1) 09/11/24 06:17 Chloride 106 mmol/L (98-107) 09/11/24 06:17 Magnesium 2.1 mg/dL (1.8-2.4) 09/11/24 06:17 Electrolytes, C-Reactive P, ESR: Reviewed DM Control DM Control: Reviewed (no diabetes diagnosis) Cardiac Review Cardiac Review: Troponin I 71 ng/L (<or=51) H* 09/11/24 11:50 BP, HR, EF%: Reviewed (on metoprolol 12.5 mg q6h (home dose is metoprolol succ 25 mg daily)) QTc Review QTc: Reviewed (QTc = 493) IV to PO Switch IV Medications: Reviewed (IV abx + hydrocortisone for now, switch to PO when appropriate.) Home Meds Home Med List reviewed: Reviewed Current Meds Current Medication Order Review: Reviewed Comments: receiving plasmalyte IV fluid (125 mL/hr overnight), 1 liter D5/LR added (50 mL/hr) for hypoglycemia (in addition to plasmalyte running @ 50 mL/hr) Pharmacy Antibiotic Review Pharmacy Antibiotic Activity: Renal function adjustment Comments: zosyn 3.375g q6h ordered for acute cholecystitis. renally adjusted to 2.25 g q6h (crcl <40)
[2024-09-11] MEDS: PIPERACILLIN/TAZO 2.25 GM in Normal Saline 50 ML IVPB ×2 (17:40→23:17)
[2024-09-11] MEDS: Mirtazapine 15 MG TAB 30 MG PO (19:28)
[2024-09-12 05:21] VITALS: BP 151/68; PULSE 49; RESP 18; TEMP 37; O2SAT 96
[2024-09-12] MEDS: PIPERACILLIN/TAZO 2.25 GM in Normal Saline 50 ML IVPB ×2 (05:25→12:02)
[2024-09-12] MEDS: Heparin 5,000 UNITS/ML VIAL 5000 UNITS SC ×3 (06:31→22:19)
[2024-09-12] MEDS: Hydrocortisone SOD SUC. 100 MG VIAL IVP ×3 (06:31→22:19)
[2024-09-12 07:30] LABS: Abs Immature Grans 0.06 10^3/uL (0.0-0.06); Absolute Basophil Count 0.03 10^3/uL (0.0-0.2); Absolute Eosinophil Count 0.03 10^3/uL (0.0-0.7); Absolute Lymphocyte Count 0.88 10^3/uL (1.2-3.4); Absolute Monocyte Count 0.71 10^3/uL (0.1-0.8); Absolute Neutrophil Count 9.52 10^3/uL (1.2-6.7); Basophils % 0.3 %; Eosinophils % 0.3 %; HCT 35.4 % (36.0-46.0); HGB 12.6 g/dL (11.2-15.7); Immature Grans % 0.5 %; Lymphocytes % 7.8 %; MCH 32.9 pg (27.0-33.0); MCHC 35.6 % (32.0-36.0); MCV 92 fL (80-95); MPV 10.5 fL (8.0-11.0); Monocytes % 6.3 %; Neutrophils % 84.8 %; Platelet Count 338 10^3/uL (130-400); RBC 3.83 10^6/uL (3.93-5.22); RDW 15.7 % (11.7-14.6); RDW-SD 52.4 fL; WBC 11.23 10^3/uL (4.4-10.8)
[2024-09-12] MEDS: Gabapentin 300 MG CAP PO ×3 (07:45→20:17)
[2024-09-12] MEDS: Magnesium Chloride 64 MG TABCR PO (07:45)
[2024-09-12] MEDS: Pantoprazole 40 MG VIAL IVP (07:45)
[2024-09-12] MEDS: Cholecalciferol (Vitamin D3) 1,000 UNIT TAB 2000 UNITS PO (07:46)
[2024-09-12] MEDS: Benzonatate 100 MG CAP PO ×3 (07:46→20:17)
[2024-09-12] MEDS: Loratidine 10 MG TAB PO (07:46)
[2024-09-12] MEDS: Hydroxychloroquine 200 MG TAB PO (07:46)
[2024-09-12] MEDS: Calcium Carbonate *TUMS* 500 MG CHEW PO ×2 (07:46→20:17)
[2024-09-12] MEDS: methIMAzole 5 MG TAB PO (07:46)
[2024-09-12] MEDS: Normal Saline Flush 10 ML SYR IVP ×4 (07:46→22:20)
[2024-09-12] MEDS: Vitamins B Comp w/C TAB 1 TAB PO (07:46)
[2024-09-12 07:50] VITALS: BP 157/72; PULSE 59; RESP 20; TEMP 36.6; O2SAT 94
[2024-09-12 07:55] LABS: ALT 14 U/L (14-59); AST 23 U/L (15-37); Albumin 2.7 g/dL (3.4-5.0); Alkaline Phosphatase 65 U/L (46-116); Anion Gap 11.8 mmol/L (3-11); BUN 18 mg/dL (7-18); Bilirubin, Total 0.41 mg/dL (0.2-1.0); CO2 25.2 mmol/L (21.0-32.0); CREATININE 0.9 mg/dL (0.55-1.02); Chloride 110 mmol/L (98-107); Estimated GFR 62.65 (mL/min/1.73m2); Glucose 106 mg/dL (74-106); Potassium 3.5 mmol/L (3.5-5.1); Sodium 147 mmol/L (136-145); Total Protein 6.6 g/dL (6.4-8.2)
[2024-09-12 08:05] LABS: Troponin I 52 ng/L (<or=51)
--- NOTE | 2024-09-12 09:52 | W.PM.PROGNOT ---
Date of Service Date of service: 09/12/24 Time of Service: 09:52 Assessment and Plan Assessment and plan (1) Cholecystitis, acute: Start date: 09/10/24 Status: Acute Assessment and plan: Still minimal abdominal symptoms able to take clears today without pain. CT and u/s impressive in terms of size of gallbaldder, also thick. The lack of clear inflammation and minimal pain could be related to her immune suppression. AG acidosis from yesterday improved. Case reviewed with Dr. Ruiz and Aurelio. Decision was made to postpone surgery while she considers options given high surgical risk. Palliative consulted to help her clarify goals given difficult options. 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 (3) Elevated troponin level not due myocardial infarction: Start date: 09/10/24 Status: Acute Assessment and plan: Mild elevation. EKG reassuring, not c/w ACS though she does have a documented history of CAD. Echocardiogram does not suggest focal ischemia or history of NM, reviewed with Dr. Monson. (4) Hyperthyroidism: Status: Chronic Assessment and plan: on methimazole (5) Rheumatoid arthritis: Status: Chronic Assessment and plan: currently on prednisone and hydroxychloroquine. She does not appear to have active joint disease. Qualifiers: Rheumatoid arthritis location: other site Rheumatoid factor presence: unspecified presence Qualified Code(s): M06.9 - Rheumatoid arthritis, unspecified (6) Dysphagia: Status: Acute Assessment and plan: To liquids. Possibly related methotrexate per daughter. Speech/swallow not available, this is improved today interestingly and she is tolerating liquids well today. (7) DVT prophylaxis: Status: Acute Assessment and plan: pending surgery, SCDs for now Subjective Subjective Patient reports: tolerating liquids well and voiding w/o difficulty; denies diarrhea, vomiting, shortness of breath or fever Interval history since last seen: 24 hr: Evaluated by surgery, decided to resume clear diet as she considers surgical option Echocardiogram done, nl LVEF 60%, no focal wall motion abnormalities She feels okay, denies pain. She was hungry this morning and took clears. no chest pain. Exam Narrative Exam Narrative: General: Thin, sitting up in chair, bright and interactive, no distress. Alert and oriented. Lungs: Normal effort. Bibasilar rales. no wheeze. Heart: Regular rate rhythm with no murmurs or gallops appreciated. Abdomen: Soft, not tender, non-distended, bowel sounds positive all quadrants. Extremities: No clubbing, cyanosis or pitting edema. Good capillary refill. Objective Last Vital Signs Temp 36.6 C 09/12/24 07:50 Pulse 59 L 09/12/24 07:50 Resp 20 09/12/24 07:50 BP 157/72 H 09/12/24 07:50 Pulse Ox 94 09/12/24 07:50 Laboratory Results - last 24 hr 09/11/24 09/12/24 11:50 06:28 WBC 11.23 H RBC 3.83 L Hgb 12.6 Hct 35.4 L MCV 92 MCH 32.9 MCHC 35.6 D RDW 15.7 H Plt Count 338 MPV 10.5 Immature Gran % 0.5 Neutrophils % 84.8 Lymphocytes % 7.8 Monocytes % 6.3 Eosinophils % 0.3 Basophils % 0.3 Nucleated RBC % 0.0 Absolute Neutrophils 9.52 H Absolute Lymphocytes 0.88 L Absolute Monocytes 0.71 Absolute Eosinophils 0.03 Absolute Basophils 0.03 Sodium 147 H Potassium 3.5 Chloride 110 H Carbon Dioxide 25.2 Anion Gap 11.8 H BUN 18 Creatinine 0.9 Est GFR (CKD-EPI 2020) 62.65 Glucose 106 Calcium 8.0 L Total Bilirubin 0.41 AST 23 ALT 14 Alkaline Phosphatase 65 Troponin I 71 H* 52 H Total Protein 6.6 Albumin 2.7 L Time Spent with Patient Time Spent with Patient: 35-49 minutes Time was spent: preparing to see the patient(eg.review tests), obtaining and/or reviewing separately otained hiistory, ordering medications,tests, procedures, referring, communicating with other health career portals teacher, indepentently interpreting results, counseling the patient and care coordination
--- NOTE | 2024-09-12 10:54 | IN_ITS ---
PT Notes Visit Reasons: Acute dehydration, Cholecystitis Inpatient Physical Therapy Initial Evaluation Date: 09/12/2024 Referring Doctor: Tianna Ruiz MD PT Orders: PT CONSULT: ambulation/fall eval Precautions: Fall. Standard precautions. Activity as tolerated. Hearing impaired. Patient Profile/Admitting Diagnosis: Patient is an 83-year-old female who presented to the ED on 09/10/2024 due to generalized weakness, fatigue, low appetite, productive cough. She is admitted for management of acute cholecystitis with calculus, adrenal insufficiency, elevated troponin, hyperthyroidism, rheunatoid arthritis, and dysphagia. PMHX: All Active Problems Dysphagia (Acute) Acute dehydration (Acute) Elevated troponin level not due myocardial infarction (Acute) Cholecystitis, acute (Acute) Nail dystrophy (Acute) Onychomycosis (Acute) Skin lesion (Acute) Stress fracture of right calcaneus (Acute) Pain in right ankle (Acute) Pain in left ankle (Acute) Pain in right foot (Acute) Neoplasm of calcaneus (Acute) Pain in left foot (Acute) Hammertoe of right foot (Acute) Ulcer of right foot limited to breakdown of skin (Acute) Osteoporosis (Chronic) CAD (coronary artery disease) (Chronic) Hyperthyroidism (Chronic) Mitral valve disease (Acute) Chronic rhinitis (Acute) Bilateral hearing loss (Acute) Nicotine dependence (Acute) Nodule of skin of hand (Acute) Adrenal insufficiency (Chronic) Methotrexate toxicity (Chronic) Full code status (Acute) Leukocytosis (Acute) DVT prophylaxis (Acute) Falls (Acute) Ulcerative colitis (Chronic) DJD (degenerative joint disease) (Chronic) HTN (hypertension) (Chronic) Rheumatoid arthritis (Chronic) COPD (chronic obstructive pulmonary disease) (Chronic) Sensorineural hearing loss, bilateral (Acute 05/07/14) Medical History Intertrochanteric fracture of right femur Status post ORIF on 10/06/2018 Discharge planning issues Acute blood loss anemia Pneumonia UTI (urinary tract infection), uncomplicated Excessive cerumen in right ear canal Excessive cerumen in left ear canal Sensorineural hearing loss Upper respiratory infection Fatigue Hyperkalemia Thyrotoxicosis Cardiac arrhythmia Rheumatic disease of mitral valve Fx lower radius/ulna-closed Ulcerative colitis History of hypertension Rhinitis Colitis History of tobacco use Bigeminy Hearing loss right hearing aid/deaf in left ear Surgical History H/O mitral valve replacement Fracture of right hip requiring operative repair Colonoscopy - MAC (03/22/18) Colonoscopy - IV Sedation (~2008) Social History/Home Situation: [facility] resident. Supervision with use of [employer] FWW for indoors. Equipment Owned/DME: FWW with tray, shower chair. Subjective: Patient is pleasant and cooperative; agreeable to a PT consult and treatment. Agreeable to working with PT for this consult. Objective: General Observation: Patient seen lying in bed. Telemetry monitoring in place. Mental Status: Alert and oriented x3 Pain: Minimal arthritic pain in B hands and fingers Vital Signs: Closely monitored by nursing staff ROM: Right Upper Extremity: Shoulder Flexion lacks about 50% of AROM. Shoulder abduction lacks about 50% of AROM. Elbow flexion WFL. Wrist flexion WFL. Functional opening and closing of hand decreased due to arthritic process. Left Upper Extremity: Shoulder Flexion lacks about 50% of AROM. Shoulder abduction lacks about 50% of AROM. Elbow flexion WFL. Wrist flexion WFL. Functional opening and closing of hand decreased due to arthritic process. Right Lower Extremity: Hip flexion lacks the last 25% of AROM. Hip abduction WFL. Knee flexion 30 degrees to 90 degrees. -30 degrees ankle dorsiflexion to neutral only. Ankle plantarflexion WFL. Left Lower Extremity: Hip flexion lacks the last 25% of AROM. Hip abduction WFL. Knee flexion 30 degrees to 90 degrees. -30 degrees ankle dorsiflexion to neutral only. Ankle plantarflexion WFL. Strength: Right Upper Extremity: Shoulder flexors 3-/5. Shoulder abductors 3-/5. Elbow flexors 4-/5. Elbow extensors 4-/5. Category Consultant weak but functional. Left Upper Extremity: Shoulder flexors 3-/5. Shoulder abductors 3-/5. Elbow flexors 4-/5. Elbow extensors 4-/5. Category Consultant weak but functional. Right Lower Extremity: Hip flexors 3-/5. Hip abductors 4-/5. Knee flexors 3-/5. Knee extensors 3-/5. Ankle dorsiflexors 3-/5. Ankle plantarflexors 4-/5. Left Lower Extremity: Hip flexors 3-/5. Hip abductors 4-/5. Knee flexors 3-/5. Knee extensors 3-/5. Ankle dorsiflexors 3-/5. Ankle plantarflexors 4-/5. Sensation: Intact to BLE as to pain and pressure. Bed Mobility/Transfers: Minimal cueing provided for use of B hands as needed for support, movement sequence, AD management, and posture to reduce fall risk and minimize pain report Sit to stand minimal assist with FWW Stand to sit contact guard assist with FWW Bed to chair contact guard assist with FWW Chair to bed contact guard assist with FWW Gait: Facilitated safe and correct performance of level surface ambulation covering a distance of 200 feet using use front wheeled walker with contact-guard assist and wheelchair follow for safety. Did not report of any increased pain. Denied headache, chest pain, and lightheadedness throughout activity. Minimal verbal cueing provided for AD management, directional changes, and posture. Balance: Static Sitting: Good Dynamic Sitting: Good Static Standing: Fair Dynamic Standing: Fair Special Tests: Mobility Limitations Standardized Measure [facility] AM-PAC 6 clicks Basic Mobility Inpatient Short Form: Raw Score: 18 CMS Score: 47% deficit Informed Consent/Education: Patient instructed in purpose of PT consult and plan of care. Agreeable to proceed with established PT POC to achieve personal goals. Assessment: Patient is an 83-year-old female who presented to the ED on 09/10/2024 due to generalized weakness, fatigue, low appetite, productive cough. She is admitted for management of acute cholecystitis with calculus, adrenal insufficiency, elevated troponin, hyperthyroidism, rheunatoid arthritis, and dysphagia. Patient presents with clinical signs and symptoms consistent with current/admitting diagnoses that have resulted to mobility limitations, gait instability, generalized weakness, and impaired motor control as demonstrated by the following impairment level findings: 1. Decreased strength to B LE major muscle groups 2. Impaired balance 3. Impaired activity tolerance 4. Limitation of joint range of motion in right B shoulders and knees Impairments are contributing to the following functional limitations: 1. Increased completion time for bed mobility skills 2. Increased dependence with transfers 3. Inability to safely ambulate without assistive device and physical assistance 4. Increase completion time for mobility ADL performance 5. Increased fall risk Patient is assessed as Moderate 15236 complexity based on the following: History: 78-year-old female with admitting diagnosis and comorbidities listed above Examination: Underlying impairments and functional deficits resulting to AMPA score of 18 with an equivalent CMS score of 47% deficit Presentation: Evolving Decision Makin moderate complexity Goals: Goals X1 week 1. Supine-Sit independent 2. Sit-Supine independent 3. Sit-Stand independent 4. Stand-Sit independent 5. Bed-Chair independent 6. Chair-Bed independent 7. Gait on level surface ambulation independent with use of least restrictive device for at least 300 feet without report of pain nor dyspnea 8. Independent with home exercise program 9. Balance good for static and dynamic standing Plan of Care/Treatment Plan: 1-2x/day, 7 days/week x 1 week. Initiate Physical Therapy intervention for strengthening, bed mobility, transfers, gait, stairs, balance training, use of assistive device. DISCHARGE RECOMMENDATIONS: [] Home with no services [] [X] Home with services. Patient will benefit from home health PT services in order to progress mobility level using least restrictive assistive ambulatory device, assess home safety, identify additional equipment needs, and establish a functional maintenance program that will increase ability of patient to remain at home. [] Home with outpatient PT [] [] SNF for continued rehabilitation [] [] Loss Prevention Consultant Care [] [] SNF versus LTC based on ability to participate and progress [] discharge recommendations TREATMENT CODE/TIME: 35453 x 20 minutes for 1 unit, 55390 x 13 minutes for 1 unit (10:54-11:09). Thank you for the opportunity to participate in the care of this patient. Jessica Joseph PT, DPT, CLT [facility] [place], [place]
[2024-09-12 11:19] VITALS: BP 171/70; PULSE 51; RESP 22; TEMP 37; O2SAT 96
--- NOTE | 2024-09-12 13:28 | CMPROGNOTE_ITS ---
Date of service: 09/12/24 Time of Service: 13:28 Care Management Progress Note Progress Note Text Progress Note Text: Ralf was sitting in the recliner when CM met with her. She is a high risk surgical candidate (per surgical) and treatment for an acute cholecystitis is on hold until she meets with Palliative later today to discuss goals of care. CM will continue to support patient with her advanced directives when her goals are better known. Ralf verbalized to CM that the doctor is concerned with her recovery. PT recommends [facility] PT (add ST, if recommended). CM will follow. Discharge Potential Discharge Needs: Consult Consult Services Needed: Palliative, PCP F/U Appt and Surgical F/U Appt Anticipated Barriers to Discharge: Medical Status Patient/Family Education Needs: Review discharge instructions, discuss Ask Me Three Transportation: Other Plan: Patient is high risk, therefor surgical intervention is placed on hold. Palliative consult is planned for this afternoon to review goals of care and treatment options. Anticipate, Ralf will return to the [facility] with [facility] PT, when Medically ready. ST consult is pending. CM will follow SDOH(Care Management) Screening Will the Patient Participate in the Screening?: Unable to obtain Do you worry about having a steady place to live?: choose not to answer
[2024-09-12 15:07] VITALS: BP 160/65; PULSE 50; RESP 16; TEMP 36.7; O2SAT 96
--- NOTE | 2024-09-12 15:27 | W.PM.PROGNOT ---
Date of Service Date of service: 09/12/24 Time of Service: 12:15 Assessment and Plan Assessment and plan (1) Chronic cholecystitis with calculus: Status: Acute Assessment and plan: Overall, I would say the clinical course seems to be reassuring at this point. Her troponin is downtrending, and her anion gap is closing. LFTs still remain normal. She has a mild leukocytosis, but not much different than yesterday, which is down from her ER presentation. Furthermore, she is tolerating liquids with really no symptoms at all. I think the likelihood of acute cholecystitis is low given the absence of any tenderness at this time. We talked for a long while about chronic cholecystitis, and treatment of her cholelithiasis. I explained that her symptoms could certainly be attributable to gallstones, but even a low perfusion state overall could result in some mild cholecystitis which may be improving after some gentle resuscitation. At this point, we can advance her diet up a little bit and see how she tolerates that. If she does well, then we have a little more time to reflect on the risks and the benefits of cholecystectomy relative to her health overall. For now, we will advance her diet and we can reassess tomorrow Subjective Subjective Interval history since last seen: I am able to meet with Ralf and her family in her room today. She says she is feeling much better. She has been able to tolerate some liquids with no nausea or vomiting. She is pain-free. Exam GI Other: Her abdomen is soft and not at all tender. She is not distended. She has normal bowel sounds. Objective Last Vital Signs Temp 98.1 F 09/12/24 15:07 Pulse 50 L 09/12/24 15:07 Resp 16 09/12/24 15:07 BP 160/65 H 09/12/24 15:07 Pulse Ox 96 09/12/24 15:07 Laboratory Results - last 24 hr 09/12/24 06:28 WBC 11.23 H RBC 3.83 L Hgb 12.6 Hct 35.4 L MCV 92 MCH 32.9 MCHC 35.6 D RDW 15.7 H Plt Count 338 MPV 10.5 Immature Gran % 0.5 Neutrophils % 84.8 Lymphocytes % 7.8 Monocytes % 6.3 Eosinophils % 0.3 Basophils % 0.3 Nucleated RBC % 0.0 Absolute Neutrophils 9.52 H Absolute Lymphocytes 0.88 L Absolute Monocytes 0.71 Absolute Eosinophils 0.03 Absolute Basophils 0.03 Sodium 147 H Potassium 3.5 Chloride 110 H Carbon Dioxide 25.2 Anion Gap 11.8 H BUN 18 Creatinine 0.9 Est GFR (CKD-EPI 2020) 62.65 Glucose 106 Calcium 8.0 L Total Bilirubin 0.41 AST 23 ALT 14 Alkaline Phosphatase 65 Troponin I 52 H Total Protein 6.6 Albumin 2.7 L PAWSS Have you Been Recently Intoxicated or Drunk Within the Last 30 days?: No Have you Ever Experienced Previous Episodes of Alcohol Withdrawal?: No Have you ever Experienced Withdrawal Seizures?: No Have you ever Experienced Delirium Tremens(DT)s?: No Have you ever undergone Alcohol Rehabilitation Treatment (i.e, inpt ot outpatient treatment programs)?: No Have you ever Experienced Blackouts?: No Have you ever Combined Alcohol with other Downers within the last 90 days?: No Have you ever Combined Alcohol with any other Substance of Abuse during the last 90 days?: No Positive Blood Alcohol level on Presentation? [PCS.BAL]: No Evidence of Increased Autonomic Activity (i.e. HR>120, tremor, sweating, agitation, nausea)?: No Result: 0 Time Spent with Patient Time Spent with Patient: 35-49 minutes Time was spent: preparing to see the patient(eg.review tests), referring, communicating with other health respiratory care technician, indepentently interpreting results, counseling the patient and care coordination
--- NOTE | 2024-09-12 17:22 | W.PALLCONSUL ---
Date of service: 09/12/24 Time of Service: 16:30 History of Present Illness Narrative: Ms. Arambula is an 83 y/o F currently inpatient 2/2 cholecystitis; PMHx sig for hyperthyroidism, ulcerative collitis, DJD, HTN, RA, COPD, mitral valve dz; PC consult to review GOC - at time of PC visit, she has three visitors, cousins Janeth, Arianna and Fernando; she agrees to short visit; dinner arrives after 10m of visit Hospital course: presented to [facility] on 09/10 after 3 days of reduced oral intake, dehydration; work up sig for cholecystitis w/sig enlarged gallbladder, elevated triponins (not d/t [place]), leukocytosis and adrenal insufficiency (started on steroids); clinically she has been improving, leukocytosis, triponins, anion gap all improving; no pain, no nausea; surgery consult to hold surgery d/t no pain and improving status, to start advanced diet this evening; she has not moved bowels but BS are active, urinating appropriately, no c/o of pain or nausea, per staff she is doing a lot better, tolerating fluids well Ralf lives at the [facility], her preference would be to return there. She would prefer to delay surgery as long as possible, she is aware the is a high risk surgery. She would prefer to wait and see. If she started having pain, she would consider surgery at that time. She is aware she is a full code, she would like to remain a full code, this is a difficult topic for her. She is unsure if Primo, her HCA, knows her current preferences Assessment and Plan Assessment and plan (1) Chronic cholecystitis with calculus: Status: Acute Assessment and plan: suspected chronic, d/t thickening and potential ongoing weight loss will f/u w/weight trends via CI (2) Dysphagia: Status: Acute Assessment and plan: tolerating fluids well today advanced diet to start tonight TRAINING REPRESENTATIVE consult as available (3) Acute dehydration: Status: Acute Assessment and plan: improving w/gentle hydration tolerating PO liquids (4) Cholecystitis, acute: Status: Acute Assessment and plan: surgery on hold; pending sxs resolution would consider surgery if pain presented aware of high surgical risk (5) Adrenal insufficiency: Status: Chronic Assessment and plan: started on IV hydrocortisone on chronic steroids outpatient (6) Full code status: Status: Acute Assessment and plan: per chart review, historically is a full code; confirms today she would want things done to keep her alive, including trying to restart her heart and lungs if they were to stop working; we did not go into specifics of CPR out of respect for not appropriate time/space to review this. (7) Leukocytosis: Status: Acute Assessment and plan: improving (8) Palliative care patient: Status: Acute Assessment and plan: f/b Viraj Hudson outpatient, ongoing conversations regarding CODE status PC will continue to follow, if appropriate during this inpatient stay, and scheduled outpatient reviewed w/Ray PC to continue reviewing hard topics like LST care preferences, when she would want things vs not, she agrees to this conversation in future, but not more today (9) ACP (advance care planning): Status: Acute Assessment and plan: reviewed current plan: hold surgery pending pain/nausea resolution, tolerates advanced diet, this is Ray's preferered plan at this time, consider surgery only if pain/nausea uncontrolled. She is aware she is a high risk surgery and would prefer to avoid this if possible, however would agree to surgery if recommended. If she were to have surgery, she is aware she would be a full code, and to maintain her airway she may need to be intubated, she is not thrilled with this idea, but understands its requirement during surgery. If this were to happen, and after surgery she could not survive w/o intubation, she would prefer this was stopped, and a natural was allowed her AD from 2018 indicates a similar preference: LST as long as able to care for self, live w/o pain, be aware of surroundings; She confirms Primo is her HCA, it would be beneficial to pull him in in future visits to ensure he understands her preferences spent 10m w/ACP Review of Systems Narrative: as per HPI PFSH All Active Problems (Updated 09/12/24 @ 17:36 by Katya Myers NP) ACP (advance care planning) (Acute) Palliative care patient (Acute) Chronic cholecystitis with calculus (Acute) Dysphagia (Acute) Acute dehydration (Acute) Elevated troponin level not due myocardial infarction (Acute) Cholecystitis, acute (Acute) Nail dystrophy (Acute) Onychomycosis (Acute) Skin lesion (Acute) Stress fracture of right calcaneus (Acute) Pain in right ankle (Acute) Pain in left ankle (Acute) Pain in right foot (Acute) Neoplasm of calcaneus (Acute) Pain in left foot (Acute) Hammertoe of right foot (Acute) Ulcer of right foot limited to breakdown of skin (Acute) Osteoporosis (Chronic) CAD (coronary artery disease) (Chronic) Hyperthyroidism (Chronic) Mitral valve disease (Acute) Chronic rhinitis (Acute) Bilateral hearing loss (Acute) Nicotine dependence (Acute) Nodule of skin of hand (Acute) Adrenal insufficiency (Chronic) Methotrexate toxicity (Chronic) Full code status (Acute) Leukocytosis (Acute) DVT prophylaxis (Acute) Falls (Acute) Ulcerative colitis (Chronic) DJD (degenerative joint disease) (Chronic) HTN (hypertension) (Chronic) Rheumatoid arthritis (Chronic) COPD (chronic obstructive pulmonary disease) (Chronic) Sensorineural hearing loss, bilateral (Acute 05/07/14) Medical History Intertrochanteric fracture of right femur Status post ORIF on 10/06/2018 Discharge planning issues Acute blood loss anemia Pneumonia UTI (urinary tract infection), uncomplicated Excessive cerumen in right ear canal Excessive cerumen in left ear canal Sensorineural hearing loss Upper respiratory infection Fatigue Hyperkalemia Thyrotoxicosis Cardiac arrhythmia Rheumatic disease of mitral valve Fx lower radius/ulna-closed Ulcerative colitis History of hypertension Rhinitis Colitis History of tobacco use Bigeminy Hearing loss right hearing aid/deaf in left ear Surgical History H/O mitral valve replacement Fracture of right hip requiring operative repair Colonoscopy - MAC (03/22/18) Colonoscopy - IV Sedation (~2008) Family History Mother Asthma Father No problems noted. Sister No problems noted. Sister No problems noted. Brother No problems noted. Social History Smoking/Tobacco Use Status: Former Tobacco Use Smoking risk assessment performed?: Yes Alcohol Intake: never Drug use: Never Substance use type: does not use Housing: assisted living facility Do you feel safe at home: Yes Do you feel safe in your relationship?: Yes Additional Social history: [facility] Exam Narrative Exam Narrative: General: 83 y/o F, sitting in recliner visiting w/family, feet elevated; appearance WNL HEENT: GAL[place]; MMM; normocephalic atraumatic Resp: even and unlabored, speaks full sentences, no cough no audible wheeze Skin: no visible rashes or lesions, did not conduct full skin exam Psych: cooperative, pleasant, thought process WNL; insight/judgment fair to limited Results Last Vital Signs Temp 98.1 F 09/12/24 15:07 Pulse 50 L 09/12/24 15:07 Resp 16 09/12/24 15:07 BP 160/65 H 09/12/24 15:07 Pulse Ox 96 09/12/24 15:07 Labs 09/12/24 06:28 09/12/24 06:28 Labs: Laboratory Results - last 24 hr 09/12/24 06:28 WBC 11.23 H RBC 3.83 L Hgb 12.6 Hct 35.4 L MCV 92 MCH 32.9 MCHC 35.6 D RDW 15.7 H Plt Count 338 MPV 10.5 Immature Gran % 0.5 Neutrophils % 84.8 Lymphocytes % 7.8 Monocytes % 6.3 Eosinophils % 0.3 Basophils % 0.3 Nucleated RBC % 0.0 Absolute Neutrophils 9.52 H Absolute Lymphocytes 0.88 L Absolute Monocytes 0.71 Absolute Eosinophils 0.03 Absolute Basophils 0.03 Sodium 147 H Potassium 3.5 Chloride 110 H Carbon Dioxide 25.2 Anion Gap 11.8 H BUN 18 Creatinine 0.9 Est GFR (CKD-EPI 2020) 62.65 Glucose 106 Calcium 8.0 L Total Bilirubin 0.41 AST 23 ALT 14 Alkaline Phosphatase 65 Troponin I 52 H Total Protein 6.6 Albumin 2.7 L Time Spent Time Spent with Patient Time Spent(min): 60
--- NOTE | 2024-09-12 17:42 | PTTR_ITS ---
PT Notes Visit Reasons: Acute dehydration, Cholecystitis Inpatient Physical Therapy Treatment Note Date: 09/12/2024 Precautions: Fall. Standard precautions. Activity as tolerated. Hearing impaired. Subjective: Patient is pleasant and cooperative; agreeable to a second session today. Rowan came back with patient's walker that she uses at [facility]. Objective: General Observation: Patient seen resting on chair. Telemetry monitoring in place. Mental Status: Alert and oriented x3 Pain: Minimal arthritic pain in B hands and fingers Vital Signs: Closely monitored by nursing staff Bed Mobility/Transfers: Minimal cueing provided for use of B hands as needed for support, movement sequence, AD management, and posture to reduce fall risk and minimize pain report Sit to stand minimal assist with FWW Stand to sit contact guard assist with FWW Bed to chair contact guard assist with FWW Chair to bed contact guard assist with FWW Gait: Facilitated safe and correct performance of level surface ambulation covering a distance of 250 feet using use front wheeled walker with contact-guard assist and wheelchair follow for safety. Did not report of any increased pain. Denied headache, chest pain, and lightheadedness throughout activity. Minimal verbal cueing provided for AD management, directional changes, and posture. Balance: Static Sitting: Good Dynamic Sitting: Good Static Standing: Fair Dynamic Standing: Fair Assessment: Has a tendencyy to lean back upon standing needing some assist to prevent loss of balance. Rowan states that this has been a long standing issue which they try to help client with when patient is with them. Activity tolerance much improved this afternoon. No report of incrased pain in badomen with activity. Patient is an 83-year-old female who presented to the ED on 09/10/2024 due to generalized weakness, fatigue, low appetite, productive cough. She is admitted for management of acute cholecystitis with calculus, adrenal insufficiency, elevated troponin, hyperthyroidism, rheunatoid arthritis, and dysphagia. Patient presents with clinical signs and symptoms consistent with current/admitting diagnoses that have resulted to mobility limitations, gait instability, generalized weakness, and impaired motor control. Goals: Goals X1 week 1. Supine-Sit independent 2. Sit-Supine independent 3. Sit-Stand independent 4. Stand-Sit independent 5. Bed-Chair independent 6. Chair-Bed independent 7. Gait on level surface ambulation independent with use of least restrictive device for at least 300 feet without report of pain nor dyspnea 8. Independent with home exercise program 9. Balance good for static and dynamic standing Plan of Care/Treatment Plan: 1-2x/day, 7 days/week x 1 week. Continue Physical Therapy intervention for strengthening, bed mobility, transfers, gait, stairs, balance training, use of assistive device. DISCHARGE RECOMMENDATIONS: [] Home with no services [] [X] Home with services. Patient will benefit from home health PT services in order to progress mobility level using least restrictive assistive ambulatory device, assess home safety, identify additional equipment needs, and establish a functional maintenance program that will increase ability of patient to remain at home. [] Home with outpatient PT [] [] SNF for continued rehabilitation [] [] Geotechnicial Properties Technician Care [] [] SNF versus LTC based on ability to participate and progress [] discharge recommendations TREATMENT CODE/TIME: 72885 x 20 minutes for 1 unit (15:10-15:30).
[2024-09-12 19:10] VITALS: BP 131/58; PULSE 58; RESP 18; TEMP 36.7; O2SAT 94
[2024-09-12] MEDS: Mirtazapine 15 MG TAB 30 MG PO (20:17)
[2024-09-12] MEDS: Metoprolol 12.5 MG TAB PO (20:18)
[2024-09-12 23:36] VITALS: BP 130/67; PULSE 72; RESP 18; TEMP 37; O2SAT 97
[2024-09-13] MEDS: PIPERACILLIN/TAZO 2.25 GM in Normal Saline 50 ML IVPB ×5 (00:54→20:16)
[2024-09-13] MEDS: Normal Saline Flush 10 ML SYR (01:10)
[2024-09-13] MEDS: Hydrocortisone SOD SUC. 100 MG VIAL IVP (06:24)
[2024-09-13] MEDS: Heparin 5,000 UNITS/ML VIAL 5000 UNITS SC ×2 (06:24→21:41)
[2024-09-13 07:36] VITALS: BP 170/80; PULSE 55; RESP 16; TEMP 36.8; O2SAT 95
--- NOTE | 2024-09-13 07:46 | PTTR_ITS ---
PT Notes Visit Reasons: Acute dehydration, Cholecystitis Inpatient Physical Therapy Treatment Note Date: 09/13/2024 Precautions: Fall. Standard precautions. Activity as tolerated. Hearing impaired. Subjective: Patient's blood pressure was a little up early this morning but there was no report of headache, chest pain, and lightheadedness throughout session. Cousin/VIRAL Donahue was present in room before breakfast around 7:15 AM. CHACHO Webb had to come in to fix detached telemetry cords rpior to walking. Objective: General Observation: Patient seen resting on chair. Telemetry monitoring in place. Mental Status: Alert and oriented x3 Pain: Minimal arthritic pain in B hands and fingers Vital Signs: Closely monitored by nursing staff Bed Mobility/Transfers: Minimal cueing provided for use of B hands as needed for support, movement sequence, AD management, and posture to reduce fall risk and minimize pain report Sit to stand contact guard assist with FWW Stand to sit contact guard assist with FWW Bed to chair contact guard assist with FWW Chair to bed contact guard assist with FWW Gait: Facilitated safe and correct performance of level surface ambulation covering a distance of 250 feet using use front wheeled walker with contact-guard assist and wheelchair follow for safety. Did not report of any increased pain. Denied headache, chest pain, and lightheadedness throughout activity. Minimal verbal cueing provided for AD management, directional changes, and posture. Balance: Static Sitting: Good Dynamic Sitting: Good Static Standing: Fair Dynamic Standing: Fair Assessment: Has been tolerating new diet upgraded to solids since last night. Unsure yet [facility] Is almost at baseline with level of assist for all transfers and ambulation distance using her FWW. Patient is an 83-year-old female who presented to the ED on 09/10/2024 due to generalized weakness, fatigue, low appetite, productive cough. She is admitted for management of acute cholecystitis with calculus, adrenal insufficiency, elevated troponin, hyperthyroidism, rheunatoid arthritis, and dysphagia. Patient presents with clinical signs and symptoms consistent with current/admitting diagnoses that have resulted to mobility limitations, gait instability, generalized weakness, and impaired motor control. DISCHARGE RECOMMENDATIONS: [] Home with no services [] [X] Home with services. Patient will benefit from home health PT services in order to progress mobility level using least restrictive assistive ambulatory device, assess home safety, identify additional equipment needs, and establish a functional maintenance program that will increase ability of patient to remain at home. [] Home with outpatient PT [] [] SNF for continued rehabilitation [] [] Skilled Nursing Care [] [] SNF versus LTC based on ability to participate and progress [] discharge recommendations TREATMENT CODE/TIME: 92876 x 30 minutes for 1 unit (07:46-08:16).
[2024-09-13] MEDS: Pantoprazole 40 MG VIAL IVP (09:12)
[2024-09-13] MEDS: Ketoconazole 2% CREAM 15 GM TUBE TP (09:13)
[2024-09-13] MEDS: Calcium Carbonate *TUMS* 500 MG CHEW PO ×2 (09:14→20:15)
[2024-09-13] MEDS: Vitamins B Comp w/C TAB 1 TAB PO (09:14)
[2024-09-13] MEDS: Loratidine 10 MG TAB PO (09:14)
[2024-09-13] MEDS: Metoprolol 12.5 MG TAB PO ×2 (09:14→20:16)
[2024-09-13] MEDS: Benzonatate 100 MG CAP PO ×3 (09:14→20:16)
[2024-09-13] MEDS: Magnesium Chloride 64 MG TABCR PO (09:14)
[2024-09-13] MEDS: methIMAzole 5 MG TAB PO (09:14)
[2024-09-13] MEDS: Gabapentin 300 MG CAP PO ×3 (09:14→20:16)
[2024-09-13] MEDS: Cholecalciferol (Vitamin D3) 1,000 UNIT TAB 2000 UNITS PO (09:15)
[2024-09-13] MEDS: Hydroxychloroquine 200 MG TAB PO (09:15)
[2024-09-13] MEDS: Normal Saline Flush 10 ML SYR IVP ×2 (09:16→20:16)
--- NOTE | 2024-09-13 10:01 | PGE_ITS ---
Date of Service Date of service: 09/13/24 Time of Service: 10:02 Assessment and Plan Assessment and plan (1) Chronic cholecystitis with calculus: Status: Acute Assessment and plan: Patient seen and examined. She has been tolerating a diet for the last 48 hours. She has had no nausea vomiting abdominal pain distention or bloating. Her symptoms for acute cholecystitis were atypical. Her labs were normal. She never had any abdominal pain. She does have a distended enlarged gallbladder on CT they were mild symptoms of chronic cholecystitis but no evidence of active di sease. She is not a great candidate for surgery. She is quite frail and very poor performance status. I do not think surgery is in her best interest at this time she is doing well and tolerating a regular diet. Both the patient and her family would prefer that we did not operate. As long as she is able to eat calories intake and enough liquid and does not have pain, and has a good quality of life, I do not feel we should operate at this time. Patient and family are in agreement and we will continue continue with conservative medical management. We will continue to do calorie counts and monitor her nutritional status. And follow her closely. But this time we are not planning any surgical interventions. Will continue to follow. (2) HTN (hypertension): Status: Chronic Qualifiers: Hypertension type: primary hypertension Qualified Code(s): I10 - Essential (primary) hypertension (3) CAD (coronary artery disease): Status: Chronic (4) Elevated troponin level not due myocardial infarction: Status: Acute (5) Pulmonary HTN: Status: Acute (6) Hyperthyroidism: Status: Chronic (7) Osteoporosis: Status: Chronic (8) Adrenal insufficiency: Status: Chronic (9) Rheumatoid arthritis: Status: Chronic Qualifiers: Rheumatoid arthritis location: other site Rheumatoid factor presence: unspecified presence Qualified Code(s): M06.9 - Rheumatoid arthritis, unspecified (10) COPD (chronic obstructive pulmonary disease): Status: Chronic (11) Nicotine dependence: Status: Acute (12) Current chronic use of systemic steroids: Status: Acute Subjective Subjective Interval history since last seen: Patient is seen and examined: they are doing well. THey have : no headaches. No CP or SOB. no productive cough. no dysuria. no leg pain or swelling. She tolerated a regular diet for dinner last pm. She had a regular breakfast this am and at 90% w/ no N/v/bloating. We d/w importance of avoiding pork and stying on a low fat diet. abdom is soft and non tender today w/ good BS Objective Last Vital Signs Temp 36.8 C 09/13/24 07:36 Pulse 55 L 09/13/24 07:36 Resp 16 09/13/24 07:36 BP 170/80 H 09/13/24 07:36 Pulse Ox 95 09/13/24 07:36 PAWSS Have you Been Recently Intoxicated or Drunk Within the Last 30 days?: No Have you Ever Experienced Previous Episodes of Alcohol Withdrawal?: No Have you ever Experienced Withdrawal Seizures?: No Have you ever Experienced Delirium Tremens(DT)s?: No Have you ever undergone Alcohol Rehabilitation Treatment (i.e, inpt ot outpatient treatment programs)?: No Have you ever Experienced Blackouts?: No Have you ever Combined Alcohol with other Downers within the last 90 days?: No Have you ever Combined Alcohol with any other Substance of Abuse during the last 90 days?: No Positive Blood Alcohol level on Presentation? [PCS.BAL]: No Evidence of Increased Autonomic Activity (i.e. HR>120, tremor, sweating, agitation, nausea)?: No Result: 0 Time Spent with Patient Time Spent with Patient: 25-34 minutes Time was spent: preparing to see the patient(eg.review tests), obtaining and/or reviewing separately otained hiistory, ordering medications,tests, procedures, referring, communicating with other health care transitions nurse, indepentently interpreting results, counseling the patient, care coordination and other
--- NOTE | 2024-09-13 10:39 | SP_ITS ---
Date of service: 09/13/24 Time of Service: 10:15 Subjective Clinical (Bedside) Swallow Evaluation Speech Language Pathology Referred by: Dr Gabe Patricia Referral Type: Clinical Swallow Evaluation Reason for Referral/HPI: Carmella Stephenson is an 83 yo female with PMH significant for RA, CAHTO, COPD, palliative care patient who lives at [facility] who was admitted to [facility] 09/11/24 with decreased PO intake, nausea, weakness, and found to have cholecystitis. She was initially on a clear diet but has been cleared to regular and tolerating well. INSIDE SALES TERRITORY MANAGER referral placed secondary to report of difficulty swallowing. No recent hx pna; CXR clear. INSIDE SALES TERRITORY MANAGER IMPRESSIONS & RECOMMENDATIONS: Ralf was seen for a non-instrumental swallow study with family present. She and family deny dysphagia complaints with food/pills/liquid- current or baseline. Oral mechanism examination was WFL and PO trials were largely unremarkable this date. No major concerns for aspiration at this time- though encourage standard aspiration precautions in light of age/deconditioned status. Education provided to patient/family reviewing standard swallowing precautions- upright positioning, small/slow bites and sips. Patient verbalized comprehension of education. FURTHER INSIDE SALES TERRITORY MANAGER SERVICES: No further INSIDE SALES TERRITORY MANAGER services indicated during admission or at discharge Diet Recommendations: SOLIDS: 7-Regular Solids LIQUIDS: 0-Thin Liquids MEDICATIONS: Whole with 0-Thin Liquids RISK MANAGEMENT: Upright for PO/meals Oral hygiene BID Level of Assistance/Supervision: Due to RA, will likely need assistance with meal tray set up. No supervision reqiured SUBJECTIVE: Patient received alert/awake, agreeable to evaluation Pain Reported? None Baseline Swallow Function: Patient denies swallowing difficulty prior to admission and eats a regular diet at baseline. One family member reported to nursing that pt has some difficulty with pills, though Ralf denies this. PO Trials Assessed: IDDSI 0 Thin Liquids via straw IDDSI 7EC Easy to Chew Solid - diced peaches Oral Mechanism Examination: Dentition is WFL Oral mucosa is WFL. Cranial Nerve Assessment: CN V ? Trigeminal Facial Sensation WNL Jaw Strength/ROM WNL ?WNL CN VII- Facial WNL labial ROM, strength, coordination. WNL lingual sensation WNL CN IX ? Glossopharyngeal WNL palatal elevation with phonation. No evidence of nasal emissions WNL CN X ? Vagus WNL Vocal quality and volume. Strong/sharp volitional cough WNL CX XII ? Hypoglossal WNL lingual ROM, strength, coordination WNL Oral Phase Findings: WFL Pharyngeal Phase Findings: WFL Delayed swallow initiation No coughing, throat clearing, change in vocal quality ? Mammoth Swallow Protocol Results: PASS ASSESSMENT: Further INSIDE SALES TERRITORY MANAGER Services not indicated Recommendation at Discharge: No INSIDE SALES TERRITORY MANAGER services indicated post discharge Suggested Referrals: N/A Education Provided to: Nursing, Patient, Family Topics Addressed:INSIDE SALES TERRITORY MANAGER findings, standard swallowing precautions PLAN: Evaluation only INSIDE SALES TERRITORY MANAGER CPT Code: 26269 Clinical Swallowing Evaluation TOTAL TIME: 20 Minutes [id number]
[2024-09-13 11:28] VITALS: BP 171/82; PULSE 58; RESP 16; TEMP 36.8; O2SAT 94
[2024-09-13 11:39] VITALS: BP 164/67; PULSE 52
--- NOTE | 2024-09-13 11:46 | W.NUTRFU ---
Date of service: 09/13/24 Time of Service: 11:46 Nutrition Note NOTE: Visited with Ralf and two family members today. Initiated 3 day calorie count per surgical diet order. Pt is 83yo female admitted with acute exacerbation of chronic cholecystitis with calculus and weighing in on need for surgery, which is not being pursued at this time. Pt has advanced to regular diet and normal consistencies after a speech consult this morning. Family reports tolerating well and expressing hunger. Pt lives at [facility] where meals and nourishments are offered. Ralf not a fan of ONS drinks like Ensure. She is interested in trial of strawberry/mariela whey protein smoothie and kitchen will bring up 8oz servings at 2pm and 7pm nourishment times. Will check with her and family to see how she is taking them. family reports weight loss and documentation of weight history shows about 3 kg weight loss over last 5 years. Did not perform nutrition focused physical exam as patient bundled up in blankets. Estimated energy needs: 1344 for slow weight gain (30kcals per kg), 46g-57g protein 1.2-1.5g /kg Will review calorie counts/monitor po intake, offer supplemental nutrition per above and ensure kitchen follows low fat diet order. Time Spent in Nutritional Counseling and Treatment: 10 minutes
--- NOTE | 2024-09-13 12:01 | NUR.NOTE ---
Nursing Note: Patient with some irregular heart sounds during assessment. Provider notified at morning meeting by primary RN. Provider and care team told primary RN that patient has a history of an irregular heartbeat. Patient being monitored closely by Rn on blood pressure, heart rate, and heart rhythm. Patient asymptomatic and no other concerns at this time.
--- NOTE | 2024-09-13 12:15 | DSE_ITS ---
Date of service: 09/13/24 Time of Service: 12:16 DS: Diagnosis Discharge Diagnosis (1) Chronic cholecystitis with calculus: Status: Acute (2) HTN (hypertension): Status: Chronic (3) CAD (coronary artery disease): Status: Chronic (4) Elevated troponin level not due myocardial infarction: Status: Acute (5) Pulmonary HTN: Status: Acute (6) Hyperthyroidism: Status: Chronic (7) Osteoporosis: Status: Chronic (8) Adrenal insufficiency: Status: Chronic (9) Rheumatoid arthritis: Status: Chronic (10) COPD (chronic obstructive pulmonary disease): Status: Chronic (11) Nicotine dependence: Status: Acute (12) Current chronic use of systemic steroids: Status: Acute Discharge Plan Disposition Patient Disposition: Home W/Home Health Services Condition: Stable Discharge Details Reason For Visit: Acute dehydration, Cholecystitis Admit Date/Time: 09/10/24 23:58 Admit Provider: Victor M Díaz Attending Provider: Victor M Díaz [facility] Hospital Course: This is an 83 who was admitted on 09/10/2024 for dehydration, acute cholecystitis, adrenal insufficiency, mild elevation in troponins (m/l 2/2 YVON and dehydration) and hypertension. While she was in the hospital, she was seen by general surgery (Dr Ruiz). Considering the pt's age, lack of symptoms, tolerating her diet, I recommended discharge to which the pt agreed. I will contact Dr Ruiz prior to pt leaving to ensure that she agrees with dc. Discharge is made easier by the fact that the pt is living at an assisted living facility. Dr. Ruiz, surgeon will be providing a dietary educational handout in the setting of cholecystitis to be send to [employer] in with the patient. Patient was to be discharged yesterday but her general surgeon wanted to give her another day to monitor her calories pain level with eating. Patient did quite well and is asymptomatic at this point. There was some concern about distended abdomen and a KUB was done which showed nonspecific bowel pattern and some constipation. Home Meds and New Rx's Prescriptions: Continued prednisone 5 mg tablet 5 mg PO DAILY vitamin B complex Tablet 1 tab PO DAILY loratadine [Allergy Relief (loratadine)] 10 mg tablet 10 mg PO DAILY mirtazapine [Remeron] 30 mg tablet 30 mg PO QHS tumeric 500 mg PO DAILY Slow-Mag 71.5 mg tablet,delayed release (DR/EC) 71.5 mg PO DAILY calcium carbonate [Tums] 200 mg calcium (500 mg) tablet,chewable 200 mg PO BID amoxicillin 500 mg capsule See Rx Instructions .ROUTE .COMPLEX Rx Instructions: 2,000mg; one hour prior to dental appointment hydroxychloroquine 200 mg tablet 200 mg PO DAILY Patient Comments: 03.13.19 pt states her rhumatologist per her on this.HE ketoconazole 2 % cream 1 applic topical DAILY Qty: 120 6RF Rx Instructions: Apply to toenails once daily urea 40 % cream 1 applic topical DAILY Qty: 28.35 3RF cholecalciferol (vitamin D3) 2,000 UNIT tablet 2,000 unit PO DAILY fluticasone propionate [Flonase Allergy Relief] 9.9 ML spray,suspension 1 spray NS DAILY PRN metoprolol succinate 25 MG tablet extended release 24 hr 25 mg PO DAILY methimazole 5 MG tablet 5 mg PO DAILY acetaminophen [Tylenol] 325 mg tablet 650 mg PO TID PRN aspirin 81 mg tablet,delayed release (DR/EC) 81 mg PO DAILY gabapentin 300 mg capsule 300 mg PO TID Prolia 60 mg/mL syringe 60 mg subcut [id number] Patient Comments: due in february benzonatate 100 mg capsule 100 mg PO BID-TID PRN omeprazole 20 mg capsule,delayed release(DR/EC) 20 mg PO DAILY PRN albuterol sulfate [ProAir HFA] 90 mcg/actuation Hfa Aerosol Inhaler 2 puff Inhalation Q4H PRN PRN (Reason: Shortness Of Breath) Discharge Instructions Stand Alone Forms: Nursing Discharge Form Referrals: Ekaterina Mcclain [Primary Care Provider] - 09/24/24 11:35 am () Tianna Ruiz DO [OSTEOPATHIC DOCTOR] - (Called and left a message, if no call back by 09/17 please call and schedule a follow-up. ) Activity:: Activity as Tolerated Equipment/Supplies:: No Equipment Needed Diet:: per handout provided by Dr Ruiz Discharge Orders Discharge Orders: Discharge Order (Routine); Ordered 09/14/24 Ordered By: Bony Flynn DS: Summary Time Spent with Patient providing and/or coordinating discharge services: Greater than 30 minutes Status at Discharge Functional status at discharge: independent ambulation Overall status at discharge: patient is back to baseline Mental Status: mental status grossly normal Speech and Movement: speech and movement normal Mood: congruent mood Affect: normal affect Quality:SDOH Health Related Social Needs: No Data to Display Exam Psych Mental Status: mental status grossly normal Speech and Movement: speech and movement normal Mood: congruent mood Affect: normal affect DS: Data Vitals/I&O Vitals and I&O: Vital Signs Temperature 36.8 C 09/13/24 11:28 Temperature Source Temporal Artery Scan 09/13/24 11:28 Pulse 52 L 09/13/24 11:39 Pulse 72 09/11/24 00:08 Respiratory Rate 16 09/13/24 11:28 Respiratory Effort Normal 09/11/24 00:41 Respiratory Depth Normal 09/11/24 00:41 Respiratory Pattern Normal 09/11/24 00:41 Blood Pressure 164/67 H 09/13/24 11:39 Blood Pressure Mean 85 09/11/24 00:08 Blood Pressure Position Supine 09/10/24 15:32 Pulse Oximetry 94 09/13/24 11:28 Oxygen Delivery Method Room Air 09/13/24 11:28 Oxygen Flow Rate 0 09/13/24 11:28 Pain Level 0 09/13/24 11:28 Comment RN notified 09/12/24 15:07 Intake & Output 09/12/24 09/13/24 09/13/24 23:59 11:59 23:59 Intake Total 50 / 1618.333 75 / 75 Output Total 1000 / 1500 800 / 800 Balance -950 / 118.333 -725 / -725 Intake: IV 50 / 1618.333 75 / 75 Output: Urine 1000 / 1500 800 / 800 Other: Urine Color Yellow Yellow Urine Appearance Clear Clear Urine Odor Normal None Stool Size Moderate Stool Characteristics Soft Brown Data Completed and Pending Labs on day of discharge: Preliminary micro results at discharge 09/10/24 23:27 Blood Culture - Preliminary Blood NO GROWTH 48 HOURS 09/10/24 23:27 Blood Culture - Preliminary Blood NO GROWTH 48 HOURS PFSH All Active Problems (Updated 09/13/24 @ 10:15 by Tianna Ruiz DO) Current chronic use of systemic steroids (Acute) Pulmonary HTN (Acute) ACP (advance care planning) (Acute) Palliative care patient (Acute) Chronic cholecystitis with calculus (Acute) Dysphagia (Acute) Acute dehydration (Acute) Elevated troponin level not due myocardial infarction (Acute) Cholecystitis, acute (Acute) Nail dystrophy (Acute) Onychomycosis (Acute) Skin lesion (Acute) Stress fracture of right calcaneus (Acute) Pain in right ankle (Acute) Pain in left ankle (Acute) Pain in right foot (Acute) Neoplasm of calcaneus (Acute) Pain in left foot (Acute) Hammertoe of right foot (Acute) Ulcer of right foot limited to breakdown of skin (Acute) Osteoporosis (Chronic) CAD (coronary artery disease) (Chronic) Hyperthyroidism (Chronic) Mitral valve disease (Acute) Chronic rhinitis (Acute) Bilateral hearing loss (Acute) Nicotine dependence (Acute) Nodule of skin of hand (Acute) Adrenal insufficiency (Chronic) Methotrexate toxicity (Chronic) Full code status (Acute) Leukocytosis (Acute) DVT prophylaxis (Acute) Falls (Acute) Ulcerative colitis (Chronic) DJD (degenerative joint disease) (Chronic) HTN (hypertension) (Chronic) Rheumatoid arthritis (Chronic) COPD (chronic obstructive pulmonary disease) (Chronic) Sensorineural hearing loss, bilateral (Acute 05/07/14) Medical History Intertrochanteric fracture of right femur Status post ORIF on 10/06/2018 Discharge planning issues Acute blood loss anemia Pneumonia UTI (urinary tract infection), uncomplicated Excessive cerumen in right ear canal Excessive cerumen in left ear canal Sensorineural hearing loss Upper respiratory infection Fatigue Hyperkalemia Thyrotoxicosis Cardiac arrhythmia Rheumatic disease of mitral valve Fx lower radius/ulna-closed Ulcerative colitis History of hypertension Rhinitis Colitis History of tobacco use Bigeminy Hearing loss right hearing aid/deaf in left ear Surgical History H/O mitral valve replacement Fracture of right hip requiring operative repair Colonoscopy - MAC (03/22/18) Colonoscopy - IV Sedation (~2008) Family History Mother Asthma Father No problems noted. Sister No problems noted. Sister No problems noted. Brother No problems noted. Social History Smoking/Tobacco Use Status: Former Tobacco Use Smoking risk assessment performed?: Yes Alcohol Intake: never Drug use: Never Substance use type: does not use Housing: assisted living facility Do you feel safe at home: Yes Do you feel safe in your relationship?: Yes Additional Social history: Baylee Yang Time Spent with Patient Time Spent with Patient: 45-69 minutes Time was spent: preparing to see the patient(eg.review tests), obtaining and/or reviewing separately otained hiistory, ordering medications,tests, procedures, referring, communicating with other health resident care manager rn, indepentently interpreting results, counseling the patient and care coordination
--- NOTE | 2024-09-13 13:23 | CMPROGNOTE_ITS ---
Date of service: 09/13/24 Time of Service: 13:23 Care Management Progress Note Progress Note Text Progress Note Text: Ralf was sitting up in her chair when CM met with her. She stated that she was just about to take a nap, but she was happy to talk. CM reviewed her advanced directives with her, at her request. Although she stated it is hard for her to make these decisions, she expressed gratitude for CM sitting down and explaining each section to her. She reported that per MD, she will likely be discharged back to the [facility] tomorrow. She stated that she enjoys it there, and is happy to return. Her [id number]-tuf, Rowan, will be here in the morning, and will drive her home, when ready. CM will continue to follow. Discharge Potential Discharge Needs: PCP F/U Appt Anticipated Barriers to Discharge: None Identified Patient/Family Education Needs: Review discharge instructions, discuss Ask Me Three Transportation: Private vehicle Plan: Anticipate Ralf will return to the [facility], where she resides. She will transport via private vehicle via family. She will follow up with her PCP and discharge plan of care. CM will continue to follow. SDOH(Care Management) Screening Will the Patient Participate in the Screening?: Unable to obtain Do you worry about having a steady place to live?: choose not to answer
--- NOTE | 2024-09-13 13:56 | PT.INTREAT ---
PT Notes Visit Reasons: Acute dehydration, Cholecystitis Inpatient Physical Therapy Treatment Note Date: 09/13/2024 Precautions: Fall. Standard precautions. Activity as tolerated. Hearing impaired. Subjective: Pt reports she is returning to [facility] today. She also states she does not want to forget the cushion she is sitting on. Objective: General Observation: Patient seen resting on chair. Telemetry monitoring in place. Mental Status: Alert and oriented x3 Pain: Minimal arthritic pain in B hands and fingers Vital Signs: Closely monitored by nursing staff via telemetry Bed Mobility/Transfers: Minimal cueing provided throughout for use of B hands as needed for support, movement sequence, AD management, and posture to reduce fall risk and minimize pain report Sit to stand CGA with FWW with cues Stand to sit contact guard assist with FWW with cues slight LOB posteriorly toilet to chair contact guard assist with FWW Chair to toilet contact guard assist with FWW Gait: Facilitated safe and correct performance of level surface ambulation covering a distance of 150 feet using use front wheeled walker with contact-guard assist Did not report of any increased pain. Denied headache, chest pain, and lightheadedness throughout activity. Minimal verbal cueing provided for AD management, directional changes, and posture. Balance: Static Sitting: Good Dynamic Sitting: Good Static Standing: Fair Dynamic Standing: Fair Assessment: Pt continues with tendency to lean back upon standing needing some assist to prevent loss of balance. Rowan states that this has been a long standing issue which they try to help client with when patient is with them. Activity tolerance much improved this afternoon. Pt may benefit from footwear with slight heel lift to promote anterior weight shift to reduce posterior LOB Plan of Care/Treatment Plan: 1-2x/day, 7 days/week x 1 week. Continue Physical Therapy intervention for strengthening, bed mobility, transfers, gait, stairs, balance training, use of assistive device. DISCHARGE RECOMMENDATIONS: [X] Home with services. Patient will benefit from home health PT services in order to progress mobility level using least restrictive assistive ambulatory device, assess home safety, identify additional equipment needs, and establish a functional maintenance program that will increase ability of patient to remain at home. TREATMENT CODE/TIME: 10106 x 18 minutes for 1 unit /[id number].
--- NOTE | 2024-09-13 14:30 | PGE_ITS ---
Date of Service Date of service: 09/13/24 Time of Service: 14:30 Assessment and Plan Assessment and plan (1) Cholecystitis, acute: Start date: 09/10/24 Status: Acute Assessment and plan: Minimal abdominal symptoms but presents with acutely worse nausea and vomiting and poor intake with dehydration. CT and u/s impressive in terms of size of gallbaldder, also thick. The lack of clear inflammation and minimal pain could be related to her immune suppression. Developing acidosis overnight, which is concerning. I spoke to Dr. Ruiz who is concerned about troponins. 09/13/2024 We did discuss with surgeon plan of care and had her recommendation was to keep the patient in the hospital for 1 more day to ensure she is tolerating her diet okay getting a good calorie count. She also recommended against continued antibiotic use for her gallbladder. Patient will follow-up in 30 days with general surgery. (2) Acute dehydration: Start date: 09/10/24 Status: Acute Assessment and plan: Decreased intake over the last several days at [place] in which is a level 3 facility. Likely a/w cholecystitis as a cause of her decreased appetite. She is on plasmalyte, sugars are a little low, will add S 09/13/2024 No new labs were drawn today so we will order CBC CMP at 8 AM. Her last BUN and creatinine showed values of 18 and 0.9 which shows improvement. (3) Adrenal insufficiency: Status: Chronic Assessment and plan: With hypoglycemia with no hypotension, stress steroids will be given with IV hydrocortisone given nursing home steroid use. (4) Elevated troponin level not due myocardial infarction: Start date: 09/10/24 Status: Acute Assessment and plan: Mild elevation. EKG reassuring, not c/w ACS though she does have a documented history of CAD. As above, would like to get echocardiogram prior to surgery to assess heart function, reassess valve function. 09/13/2024 Troponins were elevated to 72 on admission there last check was 52 which was yesterday the 13th. Patient denies any chest pain and this could be due to mild dehydration. I have reviewed her EKG and agree that there is no sign of ACS cu rrently. (5) Hyperthyroidism: Status: Chronic Assessment and plan: on methimazole (6) Rheumatoid arthritis: Status: Chronic Assessment and plan: currently on prednisone and hydroxychloroquine. She does not appear to have active joint disease. 09/13/2024 Patient is on hydroxychloroquine as well as Solu-Cortef. I believe she does follow-up with a oracle forms developer. Qualifiers: Rheumatoid arthritis location: other site Rheumatoid factor presence: unspecified presence Qualified Code(s): M06.9 - Rheumatoid arthritis, unspecified (7) Dysphagia: Status: Acute Assessment and plan: To liquids. Possibly related to medication (methotrexate? bisphosphonate?). Will asks for speech/swallow eval 09/13/2024 I have reviewed the recommendation and evaluation by speech therapy. She would need no further speech therapy while in the hospital. (8) DVT prophylaxis: Status: Acute Assessment and plan: pending surgery, SCDs for now 09/13/2024 Patient is currently on heparin 5000 3 times daily. Subjective Subjective Interval history since last seen: Patient seen and examined in her room. Plan of care was discussed with the patient as well as her cousin who is her power of criminal attorney. Plan of care was also discussed at multidisciplinary rounds with bedside nurse in attendance. Patient denies any new pain and is tolerating her diet. I did discuss case with the surgeon Dr. Ruiz who recommends keeping the patient for another day to ensure she is tolerating her diet and getting enough calories. Exam Narrative Exam Narrative: HEENT: Normocephalic atraumatic mucous membranes moist oropharynx is clear ocular motions are intact pupils equal round reactive to light Neck: No lymphadenopathy no JVD no thyromegaly Cardiovascular: Regular rate and rhythm no murmur rubs or gallops lungs Lungs: Clear to auscultation with good air exchange no accessory muscle use Abdomen: Soft nontender nondistended specifically no tenderness to palpation quadrant Extremities: No cyanosis clubbing or edema bilaterally Neurologic: Cranial nerves II through XII intact as tested Objective Last Vital Signs Temp 36.8 C 09/13/24 11:28 Pulse 52 L 09/13/24 11:39 Resp 16 09/13/24 11:28 BP 164/67 H 09/13/24 11:39 Pulse Ox 94 09/13/24 11:28 PAWSS Have you Been Recently Intoxicated or Drunk Within the Last 30 days?: No Have you Ever Experienced Previous Episodes of Alcohol Withdrawal?: No Have you ever Experienced Withdrawal Seizures?: No Have you ever Experienced Delirium Tremens(DT)s?: No Have you ever undergone Alcohol Rehabilitation Treatment (i.e, inpt ot outpatient treatment programs)?: No Have you ever Experienced Blackouts?: No Have you ever Combined Alcohol with other Downers within the last 90 days?: No Have you ever Combined Alcohol with any other Substance of Abuse during the last 90 days?: No Positive Blood Alcohol level on Presentation? [PCS.BAL]: No Evidence of Increased Autonomic Activity (i.e. HR>120, tremor, sweating, agitation, nausea)?: No Result: 0 Time Spent with Patient Time Spent with Patient: 25-34 minutes Time was spent: preparing to see the patient(eg.review tests), obtaining and/or reviewing separately otained hiistory, ordering medications,tests, procedures, referring, communicating with other health memory care director, indepentently interpreting results, counseling the patient and care coordination
[2024-09-13 14:57] VITALS: BP 151/67; PULSE 58; RESP 16; TEMP 36.4; O2SAT 97
--- NOTE | 2024-09-13 16:35 | CHAPLAIN ---
Ralf was pleasant and happy to tell me that she'd been up walking around some today. She is a member of [facility] [employer] and has been visited by the Deacon from [facility].
[2024-09-13] MEDS: Hydrocortisone SOD SUC. 100 MG VIAL 40 MG IVP (17:45)
[2024-09-13 19:13] VITALS: BP 180/80; PULSE 60; RESP 16; TEMP 36.5; O2SAT 96
[2024-09-13] MEDS: Mirtazapine 15 MG TAB 30 MG PO (20:16)
[2024-09-13] MEDS: Acetaminophen 325 MG TAB PO (20:16)
[2024-09-13 23:17] VITALS: BP 165/62; PULSE 53; RESP 18; TEMP 37.1; O2SAT 94
[2024-09-14] MEDS: Hydrocortisone SOD SUC. 100 MG VIAL 40 MG IVP ×2 (01:49→10:11)
[2024-09-14] MEDS: PIPERACILLIN/TAZO 2.25 GM in Normal Saline 50 ML IVPB ×3 (01:49→15:09)
[2024-09-14 03:01] VITALS: BP 170/64; PULSE 53; RESP 17; TEMP 36.1; O2SAT 96
[2024-09-14] MEDS: Heparin 5,000 UNITS/ML VIAL 5000 UNITS SC ×2 (06:35→15:08)
[2024-09-14 06:41] LABS: HCT 36.2 % (36.0-46.0); HGB 11.4 g/dL (11.2-15.7); MCH 29.4 pg (27.0-33.0); MCHC 31.5 % (32.0-36.0); MCV 93 fL (80-95); MPV 10.9 fL (8.0-11.0); Platelet Count 322 10^3/uL (130-400); RBC 3.88 10^6/uL (3.93-5.22); RDW 15.8 % (11.7-14.6); RDW-SD 53.6 fL; WBC 9.16 10^3/uL (4.4-10.8)
[2024-09-14 07:21] LABS: ALT 17 U/L (14-59); AST 25 U/L (15-37); Albumin 2.9 g/dL (3.4-5.0); Alkaline Phosphatase 58 U/L (46-116); Anion Gap 7.7 mmol/L (3-11); BUN 21 mg/dL (7-18); Bilirubin, Total 0.35 mg/dL (0.2-1.0); CO2 30.3 mmol/L (21.0-32.0); CREATININE 0.9 mg/dL (0.55-1.02); Calcium 8.2 mg/dL (8.5-10.1); Chloride 112 mmol/L (98-107); Estimated GFR 62.65 (mL/min/1.73m2); Glucose 109 mg/dL (74-106); Sodium 150 mmol/L (136-145); Total Protein 6.8 g/dL (6.4-8.2)
[2024-09-14 07:27] LABS: Potassium 2.8 mmol/L (3.5-5.1)
[2024-09-14 07:56] VITALS: BP 161/99; PULSE 55; RESP 18; TEMP 36.6; O2SAT 93
--- NOTE | 2024-09-14 09:11 | CMDISCH_ITS ---
Date of service: 09/14/24 Time of Service: 16:00 LACE Index Scoring Tool Questions: Length of Stay (in days): 4 - 6 Was the patient admitted via the E.D.?: Yes Comorbidities: Chronic Pulmonary Disease E.D. Visits: 1 Answers: Total Score: 10 Risk of Readmission: High Risk Care Management Discharge Plan Reason for Hospitalization: Acute dehydration, cholecystitis Discharge Plan: Discharge back to the [facility] with [facility] PT services. Follow up with community providers and your discharge plan of care as recommended. Transportation will be provided by family. Patient/Family Education Needs: Review discharge instructions, limitations, medications and plan to follow up with community providers. Discuss ask me three. Services Needed at Discharge: Home Health Care Services ([facility] PT) [facility] Health Related Social Needs: No Data to Display
[2024-09-14] MEDS: Magnesium Chloride 64 MG TABCR PO (09:20)
[2024-09-14] MEDS: Pantoprazole 40 MG VIAL IVP (09:20)
[2024-09-14] MEDS: Normal Saline Flush 10 ML SYR IVP (09:20)
[2024-09-14] MEDS: Hydroxychloroquine 200 MG TAB PO (09:25)
[2024-09-14] MEDS: Metoprolol 12.5 MG TAB PO (09:25)
[2024-09-14] MEDS: methIMAzole 5 MG TAB PO (09:25)
[2024-09-14] MEDS: Benzonatate 100 MG CAP PO ×2 (09:26→15:09)
[2024-09-14] MEDS: Vitamins B Comp w/C TAB 1 TAB PO (09:26)
[2024-09-14] MEDS: Cholecalciferol (Vitamin D3) 1,000 UNIT TAB 2000 UNITS PO (09:26)
[2024-09-14] MEDS: Loratidine 10 MG TAB PO (09:27)
[2024-09-14] MEDS: Gabapentin 300 MG CAP PO ×2 (09:27→15:09)
--- NOTE | 2024-09-14 09:35 | PT.INTREAT ---
PT Notes Visit Reasons: Acute dehydration, Cholecystitis Inpatient Physical Therapy Treatment Note Date: 09/14/2024 Precautions: Fall. Standard precautions. Activity as tolerated. Hearing impaired. Subjective: May go home later today. Patient and patient's caregiver Rowan reported feeling distension in her tummy when PT came in early today for session. Patient was able to tolerate morning session with no incrase in abdominal distension/discomfort. Objective: General Observation: Patient seen resting on chair. Telemetry monitoring in place. Mental Status: Alert and oriented x 3 Pain: Minimal arthritic pain in B hands and fingers Vital Signs: Closely monitored by nursing staff Bed Mobility/Transfers: Minimal cueing provided for use of B hands as needed for support, movement sequence, AD management, and posture to reduce fall risk and minimize pain report Sit to stand contact guard assist with FWW Stand to sit contact guard assist with FWW Bed to chair contact guard assist with FWW Chair to bed contact guard assist with FWW Gait: Facilitated safe and correct performance of level surface ambulation covering a distance of 250 feet using use front wheeled walker with contact-guard assist and wheelchair follow for safety. Did not report of any increased pain. Denied headache, chest pain, and lightheadedness throughout activity. Minimal verbal cueing provided for AD management, directional changes, and posture. Balance: Static Sitting: Good Dynamic Sitting: Good Static Standing: Fair Dynamic Standing: Fair Assessment: Is almost at baseline with level of assist for all transfers and ambulation distance using her FWW. Patient will require continued physical therapy to progress to modified independent for all short-distance ambulation using front-wheeled walker. DISCHARGE RECOMMENDATIONS: [] Home with no services [] [X] Home with services. Patient will benefit from home health PT services in order to progress mobility level using least restrictive assistive ambulatory device, assess home safety, identify additional equipment needs, and establish a functional maintenance program that will increase ability of patient to remain at home. [] Home with outpatient PT [] [] SNF for continued rehabilitation [] [] [employer] [facility] [] [] SNF versus LTC based on ability to participate and progress [] discharge recommendations TREATMENT CODE/TIME: 40401 x 39 minutes for 3 unit (08:46-09:25).
[2024-09-14] MEDS: Calcium Carbonate *TUMS* 500 MG CHEW PO (09:42)
--- NOTE | 2024-09-14 10:06 | PGE_ITS ---
Date of Service Date of service: 09/14/24 Time of Service: 10:06 Subjective Subjective Interval history since last seen: Patient is seen and examined: they are doing well. THey have : no headaches. No CP or SOB. no productive cough. no dysuria. no leg pain or swelling. Patient has been tolerating a low-fat diet. She has had no pain/nausea/bloating with eating. Today her abdomen is soft and nontender. She has been eating at least 80 to 90% all her meals. She has moved her bowels. At this point she says she is feeling good and she would like to go back to the [facility]. Information was given to the [place] in about food choices that would be better for people with gallbladder issues including avoiding pork/fried foods and high fat dairy. I would like to see her back in my office in 2 to 3 weeks and see how she is doing. If she starts to have any pain nausea vomiting bloating or just will not eat or is losing weight they should follow-up with us sooner. I did communicate all this information to Dr. Flynn hospitalist on-call today. And discharge will be performed by hospitalist service. 15 mins spent in direct pt care and 5 in non face to face time Objective Last Vital Signs Temp 36.6 C 09/14/24 07:56 Pulse 55 L 09/14/24 07:56 Resp 18 09/14/24 07:56 BP 161/99 H 09/14/24 07:56 Pulse Ox 93 09/14/24 07:56 Laboratory Results - last 24 hr 09/14/24 05:34 WBC 9.16 RBC 3.88 L Hgb 11.4 Hct 36.2 MCV 93 MCH 29.4 MCHC 31.5 L D RDW 15.8 H Plt Count 322 MPV 10.9 Sodium 150 H Potassium 2.8 L* Chloride 112 H Carbon Dioxide 30.3 Anion Gap 7.7 BUN 21 H Creatinine 0.9 Est GFR (CKD-EPI 2020) 62.65 Glucose 109 H Calcium 8.2 L Total Bilirubin 0.35 AST 25 ALT 17 Alkaline Phosphatase 58 Total Protein 6.8 Albumin 2.9 L PAWSS Have you Been Recently Intoxicated or Drunk Within the Last 30 days?: No Have you Ever Experienced Previous Episodes of Alcohol Withdrawal?: No Have you ever Experienced Withdrawal Seizures?: No Have you ever Experienced Delirium Tremens(DT)s?: No Have you ever undergone Alcohol Rehabilitation Treatment (i.e, inpt ot outpatient treatment programs)?: No Have you ever Experienced Blackouts?: No Have you ever Combined Alcohol with other Downers within the last 90 days?: No Have you ever Combined Alcohol with any other Substance of Abuse during the last 90 days?: No Positive Blood Alcohol level on Presentation? [PCS.BAL]: No Evidence of Increased Autonomic Activity (i.e. HR>120, tremor, sweating, agitation, nausea)?: No Result: 0 Time Spent with Patient Time Spent with Patient: <25 minutes Time was spent: preparing to see the patient(eg.review tests), obtaining and/or reviewing separately otained hiistory, ordering medications,tests, procedures, referring, communicating with other health health care recruiter, indepentently interpreting results, counseling the patient, care coordination and other
--- NOTE | 2024-09-14 11:04 | TELEFU_ITS ---
Date of service: 09/14/24 Time of Service: 11:04 Nutrition Note NOTE: calorie count ordered for patient - started at lunch yesterday and meal slip was unaccounted for. Dinner slip last night has no indication of amounts eaten, just what was ordered. Breakfast slip this morning also missing information. AT this time calorie count is not consistent or accurate. with amounts on her meal ticket and food choices (breakfast ordered vanilla yogurt, at half her oats, a splash of milk and 1/2 her coffee. Even if she at 100% of the rest of her breakfast that was not marked, she would have taken ~200kcals this morning, which would result in inadequate intake if this is her average meal consumption. Discharge anticipated today back to [facility] - highly recommend discharge with recommendations for higher kcal diet with oral nutrition supplements as needed to regain weight. Time Spent in Nutritional Counseling and Treatment: 5 min
[2024-09-14 11:15] VITALS: BP 183/89; PULSE 52; RESP 18; TEMP 37.2; O2SAT 96
--- NOTE | 2024-09-14 14:57 | DI.RAD_ITS ---
Exam(s) XR ABDOMEN FLAT UPRIGHT EXAM: 2D digital imaging was performed. CLINICAL HISTORY: bloating. COMPARISON: No exams were available for comparison TECHNIQUE: Supine and uprightSupine and Lateral views of the abdomen were performed. FINDINGS: BOWEL GAS PATTERN: Nondistended.No free air. Normal quantity of stool. CALCIFICATIONS: No urinary tract calcifications. OSSEOUS STRUCTURES: Advanced degenerative changes as well as scoliosis. Hardware in bilateral femurs . Visualized portions of chest: The lung bases are clear. A valve prosthesis is noted. Soft tissues: Unremarkable. IMPRESSION: Nonobstructive bowel gas pattern. No free air. DATA REPOSITORY: RADIATION DOSE DELIVERED:
[2024-09-14 15:36] VITALS: BP 185/72; PULSE 58; RESP 19; TEMP 36.7; O2SAT 96
--- NOTE | 2024-09-14 15:37 | W.PM.DS.N ---
Date of service: 09/14/24 Time of Service: 15:38 DS: Diagnosis Discharge Diagnosis (1) Cholecystitis, acute: Status: Acute (2) Acute dehydration: Status: Acute (3) Adrenal insufficiency: Status: Chronic (4) Elevated troponin level not due myocardial infarction: Status: Acute (5) Hyperthyroidism: Status: Chronic (6) Rheumatoid arthritis: Status: Chronic (7) Dysphagia: Status: Acute (8) DVT prophylaxis: Status: Acute Discharge Plan Disposition Patient Disposition: Home W/Home Health Services Condition: Stable Discharge Details Reason For Visit: Acute dehydration, Cholecystitis Admit Date/Time: 09/10/24 23:58 Admit Provider: Victor M Díaz Attending Provider: Victor M Díaz Primary Care Provider: Ekaterina Mcclain [facility] Hospital Course: This is an 83 who was admitted on 09/10/2024 for dehydration, acute cholecystitis, adrenal insufficiency, mild elevation in troponins (m/l 2/2 YVON and dehydration) and hypertension. While she was in the hospital, she was seen by general surgery (Dr Ruiz). Considering the pt's age, lack of symptoms, tolerating her diet, I recommended discharge to which the pt agreed. I will contact Dr Ruiz prior to pt leaving to ensure that she agrees with dc. Discharge is made easier by the fact that the pt is living at an assisted living facility. Dr. Ruiz, surgeon will be providing a dietary educational handout in the setting of cholecystitis to be send to [facility] in with the patient. Patient was to be discharged yesterday but her general surgeon wanted to give her another day to monitor her calories pain level with eating. Patient did quite well and is asymptomatic at this point. There was some concern about distended abdomen and a KUB was done which showed nonspecific bowel pattern and some constipation. Home Meds and New Rx's Prescriptions: Continued prednisone 5 mg tablet 5 mg PO DAILY vitamin B complex Tablet 1 tab PO DAILY loratadine [Allergy Relief (loratadine)] 10 mg tablet 10 mg PO DAILY mirtazapine [Remeron] 30 mg tablet 30 mg PO QHS tumeric 500 mg PO DAILY Slow-Mag 71.5 mg tablet,delayed release (DR/EC) 71.5 mg PO DAILY calcium carbonate [Tums] 200 mg calcium (500 mg) tablet,chewable 200 mg PO BID amoxicillin 500 mg capsule See Rx Instructions .ROUTE .COMPLEX Rx Instructions: 2,000mg; one hour prior to dental appointment hydroxychloroquine 200 mg tablet 200 mg PO DAILY Patient Comments: 03.13.19 pt states her rhumatologist per her on this.HE ketoconazole 2 % cream 1 applic topical DAILY Qty: 120 6RF Rx Instructions: Apply to toenails once daily urea 40 % cream 1 applic topical DAILY Qty: 28.35 3RF cholecalciferol (vitamin D3) 2,000 UNIT tablet 2,000 unit PO DAILY fluticasone propionate [Flonase Allergy Relief] 9.9 ML spray,suspension 1 spray NS DAILY PRN metoprolol succinate 25 MG tablet extended release 24 hr 25 mg PO DAILY methimazole 5 MG tablet 5 mg PO DAILY acetaminophen [Tylenol] 325 mg tablet 650 mg PO TID PRN aspirin 81 mg tablet,delayed release (DR/EC) 81 mg PO DAILY gabapentin 300 mg capsule 300 mg PO TID Prolia 60 mg/mL syringe 60 mg subcut [id number] Patient Comments: due in february benzonatate 100 mg capsule 100 mg PO BID-TID PRN omeprazole 20 mg capsule,delayed release(DR/EC) 20 mg PO DAILY PRN albuterol sulfate [ProAir HFA] 90 mcg/actuation Hfa Aerosol Inhaler 2 puff Inhalation Q4H PRN PRN (Reason: Shortness Of Breath) Discharge Instructions Stand Alone Forms: Nursing Discharge Form Referrals: Ekaterina Mcclain [Primary Care Provider] - 09/24/24 11:35 am () Tianna Ruiz DO [OSTEOPATHIC DOCTOR] - (Called and left a message, if no call back by 09/17 please call and schedule a follow-up. ) Activity:: Activity as Tolerated Equipment/Supplies:: No Equipment Needed Diet:: per handout provided by Dr Ruiz Discharge Orders Discharge Orders: Discharge Order (Routine); Ordered 09/14/24 Ordered By: Bony Flynn DS: Summary Time Spent with Patient providing and/or coordinating discharge services: Less than 30 minutes Status at Discharge Functional status at discharge: independent ambulation Overall status at discharge: patient is back to baseline Mental Status: mental status grossly normal Speech and Movement: speech and movement normal Mood: congruent mood Affect: normal affect Quality:SDOH Health Related Social Needs: No Data to Display Exam Psych Mental Status: mental status grossly normal Speech and Movement: speech and movement normal Mood: congruent mood Affect: normal affect DS: Data Vitals/I&O Vitals and I&O: Vital Signs Temperature 36.7 C 09/14/24 15:36 Temperature Source Temporal Artery Scan 09/14/24 15:36 Pulse 58 L 09/14/24 15:36 Pulse 72 09/11/24 00:08 Respiratory Rate 19 09/14/24 15:36 Respiratory Effort Normal 09/11/24 00:41 Respiratory Depth Normal 09/11/24 00:41 Respiratory Pattern Normal 09/11/24 00:41 Blood Pressure 185/72 H 09/14/24 15:36 Blood Pressure Mean 85 09/11/24 00:08 Blood Pressure Position Supine 09/10/24 15:32 Pulse Oximetry 96 09/14/24 15:36 Oxygen Delivery Method Room Air 09/14/24 07:56 Oxygen Flow Rate 0 09/14/24 07:56 Pain Level 0 09/14/24 03:01 Comment RN notified 09/13/24 14:57 Intake & Output 09/13/24 09/14/24 09/14/24 23:59 11:59 23:59 Intake Total 570 / 695 390 / 508 118 / 508 Output Total 700 / 1500 Balance -130 / -805 390 / 508 118 / 508 Intake: IV 100 / 225 150 / 150 Oral 470 / 470 240 / 358 118 / 358 Output: Urine 700 / 1500 Other: Urine Color Yellow Yellow Yellow Urine Appearance Clear Clear Clear Urine Odor None Normal Comment voided in toilet unknown void into toilet Stool Size Small Small Small Stool Characteristics Soft Soft Soft Liquid Data Completed and Pending Labs on day of discharge: Labs from last 24 hours 09/14/24 05:34 WBC 9.16 RBC 3.88 L Hgb 11.4 Hct 36.2 MCV 93 MCH 29.4 MCHC 31.5 L D RDW 15.8 H Plt Count 322 MPV 10.9 Sodium 150 H Potassium 2.8 L* Chloride 112 H Carbon Dioxide 30.3 Anion Gap 7.7 BUN 21 H Creatinine 0.9 Est GFR (CKD-EPI 2020) 62.65 Glucose 109 H Calcium 8.2 L Total Bilirubin 0.35 AST 25 ALT 17 Alkaline Phosphatase 58 Total Protein 6.8 Albumin 2.9 L Preliminary micro results at discharge 09/10/24 23:27 Blood Culture - Preliminary Blood NO GROWTH 72 HOURS 09/10/24 23:27 Blood Culture - Preliminary Blood NO GROWTH 72 HOURS PFSH All Active Problems (Updated 09/13/24 @ 10:15 by Tianna Ruiz DO) Current chronic use of systemic steroids (Acute) Pulmonary HTN (Acute) ACP (advance care planning) (Acute) Palliative care patient (Acute) Chronic cholecystitis with calculus (Acute) Dysphagia (Acute) Acute dehydration (Acute) Elevated troponin level not due myocardial infarction (Acute) Cholecystitis, acute (Acute) Nail dystrophy (Acute) Onychomycosis (Acute) Skin lesion (Acute) Stress fracture of right calcaneus (Acute) Pain in right ankle (Acute) Pain in left ankle (Acute) Pain in right foot (Acute) Neoplasm of calcaneus (Acute) Pain in left foot (Acute) Hammertoe of right foot (Acute) Ulcer of right foot limited to breakdown of skin (Acute) Osteoporosis (Chronic) CAD (coronary artery disease) (Chronic) Hyperthyroidism (Chronic) Mitral valve disease (Acute) Chronic rhinitis (Acute) Bilateral hearing loss (Acute) Nicotine dependence (Acute) Nodule of skin of hand (Acute) Adrenal insufficiency (Chronic) Methotrexate toxicity (Chronic) Full code status (Acute) Leukocytosis (Acute) DVT prophylaxis (Acute) Falls (Acute) Ulcerative colitis (Chronic) DJD (degenerative joint disease) (Chronic) HTN (hypertension) (Chronic) Rheumatoid arthritis (Chronic) COPD (chronic obstructive pulmonary disease) (Chronic) Sensorineural hearing loss, bilateral (Acute 05/07/14) Medical History Intertrochanteric fracture of right femur Status post ORIF on 10/06/2018 Discharge planning issues Acute blood loss anemia Pneumonia UTI (urinary tract infection), uncomplicated Excessive cerumen in right ear canal Excessive cerumen in left ear canal Sensorineural hearing loss Upper respiratory infection Fatigue Hyperkalemia Thyrotoxicosis Cardiac arrhythmia Rheumatic disease of mitral valve Fx lower radius/ulna-closed Ulcerative colitis History of hypertension Rhinitis Colitis History of tobacco use Bigeminy Hearing loss right hearing aid/deaf in left ear Surgical History H/O mitral valve replacement Fracture of right hip requiring operative repair Colonoscopy - MAC (03/22/18) Colonoscopy - IV Sedation (~2008) Family History Mother Asthma Father No problems noted. Sister No problems noted. Sister No problems noted. Brother No problems noted. Social History Smoking/Tobacco Use Status: Former Tobacco Use Smoking risk assessment performed?: Yes Alcohol Intake: never Drug use: Never Substance use type: does not use Housing: assisted living facility Do you feel safe at home: Yes Do you feel safe in your relationship?: Yes Additional Social history: Baylee Yang Time Spent with Patient Time Spent with Patient: 45-69 minutes Time was spent: preparing to see the patient(eg.review tests), obtaining and/or reviewing separately otained hiistory, ordering medications,tests, procedures, referring, communicating with other health rn managed care, indepentently interpreting results, counseling the patient and care coordination
--- NOTE | 2024-09-20 14:20 | PDOC.HHF2F_ITS ---
Home Health Referral Home Health Orders Clinical synopsis of why skilled professionals are needed: Cholecystitis, adrenal insufficiency, RA Registered Nurse: Check all that apply Instruct on new or changed medication(s)/assess compliance: Ordered Physical Therapist: Check all that apply Increase strength & endurance for safe mobility at home: Ordered To design/establish home maintenance program: Ordered Fall reduction therapy program for patient with history of frequent falls: Ordered Home safety evaluation and teaching/gait training including stair management (if applicable): Ordered Encounter Date and Reason: I certify that a FTF encounter for this patient was performed on September 20, 2024 and that such encounter was related to the primary reason the patient requires home health services. The encounter was conducted in the following manner: * By me as the certifying physician, RADIATION THERAPIST, PA or * By an inpatient physician, RADIATION THERAPIST or PA during an inpatient stay who communicated findings to me, Certification And Authentication I certify that I composed the above information based on my clinical judgment relating to this patient's medical condition and, if applicable, clinical findings communicated to me by the NPP or inpatient physician who performed the FTF encounter. Name of Provider that will be monitoring home health services: Ekaterina Mcclain
== END 2024-09-14 17:11 | disposition home health service (06) | DRG 445 ==
LOC: ER 23:54 → MS 09-11 00:21
PROVIDERS: Family Medicine; Hospitalist; Surgery; Admitting Provider Family Medicine; Emergency Provider Nurse Practitioner Family; PCP Nurse Practitioner Family; Visit Provider Family Medicine
DX: D84.821 Immunodeficiency due to drugs; E27.40 Unspecified adrenocortical insufficiency; K51.90 Ulcerative colitis, unspecified, without complications; E87.20 Acidosis, unspecified; E86.0 Dehydration; E05.90 Thyrotoxicosis, unspecified without thyrotoxic crisis or storm; M06.9 Rheumatoid arthritis, unspecified; R13.10 Dysphagia, unspecified; I10 Essential (primary) hypertension; I25.10 Atherosclerotic heart disease of native coronary artery without angina pectoris; J44.9 Chronic obstructive pulmonary disease, unspecified; F17.210 Nicotine dependence, cigarettes, uncomplicated; I27.20 Pulmonary hypertension, unspecified; M81.0 Age-related osteoporosis without current pathological fracture; K80.12 Calculus of gallbladder with acute and chronic cholecystitis without obstruction; I34.0 Nonrheumatic mitral (valve) insufficiency; R74.8 Abnormal levels of other serum enzymes; Z79.52 Long term (current) use of systemic steroids; Z79.82 Long term (current) use of aspirin; Z95.4 Presence of other heart-valve replacement; Z96.643 Presence of artificial hip joint, bilateral; H90.3 Sensorineural hearing loss, bilateral; R11.2 Nausea with vomiting, unspecified
CPT/HCPCS: 00123; 36415; 74177; 80048; 80053; 80076; 83690; 85027; 87040; 87637; 92610; 93005; 96365; 96375; 97162; 97530; 99221; 99231; 99233; 99285; 71046; 71260; 74019; 76705; 81003; 81015; 83735; 84443; 84484; 85025; 93010; 93306; 99223; 99232; 99239; J1644; J1720; J2405; J2470; J2543; J3490

== ENCOUNTER 2024-09-24 14:59 | Outpatient (REF) | payer MEDICARE, BC, SELFPAY ==
[2024-09-24 15:37] LABS: Abs Immature Grans 0.09 10^3/uL (0.0-0.06); Absolute Basophil Count 0.05 10^3/uL (0.0-0.2); Absolute Eosinophil Count 0.08 10^3/uL (0.0-0.7); Absolute Monocyte Count 0.75 10^3/uL (0.1-0.8); Basophils % 0.4 %; Eosinophils % 0.7 %; HCT 45.4 % (36.0-46.0); HGB 12.1 g/dL (11.2-15.7); Immature Grans % 0.8 %; Lymphocytes % 4.9 %; MCH 30.1 pg (27.0-33.0); MCHC 26.7 % (32.0-36.0); MCV 113 fL (80-95); MPV 12.6 fL (8.0-11.0); Monocytes % 6.4 %; Neutrophils % 86.8 %; Platelet Count 256 10^3/uL (130-400); RBC 4.02 10^6/uL (3.93-5.22); RDW 16.4 % (11.7-14.6); RDW-SD 69.9 fL; WBC 11.74 10^3/uL (4.4-10.8)
[2024-09-24 15:39] LABS: Absolute Lymphocyte Count 0.58 10^3/uL (1.2-3.4); Absolute Neutrophil Count 10.19 10^3/uL (1.2-6.7)
[2024-09-24 16:21] LABS: Diff Comment RBC Morph Reviewed
[2024-09-24 16:22] LABS: Macrocytosis 2+
[2024-09-24 18:20] LABS: ALT 22 U/L (14-59); AST 24 U/L (15-37); Albumin 3.8 g/dL (3.4-5.0); Alkaline Phosphatase 81 U/L (46-116); Anion Gap 9.6 mmol/L (3-11); BUN 39 mg/dL (7-18); Bilirubin, Total 0.32 mg/dL (0.2-1.0); CO2 26.4 mmol/L (21.0-32.0); CREATININE 1.1 mg/dL (0.55-1.02); Calcium 9.6 mg/dL (8.5-10.1); Chloride 101 mmol/L (98-107); Estimated GFR 49.24 (mL/min/1.73m2); Glucose 97 mg/dL (74-106); Potassium 5.1 mmol/L (3.5-5.1); Sodium 137 mmol/L (136-145); Total Protein 8.1 g/dL (6.4-8.2)
== END 2024-09-24 15:00 | disposition home or self-care (01) ==
LOC: NCHCN 14:59
PROVIDERS: PCP Nurse Practitioner Family; Visit Provider Nurse Practitioner Family
DX: K81.0 Acute cholecystitis (principal)
CPT/HCPCS: 80053; 85025

== ENCOUNTER 2024-10-10 12:39 | Outpatient (REF) | payer MEDICARE, BC, SELFPAY ==
[2024-10-10 12:31] LABS: HCT 38.7 % (36.0-46.0); HGB 12.2 g/dL (11.2-15.7); MCH 29.3 pg (27.0-33.0); MCHC 31.5 % (32.0-36.0); MCV 93 fL (80-95); MPV 10.3 fL (8.0-11.0); Platelet Count 380 10^3/uL (130-400); RBC 4.17 10^6/uL (3.93-5.22); RDW 15.8 % (11.7-14.6); RDW-SD 54.1 fL; WBC 11.88 10^3/uL (4.4-10.8)
[2024-10-10 12:40] LABS: Anion Gap 7.3 mmol/L (3-11); BUN 32 mg/dL (7-18); CO2 28.7 mmol/L (21.0-32.0); CREATININE 0.9 mg/dL (0.55-1.02); Calcium 9.1 mg/dL (8.5-10.1); Chloride 105 mmol/L (98-107); Estimated GFR 62.26 (mL/min/1.73m2); Glucose 109 mg/dL (74-106); Potassium 5.2 mmol/L (3.5-5.1); Sodium 141 mmol/L (136-145)
== END 2024-10-10 12:40 | disposition home or self-care (01) ==
LOC: NCHCN 12:39
PROVIDERS: PCP Nurse Practitioner Family; Visit Provider Nurse Practitioner Family
DX: N28.9 Disorder of kidney and ureter, unspecified (principal)
CPT/HCPCS: 80048; 85027

== ENCOUNTER 2024-10-15 15:27 | Outpatient (REF) | payer MEDICARE, BC, SELFPAY ==
[2024-10-15 15:40] LABS: HCT 37.9 % (36.0-46.0); HGB 11.9 g/dL (11.2-15.7); MCH 29.2 pg (27.0-33.0); MCHC 31.4 % (32.0-36.0); MCV 93 fL (80-95); MPV 10.5 fL (8.0-11.0); Platelet Count 373 10^3/uL (130-400); RBC 4.08 10^6/uL (3.93-5.22); RDW 15.8 % (11.7-14.6); RDW-SD 53.9 fL; WBC 19.21 10^3/uL (4.4-10.8)
[2024-10-15 16:03] LABS: ALT 15 U/L (14-59); AST 21 U/L (15-37); Albumin 3.2 g/dL (3.4-5.0); Alkaline Phosphatase 78 U/L (46-116); Anion Gap 8.8 mmol/L (3-11); BUN 33 mg/dL (7-18); Bilirubin, Total 0.46 mg/dL (0.2-1.0); CO2 27.2 mmol/L (21.0-32.0); Calcium 9.3 mg/dL (8.5-10.1); Chloride 102 mmol/L (98-107); Estimated GFR 54.87 (mL/min/1.73m2); Glucose 151 mg/dL (74-106); Potassium 5.2 mmol/L (3.5-5.1); Sodium 138 mmol/L (136-145); Total Protein 7.3 g/dL (6.4-8.2)
[2024-10-15 16:09] LABS: Absolute Lymphocyte Count 1.15 10^3/uL (1.2-3.4); Absolute Monocyte Count 0.58 10^3/uL (0.1-0.8); Absolute Neutrophil Count 17.48 10^3/uL (1.2-6.7); Atypical Lymphocytes % 1 %; Diff Comment Manual Differential; RBC Morphology Normal
== END 2024-10-15 15:28 | disposition home or self-care (01) ==
LOC: NCHCN 15:27
PROVIDERS: PCP Nurse Practitioner Family; Visit Provider Nurse Practitioner Family
DX: R19.7 Diarrhea, unspecified (principal)
CPT/HCPCS: 80053; 85025

== ENCOUNTER 2024-11-13 14:14 | Outpatient (REF) | payer MEDICARE, BC, SELFPAY ==
[2024-11-13 16:32] LABS: Anion Gap 8.6 mmol/L (3-11); BUN 25 mg/dL (7-18); CO2 29.4 mmol/L (21.0-32.0); CREATININE 1.2 mg/dL (0.55-1.02); Calcium 9.8 mg/dL (8.5-10.1); Chloride 104 mmol/L (98-107); Estimated GFR 44.08 (mL/min/1.73m2); Glucose 180 mg/dL (74-106); Potassium 5.2 mmol/L (3.5-5.1); Sodium 142 mmol/L (136-145)
== END 2024-11-13 14:15 | disposition home or self-care (01) ==
LOC: NCHCN 14:14
PROVIDERS: PCP Nurse Practitioner Family; Visit Provider Nurse Practitioner Family
DX: E87.5 Hyperkalemia (principal)
CPT/HCPCS: 80048

== ENCOUNTER 2024-11-17 22:17 | Emergency (ER) | payer MEDICARE, BC, SELFPAY ==
[2024-11-17 22:19] VITALS: BP 201/79; PULSE 84; RESP 16; TEMP 35.8; O2SAT 95
[2024-11-17] MEDS: Lidocaine/Epinephri/Tetracaine Topical Gel 3 ML (22:32)
[2024-11-17 22:37] VITALS: BP 201/79; PULSE 84; RESP 16; TEMP 35.8; O2SAT 95
--- NOTE | 2024-11-17 22:48 | W.ED.GENAD ---
Discharge Plan Disposition Patient Disposition: Home Condition: Good Discharge Details Clinical Impression: Right-sided epistaxis Primary Care Provider: Ekaterina Mcclain ED Provider: Parker Fung Home Meds and New Rx's Prescriptions: No Action prednisone 5 mg tablet 5 mg PO DAILY vitamin B complex Tablet 1 tab PO DAILY loratadine [Allergy Relief (loratadine)] 10 mg tablet 10 mg PO DAILY mirtazapine [Remeron] 30 mg tablet 30 mg PO QHS tumeric 500 mg PO DAILY Slow-Mag 71.5 mg tablet,delayed release (DR/EC) 71.5 mg PO DAILY calcium carbonate [Tums] 200 mg calcium (500 mg) tablet,chewable 200 mg PO BID amoxicillin 500 mg capsule See Rx Instructions .ROUTE .COMPLEX Rx Instructions: 2,000mg; one hour prior to dental appointment hydroxychloroquine 200 mg tablet 200 mg PO DAILY Patient Comments: 03.13.19 pt states her rhumatologist per her on this.HE ketoconazole 2 % cream 1 applic topical DAILY Qty: 120 6RF Rx Instructions: Apply to toenails once daily urea 40 % cream 1 applic topical DAILY Qty: 28.35 3RF cholecalciferol (vitamin D3) 2,000 UNIT tablet 2,000 unit PO DAILY fluticasone propionate [Flonase Allergy Relief] 9.9 ML spray,suspension 1 spray NS DAILY PRN metoprolol succinate 25 MG tablet extended release 24 hr 25 mg PO DAILY methimazole 5 MG tablet 5 mg PO DAILY acetaminophen [Tylenol] 325 mg tablet 650 mg PO TID PRN aspirin 81 mg tablet,delayed release (DR/EC) 81 mg PO DAILY gabapentin 300 mg capsule 300 mg PO TID Prolia 60 mg/mL syringe 60 mg subcut [id number] Patient Comments: due in february benzonatate 100 mg capsule 100 mg PO BID-TID PRN morphine concentrate 100 mg/5 mL (20 mg/mL) solution See Rx Instructions PO Q1H PRN MDD 120 mg Qty: 30 0RF Rx Instructions: 0,25-1.0 ml orally every 1 hour, as needed; HOSPICE lorazepam 1 mg tablet 1 mg PO Q4H PRN (Reason: anxiety) Qty: 6 5RF Rx Instructions: 0.5-1.0 mg start with lower dose omeprazole 20 mg capsule,delayed release(DR/EC) 20 mg PO DAILY PRN albuterol sulfate [ProAir HFA] 90 mcg/actuation Hfa Aerosol Inhaler 2 puff Inhalation Q4H PRN PRN (Reason: Shortness Of Breath) Discharge Instructions Instructions: Nosebleeds Additional Instructions: At this time the bleeding has been stopped with the nasal balloon. Please have this removed in the next 3 to 5 days. Please follow-up with your family doctor to have this done or ENT. We have placed a referral with our ENT specialist to have this done. If you notice any worsening of your symptoms, or any new symptoms such as vomiting, diarrhea, fever, chills, shortness of breath, chest pain, numbness, weakness, or fainting , please return immediately to the emergency department for reevaluation. Please follow up with your primary care provider as soon as possible for reassessment and reevaluation. As always, it was a pleasure participating in your medical care today. Referrals: Ekaterina Mcclain [Primary Care Provider] - Raymond Weems MD [ [facility] STAFF PHYSICIAN] - [facility] General Date/Time Provider Initiated Documentation: 11/17/24 22:53. HPI Narrative: This is a pleasant 84-year-old female with a past medical history of pulmonary hypertension, coronary artery disease, COPD, who is on aspirin but no other anticoagulants who presents with right sided nosebleed. Patient states that symptoms began about 2 to 3 hours ago. She resides at the [facility]. They attempted packing and pressure without any improvement. EMS was called and the patient was brought to the ER for further assessment. She denies any headache syncope or chest pain. She denies any numbness or tingling. No other complaints at this time. No other modifying factors. Related Data Home Medications ?Medication ?Instructions ?Recorded ?Confirmed cholecalciferol (vitamin D3) 50 2,000 unit PO DAILY 01/18/13 11/17/24 mcg (2,000 unit) tablet fluticasone propionate 50 1 spray NS DAILY PRN 10/27/15 11/17/24 mcg/actuation nasal spray,suspension (Flonase Allergy Relief) methimazole 5 mg tablet 5 mg PO DAILY 03/18/16 11/17/24 metoprolol succinate 25 mg 25 mg PO DAILY 03/18/16 11/17/24 tablet,extended release 24 hr hydroxychloroquine 200 mg tablet 200 mg PO DAILY 03/13/19 11/17/24 albuterol sulfate 90 mcg/actuation 2 puff inhalation Q4H PRN PRN 03/18/19 11/17/24 aerosol inhaler (ProAir HFA) Shortness Of Breath acetaminophen 325 mg tablet 650 mg PO TID PRN 06/13/19 11/17/24 (Tylenol) aspirin 81 mg tablet,delayed 81 mg PO DAILY 11/09/23 11/17/24 release denosumab 60 mg/mL subcutaneous 60 mg subcut [id number] 11/09/23 11/17/24 syringe (Prolia) gabapentin 300 mg capsule 300 mg PO TID 11/09/23 11/17/24 calcium carbonate (Tums) 200 mg PO BID 11/22/23 11/17/24 loratadine 10 mg tablet (Allergy 10 mg PO DAILY 11/22/23 11/17/24 Relief (loratadine)) magnesium chloride 71.5 mg 71.5 mg PO DAILY 11/22/23 11/17/24 (magnesium chloride) tablet,delayed release (Slow-Mag) mirtazapine 30 mg tablet (Remeron) 30 mg PO QHS 11/22/23 11/17/24 omeprazole 20 mg capsule,delayed 20 mg PO DAILY PRN 11/22/23 11/17/24 release prednisone 5 mg tablet 5 mg PO DAILY 11/22/23 11/17/24 tumeric 500 mg PO DAILY 11/22/23 11/17/24 vitamin B complex 1 tab PO DAILY 11/22/23 11/17/24 benzonatate 100 mg capsule 100 mg PO BID-TID PRN 02/13/24 11/17/24 amoxicillin 500 mg capsule See Rx Instructions .Route .COMPLEX 03/06/24 11/17/24 ketoconazole 2 % topical cream 1 applic topical DAILY #120 grams 06/19/24 11/17/24 urea 40 % topical cream 1 applic topical DAILY #28.35 grams 06/19/24 11/17/24 lorazepam 1 mg tablet 1 mg PO Q4H PRN anxiety #6 tabs 10/18/24 11/17/24 morphine concentrate 100 mg/5 mL See Rx Instructions PO Q1H PRN #30 10/18/24 11/17/24 (20 mg/mL) oral solution mL Previous Rx's ?Medication ?Instructions ?Recorded ketoconazole 2 % topical cream 1 applic topical DAILY #120 grams 06/19/24 urea 40 % topical cream 1 applic topical DAILY #28.35 grams 06/19/24 lorazepam 1 mg tablet 1 mg PO Q4H PRN anxiety #6 tabs 10/18/24 morphine concentrate 100 mg/5 mL See Rx Instructions PO Q1H PRN #30 10/18/24 (20 mg/mL) oral solution mL Allergies Allergy/AdvReac Type Severity Reaction Status Date / Time adhesive tape AdvReac Intermediate . Verified 11/17/24 22:36 lisinopril (From Zestril) AdvReac Intermediate hyperkalemi Verified 11/17/24 22:36 a sulfasalazine AdvReac Intermediate Lupus Type Verified 11/17/24 22:36 Symptoms General Stated Complaint: Epistaxis DEIRDRE: 3 Exam Narrative Exam Narrative: 1.Const: Well-nourished, Well-developed, appearing stated age 2.Eyes: PERRL, no conjunctival injection, and symmetrical lids. 3.ENT: Atraumatic external nose and ears. Moist MM. Neck: Symmetric, trachea midline, No thyromegaly. Right nare demonstrates active bleed from the mid nasal component. There appears to also be active bleeding from the anterior nasal component. No bleeding in the left nare. 4.CVS: +S1/S2, Peripheral pulses 2+ and equal in all extremities. Brisk capillary refill in all extremities. 5.RESP: Unlabored respiratory effort. Clear to auscultation bilaterally. No wheezes rales or rhonchi 6.GI: Soft, Nontender/Nondistended, No hepatosplenomegaly. No guarding or rebound. 7.MSK: Normocephalic/Atraumatic, Extremities w/o deformity or ttp No cyanosis or clubbing, Normal movement of all extremities 8.Skin: Warm, Dry. No rashes or lesions. 9.Neuro: work order detailer II-XII grossly intact. Sensation grossly intact, no focal neurologic deficits. 10.Psych: (AAO) x3. Appropriate mood and affect Course Vital Signs Vital signs: Vital Signs Temperature 35.8 C L 11/17/24 22:19 Pulse 84 11/17/24 22:19 Respiratory Rate 16 11/17/24 22:19 Blood Pressure 201/79 H 11/17/24 22:19 Pulse Oximetry 95 11/17/24 22:19 Temperature 35.8 C L 11/17/24 22:37 Pulse 84 11/17/24 22:37 Respiratory Rate 16 11/17/24 22:37 Blood Pressure 201/79 H 11/17/24 22:37 Blood Pressure Position Sitting 11/17/24 22:19 Pulse Oximetry 95 11/17/24 22:37 Oxygen Delivery Method Room Air 11/17/24 22:19 Oxygen Flow Rate 0 11/17/24 22:19 Pain Level 0 11/17/24 22:37 Procedure Epistaxis Control Date of Procedure: 11/17/24 Time of Procedure: 22:56 Provider that performed the procedure: Parker Fung Patient Consented: Emergent Case Time Out Performed: Yes Nostril: right Nose prepped with: lidocaine Direct Inspection: yes Clots Removed by: blowing nose Cautery Used: none Device Inserted: Rhino rocket/nasal tampon Medical Decision Making This is a pleasant 84-year-old female with a past medical history of pulmonary hypertension, coronary artery disease, COPD, who is on aspirin but no other anticoagulants who presents with right sided nosebleed. Patient states that symptoms began about 2 to 3 hours ago. She resides at the [facility]. They attempted packing and pressure without any improvement. EMS was called and the patient was brought to the ER for further assessment. She denies any headache syncope or chest pain. She denies any numbness or tingling. No other complaints at this time. No other modifying factors. Exam demonstrates what appears to be bleeding in the anterior and mid nasal component on the right. This bleeding immediately resumed as soon as pressure was removed. A short Rhino Rocket was placed without complication. Patient tolerated this well and had no residual bleeding. Patient was observed and no bleeding recurred. Patient safe and stable for discharge. No tachycardia. No evidence of severe hemorrhage. Discussed red flags for which to return. Family members at bedside. Because she came from [facility], there is no transportation available for the patient. She is elderly, confused, partially deaf, and weak. Will contact [facility] for transfer back. I have extensively reviewed the treatment plan and discharge instructions with the patient. I have addressed all patient concerns at this time. The patient was made aware of what symptoms to monitor for that would warrant a return to the emergency department. Discussed the plan with the patient, they demonstrate verbal understanding and agreement with our assessment and plan at this time. The documentation in this chart was dictated using [employer] in [employer] (PRIMP) dictation software. Please excuse any dictation errors. Quality:SDOH Health Related Social Needs: No Data to Display PFSH All Active Problems (Updated 11/17/24 @ 22:49 by Parker Fung DO) Right-sided epistaxis (Acute) Current chronic use of systemic steroids (Acute) Pulmonary HTN (Acute) Chronic cholecystitis with calculus (Acute) Dysphagia (Acute) Nail dystrophy (Acute) Onychomycosis (Acute) Skin lesion (Acute) Stress fracture of right calcaneus (Acute) Pain in right ankle (Acute) Pain in left ankle (Acute) Pain in right foot (Acute) Neoplasm of calcaneus (Acute) Pain in left foot (Acute) Hammertoe of right foot (Acute) Ulcer of right foot limited to breakdown of skin (Acute) CAD (coronary artery disease) (Chronic) Hyperthyroidism (Chronic) Mitral valve disease (Acute) Chronic rhinitis (Acute) Bilateral hearing loss (Acute) Nodule of skin of hand (Acute) Adrenal insufficiency (Chronic) Methotrexate toxicity (Chronic) Full code status (Acute) Falls (Acute) Ulcerative colitis (Chronic) DJD (degenerative joint disease) (Chronic) Rheumatoid arthritis (Chronic) COPD (chronic obstructive pulmonary disease) (Chronic) Sensorineural hearing loss, bilateral (Acute 05/07/14) Medical History Intertrochanteric fracture of right femur Status post ORIF on 10/06/2018 Discharge planning issues Acute blood loss anemia Pneumonia UTI (urinary tract infection), uncomplicated Excessive cerumen in right ear canal Excessive cerumen in left ear canal Sensorineural hearing loss Upper respiratory infection Fatigue Hyperkalemia Thyrotoxicosis Cardiac arrhythmia Rheumatic disease of mitral valve Fx lower radius/ulna-closed Ulcerative colitis History of hypertension Rhinitis Colitis History of tobacco use Bigeminy Hearing loss right hearing aid/deaf in left ear Surgical History H/O mitral valve replacement Fracture of right hip requiring operative repair Colonoscopy - MAC (03/22/18) Colonoscopy - IV Sedation (~2008) Family History Mother Asthma Father No problems noted. Sister No problems noted. Sister No problems noted. Brother No problems noted. Social History Smoking/Tobacco Use Status: Former Tobacco Use Smoking risk assessment performed?: Yes Alcohol Intake: never Drug use: Never Substance use type: does not use Housing: assisted living facility Do you feel safe at home: Yes Do you feel safe in your relationship?: Yes Additional Social history: [facility]/ hospice pt
== END 2024-11-17 23:00 | disposition home or self-care (01) ==
PROVIDERS: Emergency Provider Student in an Organized Health Care Education/Training Program; PCP Nurse Practitioner Family
DX: R04.0 Epistaxis (principal); I10 Essential (primary) hypertension; Z86.79 Personal history of other diseases of the circulatory system
CPT/HCPCS: 30903

== ENCOUNTER 2024-11-18 19:30 | Emergency (ER) | payer MEDICARE, BC, SELFPAY ==
[2024-11-18] VITALS (40 sets, daily range): BP systolic 133–197; BP diastolic 62–107; PULSE 66–92; RESP 11–42; TEMP 36.1–36.4; O2SAT 92–98
--- NOTE | 2024-11-18 19:45 | DI.CT_ITS ---
Exam(s) CT HEAD CERVICAL SPINE WO EXAM: CT HEAD CERVICAL SPINE WO CLINICAL HISTORY: HI. TECHNIQUE: Imaging Protocol: Axial computed tomography images with coronal and sagittal reformatted images were created and reviewed COMPARISON: No exams were available for comparison FINDINGS: BRAIN: There right frontal scalp hematoma. There are no skull fractures nor fluid in the visualized paranasal sinuses. There is age related symmetrical atrophy. There is no evidence of intracranial hemorrhage, mass effect, or shift of midline structures. There are no extra-axial fluid collections. The ventricles are not enlarged or shifted and there is no blo od within the ventricular system nor within the basal cisterns. There are bilateral lacunar infarcts evident in basal ganglia anterior limbs of both internal capsule s. Also in the external capsules. CERVICAL SPINE: Is multilevel advanced chronic degenerative disc disease involving all disc spaces in the cervical sp ine and there is reversal of the normal cervical curvature. There is also widening of the atlantoaxial space narrowing with a distance of 7 mm between the anteri or aspect of the odontoid and the posterior cortex of the C1 arch. There is basilar invagination karoline dent, with tip of the odontoid process projecting above the foramen magnum where it impresses upon th e cervical medullary junction. The left lateral mass of C1 is partially fused to the left occipital condyle. Similar finding not seen on the opposite side. There is fusion across the right facet join t at C3-4 level. No significant osseous lesions evident. IMPRESSION: Right frontal scalp hematoma. No acute intracranial findings. Bilateral lacunar infarcts involving bilateral basal ganglia, anterior limbs of both internal capsules as well as both external capsules. No evidence of hemorrhage. 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 There is also anterior subluxation o f the lateral masses of C1 relative to C2 both sides with widening of the distance between the anteri or arch of C1 and the odontoid process (7 mm). Multilevel chronic severe degenerative disc disease and facet arthropathy. First read by [facility]. RADIATION DOSE DELIVERED: 1,013.37mGy.cm Total DLP DATA REPOSITORY: All CT scans at this facility are submitted to the National Radiology Data Registry (NRDR) Dose Index Registry (DIR) with the [employer] ([employer]). RADIATION OPTIMIZATION: All CT scans at this facility use at least one of these dose optimization te chniques: automated exposure control; mA and/or kV adjustment per patient size (includes targeted exa ms where dose is matched to clinical indication); or iterative reconstruction.
--- NOTE | 2024-11-18 19:50 | ED.GENADUL_ITS ---
Discharge Plan Disposition Patient Disposition: Home Condition: Stable Discharge Details Clinical Impression: Laceration of face, Head injury Primary Care Provider: Ekaterina Mcclain ED Provider: Edelmira Spencer Home Meds and New Rx's Prescriptions: Continued prednisone 5 mg tablet 5 mg PO DAILY vitamin B complex Tablet 1 tab PO DAILY loratadine [Allergy Relief (loratadine)] 10 mg tablet 10 mg PO DAILY mirtazapine [Remeron] 30 mg tablet 30 mg PO QHS tumeric 500 mg PO DAILY Slow-Mag 71.5 mg tablet,delayed release (DR/EC) 71.5 mg PO DAILY calcium carbonate [Tums] 200 mg calcium (500 mg) tablet,chewable 200 mg PO BID amoxicillin 500 mg capsule See Rx Instructions .ROUTE .COMPLEX Rx Instructions: 2,000mg; one hour prior to dental appointment hydroxychloroquine 200 mg tablet 200 mg PO DAILY Patient Comments: 03.13.19 pt states her rhumatologist per her on this.HE ketoconazole 2 % cream 1 applic topical DAILY Qty: 120 6RF Rx Instructions: Apply to toenails once daily urea 40 % cream 1 applic topical DAILY Qty: 28.35 3RF cholecalciferol (vitamin D3) 2,000 UNIT tablet 2,000 unit PO DAILY fluticasone propionate [Flonase Allergy Relief] 9.9 ML spray,suspension 1 spray NS DAILY PRN metoprolol succinate 25 MG tablet extended release 24 hr 25 mg PO DAILY methimazole 5 MG tablet 5 mg PO DAILY acetaminophen [Tylenol] 325 mg tablet 650 mg PO TID PRN aspirin 81 mg tablet,delayed release (DR/EC) 81 mg PO DAILY gabapentin 300 mg capsule 300 mg PO TID Prolia 60 mg/mL syringe 60 mg subcut [id number] Patient Comments: due in february benzonatate 100 mg capsule 100 mg PO BID-TID PRN morphine concentrate 100 mg/5 mL (20 mg/mL) solution See Rx Instructions PO Q1H PRN MDD 120 mg Qty: 30 0RF Rx Instructions: 0,25-1.0 ml orally every 1 hour, as needed; HOSPICE lorazepam 1 mg tablet 1 mg PO Q4H PRN (Reason: anxiety) Qty: 6 5RF Rx Instructions: 0.5-1.0 mg start with lower dose diclofenac sodium 1 % gel 2 g TOPICAL QID PRN amlodipine 5 mg tablet 5 mg PO DAILY amlodipine 5 mg tablet 5 mg PO DAILY omeprazole 20 mg capsule,delayed release(DR/EC) 20 mg PO DAILY PRN albuterol sulfate [ProAir HFA] 90 mcg/actuation Hfa Aerosol Inhaler 2 puff Inhalation Q4H PRN PRN (Reason: Shortness Of Breath) Discharge Instructions Instructions: Acute Pain, Adult Additional Instructions: please follow-up with pcp for recheck this week the skin adhesive will come off on own do not scrub area with soap and water, but you may rinse with water in shower Referrals: Ekaterina Mcclain [Primary Care Provider] - 1 day HPI General Date/Time Provider Initiated Documentation: 11/18/24 19:36 . HPI Narrative: This 84-year-old female with history of hypertension mitral valve disease, hypothyroidism, coronary artery disease with recent visit for epistaxis with Rhino Rocket placed yesterday presents with report of trip and fall. She turned quickly and tripped, fell forward hitting her head. Denies loss of consciousness. Denies any weakness or dizziness. Unsure regarding tetanus. Denies any headache, chest pain, shortness of breath. Remembers the entirety of incident. Related Data Home Medications ?Medication ?Instructions ?Recorded ?Confirmed cholecalciferol (vitamin D3) 50 2,000 unit PO DAILY 01/18/13 11/18/24 mcg (2,000 unit) tablet fluticasone propionate 50 1 spray NS DAILY PRN 10/27/15 11/18/24 mcg/actuation nasal spray,suspension (Flonase Allergy Relief) methimazole 5 mg tablet 5 mg PO DAILY 03/18/16 11/18/24 metoprolol succinate 25 mg 25 mg PO DAILY 03/18/16 11/18/24 tablet,extended release 24 hr hydroxychloroquine 200 mg tablet 200 mg PO DAILY 03/13/19 11/18/24 albuterol sulfate 90 mcg/actuation 2 puff inhalation Q4H PRN PRN 03/18/19 11/18/24 aerosol inhaler (ProAir HFA) Shortness Of Breath acetaminophen 325 mg tablet 650 mg PO TID PRN 06/13/19 11/18/24 (Tylenol) aspirin 81 mg tablet,delayed 81 mg PO DAILY 11/09/23 11/18/24 release denosumab 60 mg/mL subcutaneous 60 mg subcut [id number] 11/09/23 11/18/24 syringe (Prolia) gabapentin 300 mg capsule 300 mg PO TID 11/09/23 11/18/24 calcium carbonate (Tums) 200 mg PO BID 11/22/23 11/18/24 loratadine 10 mg tablet (Allergy 10 mg PO DAILY 11/22/23 11/18/24 Relief (loratadine)) magnesium chloride 71.5 mg 71.5 mg PO DAILY 11/22/23 11/18/24 (magnesium chloride) tablet,delayed release (Slow-Mag) mirtazapine 30 mg tablet (Remeron) 30 mg PO QHS 11/22/23 11/18/24 omeprazole 20 mg capsule,delayed 20 mg PO DAILY PRN 11/22/23 11/18/24 release prednisone 5 mg tablet 5 mg PO DAILY 11/22/23 11/18/24 tumeric 500 mg PO DAILY 11/22/23 11/18/24 vitamin B complex 1 tab PO DAILY 11/22/23 11/18/24 benzonatate 100 mg capsule 100 mg PO BID-TID PRN 02/13/24 11/18/24 amoxicillin 500 mg capsule See Rx Instructions .Route .COMPLEX 03/06/24 11/18/24 ketoconazole 2 % topical cream 1 applic topical DAILY #120 grams 06/19/24 11/18/24 urea 40 % topical cream 1 applic topical DAILY #28.35 grams 06/19/24 11/18/24 lorazepam 1 mg tablet 1 mg PO Q4H PRN anxiety #6 tabs 10/18/24 11/18/24 morphine concentrate 100 mg/5 mL See Rx Instructions PO Q1H PRN #30 10/18/24 11/18/24 (20 mg/mL) oral solution mL amlodipine 5 mg tablet 5 mg PO DAILY 11/18/24 11/18/24 amlodipine 5 mg tablet 5 mg PO DAILY 11/18/24 11/18/24 diclofenac sodium 1 % topical gel 2 g topical QID PRN 11/18/24 11/18/24 Previous Rx's ?Medication ?Instructions ?Recorded ketoconazole 2 % topical cream 1 applic topical DAILY #120 grams 06/19/24 urea 40 % topical cream 1 applic topical DAILY #28.35 grams 06/19/24 lorazepam 1 mg tablet 1 mg PO Q4H PRN anxiety #6 tabs 10/18/24 morphine concentrate 100 mg/5 mL See Rx Instructions PO Q1H PRN #30 10/18/24 (20 mg/mL) oral solution mL Allergies Allergy/AdvReac Type Severity Reaction Status Date / Time adhesive tape AdvReac Intermediate . Verified 11/18/24 19:54 lisinopril (From Zestril) AdvReac Intermediate hyperkalemi Verified 11/18/24 19:54 a sulfasalazine AdvReac Intermediate Lupus Type Verified 11/18/24 19:54 Symptoms General Stated Complaint: Fall/Non TraumaCriteria DEIRDRE: 3 Exam Narrative Exam Narrative: Alert and oriented 84-year-old female in no acute distress, pupils equal round reactive to light and accommodation, hematoma with skin tear x 2 on right fo rehead, no hemotympanum, cranial nerves II through XII intact, ambulatory with steady gait, walker dependent, no cervical spine tenderness, no chest wall tenderness lungs clear to auscultation, cardiac rate rhythm regular, no abdominal tenderness, GCS 15, no visible signs of trauma to upper extremity or lower extremity, nontender thoracic and lumbar spine on assessment, no CVA tenderness Course Vital Signs Vital signs: Vital Signs Temperature 36.1 C L 11/18/24 19:34 Pulse 74 11/18/24 19:34 Respiratory Rate 11 L 11/18/24 19:34 Blood Pressure 197/73 H 11/18/24 19:34 Pulse Oximetry 98 11/18/24 19:34 Temperature 36.1 C L 11/18/24 19:34 Pulse 72 11/18/24 19:45 Pulse 74 11/18/24 19:45 Respiratory Rate 23 11/18/24 19:45 Blood Pressure 189/87 H 11/18/24 19:45 Blood Pressure Mean 122 11/18/24 19:45 Blood Pressure Position Supine 11/18/24 19:34 Pulse Oximetry 97 11/18/24 19:45 Oxygen Delivery Method Room Air 11/18/24 19:34 Oxygen Flow Rate 0 11/18/24 19:34 Medical Decision Making 84-year-old female presenting in no acute distress, alert and oriented x 4, at baseline, Rhino Rocket in place, wounds were cleansed on patient's forehead and skin adhesive was applied for skin tears. Patient had good cosmesis. CT head and cervical spine do not show evidence of acute abnormality, pending radiology interpretation at this time. CT shows chronic findings without acute fracture or bleeding. She is encouraged to follow-up with her primary care physician regarding the findings of CT as needed. The Dermabond or self adhesive will resolve on own. Patient remains alert, oriented and asymptomatic and is stable for discharge back to the [facility] at this time. Patient is pending transport to return to [facility] at 2316. Tetanus was updated in the emergency department remains neurologically intact. Quality:[facility] Health Related Social Needs: No Data to Display [facility] All Active Problems (Updated 11/18/24 @ 22:54 by AMARA Robles) Head injury (Acute) Laceration of face (Acute) Right-sided epistaxis (Acute) Current chronic use of systemic steroids (Acute) Pulmonary HTN (Acute) Chronic cholecystitis with calculus (Acute) Dysphagia (Acute) Nail dystrophy (Acute) Onychomycosis (Acute) Skin lesion (Acute) Stress fracture of right calcaneus (Acute) Pain in right ankle (Acute) Pain in left ankle (Acute) Pain in right foot (Acute) Neoplasm of calcaneus (Acute) Pain in left foot (Acute) Hammertoe of right foot (Acute) Ulcer of right foot limited to breakdown of skin (Acute) CAD (coronary artery disease) (Chronic) Hyperthyroidism (Chronic) Mitral valve disease (Acute) Chronic rhinitis (Acute) Bilateral hearing loss (Acute) Nodule of skin of hand (Acute) Adrenal insufficiency (Chronic) Methotrexate toxicity (Chronic) Full code status (Acute) Falls (Acute) Ulcerative colitis (Chronic) DJD (degenerative joint disease) (Chronic) Rheumatoid arthritis (Chronic) COPD (chronic obstructive pulmonary disease) (Chronic) Sensorineural hearing loss, bilateral (Acute 05/07/14) Medical History Intertrochanteric fracture of right femur Status post ORIF on 10/06/2018 Discharge planning issues Acute blood loss anemia Pneumonia UTI (urinary tract infection), uncomplicated Excessive cerumen in right ear canal Excessive cerumen in left ear canal Sensorineural hearing loss Upper respiratory infection Fatigue Hyperkalemia Thyrotoxicosis Cardiac arrhythmia Rheumatic disease of mitral valve Fx lower radius/ulna-closed Ulcerative colitis History of hypertension Rhinitis Colitis History of tobacco use Bigeminy Hearing loss right hearing aid/deaf in left ear Surgical History H/O mitral valve replacement Fracture of right hip requiring operative repair Colonoscopy - MAC (03/22/18) Colonoscopy - IV Sedation (~2008) Family History Mother Asthma Father No problems noted. Sister No problems noted. Sister No problems noted. Brother No problems noted. Social History Smoking/Tobacco Use Status: Former Tobacco Use Smoking risk assessment performed?: Yes Alcohol Intake: never Drug use: Never Substance use type: does not use Housing: assisted living facility Do you feel safe at home: Yes Do you feel safe in your relationship?: Yes Additional Social history: [facility]/ hospice pt
[2024-11-18] MEDS: Diph,Pertuss(Acell),Tet Vac/Pf 0.5 ML SYR IM (19:57)
[2024-11-18] MEDS: Lidocaine/Epinephri/Tetracaine Topical Gel 3 ML TP (19:57)
--- NOTE | 2024-11-18 22:10 | DI.VRAD_ITS ---
PROCEDURE INFORMATION: Exam: CT Head Without Contrast Exam date and time: 11/18/2024 8:55 PM Age: 84 years old Clinical indication: Injury or trauma; Fall; Blunt trauma (contusions or hematomas); Consciousness not specified; Injury date: 11/18/24; Injury details: Hi TECHNIQUE: Imaging protocol: Computed tomography of the head without contrast. Radiation optimization: All CT scans at this facility use at least one of these dose optimization techniques: automated exposure control; mA and/or kV adjustment per patient size (includes targeted exams where dose is matched to clinical indication); or iterative reconstruction. COMPARISON: No relevant prior studies available. FINDINGS: Brain: No acute intracranial hemorrhage, mass-effect, midline shift, or extra-axial collection is seen. There is patchy white matter hypoattenuation, nonspecific but commonly seen as a chronic sequela of small vessel ischemic disease. The valenzuela white matter differentiation appears preserved. There is symmetric parenchymal volume loss. Cerebral ventricles: The ventricular system and basilar cisterns appear appropriate in size and configuration. Paranasal sinuses: There is mild mucoperiosteal thickening in the visualized ethmoid sinuses. Mastoid air cells: The mastoid air cells appear well-aerated. Auditory system: The middle ear cavities appear clear. Bones: The bony calvarium appears intact. No depressed skull fracture is seen. 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 Soft tissues: There is a prominent right frontal scalp contusion. IMPRESSION: No acute intracranial hemorrhage or depressed skull fracture. PROCEDURE INFORMATION: Exam: CT Cervical Spine Without Contrast Exam date and time: 11/18/2024 8:55 PM Age: 84 years old Clinical indication: Injury or trauma; Fall; Blunt trauma (contusions or hematomas); Consciousness not specified; Injury date: 11/18/24; Injury details: Hi TECHNIQUE: Imaging protocol: Computed tomography of the cervical spine without contrast. Radiation optimization: All CT scans at this facility use at least one of these dose optimization techniques: automated exposure control; mA and/or kV adjustment per patient size (includes targeted exams where dose is matched to clinical indication); or iterative reconstruction. COMPARISON: CT CHEST/ABD/PEL W 09/10/2024 9:02 PM FINDINGS: Bones/joints: No acute cervical fracture is seen. 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 The left lateral mass of C1 is fused to the left occipital condyle. C1-C2: Severe degenerative change between the right lateral masses of C1 and C2 with severe irregularity of the articular surfaces. Anterior subluxation of the lateral masses of C1 relative to C2 with widening of the space between the odontoid process and the anterior arch of C1. Mild narrowing of the central canal with the odontoid process abutting and impressing upon the lower brainstem and upper thecal sac, image 17 of series 2 of the brain exam and image 9 of series 13 of the cervical spine exam. C2-C3: Loss of disc height with endplate irregularity, anterior osteophyte formation, and posterior osteophytic ridging. Mild anterolisthesis of C2 on C3. Severe facet arthrosis on the right. No significant cervical stenosis. Mild bilateral foraminal narrowing. C3-C4: Complete loss of disc height with probable fusion across the disc space. Anterior osteophyte formation, posterior osteophytic ridging, and bilateral uncovertebral hypertrophy. Fusion across the right facet joint. Probably at least partial fusion across the left facet joint. Mild central canal narrowing. Moderate bilateral foraminal narrowing. C4-C5: Complete fusion across the disc space. Anterior and posterior osteophytic ridging with bilateral uncovertebral hypertrophy. Mild central canal narrowing with deformity of the thecal sac. Moderate bilateral foraminal narrowing. C5-C6: Complete loss of disc height with extensive endplate irregularity and probable fusion across the disc space. Anterior osteophyte formation. Posterior osteophytic ridging with bilateral uncovertebral hypertrophy. Mild central canal narrowing. Mild bilateral foraminal narrowing. C6-C7: Complete loss of disc height with endplate irregularity, anterior osteophyte formation, posterior osteophytic ridging, and bilateral uncovertebral hypertrophy. Mild central canal narrowing. Mild bilateral foraminal narrowing. C7-T1: Loss of disc height with endplate irregularity, anterior osteophyte formation, posterior osteophytic ridging, and mild bilateral uncovertebral hypertrophy. No significant cervical stenosis. Mild bilateral foraminal narrowing. T1-T2: Loss of disc height with endplate irregularity, anterior osteophyte formation, and mild posterior osteophytic ridging. No central canal narrowing. Moderate bilateral foraminal narrowing. Thyroid: Thyroid gland is partially excluded from view but appears heterogeneous and enlarged through its visualized portion, not well evaluated by today's exam but likely a thyroid goiter in a patient of this age. Lungs: There is emphysema at the lung apices. Vasculature: There is atherosclerotic calcification at the carotid bifurcations bilaterally. Soft tissues: Within the limits of the exam, no gross soft tissue fluid collection is seen in the neck. IMPRESSION: 1. No acute cervical fracture demonstrated. 2. 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 Direct comparison with prior imaging is recommended. If not previously worked up, this appearance could be better evaluated by MRI. 3. Left lateral mass of C1 fused to the occipital condyle. Severe degenerative change at the articulation between the right lateral masses of C1 and C2. Anterior subluxation of the lateral masses of C1 relative to C2 bilaterally with widening of the space between the anterior arch of C1 and the odontoid process of C2 with the odontoid process abutting and mildly deforming the thecal sac. 4. Degenerative changes and fusion, as detailed level by level above. Dictated and Authenticated by: Griffin Conklin MD. Ordering:GLENYS Hickey MD
== END 2024-11-18 23:03 | disposition home or self-care (01) ==
PROVIDERS: Emergency Provider Physician Assistant; PCP Nurse Practitioner Family
DX: S01.81XA Laceration without foreign body of other part of head, initial encounter (principal); W19.XXXA Unspecified fall, initial encounter
CPT/HCPCS: 90471; 90715; 99284; 70450; 72125